=== PATIENT | male | born 1965 | race Caucasian/White ===

== ENCOUNTER 2023-01-06 09:38 | Outpatient (OUT) | payer BC, SELFPAY ==
[2023-01-06 15:32] LABS: Estimated Average Glucose 137 mg/dL; Glycohemoglobin A1C 6.4 % (4.5-6.2)
== END 2023-01-06 09:39 | disposition home or self-care (01) ==
LOC: LAB 09:42
PROVIDERS: PCP Internal Medicine; Visit Provider Internal Medicine
DX: E11.65 Type 2 diabetes mellitus with hyperglycemia (principal)
CPT/HCPCS: 36415; 83036

== ENCOUNTER 2023-06-04 10:46 | Outpatient (OUT) | payer BC, SELFPAY ==
[2023-06-04 11:06] LABS: Basophils Absolute Auto 0.1 10^3/uL (0.0-0.1); Basophils Percent Auto 0.9 % (0.2-2.0); Eosinophils Absolute Auto 0.1 10^3/uL (0.0-0.7); Hematocrit 43.7 % (42.0-54.0); Hemoglobin 14.9 g/dL (14.0-18.0); Immature Granulocytes Abs Auto 0.04 10^3/uL (0.00-0.03); Immature Granulocytes Pct Auto 0.6 % (0.0-0.5); Lymphocytes Absolute Auto 1.5 10^3/uL (1.2-3.8); Lymphocytes Percent Auto 21.8 % (20.5-60.0); Mean Corpuscular HGB Conc 34.1 g/dL (29.9-35.2); Mean Corpuscular Hemoglobin 32.3 pg (25.9-34.0); Mean Corpuscular Volume 94.8 fL (80.0-94.0); Mean Platelet Volume 9.2 fL (9.5-13.5); Monocytes Absolute Auto 0.8 10^3/uL (0.3-0.8); Monocytes Percent Auto 11.1 % (1.7-12.0); Neutrophils Absolute Auto 4.4 10^3/uL (1.4-6.5); Neutrophils Percent Auto 63.6 % (43.0-75.0); Platelet Count 202 10^3/uL (150-450); Red Blood Count 4.61 10^6/uL (4.70-6.10); Red Cell Distribution Width 11.9 % (11.0-15.0); White Blood Count 6.9 10^3/uL (4.0-11.0)
[2023-06-04 11:55] LABS: Microalbumin Urine Random 2.1 mg/dL (<=30.0)
[2023-06-04 12:33] LABS: Alanine Aminotransferase 48 U/L (16-63); Albumin Globulin Ratio 1.1; Albumin Level 3.9 g/dL (3.4-5.0); Alkaline Phosphatase 46 U/L (46-116); Anion Gap 15.1; Aspartate Amino Transferase 18 U/L (15-37); BUN Creatinine Ratio 14.9; Bilirubin Total 0.3 mg/dL (0.2-1.0); Calcium 8.7 mg/dL (8.5-10.1); Carbon Dioxide 26.3 mmol/L (21.0-32.0); Chloride 107 mmol/L (98-107); Chol HDL Ratio 3.8; Cholesterol 155 mg/dL (<=200); Estimated GFR (African America >60 (>=60); Estimated GFR (Non-African Ame >60 (>=60); Globulin 3.4 g/dL; Glucose 146 mg/dL (74-106); HDL Cholesterol 41 mg/dL (40-60); Potassium 4.4 mmol/L (3.5-5.1); Sodium 144 mmol/L (136-145); Total Protein 7.3 g/dL (6.4-8.2); Triglycerides 204 mg/dL (<=150); VLDL CHOLESTEROL 40.8 mg/dL
[2023-06-04 12:56] LABS: Estimated Average Glucose 148 mg/dL; Glycohemoglobin A1C 6.8 % (4.5-6.2)
[2023-06-04 13:10] LABS: Prostate Specific Antigen Scrn 2.78 ng/mL (<=4.00)
== END 2023-06-04 10:47 | disposition home or self-care (01) ==
LOC: LAB 10:49
PROVIDERS: PCP Internal Medicine; Visit Provider Internal Medicine
DX: Z00.00 Encounter for general adult medical examination without abnormal findings (principal)
CPT/HCPCS: 36415; 80053; 80061; 82043; 83036; 85025; G0103

== ENCOUNTER 2023-11-07 09:29 | Outpatient (OUT) | payer BC, SELFPAY ==
--- OUTSIDE RECORDS SUMMARY | 2023-11-07 09:43 | XMS_ITS | CCD ---
Author Organization [facility] Care Team Providers Care Crown Attacher Name Role Phone DO Fabio Gross Primary Care Provider MD Agustin Murphy Admit Provider MD Agustin Murphy Attending Provider BUZZ Alvarez Other Provider Unavailable BUZZ Grimes Other Provider Unavailable BUZZ Amaya Other Provider Unavailable BUZZ Kwan Other Provider Unavailable BUZZ Fleming Other Provider Unavailable BUZZ Warner Other Provider Unavailable MD Jordan June Other Provider MD Ender Kumari Other Provider Dieudonnes, VAUDEVILLE ACTOR Jessica Pinto Other Provider DO Dawson Marinelli Other Provider MD Tan Martini Other Provider [phone] DO Abelino Jacques Other Provider MD Javon Magana Other Provider MD Mia Vital Other Provider Huey ANP-BC Lilly Other Provider MD Radha Nogueira Other Provider MD Nikolas Zurita Other Provider MD Ifeanyi Davidson Other Provider MD Heena Smiley Other Provider MD Rafa Murray Other Provider MD Laura Houser Other Provider MD Héctor Ro Other Provider CHRISTA Martin Other Provider MD Lloyd Ambrose Other Provider MD Ryan Medina Other Provider MD Amirah Salas Other Provider MD Yomi Schuler Other Provider DO Aniyah Edmonds Other Provider MD Napoleon Pratt Other Provider DO Rod Ruano Other Provider NICKI Potts Other Provider DO Todd Pelletier Other Provider MD Laila Vargas Other Provider BUZZ Patel Other Provider Unavailable Fabio Gross Primary Care Unavailable Dhara Alvarez Consulting Unavailable Agustin Murphy Attending Unavailable Agustin Murphy Admitting Unavailable Rebecca Grimes Consulting Unavailable Annmarie Amaya Consulting Unavailable Megan Kwan Consulting Unavailable Mikayla Fleming Consulting Unavailable Mary Warner Consulting Unavailable MassJordan gibson Consulting Unavailable Quoc, Ender K Consulting Unavailable Dials, Jessiac M Consulting Unavailable Dawson Marinelli Consulting Unavailable Vini, Tan Consulting Unavailable Abelino Jacques Consulting UnavailJavon Combs Consulting Unavailable Amanuel Mia Consulting Unavailable Lilly Arzate Consulting Unavailable Radha Nogueira Consulting Unavailable Nikolas Zurita Consulting Unavailable Ifeanyi Davidson Consulting Unavailable Heena Smiley Consulting Unavailable Rafa Murray Consulting Unavailable Laura Houser Consulting Unavailable Héctor Ro Consulting Unavailable Ester Martin Consulting Unavailable Lloyd Ambrose Consulting Unavailab ira Medina, Ryan Consulting Unavailable Amirah aSlas Consulting Unavailable Yomi Schuler Consulting Unavailable Aniyah Edmonds Consulting Unavailable Napoleon Pratt Consulting Unavailab ira Ruano, Rod Dumas Consulting Unavailable Obika, Bethany Consulting Unavailable Pelletier, Todd Parsons Consulting Unavailable Daromar, Laila Pinto Consulting Unavailable Patel, Ginna Consulting Unavailable Scottie, Fabio Primary Care Unavailable Jeffrey, Agustin Admitting Unavailable Jeffrey, Agustin Attending Unavailable Scottie, Fabio Unavailable [facility], DR LAUGHLIN Admitting Unavailable MISC, DR LAUGHLIN Attending Unavailable SCOTTIE, DR CAMARA Primary Care Unavailable MISC, DR LAUGHLIN Consulting Unavailable BALL, DR CAMARA Admitting Unavailable BALL, DR CAMARA Attending Unavailable BALL, DR CAMARA Primary Care Unavailable BALL, DR CAMARA Consulting Unavailable SCOTTIE, DR CAMARA Admitting Unavailable BALL, DR CAMARA Attending Unavailable BALL, DR CAMARA Primary Care Unavailable SCOTTIE, DR CAMARA Consulting Unavailable SCOTTIE, DR CAMARA Primary Care Unavailable CAMMY, DR RADHA Dumas Consulting Unavailable CAMMY, DR RADHA Dumas Admitting Unavailable CAMMY, DR RADHA Dumas Attending Unavailable MCGHEE, EDIL Consulting Unavailable GEOFFREY, ANAYELI Consulting Unavailable SCOTTIE, DR CAMARA Admitting Unavailable BALL, DR CAMARA Attending Unavailable SCOTTIE, DR CAMARA Primary Care Unavailable SCOTTIE, DR CAMARA Consulting Unavailable SCOTTIE, DR CAMARA Admitting Unavailable SCOTTIE, DR CAMARA Attending Unavailable BALL, DR CAMARA Primary Care Unavailable Medications Current Medications Medication Drug Class(es) Dates Sig (Normalized) Sig (Original) aspirin 81 mg chewable tablet (16 sources) Platelet Aggregation Inhibitor, Nonsteroidal Anti-inflammatory Drug Start: 01-18-2022 End: 01-23-2022 take 1 tablet by mouth once daily Aspirin (Children's Aspirin) 81 mg Tablet,Chewable Active 81 MG PO Daily January 23, 2022 12:00am take 1 capsule by mouth once saundra ly Aspirin 81 MG 1 capsule Orally Once a day Active atorvastatin 80 mg oral tablet (15 sources) HMG-CoA Reductase Inhibitor Start: 01-23-2022 take 80 mg by mouth once daily in the evening Atorvastatin Active 80 MG PO Every evening January 23, 2022 12:00am take 1 tablet by gini th every twenty-four hours Atorvastatin Calcium 40 MG 1 tablet Oral ly Once a day Active take 1 tablet by gini th once daily in the evening Atorvastatin Calcium 20 MG 1 tablet Oral ly Once a day, in evening for 30 day(s) Active clopidogrel 75 mg oral tablet (6 sources) P2Y12 Platelet Inhibitor Start: 01-18-2022 End: 01-23-2022 take 75 mg by mouth once daily Clopidogrel Active 75 MG PO Daily January 23, 2022 12:00am metFORMIN hydrochloride 500 mg oral tablet (10 sources) Biguanide Start: 07-12-2022 take 1 tablet by mouth every twenty-four hours metFORMIN HCl 500 MG 1 tablet with a meal Orally Once a day for 30 day(s) Jun, Active Completed/Discontinued Medications Medication Drug Class(es) Dates Sig (Normalized) Sig (Original) acetaminophen 325 mg / HYDROcodone bitartrate 5 mg oral tablet (3 sources) Opioid Agonist Start: 01-18-2022 End: 01-23-2022 take 1 tablet by mouth every six hours Hydrocodone-Aceta minophen Discontinued 1 TAB PO Q6H January 18, 2022 12:00am January 23, 2022 9:42am heparin sodium, porcine 5000 unt/ml injectable solution (3 sources) Unfractionated Heparin, Anti-coagulant Start: 01-18-2022 End: 01-23-2022 inject 5000 [IU] by subcutaneous injection every twelve hours Heparin (Porcine) Discontinued 5000 UNIT SUBCUT Q12H January 18, 2022 12:00am January 23, 2022 9:42am ibuprofen 800 mg oral tablet (3 sources) Nonsteroidal Anti-inflammatory Drug Start: 01-18-2022 End: 01-23-2022 take 800 mg by mouth every six hours Ibuprofen Discontinued 800 MG PO Q6H January 18, 2022 12:00am January 23, 2022 9:43am Problems Active Problems Problem Classification Problem Date Documented Date Episodic/Chronic Abdominal hernia (10 sources) Recurrent left inguinal hernia; Translations: [Unilateral inguinal hernia, without obstruction or gangrene, recurrent] Episodic Acute cerebrovascular disease (20 sources) Cerebellar stroke; Translations: [Cerebral infarction, unspecified] Onset: 01-17-2022 01-19-2022 Chronic Administrative/social admission (6 sources) Other reduced mobility; Translations: [Impaired mobility and activities of daily living] Onset: 01-18-2022 01-19-2022 Episodic Cardiac dysrhythmias (1 source) Cardiac arrhythmia, unspecified; Translations: [Cardiac arrhythmia, unspecified] Onset: 01-23-2022 Chronic Conditions associated with dizziness or vertigo (10 sources) Dizziness; Translations: [Dizziness and giddiness] Onset: 01-14-2022 01-19-2022 Episodic Diabetes mellitus with complications (19 sources) Type 2 diabetes mellitus; Translations: [Type 2 diabetes mellitus with hyperglycemia] Onset: 10-07-2022 Chronic Diabetes mellitus without complication (4 sources) Type 2 diabetes mellitus without complications; Translations: [TYPE 2 DM WITHOUT COMPLICATIONS] Onset: 07-24-2022 Chronic Diabetes mellitus without complication (10 sources) Impaired fasting glycemia; Translations: [Impaired fasting glucose] Episodic Disorders of lipid metabolism (20 sources) Hyperlipidemia; Translations: [Hyperlipidemia, unspecified] Onset: 01-18-2022 01-23-2022 Chronic 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 drugs; Translations: [ALF USE ORAL HYPOGLYCEMIC DX] Onset: 07-25-2022 Episodic Other and ill-defined cerebrovascular disease (10 sources) Cerebral atherosclerosis; Translations: [Cerebral atherosclerosis] Chronic Other and ill-defined cerebrovascular disease (3 sources) Cerebral atherosclerosis Chronic Other circulatory disease (8 sources) History of cerebrovascular accident; Translations: [Personal history of transient ischemic attack (TIA), and cerebral infarction without residual deficits] Episodic Other circulatory disease (3 sources) Personal history of transient ischemic attack (TIA), and cerebral infarction without residual deficits Episodic Other liver diseases (10 sources) Increased creatine kinase level; Translations: [Abnormal levels of other serum enzymes] Episodic Other nutritional; endocrine; and metabolic disorders (18 sources) Body mass index 30+ - obesity; Translations: [Obesity, unspecified] Chronic Other nutritional; endocrine; and metabolic disorders (8 sources) Obesity caused by energy imbalance; Translations: [Other obesity due to excess calories] Chronic Other screening for suspected conditions (not mental disorders or infectious disease) (5 sources) Encounter for screening for malignant neoplasm of prostate; Translations: [Encounter for screening for malignant neoplasm of colon] Onset: 07-15-2022 Episodic Residual codes; unclassified (10 sources) Obstructive sleep apnea syndrome; Translations: [Obstructive sleep apnea (adult) (pediatric)] Chronic Residual codes; unclassified (7 sources) Obstructive sleep apnea (adult) (pediatric); Translations: [OBSTRUCTIVE SLEEP APNEA] Onset: 02-11-2022 Chronic Residual codes; unclassified (13 sources) Patient encounter status; Translations: [Encounter for prophylactic measures, unspecified] 01-19-2022 Episodic Substance-related disorders (20 sources) Nicotine dependence; Translations: [Nicotine dependence, chewing tobacco, uncomplicated] Onset: 01-17-2022 Chronic Unclassified (1 source) CONTACT W/AND (SUSP) EXPOS COVID-19; Translations: [CONTACT W/AND (SUSP) EXPOS COVID-19] Onset: 01-17-2022 Past or Other Problems Problem Classification Problem Date Documented Da te Episodic/Chronic Nausea and vomiting (1 source) Nausea with vomiting, unspecified; Translations: [NAUSEA WITH VOMITING UNSPECIFIED] Onset: 01-17-2022 Episodic Other nervous system disorders (1 source) Slurred speech; Translations: [SLURRED SPEECH] Onset: 01-17-2022 Episodic Other nervous system disorders (1 source) Ataxia, unspecified; Translations: [ATAXIA UNSPECIFIED] Onset: 01-17-2022 Episodic Residual codes; unclassified (3 sources) Encounter for prophylactic measures, unspecified; Translations: [Unspecified prophylactic or treatment measure] Onset: 01-18-2022 01-23-2022 Episodic Residual codes; unclassified (1 source) Other specified health status; Translations: [Other specified health status] Onset: 01-18-2022 Episodic Results Test Name Value Interpretation Reference Range Facility Comprehensive Metabolic Pane [facility] 06-04-2023 Albumin [Mass/Vol] 3.271087 g/dL Normal 3.4-5.0 g/dL [facility] [employer] Other ALP [Catalytic activity/Vol] 46 U/L Normal 46-116 U/L [place] [employer] Other ALT [Catalytic activity/Vol] 48 U/L Normal 16-63 U/L [place] [employer] Other Anion gap [Moles/Vol] [facility].1 [facility] [employer] Other AST [Catalytic activity/Vol] 18 U/L Normal 15-37 U/L [facility] Other Bilirubin [Mass/Vol] 0.1324328 mg/dL Normal 0.2-1.0 mg /dL [facility] Other Calcium [Mass/Vol] 8.3593098 mg/dL Normal 8.5-10 .1 mg/dL [facility] Other Chloride [Moles/Vol] 107 mmol/L Normal 98-107 mmol/L [facility] [employer] Other CO2 [Moles/Vol] 26.51929033 mmol/L Normal 21.0-3 2.0 mmol/L [place] [employer] Other Creatinine [Mass/Vol] 1.46123733 mg/dL Normal 0. 70-1.30 mg/dL [place] [employer] Other Glucose [Mass/Vol] 146 mg/dL High 74-106 mg/dL [facility] Other Potassium [Moles/Vol] 4.85813721 mmol/L Normal 3 .5-5.1 mmol/L [place] [employer] Other Protein [Mass/Vol] 7.592657 g/dL Normal 6.4-8.2 g/dL [facility] [employer] Other Sodium [Moles/Vol] 144 mmol/L Normal 136-145 mmol/L [facility] Other Urea nitrogen [Mass/Vol] 15.7202642 mg/dL Normal 7.0-18.0 mg/dL [facility] Other Urea nitrogen/Creatinine [Mass ratio] 14.9 mg/mg [facility] Other Comprehensive Metabolic Panel 3.4 g/dL [facility] Other Comprehensive Metabolic Panel 1.1 [facility] Other Comprehensive Metabolic Panel see note [facility] Other Comprehensive Metabolic Panel >60 >=60 [facility] Other Lipid Panelon 06-04-2023 Cholesterol [Mass/Vol] 155 mg/dL <=200 mg/dL [facility] [employer] Other Cholesterol in HDL [Mass/Vol] 41 mg/dL Normal 40-60 mg/dL [facility] Other Triglyceride [Mass/Vol] 204 mg/dL High <=150 mg/dL [facility] Other Lipid Panel 74.0 mg/dL [facility] [employer] Other Lipid Panel 40.8 mg/dL [facility] [employer] Other Lipid Panel 3.8 [facility] [employer] Other PSA SCREENINGon 06-04-2023 PSA SCREENING 2.78 ng/mL <=4.00 ng/mL [facility] [employer] Other GLYCOHEMOGLOBIN A1Con 2022 ADA RECOMMENDATION SEE BELOW Normal [facility] Comment on above: Result Comment: ADA RECOMMENDED LIMIT 4.0 - 6.0 ADA THERAPEUTIC TARGET < 7.0 ACTION SUGGESTED > 7.0 Performed By: #### A 1C #### [facility] [address] [place] [address] Dr. Yasemin Austin Glucose [Mass/Vol] 128 mg/dL Normal [facility] Comment on above: Performed By: #### A 1C #### [facility] [address] [place] [address] Dr. Yasemin Austin HbA1c (Bld) [Mass fraction] 6.1 % Normal 4.5-6.2 [facility] Comment on above: Performed By: #### A 1C #### [facility] [address] [place] [address] Dr. Yasemin Austin CBC AUTO DIFFon 07-10-2022 BASO # 0.1 103/ul Normal 0.0-0.1 [facility] Comment on above: Performed By: #### C BC #### [facility] [address] [place] [address] Dr. Yasemin Austin Basophils/100 WBC (Bld) 0.7 % Normal 0.2-2.0 [facility] Comment on above: Performed By: #### C BC #### [facility] [address] [place] [address] Dr. Yasemin Austin EO # 0.1 103/ul Normal 0.0-0.7 [facility] Comment on above: Performed By: #### C BC #### [facility] [address] [place] [address] Dr. Yasemin Austin Eosinophils/100 WBC (Bld) 1.6 % Normal 0.9-7.0 [facility] Comment on above: Performed By: #### C BC #### [facility] [address] [place] [address] Dr. Yasemin Austin Erythrocyte distribution width (RBC) [Ratio] 11.9 % Normal 11.0-15.0 [facility] Comment on above: Performed By: #### C BC #### [facility] [address] [place] [address] Dr. Yasemin Austin Hematocrit (Bld) [Volume fraction] 44.2 % Normal 42.0-54.0 [facility] Comment on above: Performed By: #### C BC #### [facility] [address] [place] [address] Dr. Yasemin Austin Hemoglobin (Bld) [Mass/Vol] 15.3 g/dL Normal 14.0-18.0 [facility] Comment on above: Performed By: #### C BC #### [facility] [address] [place] [address] Dr. Yasemin Austin IG # 0.02 10e3/ul Normal 0.00-0.03 [facility] Comment on above: Performed By: #### C BC #### [facility] [address] [place] [address] Dr. Yasemin Austin IG % 0.3 % Normal 0.0-0.5 [facility] Comment on above: Performed By: #### C BC #### [facility] [address] [place] [address] Dr. Yasemin Austin LYMPH # 1.2 103/ul Normal 1.2-3.8 [facility] Comment on above: Performed By: #### C BC #### [facility] [address] [place] [address] Dr. Yasemin Austin Lymphocytes/100 WBC (Bld) 17.1 % Critically low 20.5-60.0 [facility] Comment on above: Performed By: #### C BC #### [facility] [address] [place] [address] Dr. Yasemin Austin MANUAL DIFF REQ NO Normal [facility] Comment on above: Performed By: #### C BC #### [facility] [address] [place] [address] Dr. Yasemin Austin MCH (RBC) [Entitic mass] 31.4 pg Normal 25.9-34.0 [facility] Comment on above: Performed By: #### C BC #### [facility] [address] [place] [address] Dr. Yasemin Austin MCHC (RBC) [Mass/Vol] 34.6 g/dL Normal 29.9-35.2 [facility] Comment on above: Performed By: #### C BC #### [facility] [address] [place] [address] Dr. Yasemin Austin MCV (RBC) [Entitic vol] 90.8 fL Normal 80.0-94.0 [facility] Comment on above: Performed By: #### C BC #### [facility] [address] [place] [address] Dr. Yasemin Austin MONO # 0.9 103/ul Critically high 0.3-0.[address] [facility] Comment on above: Performed By: #### C BC #### [facility] [address] [place] [address] Dr. Yasemin Austin Monocytes/100 WBC (Bld) 12.9 % Critically high 1.7-12.0 [facility] Comment on above: Performed By: #### C BC #### [facility] [address] [place] [address] Dr. Yasemin Austin NEUT # 4.7 103/ul Normal 1.4-6.5 [facility] Comment on above: Performed By: #### C BC #### [facility] [address] [place] [address] Dr. Yasemin Austin Neutrophils/100 WBC (Bld) 67.4 % Normal 43.0-75.0 [facility] Comment on above: Performed By: #### C BC #### [facility] [address] [place] [address] Dr. Yasemin Austin Platelet mean volume (Bld) [Entitic vol] 9.2 fL Critically low 9.5-13.5 [facility] Comment on above: Performed By: #### C BC #### [facility] [address] [place] [address] Dr. Yasemin Austin PLT 236 103/ul Normal 150-450 [facility] Comment on above: Performed By: #### C BC #### [facility] [address] [place] [address] Dr. Yasemin Austin RBC 4.87 106/ul Normal 4.70-6.10 [facility] Comment on above: Performed By: #### C BC #### [facility] [address] [place] [address] Dr. Yasemin Austin WBC 6.9 103/ul Normal 4.0-11.0 [facility] Comment on above: Performed By: #### C BC #### [facility] [address] [place] [address] Dr. Yasemin Austin GLYCOHEMOGLOBIN A1Con 2022 ADA RECOMMENDATION SEE BELOW Normal [facility] Comment on above: Result Comment: ADA RECOMMENDED LIMIT 4.0 - 6.0 ADA THERAPEUTIC TARGET < 7.0 ACTION SUGGESTED > 7.0 Performed By: #### A 1C #### [facility] [address] [place] [address] Dr. Yasemin Ausitn Glucose [Mass/Vol] 151 mg/dL Normal [facility] Comment on above: Performed By: #### A 1C #### [facility] [address] [place] [address] Dr. Yasemin Austin HbA1c (Bld) [Mass fraction] 6.9 % Critically high 4.5-6.2 [facility] Comment on above: Performed By: #### A 1C #### [facility] [address] [place] [address] Dr. Yasemin Austin LIPID PROFILEon 07-10-2022 CHOL-HDL RATIO NORM SEE BELOW Normal [facility] Comment on above: Result Comment: 3.3 - 4.4 LOW RISK 4.4 - 7.1 AVERAGE RISK 7.1 - 11.0 MODERATE RISK >11.0 HIGH RISK Performed By: #### L IPID, CMP #### [facility] [address] [address] [address] Yasemin Austin Cholesterol [Mass/Vol] 207 mg/dL Critically high <=200 [facility] Comment on above: Performed By: #### L IPID, CMP #### [facility] [address] [address] [address] Yasemin Austin Cholesterol in HDL [Mass/Vol] 38 mg/dL Critically low 40-60 [facility] Comment on above: Performed By: #### L IPID, CMP #### [facility] [address] [address] [address] Yasemin Austin Cholesterol in LDL [Mass/Vol] 137.0 mg/dL Normal [facility] Comment on above: Performed By: #### L IPID, CMP #### [facility] [address] [address] [address] Yasemin Austin Cholesterol.total/Chol esterol in HDL [Mass ratio] 5.4 {ratio} Normal [facility] Comment on above: Performed By: #### L IPID, CMP #### [facility] [address] [address] [address] Yasemin Austin HDL NORMAL > or = 60 mg/dl - LOW CARDIOVASCULAR RISK <40 mg/dl - HIGH CARDIOVASCULAR RISK Normal [facility] Comment on above: Performed By: #### L IPID, CMP #### [facility] [address] [address] [address] Yasemin Austin LDL CALC NORMAL SEE BELOW Normal [facility] Comment on above: Result Comment: <100 mg/dl OPTIMAL 100 - 129 mg/dl NEAR OR ABOVE OPTIMAL 130 - 159 mg/dl BORDERLINE HIGH 160 - 189 mg/dl HIGH >190 mg/dl VERY HIGH Performed By: #### L IPID, CMP #### [facility] [address] [address] [address] Yasemin Austin Triglyceride [Mass/Vol] 160 mg/dL Critically high <=150 [facility] Comment on above: Performed By: #### L IPID, CMP #### [facility] [address] [address] [address] Yasemin Austin VLDL CALC 32.0 mg/dL Normal [facility] Comment on above: Performed By: #### L IPID, CMP #### [facility] [address] [address] [address] Yasemin Austin PROF 14(COMP METB)on 023 Albumin [Mass/Vol] 3.8 g/dL Normal 3.4-5.0 [facility] Comment on above: Performed By: #### L IPID, CMP ####[facility] [id number] [address]Dr. Yasemin Austin Albumin/Globulin [Mass ratio] 1.2 {ratio} Normal [facility] Comment on above: Performed By: #### L IPID, CMP ####[facility] [address] [address]Dr. Yasemin Austin ALP [Catalytic activity/Vol] 36 U/L Critically low 46-116 [facility] Comment on above: Performed By: #### L IPID, CMP ####[facility] [id number] [address]Dr. Yasemin Austin ALT [Catalytic activity/Vol] 37 U/L Normal 16-63 [facility] Comment on above: Performed By: #### L IPID, CMP ####[facility] [address] [address]Dr. Yasemin Austin Anion gap [Moles/Vol] 12.7 mmol/L Normal [facility] Comment on above: Performed By: #### L IPID, CMP ####[facility] [id number] [address]Dr. Yasemin Austin AST [Catalytic activity/Vol] 25 U/L Normal 15-37 [facility] Comment on above: Performed By: #### L IPID, CMP ####[facility] [address] [address]Dr. Yasemin Austin Bilirubin [Mass/Vol] 0.7 mg/dL Normal 0.2-1.0 [facility] Comment on above: Performed By: #### L IPID, CMP ####[facility] [id number] [address]Dr. Yasemin Austin Calcium [Mass/Vol] 8.8 mg/dL Normal 8.5-10.1 [facility] Comment on above: Performed By: #### L IPID, CMP ####[facility] [id number] [address]Dr. Yasemin Austin Chloride [Moles/Vol] 105 mmol/L Normal 98-107 [facility] Comment on above: Performed By: #### L IPID, CMP ####[facility] [id number] [place], [place] [address]Dr. Yasemin Austin CO2 [Moles/Vol] 27.5 mmol/L Normal 21.0-32.0 [facility] Comment on above: Performed By: #### L IPID, CMP ####[facility] [id number] [place], [place] [address]Dr. Yasemin Austin Creatinine [Mass/Vol] 0.99 mg/dL Normal 0.70-1.30 [facility] Comment on above: Performed By: #### L IPID, CMP ####[facility] [id number] [place], [place] [address]Dr. Yasemin Austin EGFR-AF EQUATORIAL GUINEAN >60 Normal >=60 [facility] Comment on above: Performed By: #### L IPID, CMP ####[facility] Aby[address] [place], [place] [address]Dr. Yasemin Austin EGFR-NON AF EQUATORIAL GUINEAN >60 Normal >=60 [facility] Comment on above: Performed By: #### L IPID, CMP ####[facility] [address] [place], [place] [address]Dr. Yasemin Austin Globulin (S) [Mass/Vol] 3.3 g/dL Normal [facility] Comment on above: Performed By: #### L IPID, CMP ####[facility] Scphxnajax[address] [place], [place] [address]Dr. Yasemin Austin Glucose [Mass/Vol] 145 mg/dL Critically high 74-106 [facility] Comment on above: Performed By: #### L IPID, CMP ####[facility] [address] [place] [address]Dr. Yasemin Austin Potassium [Moles/Vol] 4.2 mmol/L Normal 3.5-5.1 [facility] Comment on above: Performed By: #### L IPID, CMP ####[facility] [address] [place] [address]Dr. Yasemin Austin Protein [Mass/Vol] 7.1 g/dL Normal 6.4-8.2 [facility] Comment on above: Performed By: #### L IPID, CMP ####[facility] [address] [place], [place] [address]Dr. Yasemin Austin Sodium [Moles/Vol] 141 mmol/L Normal 136-145 [facility] Comment on above: Performed By: #### L IPID, CMP ####[facility] [address] [place], [place] [address]Dr. Yasemin Austin Urea nitrogen [Mass/Vol] 15.0 mg/dL Normal 7.0-18.0 [facility] Comment on above: Performed By: #### L IPID, CMP ####[facility] [address] [place], [place] [address]Dr. Yasemin Austin Urea nitrogen/Creatinine [Mass ratio] 15.2 mg/mg Normal [facility] Comment on above: Performed By: #### L IPID, CMP ####[facility] [address] [place], [place] [address]Dr. Yasemin Austin LIPID PROFILEon 03-15-2022 CHOL-HDL RATIO NORM SEE BELOW Normal [facility] Comment on above: Result Comment: 3.3 - 4.4 LOW RISK 4.4 - 7.1 AVERAGE RISK 7.1 - 11.0 MODERATE RISK >11.0 HIGH RISK Performed By: #### L IPID ####[facility] [address] [place], [place] [address]Dr. Yasemin Austin Cholesterol [Mass/Vol] 169 mg/dL Normal <=200 [facility] Comment on above: Performed By: #### L IPID ####[facility] [address] [place] [id number]. Yasemin Austin Cholesterol in HDL [Mass/Vol] 38 mg/dL Critically low 40-60 [facility] Comment on above: Performed By: #### L IPID ####[facility] [address] [place] [id number]. Yasemin Austin Cholesterol in LDL [Mass/Vol] 101.0 mg/dL Normal [facility] Comment on above: Performed By: #### L IPID ####[facility] [address] [place] [id number]. Yasemin Austin Cholesterol.total/Chol esterol in HDL [Mass ratio] 4.4 {ratio} Normal [facility] Comment on above: Performed By: #### L IPID ####[facility] [address] [place] [id number]. Yasemin Austin HDL NORMAL > or = 60 mg/dl - LOW CARDIOVASCULAR RISK <40 mg/dl - HIGH CARDIOVASCULAR RISK Normal [facility] Comment on above: Performed By: #### L IPID ####[facility] [address] [place] [id number]. Yasemin Austin LDL CALC NORMAL SEE BELOW Normal [facility] Comment on above: Result Comment: <100 mg/dl OPTIMAL 100 - 129 mg/dl NEAR OR ABOVE OPTIMAL 130 - 159 mg/dl BORDERLINE HIGH 160 - 189 mg/dl HIGH >190 mg/dl VERY HIGH Performed By: #### L IPID ####[facility] [address] [place] [id number]. Yasemin Austin Triglyceride [Mass/Vol] 150 mg/dL Normal <=150 [facility] Comment on above: Performed By: #### L IPID ####[facility] [address] [place] [id number]. Yasemin Austin VLDL CALC 30.0 mg/dL Normal [facility] Comment on above: Performed By: #### L IPID ####[facility] [address] [place] [id number]. Yasemin Austin CA cardiac event monitoron 0 03-12-2022 CA cardiac event monitor [facility] [place] [address] [place] [address] Cardiac Event Monitor Signed Patient: Jack Gonzales MR#: [id number] 2 : 1965 Acct:[id number] Age/Sex: 56 / M ADM Date: 01/23/22 Loc: Room: Type: [facility] Attending Dr: Agustin Murphy MD Copies to: MD Peter Avalos MD Ordering Provider: Agustin Murphy MD Date of Service: 01/23/22 CA/CA cardiac event monitor: cva, arrhythmia ORDERING: Agustin Murphy MD CLINICAL INFORMATION: Cerebrovascular accident, arrhythmia. The patient underwent 30-day event monitoring. There was a total of 4 recorded events. One was a test transmission demonstrating sinus rhythm, rate 75 beats per minute. There were 3 other patient-triggered events. No symptoms were reported. Review of those recorded events demonstrates sinus rhythm with heart rates ranging between 70 and 75 beats per minute. There was no observed ectopy, nor was there any atrial fibrillation, SVT, or atrial flutter. CONCLUSION: This study is basically normal. It demonstrates sinus rhythm with heart rates between 70 and 75 beats per minute. There was no ectopy or arrhythmia. Specifically, there was no observed atrial fibrillation or atrial flutter. Transcribed By: MICHAEL 03/13/22 0915 Dictated By: ePter Vega MD 03/12/22 1729 Signed By: 03/18/22 1412 Normal [facility] Cholesterol [Mass/volume] in Serum or PlasmaOrdered By: Lilly Arzate on 01-20-2022 Cholesterol [Mass/Vol] 206 mg/dL 140-200 [facility] Comment on above: Chol less than 200 m g/dl low risk Chol 201-239 mg/dl borderline risk Chol 240 mg/dl and greater high risk Cholesterol in LDL Calc [Mas s/Vol]Ordered By: Lilly Arzate on 01-20-2022 Cholesterol in LDL [Mass/Vol] 142 mg/dL 0-100 [facility] Comment on above: LDL ATP III CLASSIFI CATION LDL less than 100 mg/dL Optimal LDL 100-129 mg/dL Near or above optimal LDL 130-159 mg/dL Borderline high LDL 160-189 mg/dL High LDL greater than 189 mg/dL Very high Cholesterol in VLDL Calc [Ma ss/Vol]Ordered By: Lilly Arzate on 01-20-2022 Cholesterol in VLDL [Mass/Vol] 31 mg/dL [facility] Lipid Panelon 01-20-2022 Cholesterol [Mass/Vol] 206 mg/dL High 140-200 [facility] Comment on above: Order Comment: TRACEY Clifford Result Comment: Chol less than 200 mg/dl low risk Chol 201-239 mg/dl borderline risk Chol 240 mg/dl and greater high risk Performed By: #### L IPID #### [facility] [address] [place] [address] [place] Cholesterol in HDL [Mass/Vol] 32 mg/dL Normal 29-71 [facility] Comment on above: Order Comment: TRACEY Clifford Result Comment: HDL CHOL ATP-III CLASSIFICATION Cardiovascular Risk HDL > or equal to 60 mg/dL LOW HDL < 40 mg/dL HIGH Performed By: #### L IPID #### [facility] [address] [place] [id number] [place] Cholesterol.total/Chol esterol in HDL [Mass ratio] 6.4 {ratio} Normal <5.0 [facility] Comment on above: Order Comment: TRACEY Clifford Result Comment: PERF ORMED BY: [place] [address] PATHOLOGIST REGISTERED MAIL CLERK EMIR DOBSON M.D. Performed By: #### L IPID #### [facility] [address] [place] [id number] [place] LDL Cholesterol,Calculated 142 mg/dL High 0-100 [facility] Comment on above: Order Comment: TRACEY Clifford Result Comment: LDL ATP III CLASSIFICATION LDL less than 100 mg/dL Optimal LDL 100-129 mg/dL Near or above optimal LDL 130-159 mg/dL Borderline high LDL 160-189 mg/dL High LDL greater than 189 mg/dL Very high Performed By: #### L IPID #### [facility] [address] [place] [address] [place] Triglyceride w/Reflex 158 mg/dL High 35-149 [facility] Comment on above: Order Comment: TRACEY Clifford Result Comment: TRIG ATP III CLASSIFICATION TRIG less than 150 mg/dL Normal TRIG 150-199 mg/dL Borderline high TRIG 200-500 mg/dL High TRIG greater than 500 mg/dL Very high Standard traceable to the Center for Disease Conrtrol and Prevention (CDC) test method. Performed By: #### L IPID #### [facility] [address] VLDL CHOLESTEROL 31 mg/dL Normal [facility] Comment on above: Order Comment: TRACEY Clifford Performed By: #### L IPID #### [facility] [address] Serum or plasma high density lipoprotein (HDL) cholesterol measurementOrdered By: Lilly Arzate on 01-20-2022 Cholesterol in HDL [Mass/Vol] 32 mg/dL 29-71 [facility] Comment on above: HDL CHOL ATP-III CLA SSIFICATION Cardiovascular Risk HDL > or equal to 60 mg/dL LOW HDL < 40 mg/dL HIGH Serum or plasma total choles terol/high density lipoprotein (HDL) cholesterol mass ratOrdered By: Lilly Arzate on 01-20-2022 Cholesterol.total/Chol esterol in HDL [Mass ratio] 6.4 {ratio} <5.0 [facility] Triglyceride [Mass/volume] i n Serum or PlasmaOrdered By: Lilly Arzate on 01-20-2022 Triglyceride [Mass/Vol] 158 mg/dL 35-149 [facility] Comment on above: TRIG ATP III CLASSIF ICATION TRIG less than 150 mg/dL Normal TRIG 150-199 mg/dL Borderline high TRIG 200-500 mg/dL High TRIG greater than 500 mg/dL Very high Standard traceable to the Center for Disease Conrtrol and Prevention (CDC) test method. Albumin [Mass/volume] in Ser um or PlasmaOrdered By: Agustin Murphy on 01-19-2022 Albumin [Mass/Vol] 3.4 g/dL 3.2-5.5 [facility] Basophils Auto (Bld) [#/Vol] Ordered By: Agustin Murphy on 01-19-2022 Basophils (Bld) [#/Vol] 0.0 10*3/uL 0.0-0.2 [facility] Basophils/100 WBC Auto (Bld) Ordered By: Agustin Murphy on 01-19-2022 Basophils/100 WBC (Bld) 0.7 % . [facility] Blood hemoglobin measurement (mass/volume)Ordered By: Agustin Jeffrey on 01-19-2022 Hemoglobin (Bld) [Mass/Vol] 15.3 g/dL 13.0-17.0 [facility] Blood leukocytes automated c ount (number/volume)Ordered By: Agustin Murphy on 01-19-2022 WBC (Bld) [#/Vol] 6.6 10*3/uL 4.5-11.0 [facility] Complete Blood Count Auto Di ffon 01-19-2022 Basophils (Bld) [#/Vol] 0.0 10*3/uL Normal 0.0-0.2 [facility] Comment on above: Result Comment: PERF ORMED BY: [place] [address] PATHOLOGIST REGISTERED MAIL CLERK EMIR DOBSON M.D. Performed By: #### C BC, CMP, PAB #### [facility] [address] Basophils/100 WBC (Bld) 0.7 % Normal . [facility] Comment on above: Performed By: #### C BC, CMP, PAB #### [facility] [address] [place] [address] [place] Eosinophils (Bld) [#/Vol] 0.2 10*3/uL Normal 0.0-0.45 [facility] Comment on above: Performed By: #### C BC, CMP, PAB #### [facility] [address] [place] [address] [place] Eosinophils/100 WBC (Bld) 2.5 % Normal . [facility] Comment on above: Performed By: #### C BC, CMP, PAB #### [facility] [address] [place] [address] [place] Erythrocyte distribution width (RBC) [Ratio] 13.1 % Normal 12.0-14.8 [facility] Comment on above: Performed By: #### C BC, CMP, PAB #### [facility] [address] Hematocrit (Bld) [Volume fraction] 43.8 % Normal 38.8-50.0 [facility] Comment on above: Performed By: #### C BC, CMP, PAB #### [facility] [address] Hemoglobin (Bld) [Mass/Vol] 15.3 g/dL Normal 13.0-17.0 [facility] Comment on above: Performed By: #### C BC, CMP, PAB #### [address] Lymphocytes (Bld) [#/Vol] 1.5 10*3/uL Normal 1.00-4.8 [facility] Comment on above: Performed By: #### C BC, CMP, PAB #### [address] Lymphocytes/100 WBC (Bld) 22.1 % Normal . [facility] Comment on above: Performed By: #### C BC, CMP, PAB #### [address] MCH (RBC) [Entitic mass] 32.3 pg Normal 27.5-35.2 [facility] Comment on above: Performed By: #### C BC, CMP, PAB #### [address] MCV (RBC) [Entitic vol] 92.3 fL Normal 83.5-101 [facility] Comment on above: Performed By: #### C BC, CMP, PAB #### [address] Mean Corpuscular HGB Conc 35.0 g/dL Normal 32.5-35.6 [facility] Comment on above: Performed By: #### C BC, CMP, PAB #### [address] Monocytes (Bld) [#/Vol] 0.8 10*3/uL Normal 0.0-0.8 [facility] Comment on above: Performed By: #### C BC, CMP, PAB #### [facility] [address] [place] [address] [place] Monocytes/100 WBC (Bld) 12.4 % Normal . [facility] Comment on above: Performed By: #### C BC, CMP, PAB #### [facility] [address] [place] [address] [place] Neutrophils (Bld) [#/Vol] 4.1 10*3/uL Normal 1.8-7.7 [facility] Comment on above: Performed By: #### C BC, CMP, PAB #### [facility] [address] [place] [address] [place] Neutrophils/100 WBC (Bld) 62.3 % Normal . [facility] Comment on above: Performed By: #### C BC, CMP, PAB #### [facility] [address] [place] [address] [place] Nucleated RBC/100 WBC (Bld) [Ratio] 0.1 % Normal 0-0.5 [facility] Comment on above: Performed By: #### C BC, CMP, PAB #### [facility] [address] [place] [address] [place] Platelet mean volume (Bld) [Entitic vol] 8.0 fL Normal 6.6-10.1 [facility] Comment on above: Performed By: #### C BC, CMP, PAB #### [facility] [address] [place] [id number] [place] Platelets (Bld) [#/Vol] 261 10*3/uL Normal 150-450 [facility] Comment on above: Performed By: #### C BC, CMP, PAB #### [facility] [address] [place] [id number] [place] RBC (Bld) [#/Vol] 4.74 10*6/uL Normal 3.90-5.60 [facility] Comment on above: Performed By: #### C BC, CMP, PAB #### [facility] [address] [place] [address] [place] WBC (Bld) [#/Vol] 6.6 10*3/uL Normal 4.5-11.0 [facility] Comment on above: Performed By: #### C BC, CMP, PAB #### [address] Comprehensive Metabolic Pane [place] 01-19-2022 Albumin [Mass/Vol] 3.4 g/dL Normal 3.2-5.5 [facility] Comment on above: Performed By: #### C BC, CMP, PAB #### [address] Albumin/Globulin [Mass ratio] 1.1 {ratio} Normal [facility] Comment on above: Performed By: #### C BC CMP, PAB #### [address] ALP [Catalytic activity/Vol] 31 U/L Low 32-92 [facility] Comment on above: Performed By: #### C BC CMP, PAB #### [address] ALT [Catalytic activity/Vol] 44 U/L Normal 10-60 [facility] Comment on above: Performed By: #### C BC CMP, PAB #### [address] AST [Catalytic activity/Vol] 34 U/L Normal 10-42 [facility] Comment on above: Performed By: #### C BC CMP, PAB #### [address] Bilirubin [Mass/Vol] 0.7 mg/dL Normal 0.3-1.2 [facility] Comment on above: Performed By: #### C BC, CMP, PAB #### [address] Calcium [Mass/Vol] 8.9 mg/dL Normal 8.2-10.2 [facility] Comment on above: Performed By: #### C BC, CMP, PAB #### [place] [address] [place] Chloride [Moles/Vol] 104 mmol/L Normal 95-114 [facility] Comment on above: Performed By: #### C MARIAJOSE ALFORD, PAB #### [facility] [address] CO2 [Moles/Vol] 25.4 mmol/L Normal 22.0-30.0 [facility] Comment on above: Performed By: #### C MARIAJOSE ALFORD, PAB #### [facility] [address] Creatinine [Mass/Vol] 1.13 mg/dL Normal 0.64-1.27 [facility] Comment on above: Performed By: #### C MARIAJOSE ALFORD, PAB #### [address] Creatinine Clr Calc Pharmacy 88.22 [facility] Comment on above: Performed By: #### C MARIAJOSE ALFORD, PAB #### [address] Estimated GFR ( Elvia > 60 [facility] Comment on above: Result Comment: GFR estimated reference range: According to KDOQI guidelines, <60 ml/min/1.73m2 is sufficient to diagnose a patient with chronic kidney disease. Performed By: #### C MARIAJOSE ALFORD, PAB #### [address] Estimated GFR (Non- Am > 60 [facility] Comment on above: Performed By: #### C MARIAJOSE ALFORD, PAB #### [address] Globulin (S) [Mass/Vol] 3.0 g/dL [facility] Comment on above: Performed By: #### C MARIAJOSE ALFORD, PAB #### [address] Glucose [Mass/Vol] 121 mg/dL High 70-100 [facility] Comment on above: Result Comment: [place] om Glucose Reference Range is dependent on time and content of last meal. Glucose of more than 200 mg/dL in a nonstressed, ambulatory subject supports the diagnosis of Diabetes Mellitus. ADA recommended reference range Performed By: #### C BC, CMP, PAB #### [facility] [address] [place] [id number] [place] Potassium [Moles/Vol] 4.6 mmol/L Normal 3.5-5.1 [facility] Comment on above: Performed By: #### C BC, CMP, PAB #### [facility] [address] [place] [address] [place] Protein [Mass/Vol] 6.4 g/dL Normal 6.1-7.9 [facility] Comment on above: Performed By: #### C BC, CMP, PAB #### [facility] [address] [place] [id number] [place] Sodium [Moles/Vol] 138 mmol/L Normal 136-146 [facility] Comment on above: Performed By: #### C BC, CMP, PAB #### [facility] [address] [place] [id number] [place] Urea nitrogen [Mass/Vol] 16 mg/dL Normal 9-23 [facility] Comment on above: Performed By: #### C BC, CMP, PAB #### [facility] [address] [place] [id number] [place] Creatinine and Glomerular fi ltration rate.predicted panel (S/P/Bld)Ordered By: Agustin Murphy on 01-19-2022 Creatinine [Mass/Vol] 1.13 mg/dL 0.64-1.27 [facility] Eosinophils Auto (Bld) [#/Vo l]Ordered By: Agustin Murphy on 01-19-2022 Eosinophils (Bld) [#/Vol] 0.2 10*3/uL 0.0-0.45 [facility] Eosinophils/100 WBC Auto (Bl d)Ordered By: Agustin Murphy on 01-19-2022 Eosinophils/100 WBC (Bld) 2.5 % . [facility] Erythrocyte distribution wid th Auto (RBC) [Ratio]Ordered By: Agustin Murphy on 01-19-2022 Erythrocyte distribution width (RBC) [Ratio] 13.1 % 12.0-14.8 [facility] Estimated glomerular filtrat ion rate (GFR) non- AmericanOrdered By: Agustin Murphy on 01-19-2022 GFR/1.73 sq M.predicted among non-blacks MDRD (S/P/Bld) [Vol rate/Area] > 60 mL/Min [facility] Globulin Calc (S) [Mass/Vol] Ordered By: Agustin Murphy on 01-19-2022 Globulin (S) [Mass/Vol] 3.0 g/dL [facility] Hematocrit Auto (Bld) [Volum e fraction]Ordered By: Agustin Murphy on 01-19-2022 Hematocrit (Bld) [Volume fraction] 43.8 % 38.8-50.0 [facility] - Hematology and Cell countsOrdered By: Agustin Murphy on 01-19-2022 Nucleated RBC/100 WBC (Bld) [Ratio] 0.1 % 0-0.5 [facility] Lymphocytes Auto (Bld) [#/Vo l]Ordered By: Agustin Murphy on 01-19-2022 Lymphocytes (Bld) [#/Vol] 1.5 10*3/uL 1.00-4.8 [facility] Lymphocytes/100 WBC Auto (Bl d)Ordered By: Agustin Mruphy on 01-19-2022 Lymphocytes/100 WBC (Bld) 22.1 % . [facility] MCH Auto (RBC) [Entitic mass ]Ordered By: Agustin Murphy on 01-19-2022 MCH (RBC) [Entitic mass] 32.3 pg 27.5-35.2 [facility] MCHC Auto (RBC) [Mass/Vol]Or dered By: Agustin Murphy on 01-19-2022 MCHC (RBC) [Mass/Vol] 35.0 g/dL 32.5-35.6 [facility] MCV Auto (RBC) [Entitic vol] Ordered By: Agustin Murphy on 01-19-2022 MCV (RBC) [Entitic vol] 92.3 fL 83.5-101 [facility] Monocytes Auto (Bld) [#/Vol] Ordered By: Agustin Murphy on 01-19-2022 Monocytes (Bld) [#/Vol] 0.8 10*3/uL 0.0-0.8 [facility] Monocytes/100 WBC Auto (Bld) Ordered By: Agustin Murphy on 01-19-2022 Monocytes/100 WBC (Bld) 12.4 % . [facility] Neutrophils Auto (Bld) [#/Vo l]Ordered By: Agustin Murphy on 01-19-2022 Neutrophils (Bld) [#/Vol] 4.1 10*3/uL 1.8-7.7 [facility] Neutrophils/100 WBC Auto (Bl d)Ordered By: Agustin Murphy on 01-19-2022 Neutrophils/100 WBC (Bld) 62.3 % . [facility] No Panel InformationOrdered By: Agustin Murphy on 01-19-2022 Estimated GFR () > 60 mL/Min [facility] Comment on above: GFR estimated refere nce range: According to KDOQI guidelines, <60 ml/min/1.73m2 is sufficient to diagnose a patient with chronic kidney disease. Pharmacy Creatinine Clearance (Chem 88.22 [facility] Platelet mean volume Auto (B ld) [Entitic vol]Ordered By: Agustin Murphy on 01-19-2022 Platelet mean volume (Bld) [Entitic vol] 8.0 fL 6.6-10.1 [facility] Platelets Auto (Bld) [#/Vol] Ordered By: Agustin Murphy on 01-19-2022 Platelets (Bld) [#/Vol] 261 10*3/uL 150-450 [facility] Prealbuminon 01-19-2022 Prealbumin [Mass/Vol] 31.8 mg/dL Normal 18.0-38.0 [facility] Comment on above: Result Comment: PERF ORMED BY: [place] [address] PATHOLOGIST REGISTERED MAIL CLERK EMIR DOBSON M.D. Performed By: #### C BC, CMP, PAB #### [address] Protein [Mass/volume] in Ser um or PlasmaOrdered By: Agustin Murphy on 01-19-2022 Protein [Mass/Vol] 6.4 g/dL 6.1-7.9 [facility] RBC Auto (Bld) [#/Vol]Ordere d By: Agustin Murphy on 01-19-2022 RBC (Bld) [#/Vol] 4.74 10*6/uL 3.90-5.60 [facility] Serum or plasma alanine be otransferase measurement without P-5'-P (enzymatic activiOrdered By: Agustin Murphy on 01-19-2022 ALT No additional P-5'-P [Catalytic activity/Vol] 44 U/L 10-60 [facility] Serum or plasma albumin/glob ulin mass ratioOrdered By: Agustin Murphy on 01-19-2022 Albumin/Globulin [Mass ratio] 1.1 {ratio} [facility] Serum or plasma alkaline indira sphatase measurement (enzymatic activity/volume)Ordered By: Agustin Murphy on 01-19-2022 ALP [Catalytic activity/Vol] 31 U/L 32-92 [facility] Serum or plasma aspartate am inotransferase measurement (enzymatic activity/volume)Ordered By: Agustin Muprhy on 01-19-2022 AST [Catalytic activity/Vol] 34 U/L 10-42 [facility] Serum or plasma calcium reyna urement (mass/volume)Ordered By: Agustin Murphy on 01-19-2022 Calcium [Mass/Vol] 8.9 mg/dL 8.2-10.2 [facility] Serum or plasma chloride francisco surement (moles/volume)Ordered By: Agustin Murphy on 01-19-2022 Chloride [Moles/Vol] 104 mmol/L 95-114 [facility] Serum or plasma glucose reyna urement (mass/volume)Ordered By: Agustin Murphy on 01-19-2022 Glucose [Mass/Vol] 121 mg/dL 70-100 [facility] Comment on above: ADA recommended refe rence range Random Glucose Reference Range is dependent on time and content of last meal. Glucose of more than 200 mg/dL in a nonstressed, ambulatory subject supports the diagnosis of Diabetes Mellitus. Serum or plasma potassium me asurement (moles/volume)Ordered By: Agustin Murphy on 01-19-2022 Potassium [Moles/Vol] 4.6 mmol/L 3.5-5.1 [facility] Serum or plasma prealbumin m easurement (mass/volume)Ordered By: Agustin Murphy on 01-19-2022 Prealbumin [Mass/Vol] 31.8 mg/dL 18.0-38.0 [facility] Serum or plasma sodium measu rement (moles/volume)Ordered By: Agustin Murphy on 01-19-2022 Sodium [Moles/Vol] 138 mmol/L 136-146 [facility] Serum or plasma total biliru bin measurement (mass/volume)Ordered By: Agustin Murphy on 01-19-2022 Bilirubin [Mass/Vol] 0.7 mg/dL 0.3-1.2 [facility] Serum or plasma total carbon dioxide measurement (moles/volume)Ordered By: Agustin Murphy on 01-19-2022 CO2 [Moles/Vol] 25.4 mmol/L 22.0-30.0 [facility] Serum or plasma urea nitroge n measurement (mass/volume)Ordered By: Agustin Murphy on 01-19-2022 Urea nitrogen [Mass/Vol] 16 mg/dL 9- [facility] CTA NECK WO W CONon 01-16-20 CTA NECK WO W CON EXAMINATION: CTA HEAD WO W CON, CTA NECK WO W CON CLINICAL INDICATION: Stroke. TECHNIQUE: CT angiography of the head and neck was then performed following intravenous administration of 75 cc of Omnipaque 350 injected at a rate of 5 cc/sec. Multiple MIP images in axial, coronal, and sagittal planes and 3D surfaced rendered images were then acquired using the source data. Automated dose lowering techniques and/or adjustment according to patient size were utilized for this examination. COMPARISON: CT head without contrast 01/14/2022. FINDINGS: CTA: CTA Head: No evidence for flow-limiting stenosis along the intracranial portions of the bilateral ICAs. The bilateral M1 segments are patent. The bilateral A1 segments are patent. 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 The right vertebral artery is dominant and appears patent. The origin of the right superior cerebellar artery is patent. There is faint opacification of the right superior cerebellar artery along the proximal to distal aspect. The bilateral P1 segments are patent. There is no evidence for large vessel occlusion. CT angiogram neck: A 3 vessel arch is shown. No significant flow-limiting stenosis is visualized along the origins of the great vessels. The left common carotid artery is patent without flow-limiting stenosis. No evidence for flow-limiting stenosis along the proximal left ICA. Along the distal left ICA there is a intimal flap noted with the residual lumen measuring approximately 3 mm, the intimal flap measures approximately 6 mm in craniocaudal dimensions and is seen at the level of the odontoid process. The right common, internal and external carotid arteries are patent without flow-limiting stenosis. The origin of the lateral vertebral arteries are patent. No evidence for pseudoaneurysm or dissection. The visualized lung salcedo appear unremarkable. IMPRESSION: 1. 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 2. The origin of the right superior cerebellar artery is patent, there is faint opacification of the vessel along the proximal to distal aspect. 3. 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 4. No evidence for flow-limiting stenosis within the vessels of the neck. Assessment of stenosis of the internal carotid arteries is based on NASCET criteria. Electronically authenticated by: ANAYELI HALE Date: 2022-01-15 00:55 Normal [facility] CBC AUTO DIFFon 01-14-2022 BASO # 0.0 103/ul Normal 0.0-0.1 [facility] Comment on above: Performed By: #### C BC #### [facility] [address] [place] [address] Dr. Yasemin Austin Basophils/100 WBC (Bld) 0.2 % Normal 0.2-2.0 [facility] Comment on above: Performed By: #### C BC #### [facility] [address] [address] [address] Yasemin Austin EO # 0.0 103/ul Normal 0.0-0.7 [facility] Comment on above: Performed By: #### C BC #### [facility] [address] [place] [address] Dr. Yasemin Austin Eosinophils/100 WBC (Bld) 0.2 % Critically low 0.9-7.0 [facility] Comment on above: Performed By: #### C BC #### [facility] [address] [place] [address] Dr. Yasemin Austin Erythrocyte distribution width (RBC) [Ratio] 12.2 % Normal 11.0-15.0 [facility] Comment on above: Performed By: #### C BC #### [facility] [address] [place] [address] Dr. Yasemin Austin Hematocrit (Bld) [Volume fraction] 41.4 % Critically low 42.0-54.0 [facility] Comment on above: Performed By: #### C BC #### [facility] [address] [place] [address] Dr. Yasemin Austin Hemoglobin (Bld) [Mass/Vol] 14.5 g/dL Normal 14.0-18.0 [facility] Comment on above: Performed By: #### C BC #### [facility] [address] [place] [address] Dr. Yasemin Austin IG # 0.07 10e3/ul Critically high 0.00-0.03 [facility] Comment on above: Performed By: #### C BC #### [facility] [address] [place] [address] Dr. Yasemin Austin IG % 0.5 % Normal 0.0-0.5 [facility] Comment on above: Performed By: #### C BC #### [facility] [address] [place] [address] Dr. Yasemin Austin LYMPH # 0.8 103/ul Critically low 1.2-3.8 [facility] Comment on above: Performed By: #### C BC #### [facility] [address] [place] [address] Dr. Yasemin Austin Lymphocytes/100 WBC (Bld) 5.9 % Critically low 20.5-60.0 [facility] Comment on above: Performed By: #### C BC #### [facility] [address] [place] [address] Dr. Yasemin Austin MANUAL DIFF REQ NO Normal [facility] Comment on above: Performed By: #### C BC #### [facility] [address] [place] [address] Dr. Yasemin Austin MCH (RBC) [Entitic mass] 31.7 pg Normal 25.9-34.0 [facility] Comment on above: Performed By: #### C BC #### [facility] [address] [address] [address] Yasemin Austin MCHC (RBC) [Mass/Vol] 35.0 g/dL Normal 29.9-35.2 [facility] Comment on above: Performed By: #### C BC #### [facility] [address] [place] [address] Dr. Yasemin Austin MCV (RBC) [Entitic vol] 90.4 fL Normal 80.0-94.0 [facility] Comment on above: Performed By: #### C BC #### [facility] [address] [place] [address] Dr. Yasemin Austin MONO # 0.9 103/ul Critically high 0.3-0.[address] [facility] Comment on above: Performed By: #### C BC #### [facility] [address] [place] [address] Dr. Yasemin Austin Monocytes/100 WBC (Bld) 6.4 % Normal 1.7-12.0 [facility] Comment on above: Performed By: #### C BC #### [facility] [address] [place] [address] Dr. Yasemin Austin NEUT # 11.6 103/ul Critically high 1.4-6.5 [facility] Comment on above: Performed By: #### C BC #### [facility] [address] [place] [address] Dr. Yasemin Austin Neutrophils/100 WBC (Bld) 86.8 % Critically high 43.0-75.0 [facility] Comment on above: Performed By: #### C BC #### [facility] [address] [place] [address] Dr. Yasemin Austin Platelet mean volume (Bld) [Entitic vol] 9.9 fL Normal 9.5-13.5 [facility] Comment on above: Performed By: #### C BC #### [facility] [address] [place], [place] [address] Dr. Yasemin Austin PLT 279 103/ul Normal 150-450 [facility] Comment on above: Performed By: #### C BC #### [facility] [address] [place], [place] [address] Dr. Yasemin Austin RBC 4.58 106/ul Critically low 4.70-6.[address] [facility] Comment on above: Performed By: #### C BC #### [facility] [address] [place], [place] [address] Dr. Yasemin Austin WBC 13.3 103/ul Critically high 4.0-11.0 [facility] Comment on above: Performed By: #### C BC #### [facility] [address] [place], [place] [address] STROKE HEAD WOon 01-15-20 CT STROKE HEAD WO EXAMINATION: CT STROKE HEAD WO HISTORY: Slurred speech, right-sided weakness TECHNIQUE: Axial CT scans through the head were obtained without IV contrast administration. Dose reduction techniques were achieved by using: automated exposure control and/or adjustment of mA and /or kV according to patient size and/or use of iterative reconstruction technique. COMPARISON: None. FINDINGS: A moderate acute nonhemorrhagic infarct in the superior aspect of the right cerebellar hemisphere with low attenuation and loss of cortical medullary differentiation. Equivocal small acute infarct in the lateral aspect of left cerebellar hemisphere. A small old infarct in the posterior aspect of the right cerebellar hemisphere. The brainstem appears normal. The cerebral hemispheres show a small old infarct in the anterior aspect of the right frontal lobe. Arachnoid granulations extending into the distal right transverse sinus is noted. The ventricular system is normal in size. The visualized orbits show no gross mass. The visualized paranasal sinuses show no air-fluid level. Mastoid air cells are clear. IMPRESSION: A moderate acute nonhemorrhagic infarct in the superior aspect of the right cerebellar hemisphere and equivocal small acute infarct in the lateral aspect of the left cerebellar hemisphere. A small old infarct in the posterior aspect of the right cerebellar hemisphere. A small old infarct in the anterior right frontal lobe. Dr. Crespo was notified of critical results by myself at 8:17 PM. Electronically authenticated by: EDIL MCGHEE Date: 2022-01-14 20:20 [facility] SARS-CoV-2 (COVID-19) RNA CARY+probe Ql (Unsp spec) Not detected Normal NOT DETECTED [facility] Comment on above: Result Comment: When diagnostic testing is negative, the possibility of a false negative should be considered in the context of a patient's recent exposures and the presence of clinical signs and symptoms consistent with SARS-CoV-2. This test is not yet approved or cleared by the [place] FDA. When there are no FDA-approved or cleared tests available, and other criteria are met, FDA can make tests available under an emergency access mechanism called an Emergency Use Authorization (EUA). The EUA for this test is supported by the [place] of Health and Human Service's declaration that circumstances exist to justify the emergency use of in vitro diagnostics for the detection and/or diagnosis of the virus that causes COVID-19. This EUA will remain in effect for the duration of the COVID-19 declaration justifying emergency of IVDs, unless it is terminated or revoked by the FDA (after which the test may no longer be used). Performed By: #### C VDTB #### [facility] [address] [place] [address] Dr. Yasemin Austin PROF 14(COMP METB)on 022 Albumin [Mass/Vol] 3.6 g/dL Normal 3.4-5.0 [facility] Comment on above: Performed By: #### C MP #### [facility] [address] [place] [address] Dr. Yasemin Austin Albumin/Globulin [Mass ratio] 1.1 {ratio} Normal [facility] Comment on above: Performed By: #### C MP #### [facility] [address] [place] [address] Dr. Yasemin Austin ALP [Catalytic activity/Vol] 37 U/L Critically low 46-116 [facility] Comment on above: Performed By: #### C MP #### [facility] [address] [place] [address] Dr. Yasemin Austin ALT [Catalytic activity/Vol] 70 U/L Critically high 16-63 [facility] Comment on above: Performed By: #### C MP #### [facility] [address] [address] [address] Yasemin Austin Anion gap [Moles/Vol] 16.9 mmol/L Normal Th [facility] Comment on above: Performed By: #### C MP #### [facility] [address] [address] [address] Yasemin Austin AST [Catalytic activity/Vol] 90 U/L Critically high 15-37 [facility] Comment on above: Performed By: #### C MP #### [facility] [address] [address] [address] Yasemin Austin Bilirubin [Mass/Vol] 0.9 mg/dL Normal 0.2-1.0 [facility] Comment on above: Performed By: #### C MP #### [facility] [address] [address] [address] Yasemin Austin Calcium [Mass/Vol] 8.8 mg/dL Normal 8.5-10.1 [facility] Comment on above: Performed By: #### C MP #### [facility] [address] [address] [address] Yasemin Austin Chloride [Moles/Vol] 106 mmol/L Normal 98-107 [facility] Comment on above: Performed By: #### C MP #### [facility] [address] [address] [address] Yasemin Austin CO2 [Moles/Vol] 23.5 mmol/L Normal 21.0-32.0 [facility] Comment on above: Performed By: #### C MP #### [facility] [address] [address] [address] Yasemin Austin Creatinine [Mass/Vol] 1.07 mg/dL Normal 0.70-1.30 [facility] Comment on above: Performed By: #### C MP #### [facility] [address] [address] [address] Yasemin Austin EGFR-AF EQUATORIAL GUINEAN >60 Normal >=60 [facility] Comment on above: Performed By: #### C MP #### [facility] [address] [place] [address] Dr. Yasemin Austin EGFR-NON AF EQUATORIAL GUINEAN >60 Normal >=60 [facility] Comment on above: Performed By: #### C MP #### [facility] [address] [place] [address] Dr. Yasemin Austin Globulin (S) [Mass/Vol] 3.4 g/dL Normal [facility] Comment on above: Performed By: #### C MP #### [facility] [address] [place] [address] Dr. Yasemin Austin Glucose [Mass/Vol] 172 mg/dL Critically high 74-106 T [facility] Comment on above: Performed By: #### C MP #### [facility] [address] [place] [address] Dr. Yasemin Austin Potassium [Moles/Vol] 4.4 mmol/L Normal 3.5-5.1 [facility] Comment on above: Performed By: #### C MP #### [facility] [address] [place] [address] Dr. Yasemin Austin Protein [Mass/Vol] 7.0 g/dL Normal 6.4-8.2 [facility] Comment on above: Performed By: #### C MP #### [facility] [address] [place] [address] Dr. Yasemin Austin Sodium [Moles/Vol] 142 mmol/L Normal 136-145 [facility] Comment on above: Performed By: #### C MP #### [facility] [address] [place] [address] Dr. Yasemin Austin Urea nitrogen [Mass/Vol] 14.0 mg/dL Normal 7.0-18.0 [facility] Comment on above: Performed By: #### C MP #### [facility] [address] [place] [address] Dr. Yasemin Austin Urea nitrogen/Creatinine [Mass ratio] 13.1 mg/mg Normal [facility] Comment on above: Performed By: #### C MP #### [facility] [address] [place] [address] Dr. Yasemin Austin PTTon 01-14-2022 aPTT Coag (Bld) [Time] 23.7 s Normal 22.3-36.2 [facility] Comment on above: Performed By: #### P TT ####[facility] [id number] [place], [place] [address]GcDr. Yasemin Austin Vital Signs Date Time Vital Sign Value Performing Clinician Facility 06-02-2023 09:00-0500 Body height 182.88 cm Fabio Ball Other [facility] Other 06-02-2023 09:00-0500 Body mass index (BMI) [Ratio] 32.71 kg/m2 Fabio Ball Other [facility] Other 06-02-2023 09:00-0500 Body weight 109.41 kg Fabio Ball Other [facility] Other 06-02-2023 09:00-0500 Diastolic blood pressure 87 mm[Hg] Fabio Ball Other [facility] Other 06-02-2023 09:00-0500 Respiratory rate 12 /min Fabio Ball Other [facility] Other 06-02-2023 09:00-0500 Systolic blood pressure 131 mm[Hg] Fabio Ball Other [facility] Other 01-23-2022 11:49-0400 Body temperature 97.5 [degF] DO Fabio Ball Work Phone: [facility] 01-23-2022 11:49-0400 Diastolic blood pressure 75 mm[Hg] DO Fabio Ball Work Phone: [facility] 01-23-2022 11:49-0400 Heart rate 76 /min DO Fabio Ball Work Phone: [facility] 01-23-2022 11:49-0400 Respiratory rate 18 /min DO Fabio Ball Work Phone: [facility] 01-23-2022 11:49-0400 SaO2% (BldA) [Mass fraction] 95 % DO Fabio Ball Work Phone: [facility] 01-23-2022 11:49-0400 Systolic blood pressure 113 mm[Hg] DO Fabio Gross Work Phone: [facility] 01-21-2022 11:45-0400 Body height 182.88 cm DO Fabio Ball Work Phone: [facility] 01-19-2022 05:46-0400 Body weight 99.8 kg DO Fabio Gross Work Phone: [facility] Encounters Encounter Date Encounter Type Care Provider Facility Start: 10-30-2023 End: 10-30-2023 ambulatory [facility] Work Phone: Start: 10-30-2023 End: 10-30-2023 Patient encounter procedure [facility] Work Phone: Start: 06-30-2023 End: 06-30-2023 ambulatory Fabio Gross Other [facility] Other Start: 06-30-2023 Telephone encounter Fabio DIAS G [facility] Start: 06-05-2023 End: 06-05-2023 ambulatory Fabio Gross Other [facility] Other Start: 06-05-2023 Telephone encounter Fabio Gross FP [facility] Start: 06-04-2023 End: 06-04-2023 ambulatory Fabio Gross Other [facility] Other Start: 06-04-2023 Telephone encounter Fabio Gross FP [facility] Start: 06-02-2023 End: 06-02-2023 ambulatory Fabio Socttie Other [facility] Other Start: 06-02-2023 Encounter for genera l adult medical examination without abnormal findings Fabio Gross [facility] Start: 06-02-2023 Office outpatient vi sit 25 minutes Fabio Gross [facility] Start: 06-02-2023 Periodic preventive med est patient 40-64yrs Fabio Gross [facility] Start: 01-09-2023 End: 01-09-2023 ambulatory Fabio Gross Other [facility] Other Start: 01-09-2023 Telephone encounter Fabio Gross [facility] Start: 01-07-2023 End: 01-07-2023 ambulatory Fabio Gross Other [facility] Other Start: 01-07-2023 Telephone encounter Fabio Gross [facility] Start: 10-07-2022 End: 10-08-[address] FABIO GROSS Facility:[facility] Start: 10-04-2022 End: 10-04-2022 ambulatory Fabio Gross Other [facility] Other Start: 10-04-2022 Telephone encounter Fabio Gross [facility] Start: 07-24-2022 End: 07-25-[address] FABIO GROSS Facility:[facility] Start: 07-15-2022 Encounter for genera l adult medical examination without abnormal findings DR FABIO GROSS [facility] Start: 07-12-2022 End: 07-12-2022 ambulatory Fabio Gross Other [facility] Other Start: 07-12-2022 Telephone encounter Fabio Gross [facility] Start: 07-10-2022 End: 07-11-[address] FABIO GROSS Facility:[facility] Start: 07-10-2022 End: 07-11-2022 Encounter for general adult medical examination without abnormal findings DR FABIO GROSS Facility:[facility] Start: 03-15-2022 End: 03-16-[address] DOCTOR DIAZ Facility:[facility] Start: 03-14-2022 ambulatory Facility:U Start: 03-12-2022 ambulatory Facility:[id number] Start: 02-11-2022 End: 02-12-[address] FABIO GROSS Facility:[facility] Start: 01-23-2022 End: 01-23-2022 ambulatory Fabio Gross Facility:[facility] Start: 01-23-2022 End: 01-23-2022 Patient encounter procedure DO Fabio Gross Work Phone: [facility] Start: 01-18-2022 End: 01-23-2022 Evaluation and management of inpatient Fabio Gross Facility:[facility] Start: 01-18-2022 End: 01-23-2022 Evaluation and management of inpatient DO Fabio Gross Work Phone: [facility] Start: 01-14-2022 End: 01-15-[address] FABIO GROSS Facility:[facility] Procedures Date Procedure Procedure Detail Performing Clinician Start: 07-10-[address] DOCTOR DIAZ Comment on above: Performed By: #### P [facility] #### [facility] [address] [place] [address] Dr. Yasemin Austin Plan of Treatment Date Care Activity Detail Author Start: 01-23-2022 [facility] Work Phone: Start: 01-19-2022 [facility] Work Phone: Start: 01-18-2022 Hospital admission [facility] Work Phone: Start: 01-18-2022 Referral to clinical document control manager [facility] Work Phone: Patient Education Stroke (DC) Am bulatory Cardiac Monitoring (DC) [facility] Work Phone: Patient referral [facility] Work Phone: Payers Date Payer Category Payer Self-pay 1965 Unknown [id number] 1965 Unknown [id number] 2.16.84 [id number] 1965 Unknown [id number] 2.16.84 [id number] 1965 Unknown [id number] 2.16.84 [id number] 1965 Unknown [id number] 2.16.84 [id number] 1965 Unknown [id number] 2.16.84 [id number] 1965 Unknown [id number] 2.16.84 [id number] 1960 [facility] [id number] 1960 Unknown [id number] Unknown [id number] 2.16.8 [id number] Unknown [id number] 2.16.8 [id number] Social History Date Type Detail Facility Start: 01-19-2022 Tobacco smoking status [facility] Smoker (finding) [facility] Start: 1965 Sex Assigned At Male [facility] Sex Assigned At Sex Assigned At Bir [facility] [place] [employer] Other Goals Date Patient Goal Desired Activity /State Functional Status Date Assessment Result Facility 01-23-2022 Functional status Patient is Pro gressing Toward Baseline [facility] Work Phone: Mental Status Date Assessment Result Facility 01-23-2022 Cognitive function Cognitive Sta tus Patient is Progressing Toward Baseline [facility] Work Phone: Clinical Notes 01-19-2022 to 06-02-2023 Note Date & Type Note Facility 06-02-2023 Evaluation note Encounter Date Diagnosis Assessment Notes May, Type 2 diabetes mellitus with hyperglycemia, without long-term current use of insulin (ICD-10 - E11.65) This patient is following a comprehensive diabetic treatment plan. They are checking their feet daily for calluses and nonhealing ulcers. They are being seen for yearly dilated eye examinations. Goals: SBP less than 130, LDL less than 100, FBS less than 140, A1C less than 7%. They are checking their BS daily, will which are reviewed at the office visit. Continue regular routine monitoring of A1C,] Microalbumin, Dilated eye exam and Foot exam May, Wellness examination (ICD-10 - Z00.00) Healthy diet and exercise. Reviewed age-appropriate preventive testing recommended. May, Hyperlipidemia, group A (ICD-10 - E78.00) Instructed on diet and exercise with continued statin therapy.Discussed the beneficial effects of lowering cholesterol in reducing the risk for cerebrovascular and cardiovascular disease. May, Obstructive sleep apnea (ICD-10 - G47.33) AHI 45, Psat 83% This patient is aware of the benefits associated with ANDRY: With continued use, the patient reduces the risk for PA, CVA, HTN, cardiac dysrhythmias and sudden cardiac deaths.The patient is also aware of the association between ANDRY and morning headaches, daytime somnolence, fatigue and obesity Noncompliant May, Cerebral atherosclerosis (ICD-10 - I67.2) Continue secondary prevention measures. Reviewed stroke symptoms and instructed to go directly to ER if develop. May, Chewing tobacco nicotine dependence without complication (ICD-10 - F17.220) Aware of the associate w/ oral cancer. INstructed to stop immediately May, Hx of cerebral infarction (ICD-10 - Z86.73) Continue May, Colon cancer screening (ICD-10 - Z12.11) Due for Cologuard Asymptomatic, low risk patient. Denies change in bowel habits, melena or hematochezia May, Screening PSA (prostate specific antigen) (ICD-10 - Z12.5) Yearly JUANITA and PSA [facility] Other 12-11-2023 Evaluation note* Encounter Date Diagnosis Assessment Notes Treatment Notes Treatment Clinical Notes May, Type 2 diabetes mellitus with hyperglycemia, without long-term current use of insulin (ICD-10 - E11.65) This patient is following a comprehensive diabetic treatment plan. They are checking their feet daily for calluses and nonhealing ulcers. They are being seen for yearly dilated eye examinations. Goals: SBP less than 130, LDL less than 100, FBS less than 140, A1C less than 7%. They are checking their BS daily, will which are reviewed at the office visit. Continue regular routine monitoring of A1C,] Microalbumin, Dilated eye exam and Foot exam May, Hyperlipidemia, grou p A (ICD-10 - E78.00) Instructed on diet and exercise with continued statin therapy.Discussed the beneficial effects of lowering cholesterol in reducing the risk for cerebrovascular and cardiovascular disease. May, Obstructive sleep apnea (ICD-10 - G47.33) AHI 45, Psat 83% This patient is aware of the benefits associated with ANDRY: With continued use, the patient reduces the risk for PA, CVA, HTN, cardiac dysrhythmias and sudden cardiac deaths.The patient is also aware of the association between ANDRY and morning headaches, daytime somnolence, fatigue and obesity Noncompliant May, Cerebral atherosclerosis (ICD-10 - I67.2) Continue secondary prevention measures. Reviewed stroke symptoms and instructed to go directly to ER if develop. May, Chewing tobacco nicotine dependence without complication (ICD-10 - F17.220) Aware of the associate w/ oral cancer. INstructed to stop immediately May, Hx of cerebral infarction (ICD-10 - Z86.73) Continue May, Colon cancer screening (ICD-10 - Z12.11) Due for Cologuard Asymptomatic, low risk patient. Denies change in bowel habits, melena or hematochezia [facility] Other 04-14-2023 Evaluation note* Encounter Date Diagnosis Assessment Notes Treatment Notes Treatment Clinical Notes Sep, Type 2 diabetes mellitus with hyperglycemia, without long-term current use of insulin (ICD-10 - E11.65) [facility] Other 01-20-2023 Evaluation note* Encounter Date Diagnosis Assessment Notes Treatment Notes Treatment Clinical Notes Jun, Elevated cholesterol (ICD-10 - E78.00) Jun, Type 2 diabetes mellitus with hyperglycemia, without long-term current use of insulin (ICD-10 - E11.65) [facility] Other 08-03-2022 Progress note Author Agustin Murphy [facility] January 23, 2022 9:41am Note Date/Time January 23, 2022 9:4 1am [facility] [address] [place] [address] Physiatry(Rehab) Progress Note Signed Patient: Jack Gonzales MR#: [id number] : 1965 Acct:[id number] Age/Sex: 56 / M Adm Date: 2 Loc: 5T Room: 5R4563-7 Type: ADM IN Attending Dr: Agustin Murphy MD Copies to: ~ Date of Service: 01/22/2022 Subjective Subjective Narrative: Mr. Gonzales is a 56 year old male Admitted to the rehabilitation unit with functional decline status post right cerebellar ischemic stroke. He presented to [facility] with dizziness and ataxia.? This started at 8:00 in the morning the day prior to admission.? At [facility], CT head and CTA demonstrated possible left ICA dissection but no definitive ischemic lesion.? Given the CTA findings suggesting dissection, he was transferred to [facility].? MRI at [facility] demonstrated acute to subacute right cerebellar infarct.His NIH stroke scale at [facility] was 0.? TTE with EF 65% otherwise unremarkable, hemoglobin A1c 6.4.? I do not see lipid levels.? He is on secondary stroke prevention with aspirin and Plavix.? I do not see a statin ordered.? They did recommend outpatient sleep study and 30-day cardiac event monitor. As his symptoms were improving, there was no intervention performed.? Neurology at [place] felt his left carotid findings were possibly unrelated to his current symptoms. He was discharged to rehabilitation unit in stable condition. Interval History: Patient is doing well and stated that he is improving with therapy. He was able to walk to the PT gym from his room without a walker. He feels like his balance and strength have improved. no acute events overnight. Strength 5/5 in bilateralupper and lower extremities. He was asking about his discharge plan. He walked 283 feet with no assistive devices and CGA/SBA. Ascending/descending 2x15 steps with bilateral handrails and CGA. Exam Physical Exam Vital Signs: Temp Pulse Resp BP Pulse Ox O2 Del Method 97.5 F L 50 L 20 129/79 97 Room Air 01/22/22 05:00 01/22/22 05:00 01/22/22 05:00 01/22/22 05:00 01/22/22 05:00 01/22/22 05:00 Narrative: General: cooperative, comfortable HENMT Head: normal to inspection Eyes General: appearance normal, both eyes and all related structures Neck Neck: normal visual inspection, no lymphadenopathy Resp Effort & Inspection: normal respiratory effort Auscultation: clear to auscultation bilaterally Cardio Rate: regular rate Rhythm: regular rhythm Heart Sounds: S1 normal, S2 normal GI Inspection: normal to inspection Auscultation: normal bowel sounds Neuro Cranial Nerves: CN's II-XI intact bilaterally, Except disconjugate gaze Cognition: normal cognition Speech: speech normal Motor: strength 5/5 throughout, Grossly Sensory Exam: no sensory deficits noted Poor coordination/ataxia Plantar Reflexes: Downgoing Deep Tendon Reflexes DTR Comments: 1+ and symmetric Extrem General: normal to inspection, no clubbing, cyanosis or edema Psych Mood: normal affect Affect: normal affect Endurance fair Objective Labs CBC & Chem 7: 01/19/22 07:07 01/19/22 07:07 Medications and Allergies Allergies and Active Meds: Allergies No Known Allergies Allergy (Verified 01/18/22 19:21) Active Medications Generic Name Dose Route Start Last Admin Trade Name Freq PRN Reason Stop Dose Admin Acetaminophen 500 mg 01/18/22 17:30 Acetaminophen 500 Mg Tablet PO 01/18/23 17:29 Q4H PRN Pain Hydrocodone Bitart/Acetaminophen 1 tab 01/18/22 18:09 Hydrocodone/Acetaminophen 5-325 Mg Tablet PO Q6H PRN Pain Al Hydrox/Mg Hydrox/Simethicone 30 ml 01/18/22 17:30 Mag Hydrox/Al Hydrox/Simeth 30 Ml Udc PO 01/18/23 17:29 Q4H PRN Indigestion Aspirin 81 mg 01/19/22 09:00 01/21/22 09:27 Aspirin 81 Mg Tab.Chew PO 01/19/23 08:59 81 mg DAILY EDVIN Administration Atorvastatin Calcium 80 mg 01/19/22 21:00 01/21/22 20:19 Atorvastatin 80 Mg Tablet PO 01/19/23 20:59 80 mg QPM EDVIN Administration Bisacodyl 10 mg 01/18/22 17:30 Bisacodyl 10 Mg Supp.Rect RI 01/18/23 17:29 DAILY PRN Constipation Clopidogrel Bisulfate 75 mg 01/19/22 09:00 01/21/22 09:27 Clopidogrel Bisulfate 75 Mg Tablet PO 07/30/23 08:59 75 mg DAILY EDVIN Administration Docusate Sodium 100 mg 01/18/22 17:30 Docusate 100 Mg Capsule PO 01/18/23 17:29 BID PRN Constipation Docusate Sodium 283 mg 01/18/22 17:30 Docusate Enema 283 Mg/5 Ml Enema RI 01/18/23 17:29 DAILY PRN Constipation Heparin Sodium (Porcine) 5,000 unit 01/18/22 21:00 01/21/22 20:18 Heparin 5,000 Unit/Ml Vial SUBCUT 01/18/23 20:59 5,000 unit Q12H EDVIN Administration Lactulose 30 gm 01/18/22 17:30 Lactulose 20 Gm/30 Ml Udc PO 01/18/23 17:29 DAILY PRN Constipation Meclizine HCl 12.5 mg 01/19/22 09:15 Meclizine 12.5 Mg Tablet PO 01/19/23 09:14 TID PRN Vertigo Sennosides 2 tab 01/19/22 12:00 Sennosides 8.6 Mg Tablet PO 01/19/23 11:59 DAILY@12 PRN If no BM in 2 days Sodium Chloride 0 ml 01/18/22 17:30 Sodium Chloride 0.9 % 10 Ml Syringe IV-PUSH 01/18/23 17:29 PRN PRN Flush Assessment/Plan Assessment/Plan (1) Cerebellar stroke, acute: Assessment/Problem Details: Acute right cerebellar stroke, residual deficits include dizziness, poor coordination, ataxia Continue secondary stroke prevention aspirin, Plavix, statin Plan: PT to improve pt's strength, endurance, bed mobility, transfers (sit-stand), standing balance, gait quality on level surfaces and stairs, coordination and functional ADL skills. Will also work to improve pt's safety awareness during transfers and ambulation. OT for basic ADL re-training (bathing, dressing, toileting, continence, grooming, feeding, transferring), to increase activity tolerance and functional mobility and to evaluate for adaptive and assistive devices. Will work to improve pt's endurance and educate pt on fall prevention and energy conservationtechniques-pacing strategies and proper breathing techniques during functional tasks. Patient education Pressure ulcer prophylaxis; encourage mobilization, frequent postural changes, pressure-relief techniques DVT prophylaxis Encourage deep breathing exercise incentive spirometry. Monitor bladder. Toileting schedule. Continue current bladder management, with scans as needed and CIC if needed. Start bowel care program every day to obtain continence, prevent ileus. Maintain fall precautions Gait and balance retraining Provision of the necessary gait aids and functional adaptive equipment? 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 Code(s): I63.9 - Cerebral infarction, unspecified Status: Acute (2) Impaired mobility and activities of daily living: Code(s): Z74.09 - Other reduced mobility; Z78.9 - Other specified health status Status: Acute (3) DVT prophylaxis: Code(s): Z29.9 - Encounter for prophylactic measures, unspecified Status: Acute (4) Dizziness: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
[2023-11-07 10:11] LABS: Basophils Absolute Auto 0.1 10^3/uL (0.0-0.1); Basophils Percent Auto 0.8 % (0.2-2.0); Eosinophils Absolute Auto 0.2 10^3/uL (0.0-0.7); Eosinophils Percent Auto 2.8 % (0.9-7.0); Hematocrit 41.3 % (42.0-54.0); Hemoglobin 14.1 g/dL (14.0-18.0); Immature Granulocytes Abs Auto 0.03 10^3/uL (0.00-0.03); Immature Granulocytes Pct Auto 0.5 % (0.0-0.5); Lymphocytes Absolute Auto 1.8 10^3/uL (1.2-3.8); Lymphocytes Percent Auto 27.1 % (20.5-60.0); Mean Corpuscular HGB Conc 34.1 g/dL (29.9-35.2); Mean Corpuscular Hemoglobin 32.2 pg (25.9-34.0); Mean Corpuscular Volume 94.3 fL (80.0-94.0); Mean Platelet Volume 9.5 fL (9.5-13.5); Monocytes Absolute Auto 0.9 10^3/uL (0.3-0.8); Monocytes Percent Auto 13.4 % (1.7-12.0); Neutrophils Absolute Auto 3.6 10^3/uL (1.4-6.5); Neutrophils Percent Auto 55.4 % (43.0-75.0); Platelet Count 215 10^3/uL (150-450); Red Blood Count 4.38 10^6/uL (4.70-6.10); Red Cell Distribution Width 11.9 % (11.0-15.0); White Blood Count 6.5 10^3/uL (4.0-11.0)
[2023-11-07 10:41] LABS: Estimated Average Glucose 146 mg/dL; Glycohemoglobin A1C 6.7 % (4.5-6.2)
[2023-11-07 10:45] LABS: Microalbumin Urine Random 4.6 mg/dL (<=30.0)
[2023-11-07 10:45] LABS: Alanine Aminotransferase 64 U/L (16-63); Albumin Globulin Ratio 1.2; Alkaline Phosphatase 41 U/L (46-116); Anion Gap 14.1; Aspartate Amino Transferase 35 U/L (15-37); BUN Creatinine Ratio 16.5; Bilirubin Total 0.8 mg/dL (0.2-1.0); Calcium 9.8 mg/dL (8.5-10.1); Carbon Dioxide 25.4 mmol/L (21.0-32.0); Chloride 106 mmol/L (98-107); Chol HDL Ratio 3.2; Cholesterol 133 mg/dL (<=200); Estimated GFR (African America >60 (>=60); Estimated GFR (Non-African Ame >60 (>=60); Globulin 3.3 g/dL; Glucose 115 mg/dL (74-106); HDL Cholesterol 41 mg/dL (40-60); LDL Cholesterol Calculated 68.4 mg/dL; Potassium 4.5 mmol/L (3.5-5.1); Sodium 141 mmol/L (136-145); Total Protein 7.3 g/dL (6.4-8.2); Triglycerides 118 mg/dL (<=150); VLDL CHOLESTEROL 23.6 mg/dL
[2023-11-07 11:02] LABS: Prostate Specific Antigen Scrn 4.37 ng/mL (<=4.00)
== END 2023-11-07 09:30 | disposition home or self-care (01) ==
LOC: LAB 09:30
PROVIDERS: PCP Internal Medicine; Visit Provider Internal Medicine
DX: Z00.00 Encounter for general adult medical examination without abnormal findings (principal)
CPT/HCPCS: 36415; 80053; 80061; 82043; 83036; 85025; G0103

== ENCOUNTER 2023-12-23 10:33 | Outpatient (OUT) | payer BC, SELFPAY ==
--- OUTSIDE RECORDS SUMMARY | 2023-12-23 10:40 | XMS_ITS ---
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 Name Role Phone DO Fabio Gross Primary Care Provider MD Agustin Murphy Admit Provider MD Agustin Murphy Attending Provider BUZZ Alvarez Other Provider Unavailable BUZZ Grimes Other Provider Unavailable BUZZ Amaya Other Provider Unavailable BUZZ Kwan Other Provider Unavailable BUZZ Fleming Other Provider Unavailable BUZZ Warner Other Provider Unavailable MD Jordan June Other Provider MD Ender Kumari Other Provider 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, 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 Jessica Pinto Other Provider DO Dawson Marinelli Other Provider MD Tan Martini Other Provider DO Abelino Jacques Other Provider MD Javon Magana Other Provider MD Mia Vital Other Provider [phone] Huey ANP- Lilly Other Provider MD Radha Nogueira Other Provider [phone] MD Nikolas Zurita Other Provider MD Ifeanyi Davidson Other Provider MD Heena Smiley Other Provider MD Rafa Murray Other Provider MD Laura Houser Other Provider MD Héctor Ro Other Provider CHRISTA Martin Other Provider MD Lloyd Ambrose Other Provider MD Ryan Medina Other Provider MD Amirah Salas Other Provider MD Yomi Schuler Other Provider DO Aniyah Edmonds Other Provider Al MD Napoleon Johns Other Provider DO Rod Ruano Other Provider NICKI Potts Other Provider DO Todd Pelletier Other Provider MD Laila Vargas Other Provider BUZZ Patel Other Provider Unavailable Fabio Gross Primary Care Unavailable Dhara Alvarez Consulting Unavailable Agustin Murphy Attending Unavailable Agustin Murphy Admitting Unavailable Rebecca Grimes Consulting Unavailable Annmarie Amaya Consulting Unavailable Denschristiano, Megan Consulting Unavailable Bernadette Consulting Unavailable Mary Warner Consulting Unavailable MassJordan gibson Consulting Unavailable Quoc, Ender K Consulting Unavailable DieudonnesElianaa M Consulting Unavailable Dawson Marinelli Consulting Unavailable Vini, Tan Consulting Unavailable Abelino Jacques Consulting UnavailJavon Combs Consulting Unavailable Semaskpinkye, Mia Consulting Unavailable Lilly Arzate Consulting Unavailable Wassotiarra, Marwan Consulting Unavailable Zraik, Nikolas Consulting Unavailable Davidson, Ifeanyi Consulting Unavailable Dex Smileywan Consulting Unavailable Rafa Murray Consulting Unavailable Laura Houser Consulting Unavailable Héctor Ro Consulting Unavailable Ester Martin Consulting Unavailable Lloyd Ambrose Consulting Unavailab Ryan Villa Consulting Unavailable Amirah Salas Consulting Unavailable Yomi Schuler Consulting Unavailable Aniyah dEmonds Consulting Unavailable Napoleon Pratt Consulting Unavailab Rod Junior Consulting Unavailable Obika, Bethany Consulting Unavailable Pelletier, Todd Parsons Consulting Unavailable Daromar, Laila Pinto Consulting Unavailable Patel, Ginna Consulting Unavailable Scottie, Fabio Primary Care Unavailable Jeffrey, Agustin Admitting Unavailable Jeffrey, Agustin Attending Unavailable Scottie, Fabio Unavailable [facility], DR LAUGHLIN Admitting Unavailable MISC, DR LAUGHLIN Attending Unavailable SCOTTIE, DR CAMARA Primary Care Unavailable MISC, DR LAUGHLIN Consulting Unavailable SCOTTIE, DR CAMARA Admitting Unavailable BALL, DR CAMARA Attending Unavailable BALL, DR CAMARA Primary Care Unavailable BALL, DR CAMARA Consulting Unavailable BALL, DR CAMARA Admitting Unavailable BALL, DR CAMARA Attending Unavailable BALL, DR CAMARA Primary Care Unavailable BALL, DR CAMARA Consulting Unavailable BALL, DR CAMARA Primary Care Unavailable CAMMY, DR RADHA Dumas Consulting Unavailable CAMMY, DR RADHA Dumas Admitting Unavailable CAMMY, DR RADHA Dumas Attending Unavailable MCGHEE, EDIL Consulting Unavailable GEOFFREY, ANAYELI Consulting Unavailable BALL, DR CAMARA Admitting Unavailable BALL, DR CAMARA Attending Unavailable BALL, DR CAMARA Primary Care Unavailable BALL, DR CAMARA Consulting Unavailable SCOTTIE, DR CAMARA Admitting Unavailable BALL, DR CAMARA Attending Unavailable BALL, DR CAMARA Primary Care Unavailable Encounters Encounter Date Encounter Type Care Provider Facility Start: 11-07-2023 End: 11-07-2023 ambulatory [facility] Work Phone: Start: 11-07-2023 End: 11-07-2023 Encounter for general adult medical examination without abnormal findings [facility] Start: 11-07-2023 End: 11-07-2023 Patient encounter procedure [facility] Physician [facility] Work Phone: Start: 10-30-2023 End: 10-30-2023 ambulatory [facility] Work Phone: Start: 10-30-2023 End: 10-30-2023 Patient encounter procedure [facility] Physician [facility] Work Phone: Start: 06-30-2023 End: 06-30-2023 ambulatory Fabio Gross Other [facility] Other Start: 06-30-2023 Telephone encounter Fabio Gross [facility] Start: 06-05-2023 End: 06-05-2023 ambulatory Fabio Gross Other [facility] Other Start: 06-05-2023 Telephone encounter Fabio Gross [facility] Start: 06-04-2023 End: 06-04-2023 ambulatory Fabio Scottie Other [facility] Other Start: 06-04-2023 Telephone encounter Fabio Gross [facility] Start: 06-02-2023 End: 06-02-2023 ambulatory Fabio Gross Other [facility] Other Start: 06-02-2023 Encounter for genera l adult medical examination without abnormal findings Fabio Gross [facility] Start: 06-02-2023 Office outpatient vi sit 25 minutes Fabio Scottie [facility] Start: 06-02-2023 Periodic preventive med est patient 40-64yrs Fabio Gross [facility] Start: 01-09-2023 End: 01-09-2023 ambulatory Fabio Gross Other [facility] Other Start: 01-09-2023 Telephone encounter Fabio Gross [facility] Start: 01-07-2023 End: 01-07-2023 ambulatory Fabio Gross Other [facility] Other Start: 01-07-2023 Telephone encounter Fabio Gross [facility] Start: 10-07-2022 End: 10-08-[address] FABIO GROSS Facility:[facility] Start: 10-04-2022 End: 10-04-2022 ambulatory Fabio Gross Other [facility] Other Start: 10-04-2022 Telephone encounter Fabio Gross [facility] Start: 07-24-2022 End: 07-25-[address] FABIO GROSS Facility:[facility] Start: 07-15-2022 Encounter for genera l adult medical examination without abnormal findings DR FABIO GROSS [facility] Start: 07-12-2022 End: 07-12-2022 ambulatory Fabio Gross Other [facility] Other Start: 07-12-2022 Telephone encounter Fabio Mendoza [facility] Start: 07-10-2022 End: 07-11-[address] FABIO GROSS Facility:[facility] Start: 07-10-2022 End: 07-11-2022 Encounter for general adult medical examination without abnormal findings DR FABIO GROSS Facility:[facility] Start: 03-15-2022 End: 03-16-[address] DOCTOR DIAZ Facility:[facility] Start: 03-14-2022 ambulatory Facility:[facility] Start: 03-12-2022 ambulatory Facility:[id number] Start: 02-11-2022 End: 02-12-[address] FABIO GROSS Facility:[facility] Start: 01-23-2022 End: 01-23-2022 ambulatory Fabio Gross Facility:[facility] Start: 01-23-2022 End: 01-23-2022 Patient encounter procedure DO Fabio Gross Work Phone: [facility] Start: 01-18-2022 End: 01-23-2022 Evaluation and management of inpatient Fabio Gross Facility:[facility] Start: 01-18-2022 End: 01-23-2022 Evaluation and management of inpatient DO Fabio Gross Work Phone: [facility] Start: 01-14-2022 End: 01-15-[address] FABIO GROSS Facility: Goals Date Patient Goal Desired Activity /State Medications Current Medications Medication Drug Class(es) Dates Sig (Normalized) Sig (Original) aspirin 81 mg chewable tablet (18 sources) Platelet Aggregation Inhibitor, Nonsteroidal Anti-inflammatory Drug Start: 01-18-2022 End: 01-23-2022 take 1 tablet by mouth once daily Aspirin (Children's Aspirin) 81 mg Tablet,Chewable Active 81 MG PO Daily January 23, 2022 12:00am take 1 capsule by mouth once saundra ly Aspirin 81 MG 1 capsule Orally Once a day Active atorvastatin 80 mg oral tablet (16 sources) HMG-CoA Reductase Inhibitor Start: 01-23-2022 take [...] day, in evening for 30 day(s) Active metFORMIN hydrochloride 500 mg oral tablet (11 sources) Biguanide Start: 11-05-2023 take 500 mg by mouth once daily Metformin Active 500 MG PO Daily November 05, 2023 12:00am Start: 07-12-2022 take 1 tablet by gini th every twenty-four hours metFORMIN HCl 500 MG 1 tablet with a meal Orally Once a day for 30 day(s) Jun, Active sulfamethoxazole 800 mg / trimethoprim 160 mg oral tablet (1 source) Dihydrofolate Reductase Inhibitor Antibacterial, Sulfonamide Antimicrobial Start: 10-31-2023 take 1 tablet by mouth twice daily Sulfamethoxazole-Trimethoprim Active 1 TAB PO Twice daily 14 October 31, 2023 12:00am Completed/Discontinued Medications Medication Drug Class(es) Dates Sig (Normalized) Sig (Original) acetaminophen 325 mg / HYDROcodone bitartrate 5 mg oral tablet (4 sources) Opioid Agonist Start: 01-18-2022 End: 01-23-2022 take 1 tablet by mouth every six hours Hydrocodone-Aceta minophen Discontinued 1 TAB PO Q6H January 18, 2022 12:00am January 23, 2022 9:42am clopidogrel 75 mg oral tablet (8 sources) P2Y12 Platelet Inhibitor Start: 01-18-2022 End: 11-05-2023 take 75 mg by mouth once daily Clopidogrel Discontinued 75 MG PO Daily 30 January 23, 2022 12:00am November 05, 2023 9:38am heparin sodium, porcine 5000 unt/ml injectable solution (4 sources) Unfractionated Heparin, Anti-coagulant Start: 01-18-2022 End: 01-23-2022 inject 5000 [IU] by subcutaneous injection every twelve hours Heparin (Porcine) Discontinued 5000 UNIT SUBCUT Q12H January 18, 2022 12:00am January 23, 2022 9:42am ibuprofen 800 mg oral tablet (4 sources) Nonsteroidal Anti-inflammatory Drug Start: 01-18-2022 End: 01-23-2022 take 800 mg by mouth every six hours Ibuprofen Discontinued 800 MG PO Q6H January 18, 2022 12:00am January 23, 2022 9:43am Payers Date Payer Category Payer Self-pay 1965 Unknown [id number] 1965 Unknown [id number] 2.16.84 [id number] 1965 Unknown [id number] 2.16.84 [id number] 1965 Unknown [id number] 2.16.84 [id number] 1965 Unknown [id number] 2.16.84 [id number] 1965 Unknown [id number] 2.16.84 [id number] 1965 Unknown [id number] 2.16.84 [id number] 1960 [facility] [id number] 1960 Unknown [id number] Unknown [id number] 2.16.8 [id number] Unknown [id number] 2.16.8 [id number] Plan of Treatment Date Care Activity Detail Author Start: 01-23-2022 [facility] Work Phone: Start: 01-19-2022 [facility] Work Phone: Start: 01-18-[address] 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 Work Phone: [facility] Problems Active Problems Problem Classification Problem Date Documented Date Episodic/Chronic Abdominal hernia (10 sources) Recurrent left inguinal hernia; Translations: [Unilateral inguinal hernia, without obstruction or gangrene, recurrent] Episodic Acute cerebrovascular disease (20 sources) Cerebellar stroke; Translations: [Cerebral infarction, unspecified] Onset: 01-17-2022 01-19-2022 Chronic Administrative/social admission (7 sources) Other reduced mobility; Translations: [Impaired mobility and activities of daily living] Onset: 01-18-2022 01-19-2022 Episodic Cardiac dysrhythmias (1 source) Cardiac arrhythmia, unspecified; Translations: [Cardiac arrhythmia, unspecified] Onset: 01-23-2022 Chronic Conditions associated with dizziness or vertigo (11 sources) Dizziness; Translations: [Dizziness and giddiness] Onset: 01-14-2022 01-19-2022 Episodic Diabetes mellitus with complications (20 sources) Type 2 diabetes mellitus; Translations: [Type [...] Translations: [Hyperlipidemia, unspecified] Onset: 01-18-2022 01-23-2022 Chronic Esophageal disorders (2 sources) Gastroesophageal reflux disease; Translations: [Gastro-esophageal reflux disease without esophagitis] 11-05-2023 Chronic Other aftercare (1 source) senior care (current) use of oral hypoglycemic drugs; Translations: [FPC USE ORAL HYPOGLYCEMIC DX] Onset: 07-25-2022 Episodic Other and ill-defined cerebrovascular disease (11 sources) Cerebral atherosclerosis; Translations: [Cerebral atherosclerosis] 11-05-2023 Chronic Other and ill-defined cerebrovascular disease (4 sources) Cerebral atherosclerosis; Translations: [Cerebral atherosclerosis] Chronic Other circulatory disease (8 sources) History [...] obesity due to excess calories] Chronic Other nutritional; endocrine; and metabolic disorders (1 source) Obesity; Translations: [Obesity, unspecified] 11-07-2023 Chronic Other nutritional; endocrine; and metabolic disorders (1 source) Obesity, unspecified; Translations: [Obesity, unspecified] 11-07-2023 Chronic Other screening for suspected conditions (not mental disorders or infectious disease) (5 sources) Encounter for screening for malignant neoplasm of prostate; Translations: [Encounter for screening for malignant neoplasm of colon] Onset: 07-15-2022 Episodic Residual codes; unclassified (11 sources) Obstructive sleep apnea syndrome; Translations: [Obstructive sleep apnea (adult) (pediatric)] 11-05-2023 Chronic Residual codes; unclassified (8 sources) Obstructive sleep apnea (adult) (pediatric); Translations: [Obstructive sleep apnea (adult)(pediatric)] Onset: 02-11-2022 Chronic Residual codes; unclassified (14 sources) Patient encounter status; Translations: [Encounter for [...] [Other specified health status] Onset: 01-18-2022 Episodic Procedures Date Procedure Procedure Detail Performing Clinician Start: 07-10-[address] DOCTOR JARAMILLO Comment on above: Performed By: #### P [facility] #### [facility] [address] [place] [address] Dr. Yasemin Austin Results Test Name Value Interpretation Reference Range Facility Laboratory - Chemistry and C hemistry - challengeon 10-30-2023 Bilirubin Ql (U) Negative [facility] Glucose (U) [Mass/Vol] Negative [facility] Ketones Ql (U) Negative [facility] pH (U) 5.0 [pH] [facility] Specific gravity (U) [Rel density] 1.010 [facility] Urobilinogen (U) [Mass/Vol] 0.2 mg/dL [facility] Laboratory - Specimen inform ationon 10-30-2023 Appearance (U) clear [facility] Color (U) darkyellow [facility] Laboratory - Urinalysison Leukocyte esterase Test strip Ql (U) Negative [facility] Nitrite Ql (U) Negative [facility] Protein Ql (U) ++ [facility] No Panel Informationon 10-29 Urine Occult Blood + [facility] Comprehensive Metabolic Pane [place] 06-04-2023 Albumin [Mass/Vol] 3.065535 g/dL Normal 3.4-5.0 g/dL N [facility] [employer] Other ALP [Catalytic activity/Vol] 46 U/L Normal 46-116 U/L [facility] Other ALT [Catalytic activity/Vol] 48 U/L Normal 16-63 U/L [facility] Other Anion gap [Moles/Vol] 15.1 [facility] Other AST [Catalytic activity/Vol] 18 U/L Normal 15-37 U/L [facility] [employer] Other Bilirubin [Mass/Vol] 0.7329515 mg/dL Normal 0.2-1.0 mg /dL [facility] [employer] Other Calcium [Mass/Vol] 8.2823291 mg/dL Normal 8.5-10 .1 mg/dL [facility] Other Chloride [Moles/Vol] 107 mmol/L Normal 98-107 mmol/L [facility] [employer] Other CO2 [Moles/Vol] 26.92716748 mmol/L Normal 21.0-3 2.0 mmol/L [facility] Other Creatinine [Mass/Vol] 1.81812773 mg/dL Normal 0. 70-1.30 mg/dL [facility] [employer] Other Glucose [Mass/Vol] 146 mg/dL High 74-106 mg/dL [facility] Other Potassium [Moles/Vol] 4.00190192 mmol/L Normal 3 .5-5.1 mmol/L [facility] [employer] Other Protein [Mass/Vol] 7.883173 g/dL Normal 6.4-8.2 g/dL [facility] [employer] Other Sodium [Moles/Vol] 144 mmol/L Normal 136-145 mmol/L [facility] [employer] Other Urea nitrogen [Mass/Vol] 15.8069844 mg/dL Normal 7.0-18.0 mg/dL [facility] Other Urea nitrogen/Creatinine [Mass ratio] 14.9 mg/mg [facility] Other Comprehensive Metabolic Panel 3.4 g/dL [facility] Other Comprehensive Metabolic Panel 1.1 [facility] [employer] Other Comprehensive Metabolic Panel see note [facility] [employer] Other Comprehensive Metabolic Panel >60 >=60 [facility] [employer] Other Lipid Panelon 06-04-2023 Cholesterol [Mass/Vol] 155 mg/dL <=200 mg/dL [facility] Other Cholesterol in HDL [Mass/Vol] 41 mg/dL Normal 40-60 mg/dL [facility] [employer] Other Triglyceride [Mass/Vol] 204 mg/dL High <=150 mg/dL [facility] [employer] Other Lipid Panel 74.0 mg/dL [facility] Other Lipid Panel 40.8 mg/dL [facility] Other Lipid Panel 3.8 [facility] [employer] Other PSA SCREENINGon 06-04-2023 PSA SCREENING 2.78 ng/mL <=4.00 ng/mL [facility] [employer] Other GLYCOHEMOGLOBIN A1Con 2022 ADA RECOMMENDATION SEE BELOW Normal [facility] Comment on above: Result Comment: ADA RECOMMENDED LIMIT 4.0 - 6.0 ADA THERAPEUTIC TARGET < 7.0 ACTION SUGGESTED > 7.0 Performed By: #### A 1C #### [facility] [address] [place] [address] Dr. Yasemin Austin Glucose [Mass/Vol] 128 mg/dL Normal [facility] Comment on above: Performed By: #### A 1C #### [facility] [address] [place] [address] Dr. Yasemin Austin HbA1c (Bld) [Mass fraction] 6.1 % Normal 4.5-6.2 [facility] Comment on above: Performed By: #### A 1C #### [facility] [address] [place] [address] Dr. Yasemin Austin CBC AUTO DIFFon 07-10-2022 BASO # 0.1 103/ul Normal 0.0-0.1 [facility] Comment on above: Performed By: #### C BC #### [facility] [address] [place] [address] Dr. Yasemin Austin Basophils/100 WBC (Bld) 0.7 % Normal 0.2-2.0 [facility] Comment on above: Performed By: #### C BC #### [facility] [address] [place] [address] Dr. Yasemin Austin EO # 0.1 103/ul Normal 0.0-0.7 [facility] Comment on above: Performed By: #### C BC #### [facility] [address] [place] [address] Dr. Yasemin Austin Eosinophils/100 WBC (Bld) 1.6 % Normal 0.9-7.0 [facility] Comment on above: Performed By: #### C BC #### [facility] [address] [place] [address] Dr. Yasemin Austin Erythrocyte distribution width (RBC) [Ratio] 11.9 % Normal 11.0-15.0 [facility] Comment on above: Performed By: #### C BC #### [facility] [address] [place] [address] Dr. Yasemin Austin Hematocrit (Bld) [Volume fraction] 44.2 % Normal 42.0-54.0 [facility] Comment on above: Performed By: #### C BC #### [facility] [address] [place] [address] Dr. Yasemin Austin Hemoglobin (Bld) [Mass/Vol] 15.3 g/dL Normal 14.0-18.0 [facility] Comment on above: Performed By: #### C BC #### [facility] [address] [place] [address] Dr. Yasemin Austin IG # 0.02 10e3/ul Normal 0.00-0.03 [facility] Comment on above: Performed By: #### C BC #### [facility] [address] [place] [address] Dr. Yasemin Austin IG % 0.3 % Normal 0.0-0.5 [facility] Comment on above: Performed By: #### C BC #### [facility] [address] [address] [address] Yasemin Austin LYMPH # 1.2 103/ul Normal 1.2-3.8 [facility] Comment on above: Performed By: #### C BC #### [facility] [address] [address] [address] Yasemin Austin Lymphocytes/100 WBC (Bld) 17.1 % Critically low 20.5-60.0 [facility] Comment on above: Performed By: #### C BC #### [facility] [address] [place] [address] Dr. Yasemin Austin MANUAL DIFF REQ NO Normal [facility] Comment on above: Performed By: #### C BC #### [facility] [address] [place] [address] Dr. Yasemin Austin MCH (RBC) [Entitic mass] 31.4 pg Normal 25.9-34.0 [facility] Comment on above: Performed By: #### C BC #### [facility] [address] [place] [address] Dr. Yasemin Austin MCHC (RBC) [Mass/Vol] 34.6 g/dL Normal 29.9-35.2 [facility] Comment on above: Performed By: #### C BC #### [facility] [address] [place] [address] Dr. Yasemin Austin MCV (RBC) [Entitic vol] 90.8 fL Normal 80.0-94.0 [facility] Comment on above: Performed By: #### C BC #### [facility] [address] [place] [address] Dr. Yasemin Austin MONO # 0.9 103/ul Critically high 0.3-0.8 [facility] Comment on above: Performed By: #### C BC #### [facility] [address] [place] [address] Dr. Yasemin Austin Monocytes/100 WBC (Bld) 12.9 % Critically high 1.7-12.0 [facility] Comment on above: Performed By: #### C BC #### [facility] [address] [address] [address] Yasemin Austin NEUT # 4.7 103/ul Normal 1.4-6.5 [facility] Comment on above: Performed By: #### C BC #### [facility] [address] [address] [address] Yasemin uAstin Neutrophils/100 WBC (Bld) 67.4 % Normal 43.0-75.0 [facility] Comment on above: Performed By: #### C BC #### [facility] [address] [address] [address] Yasemin Austin Platelet mean volume (Bld) [Entitic vol] 9.2 fL Critically low 9.5-13.5 [facility] Comment on above: Performed By: #### C BC #### [facility] [address] [address] [address] Yasemin Austin PLT 236 103/ul Normal 150-450 [facility] Comment on above: Performed By: #### C BC #### [facility] [address] [address] [address] Yasemin Austin RBC 4.87 106/ul Normal 4.70-6.10 [facility] Comment on above: Performed By: #### C BC #### [facility] [address] [address] [address] Yasemin Austin WBC 6.9 103/ul Normal 4.0-11.0 [facility] Comment on above: Performed By: #### C BC #### [facility] [address] [address] [address] Yasemin Austin GLYCOHEMOGLOBIN A1Con 2022 ADA RECOMMENDATION SEE BELOW Normal [facility] Comment on above: Result Comment: ADA RECOMMENDED LIMIT 4.0 - 6.0 ADA THERAPEUTIC TARGET < 7.0 ACTION SUGGESTED > 7.0 Performed By: #### A 1C #### [facility] [address] [place] [address] Dr. Yasemin Austin Glucose [Mass/Vol] 151 mg/dL Normal [facility] Comment on above: Performed By: #### A 1C #### [facility] [address] [address] [address] Yasemin Austin HbA1c (Bld) [Mass fraction] 6.9 % Critically high 4.5-6.2 [facility] Comment on above: Performed By: #### A 1C #### [facility] [address] [address] [address] Yasemin Austin LIPID PROFILEon 07-10-2022 CHOL-HDL RATIO NORM SEE BELOW Normal [facility] Comment on above: Result Comment: 3.3 - 4.4 LOW RISK 4.4 - 7.1 AVERAGE RISK 7.1 - 11.0 MODERATE RISK >11.0 HIGH RISK Performed By: #### L IPID, CMP #### [facility] [address] [address] [address] Yasemin Austin Cholesterol [Mass/Vol] 207 mg/dL Critically high <=200 [facility] Comment on above: Performed By: #### L IPID, CMP #### [facility] [address] [address] [address] Yasemin Austin Cholesterol in HDL [Mass/Vol] 38 mg/dL Critically low 40-60 [facility] Comment on above: Performed By: #### L IPID, CMP #### [facility] [address] [address] [address] Yasemin Austin Cholesterol in LDL [Mass/Vol] 137.0 mg/dL Normal [facility] Comment on above: Performed By: #### L IPID, CMP #### [facility] [address] [address] [address] Yasmein Austin Cholesterol.total/Chol esterol in HDL [Mass ratio] 5.4 {ratio} Normal [facility] Comment on above: Performed By: #### L IPID, CMP #### [facility] [address] [address] [address] Yasemin Austin HDL NORMAL > or = 60 mg/dl - LOW CARDIOVASCULAR RISK <40 mg/dl - HIGH CARDIOVASCULAR RISK Normal [facility] Comment on above: Performed By: #### L IPID, CMP #### [facility] [address] [address] [address] Yasemin Austin LDL CALC NORMAL SEE BELOW Normal [facility] Comment on above: Result Comment: <100 mg/dl OPTIMAL 100 - 129 mg/dl NEAR OR ABOVE OPTIMAL 130 - 159 mg/dl BORDERLINE HIGH 160 - 189 mg/dl HIGH >190 mg/dl VERY HIGH Performed By: #### L IPID, CMP #### [facility] [address] [address] [address] Yasemin Austin Triglyceride [Mass/Vol] 160 mg/dL Critically high <=150 [facility] Comment on above: Performed By: #### L IPID, CMP #### [facility] [address] [address] [address] Yasemin Austin VLDL CALC 32.0 mg/dL Normal [facility] Comment on above: Performed By: #### L IPID, CMP #### [facility] [address] [address] [address] Yasemin Austin PROF 14(COMP METB)on 023 Albumin [Mass/Vol] 3.8 g/dL Normal 3.4-5.0 [facility] Comment on above: Performed By: #### L IPID, CMP ####[facility] [address] [address]DrBenito Austin Albumin/Globulin [Mass ratio] 1.2 {ratio} Normal [facility] Comment on above: Performed By: #### L IPID, CMP ####[facility] [address] [address]DrBenito Austin ALP [Catalytic activity/Vol] 36 U/L Critically low 46-116 [facility] Comment on above: Performed By: #### L IPID, CMP ####[facility] [address] [id number] Austin ALT [Catalytic activity/Vol] 37 U/L Normal 16-63 [facility] Comment on above: Performed By: #### L IPID, CMP ####[facility] [address] [id number] Austin Anion gap [Moles/Vol] 12.7 mmol/L Normal [facility] Comment on above: Performed By: #### L IPID, CMP ####[facility] [address] [address]Dr. Yasemin Austin AST [Catalytic activity/Vol] 25 U/L Normal 15-37 [facility] Comment on above: Performed By: #### L IPID, CMP ####[facility] [address] [address]Dr. Yasemin Austin Bilirubin [Mass/Vol] 0.7 mg/dL Normal 0.2-1.0 [facility] Comment on above: Performed By: #### L IPID, CMP ####[facility] [address] [place], [place] [address]Dr. Yasemin Austin Calcium [Mass/Vol] 8.8 mg/dL Normal 8.5-10.1 [facility] Comment on above: Performed By: #### L IPID, CMP ####[facility] [address] [place], [place] [address]Dr. Yasemin Austin Chloride [Moles/Vol] 105 mmol/L Normal 98-107 [facility] Comment on above: Performed By: #### L IPID, CMP ####[facility] [address] [place], [place] [address]Dr. Yasemin Austin CO2 [Moles/Vol] 27.5 mmol/L Normal 21.0-32.0 [facility] [place] [facility] Comment on above: Performed By: #### L IPID, CMP ####[facility] [address] [place], [place] [address]Dr. Yasemin Austin Creatinine [Mass/Vol] 0.99 mg/dL Normal 0.70-1.30 [facility] Comment on above: Performed By: #### L IPID, CMP ####[facility] [address] [place], [place] [address]Dr. Yasemin Austin EGFR-AF [place]IZ[place] >60 Normal >=60 [facility] Comment on above: Performed By: #### L IPID, CMP ####[facility] [address] [place], [place] [address]Dr. Yasemin Norman EGFR-NON AF [place] >60 Normal >=60 [facility] Comment on above: Performed By: #### L IPID, CMP ####[facility] [address] [address]Dr. Yasemin Austin Globulin (S) [Mass/Vol] 3.3 g/dL Normal [facility] Comment on above: Performed By: #### L IPID, CMP ####[facility] [address] [place], [place] [address]Dr. Yasemin Austin Glucose [Mass/Vol] 145 mg/dL Critically high 74-106 [facility] Comment on above: Performed By: #### L IPID, CMP ####[facility] [address] [place], [place] [address]Dr. Yasemin Austin Potassium [Moles/Vol] 4.2 mmol/L Normal 3.5-5.1 [facility] Comment on above: Performed By: #### L IPID, CMP ####[facility] [address] [place], [place] [address]Dr. Yasemin Austin Protein [Mass/Vol] 7.1 g/dL Normal 6.4-8.2 [facility] Comment on above: Performed By: #### L IPID, CMP ####[facility] [address] [place], [place] [address]Dr. Yasemin Austin Sodium [Moles/Vol] 141 mmol/L Normal 136-145 [facility] Comment on above: Performed By: #### L IPID, CMP ####[facility] [address] [place], [place] [address]Dr. Yasemin Austin Urea nitrogen [Mass/Vol] 15.0 mg/dL Normal 7.0-18.0 [facility] Comment on above: Performed By: #### L IPID, CMP ####[facility] [address] [place], [place] [address]Dr. Yasemin Austin Urea nitrogen/Creatinine [Mass ratio] 15.2 mg/mg Normal [facility] Comment on above: Performed By: #### L IPID, CMP ####[facility] [address] [place], [place] [address]Dr. Yasemin Austin LIPID PROFILEon 03-15-2022 CHOL-HDL RATIO NORM SEE BELOW Normal [facility] Comment on above: Result Comment: 3.3 - 4.4 LOW RISK 4.4 - 7.1 AVERAGE RISK 7.1 - 11.0 MODERATE RISK >11.0 HIGH RISK Performed By: #### L IPID ####[facility] [address] [place], [place] [address]Wu. Yasemin Austin Cholesterol [Mass/Vol] 169 mg/dL Normal <=200 [facility] Comment on above: Performed By: #### L IPID ####[facility] [address] [place], [place] [address]Uw. Yasemin Austin Cholesterol in HDL [Mass/Vol] 38 mg/dL Critically low 40-60 [facility] Comment on above: Performed By: #### L IPID ####[facility] [address] [id number]. Lianeliud Norman Cholesterol in LDL [Mass/Vol] 101.0 mg/dL Normal [facility] Comment on above: Performed By: #### L IPID ####[facility] [address] [place], [place] [address]Uj. Yasemin Austin Cholesterol.total/Chol esterol in HDL [Mass ratio] 4.4 {ratio} Normal [facility] Comment on above: Performed By: #### L IPID ####[facility] [address] [id number]. Lianeliud Norman HDL NORMAL > or = 60 mg/dl - LOW CARDIOVASCULAR RISK <40 mg/dl - HIGH CARDIOVASCULAR RISK Normal [facility] Comment on above: Performed By: #### L IPID ####[facility] [address] [place], [place] [address]Ht. Yasemin Austin LDL CALC NORMAL SEE BELOW Normal [facility] Comment on above: Result Comment: <100 mg/dl OPTIMAL 100 - 129 mg/dl NEAR OR ABOVE OPTIMAL 130 - 159 mg/dl BORDERLINE HIGH 160 - 189 mg/dl HIGH >190 mg/dl VERY HIGH Performed By: #### L IPID ####[facility] [address] [place], [place] [address]Nr. Yasemin Austin Triglyceride [Mass/Vol] 150 mg/dL Normal <=150 [facility] Comment on above: Performed By: #### L IPID ####[facility] [address] [place], [place] [address]Pl. Yasemin Austin VLDL CALC 30.0 mg/dL Normal [facility] Comment on above: Performed By: #### L IPID ####[facility] [address] [place], [place] [address]Bi. Yasemin Austin CA cardiac event monitoron 0 03-12-2022 [place] cardiac event monitor [facility] [place] [address] Cardiac Event Monitor Signed Patient: Jack Gonzales MR#: [id number] 2 : 1965 Acct:[id number] Age/Sex: 56 / M ADM Date: 01/23/22 Loc: Room: Type: [facility] Attending Dr: Agustin Murphy MD Copies to: [...] or atrial flutter. Transcribed By: MICHAEL 03/13/22 [id number] Dictated By: Peter Vega MD 03/12/22 3572 Signed By: 03/18/22 1412 Normal [facility] Cholesterol [Mass/volume] in Serum or PlasmaOrdered By: Lilly Arzate on 01-20-2022 Cholesterol [Mass/Vol] 206 mg/dL 140-200 [facility] Comment on above: Chol less than 200 m g/dl low risk Chol 201-239 mg/dl borderline risk Chol 240 mg/dl and greater high risk Cholesterol in LDL Calc [Mas s/Vol]Ordered By: Lilly Arzate on 01-20-2022 Cholesterol in LDL [Mass/Vol] 142 mg/dL 0-100 [facility] Comment on above: LDL ATP III CLASSIFI CATION LDL less than 100 mg/dL Optimal LDL 100-129 mg/dL Near or above optimal LDL 130-159 mg/dL Borderline high LDL 160-189 mg/dL High LDL greater than 189 mg/dL Very high Cholesterol in VLDL Calc [Ma ss/Vol]Ordered By: Lilly Arzate on 01-20-2022 Cholesterol in VLDL [Mass/Vol] 31 mg/dL [facility] Lipid Panelon 01-20-2022 Cholesterol [Mass/Vol] 206 mg/dL High 140-200 [facility] Comment on above: Order Comment: TRACEY Clifford Result Comment: Chol less than 200 mg/dl low risk Chol 201-239 mg/dl borderline risk Chol 240 mg/dl and greater high risk Performed By: #### L IPID #### [facility] [address] [place] [address] [place] Cholesterol in HDL [Mass/Vol] 32 mg/dL Normal 29-71 [facility] Comment on above: Order Comment: TRACEY Clifford Result Comment: HDL CHOL ATP-III CLASSIFICATION Cardiovascular Risk HDL > or equal to 60 mg/dL LOW HDL < 40 mg/dL HIGH Performed By: #### L IPID #### [facility] [address] Cholesterol.total/Chol esterol in HDL [Mass ratio] 6.4 {ratio} Normal <5.0 [facility] Comment on above: Order Comment: TRACEY Clifford Result Comment: PERF ORMED BY: [facility] [address] [place] [address] PATHOLOGIST INTELLIGENCE OFFICER EMIR DOBSON M.D. Performed By: #### L IPID #### [facility] [address] LDL Cholesterol,Calculated 142 mg/dL High 0-100 [facility] Comment on above: Order Comment: TRACEY Clifford Result Comment: LDL ATP III CLASSIFICATION LDL less than 100 mg/dL Optimal LDL 100-129 mg/dL Near or above optimal LDL 130-159 mg/dL Borderline high LDL 160-189 mg/dL High LDL greater than 189 mg/dL Very high Performed By: #### L IPID #### [facility] [address] [place] [address] [place] Triglyceride w/Reflex 158 mg/dL High 35-149 [facility] Comment on above: Order Comment: TRACEY Clifford Result Comment: TRIG ATP III CLASSIFICATION TRIG less than 150 mg/dL Normal TRIG 150-199 mg/dL Borderline high TRIG 200-500 mg/dL High TRIG greater than 500 mg/dL Very high Standard traceable to the Center for Disease Conrtrol and Prevention (CDC) test method. Performed By: #### L IPID #### [facility] [address] VLDL CHOLESTEROL 31 mg/dL Normal [facility] Comment on above: Order Comment: TRACEY Clifford Performed By: #### L IPID #### [facility] [address] Serum or plasma high density lipoprotein (HDL) cholesterol measurementOrdered By: Lilly Arzate on 01-20-2022 Cholesterol in HDL [Mass/Vol] 32 mg/dL 29-71 [facility] Comment on above: HDL CHOL ATP-III CLA SSIFICATION Cardiovascular Risk HDL > or equal to 60 mg/dL LOW HDL < 40 mg/dL HIGH Serum or plasma total choles terol/high density lipoprotein (HDL) cholesterol mass ratOrdered By: Lilly Arzate on 01-20-2022 Cholesterol.total/Chol esterol in HDL [Mass ratio] 6.4 {ratio} <5.0 [facility] Triglyceride [Mass/volume] i n Serum or PlasmaOrdered By: Lilly Arzate on 01-20-2022 Triglyceride [Mass/Vol] 158 mg/dL 35-149 [facility] Comment on above: TRIG ATP III CLASSIF ICATION TRIG less than 150 mg/dL Normal TRIG 150-199 mg/dL Borderline high TRIG 200-500 mg/dL High TRIG greater than 500 mg/dL Very high Standard traceable to the Center for Disease Conrtrol and Prevention (CDC) test method. Albumin [Mass/volume] in Ser um or PlasmaOrdered By: Agustin Murphy on 01-19-2022 Albumin [Mass/Vol] 3.4 g/dL 3.2-5.5 [facility] Basophils Auto (Bld) [#/Vol] Ordered By: Agustin Murphy on 01-19-2022 Basophils (Bld) [#/Vol] 0.0 10*3/uL 0.0-0.2 [facility] Basophils/100 WBC Auto (Bld) Ordered By: Agustin Murphy on 01-19-2022 Basophils/100 WBC (Bld) 0.7 % . [facility] Blood hemoglobin measurement (mass/volume)Ordered By: Agustin Murphy on 01-19-2022 Hemoglobin (Bld) [Mass/Vol] 15.3 g/dL 13.0-17.0 [facility] Blood leukocytes automated c ount (number/volume)Ordered By: Agustin Murphy on 01-19-2022 WBC (Bld) [#/Vol] 6.6 10*3/uL 4.5-11.0 [facility] Complete Blood Count Auto Di ffon 01-19-2022 Basophils (Bld) [#/Vol] 0.0 10*3/uL Normal 0.0-0.2 [facility] Comment on above: Result Comment: PERF ORMED BY: [place] [address] PATHOLOGIST INTELLIGENCE OFFICER EMIR DOBSON M.D. Performed By: #### C BC, CMP, PAB #### [facility] [address] [place] [address] [place] Basophils/100 WBC (Bld) 0.7 % Normal . [facility] Comment on above: Performed By: #### C BC, CMP, PAB #### [facility] [address] [place] [address] [place] Eosinophils (Bld) [#/Vol] 0.2 10*3/uL Normal 0.0-0.45 [facility] Comment on above: Performed By: #### C BC, CMP, PAB #### [facility] [address] [place] [address] [place] Eosinophils/100 WBC (Bld) 2.5 % Normal . [facility] Comment on above: Performed By: #### C BC, CMP, PAB #### [facility] [address] Erythrocyte distribution width (RBC) [Ratio] 13.1 % Normal 12.0-14.8 [facility] Comment on above: Performed By: #### C BC, CMP, PAB #### [facility] [address] Hematocrit (Bld) [Volume fraction] 43.8 % Normal 38.8-50.0 [facility] Comment on above: Performed By: #### C BC, CMP, PAB #### [facility] [address] Hemoglobin (Bld) [Mass/Vol] 15.3 g/dL Normal 13.0-17.0 [facility] Comment on above: Performed By: #### C BC, CMP, PAB #### [address] Lymphocytes (Bld) [#/Vol] 1.5 10*3/uL Normal 1.00-4.8 [facility] Comment on above: Performed By: #### C BC, CMP, PAB #### [place] [address] [place] Lymphocytes/100 WBC (Bld) 22.1 % Normal . [facility] Comment on above: Performed By: #### C BC, CMP, PAB #### [facility] [address] [place] [address] [place] MCH (RBC) [Entitic mass] 32.3 pg Normal 27.5-35.2 [facility] Comment on above: Performed By: #### C BC, CMP, PAB #### [facility] [address] MCV (RBC) [Entitic vol] 92.3 fL Normal 83.5-101 [facility] Comment on above: Performed By: #### C BC, CMP, PAB #### [facility] [address] Mean Corpuscular HGB Conc 35.0 g/dL Normal 32.5-35.6 [facility] Comment on above: Performed By: #### C BC, CMP, PAB #### [facility] [address] Monocytes (Bld) [#/Vol] 0.8 10*3/uL Normal 0.0-0.8 [facility] Comment on above: Performed By: #### C BC, CMP, PAB #### [facility] [address] Monocytes/100 WBC (Bld) 12.4 % Normal . [facility] Comment on above: Performed By: #### C BC, CMP, PAB #### [facility] [address] Neutrophils (Bld) [#/Vol] 4.1 10*3/uL Normal 1.8-7.7 [facility] Comment on above: Performed By: #### C BC, CMP, PAB #### [facility] [address] [place] [address] [place] Neutrophils/100 WBC (Bld) 62.3 % Normal . [facility] Comment on above: Performed By: #### C BC, CMP, PAB #### [facility] [address] [place] [address] [place] Nucleated RBC/100 WBC (Bld) [Ratio] 0.1 % Normal 0-0.5 [facility] Comment on above: Performed By: #### C BC, CMP, PAB #### [facility] [address] [place] [address] [place] Platelet mean volume (Bld) [Entitic vol] 8.0 fL Normal 6.6-10.1 [facility] Comment on above: Performed By: #### C BC, CMP, PAB #### [facility] [address] [place] [address] [place] Platelets (Bld) [#/Vol] 261 10*3/uL Normal 150-450 [facility] Comment on above: Performed By: #### C BC, CMP, PAB #### [facility] [address] [place] [address] RBC (Bld) [#/Vol] 4.74 10*6/uL Normal 3.90-5.60 [facility] Comment on above: Performed By: #### C BC, CMP, PAB #### [address] WBC (Bld) [#/Vol] 6.6 10*3/uL Normal 4.5-11.0 [facility] Comment on above: Performed By: #### C BC, CMP, PAB #### [address] Comprehensive Metabolic Pane [place] 01-19-2022 Albumin [Mass/Vol] 3.4 g/dL Normal 3.2-5.5 [facility] Comment on above: Performed By: #### C BC, CMP, PAB #### [address] Albumin/Globulin [Mass ratio] 1.1 {ratio} Normal [facility] Comment on above: Performed By: #### C BC, CMP, PAB #### [address] ALP [Catalytic activity/Vol] 31 U/L Low 32-92 [facility] Comment on above: Performed By: #### C BC, CMP, PAB #### [facility] [address] [place] [address] ALT [Catalytic activity/Vol] 44 U/L Normal 10-60 [facility] Comment on above: Performed By: #### C BC, CMP, PAB #### [address] AST [Catalytic activity/Vol] 34 U/L Normal 10-42 [facility] Comment on above: Performed By: #### C BC, CMP, PAB #### [place] [address] [place] Bilirubin [Mass/Vol] 0.7 mg/dL Normal 0.3-1.2 [facility] Comment on above: Performed By: #### C BCMARIAJOSE, PAB #### [facility] [address] Calcium [Mass/Vol] 8.9 mg/dL Normal 8.2-10.2 [facility] Comment on above: Performed By: #### C BC CMP, PAB #### [facility] [address] Chloride [Moles/Vol] 104 mmol/L Normal 95-114 [facility] Comment on above: Performed By: #### C MARIAJOSE ALFORD, PAB #### [facility] [address] CO2 [Moles/Vol] 25.4 mmol/L Normal 22.0-30.0 [facility] Comment on above: Performed By: #### C ROCÍO CMP, PAB #### [facility] [address] Creatinine [Mass/Vol] 1.13 mg/dL Normal 0.64-1.27 [facility] Comment on above: Performed By: #### C MARIAJOSE ALFORD, PAB #### [place] [address] [place] Creatinine Clr Calc Pharmacy 88.22 [facility] Comment on above: Performed By: #### C BC CMP, PAB #### [facility] [address] Estimated GFR ( Elvia > 60 [facility] Comment on above: Result Comment: GFR estimated reference range: According to KDOQI guidelines, <60 ml/min/1.73m2 is sufficient to diagnose a patient with chronic kidney disease. Performed By: #### C BC CMP, PAB #### [facility] [address] Estimated GFR (Non- Am > 60 [facility] Comment on above: Performed By: #### C BC, CMP, PAB #### [facility] [address] Globulin (S) [Mass/Vol] 3.0 g/dL Normal [facility] Comment on above: Performed By: #### C MARIAJOSE ALFORD, PAB #### [facility] [address] Glucose [Mass/Vol] 121 mg/dL High 70-100 [facility] Comment on above: Result Comment: [facility] Glucose Reference Range is dependent on time and content of last meal. Glucose of more than 200 mg/dL in a nonstressed, ambulatory subject supports the diagnosis of Diabetes Mellitus. ADA recommended reference range Performed By: #### C MARIAJOSE ALFORD, PAB #### [address] Potassium [Moles/Vol] 4.6 mmol/L Normal 3.5-5.1 [facility] Comment on above: Performed By: #### C MARIAJOSE ALFORD, PAB #### [address] Protein [Mass/Vol] 6.4 g/dL Normal 6.1-7.9 [facility] Comment on above: Performed By: #### C MARIAJOSE ALFORD, PAB #### [address] Sodium [Moles/Vol] 138 mmol/L Normal 136-146 [facility] Comment on above: Performed By: #### C ROCÍO CMP, PAB #### [address] Urea nitrogen [Mass/Vol] 16 mg/dL Normal 9-23 [facility] Comment on above: Performed By: #### C BC, CMP, PAB #### [place] [address] [place] Creatinine and Glomerular fi ltration rate.predicted panel (S/P/Bld)Ordered By: Agustin Murphy on 01-19-2022 Creatinine [Mass/Vol] 1.13 mg/dL 0.64-1.27 [facility] Eosinophils Auto (Bld) [#/Vo l]Ordered By: Agustin Murphy on 01-19-2022 Eosinophils (Bld) [#/Vol] 0.2 10*3/uL 0.0-0.45 [facility] Eosinophils/100 WBC Auto (Bl d)Ordered By: Agustin Murphy on 01-19-2022 Eosinophils/100 WBC (Bld) 2.5 % . [facility] Erythrocyte distribution wid th Auto (RBC) [Ratio]Ordered By: Agustin Murphy on 01-19-2022 Erythrocyte distribution width (RBC) [Ratio] 13.1 % 12.0-14.8 [facility] Estimated glomerular filtrat ion rate (GFR) non- AmericanOrdered By: Agustin Murphy on 01-19-2022 GFR/1.73 sq M.predicted among non-blacks MDRD (S/P/Bld) [Vol rate/Area] > 60 mL/Min [facility] Globulin Calc (S) [Mass/Vol] Ordered By: Agustin Murphy on 01-19-2022 Globulin (S) [Mass/Vol] 3.0 g/dL [facility] Hematocrit Auto (Bld) [Volum e fraction]Ordered By: Agustin Murphy on 01-19-2022 Hematocrit (Bld) [Volume fraction] 43.8 % 38.8-50.0 [facility] Laboratory - Hematology and Cell countsOrdered By: Agustin Murphy on 01-19-2022 Nucleated RBC/100 WBC (Bld) [Ratio] 0.1 % 0-0.5 [facility] Lymphocytes Auto (Bld) [#/Vo l]Ordered By: Agustin Murphy on 01-19-2022 Lymphocytes (Bld) [#/Vol] 1.5 10*3/uL 1.00-4.8 [facility] Lymphocytes/100 WBC Auto (Bl d)Ordered By: Agustin Murphy on 01-19-2022 Lymphocytes/100 WBC (Bld) 22.1 % . [facility] MCH Auto (RBC) [Entitic mass ]Ordered By: Agustin Murphy on 01-19-2022 MCH (RBC) [Entitic mass] 32.3 pg 27.5-35.2 [facility] MCHC Auto (RBC) [Mass/Vol]Or dered By: Agustin Murphy on 01-19-2022 MCHC (RBC) [Mass/Vol] 35.0 g/dL 32.5-35.6 [facility] MCV Auto (RBC) [Entitic vol] Ordered By: Agustin Murphy on 01-19-2022 MCV (RBC) [Entitic vol] 92.3 fL 83.5-101 [facility] Monocytes Auto (Bld) [#/Vol] Ordered By: Agustin Murphy on 01-19-2022 Monocytes (Bld) [#/Vol] 0.8 10*3/uL 0.0-0.8 [facility] Monocytes/100 WBC Auto (Bld) Ordered By: Agustin Murphy on 01-19-2022 Monocytes/100 WBC (Bld) 12.4 % . [facility] Neutrophils Auto (Bld) [#/Vo l]Ordered By: Agustin Murphy on 01-19-2022 Neutrophils (Bld) [#/Vol] 4.1 10*3/uL 1.8-7.7 [facility] Neutrophils/100 WBC Auto (Bl d)Ordered By: Agustin Murphy on 01-19-2022 Neutrophils/100 WBC (Bld) 62.3 % . [facility] No Panel InformationOrdered By: Agustin Murphy on 01-19-2022 Estimated GFR () > 60 mL/Min [facility] Comment on above: GFR estimated refere nce range: According to KDOQI guidelines, <60 ml/min/1.73m2 is sufficient to diagnose a patient with chronic kidney disease. Pharmacy Creatinine Clearance (Chem 88.22 [facility] Platelet mean volume Auto (B ld) [Entitic vol]Ordered By: Agustin Murphy on 01-19-2022 Platelet mean volume (Bld) [Entitic vol] 8.0 fL 6.6-10.1 [facility] Platelets Auto (Bld) [#/Vol] Ordered By: Agustin Murphy on 01-19-2022 Platelets (Bld) [#/Vol] 261 10*3/uL 150-450 [facility] Prealbuminon 01-19-2022 Prealbumin [Mass/Vol] 31.8 mg/dL Normal 18.0-38.0 [facility] Comment on above: Result Comment: PERF ORMED BY: [place] [id number] PATHOLOGIST INTELLIGENCE OFFICER EMIR DOBSON M.D. Performed By: #### C BC, CMP, PAB #### [facility] [address] [place] [address] Protein [Mass/volume] in Ser um or PlasmaOrdered By: Agustin Murphy on 01-19-2022 Protein [Mass/Vol] 6.4 g/dL 6.1-7.9 [facility] RBC Auto (Bld) [#/Vol]Ordere d By: Agustin Murphy on 01-19-2022 RBC (Bld) [#/Vol] 4.74 10*6/uL 3.90-5.60 [facility] Serum or plasma alanine be otransferase measurement without P-5'-P (enzymatic activiOrdered By: Agustin Murphy on 01-19-2022 ALT No additional P-5'-P [Catalytic activity/Vol] 44 U/L 10-60 [facility] Serum or plasma albumin/glob ulin mass ratioOrdered By: Agustin Murphy on 01-19-2022 Albumin/Globulin [Mass ratio] 1.1 {ratio} [facility] Serum or plasma alkaline indira sphatase measurement (enzymatic activity/volume)Ordered By: Agustin Murphy on 01-19-2022 ALP [Catalytic activity/Vol] 31 U/L 32-92 [facility] Serum or plasma aspartate am inotransferase measurement (enzymatic activity/volume)Ordered By: Agustin Murphy on 01-19-2022 AST [Catalytic activity/Vol] 34 U/L 10-42 [facility] Serum or plasma calcium reyna urement (mass/volume)Ordered By: Agustin Murphy on 01-19-2022 Calcium [Mass/Vol] 8.9 mg/dL 8.2-10.2 [facility] Serum or plasma chloride francisco surement (moles/volume)Ordered By: Agustin Murphy on 01-19-2022 Chloride [Moles/Vol] 104 mmol/L 95-114 [facility] Serum or plasma glucose reyna urement (mass/volume)Ordered By: Agustin Murphy on 01-19-2022 Glucose [Mass/Vol] 121 mg/dL 70-100 [facility] Comment on above: ADA recommended refe rence range Random Glucose Reference Range is dependent on time and content of last meal. Glucose of more than 200 mg/dL in a nonstressed, ambulatory subject supports the diagnosis of Diabetes Mellitus. Serum or plasma potassium me asurement (moles/volume)Ordered By: Agustin Murphy on 01-19-2022 Potassium [Moles/Vol] 4.6 mmol/L 3.5-5.1 [facility] Serum or plasma prealbumin m easurement (mass/volume)Ordered By: Agustin Murphy on 01-19-2022 Prealbumin [Mass/Vol] 31.8 mg/dL 18.0-38.0 [facility] Serum or plasma sodium measu rement (moles/volume)Ordered By: Agustin Murphy on 01-19-2022 Sodium [Moles/Vol] 138 mmol/L 136-146 [facility] Serum or plasma total biliru bin measurement (mass/volume)Ordered By: Agustin Murphy on 01-19-2022 Bilirubin [Mass/Vol] 0.7 mg/dL 0.3-1.2 [facility] Serum or plasma total carbon dioxide measurement (moles/volume)Ordered By: Agustin Murphy on 01-19-2022 CO2 [Moles/Vol] 25.4 mmol/L 22.0-30.0 [facility] Serum or plasma urea nitroge n measurement (mass/volume)Ordered By: Agustin Murphy on 01-19-2022 Urea nitrogen [Mass/Vol] 16 mg/dL 03-15 [facility] CTA NECK WO W CONon 01-16-20 CTA [...] ANAYELI HALE Date: 2022-01-15 00:55 Normal [facility] CBC AUTO DIFFon 01-14-2022 BASO # 0.0 103/ul Normal 0.0-0.1 [facility] Comment on above: Performed By: #### C BC #### [facility] [address] [address] [address] Yasemin Austin Basophils/100 WBC (Bld) 0.2 % Normal 0.2-2.0 [facility] Comment on above: Performed By: #### C BC #### [facility] [address] [address] [address] Yasemin Austin EO # 0.0 103/ul Normal 0.0-0.7 [facility] Comment on above: Performed By: #### C BC #### [facility] [address] [place] [address] Dr. Yasemin Austin Eosinophils/100 WBC (Bld) 0.2 % Critically low 0.9-7.0 [facility] Comment on above: Performed By: #### C BC #### [facility] [address] [place] [address] Dr. Yasemin Austin Erythrocyte distribution width (RBC) [Ratio] 12.2 % Normal 11.0-15.0 [facility] Comment on above: Performed By: #### C BC #### [facility] [address] [place] [address] Dr. Yasemin Austin Hematocrit (Bld) [Volume fraction] 41.4 % Critically low 42.0-54.0 [facility] Comment on above: Performed By: #### C BC #### [facility] [address] [place] [address] Dr. Yasemin Austin Hemoglobin (Bld) [Mass/Vol] 14.5 g/dL Normal 14.0-18.0 [facility] Comment on above: Performed By: #### C BC #### [facility] [address] [place] [address] Dr. Yasemin Austin IG # 0.07 10e3/ul Critically high 0.00-0.03 [facility] Comment on above: Performed By: #### C BC #### [facility] [address] [place] [address] Dr. Yasemin Austin IG % 0.5 % Normal 0.0-0.5 [facility] Comment on above: Performed By: #### C BC #### [facility] [address] [place] [address] Dr. Yasemin Austin LYMPH # 0.8 103/ul Critically low 1.2-3.8 [facility] Comment on above: Performed By: #### C BC #### [facility] [address] [place] [address] Dr. Yasemin Austin Lymphocytes/100 WBC (Bld) 5.9 % Critically low 20.5-60.0 [facility] Comment on above: Performed By: #### C BC #### [facility] [address] [place] [address] Dr. Yasemin Austin MANUAL DIFF REQ NO Normal [facility] Comment on above: Performed By: #### C BC #### [facility] [address] [place] [address] Dr. Yasemin Austin MCH (RBC) [Entitic mass] 31.7 pg Normal 25.9-34.0 [facility] Comment on above: Performed By: #### C BC #### [facility] [address] [place] [address] Dr. Yasemin Austin MCHC (RBC) [Mass/Vol] 35.0 g/dL Normal 29.9-35.2 [facility] Comment on above: Performed By: #### C BC #### [facility] [address] [place] [address] Dr. Yasemin Austin MCV (RBC) [Entitic vol] 90.4 fL Normal 80.0-94.0 [facility] Comment on above: Performed By: #### C BC #### [facility] [address] [place] [address] Dr. Yasemin Austin MONO # 0.9 103/ul Critically high 0.3-0.8 [facility] Comment on above: Performed By: #### C BC #### [facility] [address] [place] [address] Dr. Yasemin Austin Monocytes/100 WBC (Bld) 6.4 % Normal 1.7-12.0 [facility] Comment on above: Performed By: #### C BC #### [facility] [address] [place] [address] Dr. Yasemin Austin NEUT # 11.6 103/ul Critically high 1.4-6.5 [facility] Comment on above: Performed By: #### C BC #### [facility] [address] [address] [address] Yasemin Austin Neutrophils/100 WBC (Bld) 86.8 % Critically high 43.0-75.0 [facility] Comment on above: Performed By: #### C BC #### [facility] [address] [address] [address] Yasemin Austin Platelet mean volume (Bld) [Entitic vol] 9.9 fL Normal 9.5-13.5 [facility] Comment on above: Performed By: #### C BC #### [facility] [address] [address] [address] Yasemin Austin PLT 279 103/ul Normal 150-450 [facility] Comment on above: Performed By: #### C BC #### [facility] [address] [address] [address] Yasemin Austin RBC 4.58 106/ul Critically low 4.70-6.10 [facility] Comment on above: Performed By: #### C BC #### [facility] [address] [address] [address] Yasemin Austin WBC 13.3 103/ul Critically high 4.0-11.0 [facility] Comment on above: Performed By: #### C BC #### [facility] [address] [place] [address] STROKE HEAD WOon [...] EDIL MCGHEE Date: 2022-01-14 20:20 Normal [facility] Covid-19 PCR (CVDTBH)on 12-22 SARS-CoV-2 (COVID-19) RNA CARY+probe Ql (Unsp spec) Not detected Normal NOT DETECTED [facility] Comment on above: Result Comment: [...] for this test is supported by the [place] of [employer] and Human Service's declaration that [...] longer be used). Performed By: #### C VDTBH #### [facility] [address] [address] [address] Yasemin Austin PROF 14(COMP METB)on 022 Albumin [Mass/Vol] 3.6 g/dL Normal 3.4-5.0 [facility] Comment on above: Performed By: #### C MP #### [facility] [address] [address] [address] Yasemin Austin Albumin/Globulin [Mass ratio] 1.1 {ratio} Normal [facility] Comment on above: Performed By: #### C MP #### [facility] [address] [place] [address] Dr. Yasemin Austin ALP [Catalytic activity/Vol] 37 U/L Critically low 46-116 [facility] Comment on above: Performed By: #### C MP #### [facility] [address] [address] [address] Yasemin Austin ALT [Catalytic activity/Vol] 70 U/L Critically high 16-63 [facility] Comment on above: Performed By: #### C MP #### [facility] [address] [place] [address] Dr. Yasemin Austin Anion gap [Moles/Vol] 16.9 mmol/L Normal [facility] Comment on above: Performed By: #### C MP #### [facility] [address] [place] [address] Dr. Yasemin Austin AST [Catalytic activity/Vol] 90 U/L Critically high 15-37 [facility] Comment on above: Performed By: #### C MP #### [facility] [address] [place] [address] Dr. Yasemin Austin Bilirubin [Mass/Vol] 0.9 mg/dL Normal 0.2-1.0 [facility] Comment on above: Performed By: #### C MP #### [facility] [address] [place] [address] Dr. Yasemin Austin Calcium [Mass/Vol] 8.8 mg/dL Normal 8.5-10.1 [facility] Comment on above: Performed By: #### C MP #### [facility] [address] [address] [address] Yasemin Austin Chloride [Moles/Vol] 106 mmol/L Normal 98-107 [facility] Comment on above: Performed By: #### C MP #### [facility] [address] [place] [address] Dr. Yasemin Austin CO2 [Moles/Vol] 23.5 mmol/L Normal 21.0-32.0 [facility] [place] [facility] Comment on above: Performed By: #### C MP #### [facility] [address] [address] [address] Yasemin Austin Creatinine [Mass/Vol] 1.07 mg/dL Normal 0.70-1.30 [facility] Comment on above: Performed By: #### C MP #### [facility] [address] [address] [address] Yasemin Austin EGFR-AF [place]IZ[place] >60 Normal >=60 [facility] [place] [facility] Comment on above: Performed By: #### C MP #### [facility] [address] [address] [address] Yasemin Austin EGFR-NON AF [place]IZ[place] >60 Normal >=60 [facility] Comment on above: Performed By: #### C MP #### [facility] [address] [address] [address] Yasemin Austin Globulin (S) [Mass/Vol] 3.4 g/dL Normal [facility] Comment on above: Performed By: #### C MP #### [facility] [address] [address] [address] Yasemin Austin Glucose [Mass/Vol] 172 mg/dL Critically high 74-106 [facility] Comment on above: Performed By: #### C MP #### [facility] [address] [address] [address] Yasemin Austin Potassium [Moles/Vol] 4.4 mmol/L Normal 3.5-5.1 [facility] Comment on above: Performed By: #### C MP #### [facility] [address] [address] [address] Yasemin Austin Protein [Mass/Vol] 7.0 g/dL Normal 6.4-8.2 [facility] Comment on above: Performed By: #### C MP #### [facility] [address] [address] [address] Yasemin Austin Sodium [Moles/Vol] 142 mmol/L Normal 136-145 [facility] Comment on above: Performed By: #### C MP #### [facility] [address] [place], [place] [address] Dr. Yasemin Austin Urea nitrogen [Mass/Vol] 14.0 mg/dL Normal 7.0-18.0 [facility] Comment on above: Performed By: #### C MP #### [facility] [address] [place], [place] [address] Dr. Yasemin Austin Urea nitrogen/Creatinine [Mass ratio] 13.1 mg/mg Normal [facility] Comment on above: Performed By: #### C MP #### [facility] [address] [place], [place] [address] Dr. Yasemin Austin PTTon 01-14-2022 aPTT Coag (Bld) [Time] 23.7 s Normal 22.3-36.2 [facility] Comment on above: Performed By: #### P TT ####[facility] [address] [place], [place] [address]RoDr. Yasemin Austin Social History Date Type Detail Facility Start: 01-19-2022 Tobacco smoking status NHIS Smoker (finding) [facility] Start: 1965 Sex Assigned At Male F [facility] Sex Assigned At Sex Assigned At Bir th Formerly [facility] [employer] Other Vital Signs Date Time Vital Sign Value Performing Clinician Facility 11-07-2023 09:00-0400 Body height 182.88 cm [facility] 11-07-2023 09:00-0400 Body mass index (BMI) [Ratio] 31.2 kg/m2 [facility] 11-07-2023 09:00-0400 Body weight 104.55 kg [facility] 11-07-2023 09:00-0400 Diastolic blood pressure 69 mm[Hg] [facility] 11-07-2023 09:00-0400 Heart rate 81 /min [facility] 11-07-2023 09:00-0400 Respiratory rate 12 /min [facility] 11-07-2023 09:00-0400 Systolic blood pressure 108 mm[Hg] [facility] 06-02-2023 09:00-0500 Body height 182.88 cm Fabio Ball Other [facility] Other 06-02-2023 09:00-0500 Body mass index (BMI) [Ratio] 32.71 kg/m2 Fabio Ball Other [facility] Other 06-02-2023 09:00-0500 Body weight 109.41 kg Fabio Ball Other [facility] Other 06-02-2023 09:00-0500 Diastolic blood pressure 87 mm[Hg] Fabio Ball Other [facility] Other 06-02-2023 09:00-0500 Respiratory rate 12 /min Fabio Ball Other [facility] Other 06-02-2023 09:00-0500 Systolic blood pressure 131 mm[Hg] Fabio Ball Other [facility] Other 01-23-2022 11:49-0400 Body temperature 97.5 [degF] DO Fabio Ball Work Phone: [facility] 01-23-2022 11:49-0400 Diastolic blood pressure 75 mm[Hg] DO Fabio Ball Work Phone: [facility] 01-23-2022 11:49-0400 Heart rate 76 /min DO Fabio Ball Work Phone: [facility] 01-23-2022 11:49-0400 Respiratory rate 18 /min DO Fabio Ball Work Phone: [facility] 01-23-2022 11:49-0400 SaO2% (BldA) [Mass fraction] 95 % DO Fabio Ball Work Phone: [facility] 01-23-2022 11:49-0400 Systolic blood pressure 113 mm[Hg] DO Fabio Ball Work Phone: [facility] 01-21-2022 11:45-0400 Body height 182.88 cm DO Fabio Ball Work Phone: [facility] 01-19-2022 05:46-0400 Body weight 99.8 kg DO [employer] Work Phone: [facility] Functional Status Date Assessment Result Facility 01-23-2022 Functional status Patient is Pro gressing Toward Baseline [facility] Work Phone: Mental Status Date Assessment Result Facility 01-23-2022 Cognitive function Cognitive Sta tus Patient is Progressing Toward Baseline [facility] Work Phone: Clinical Notes 01-19-2022 to [...] use, the patient reduces the risk for VT, CVA, HTN, cardiac dysrhythmias and sudden cardiac [...] (ICD-10 - Z12.5) Yearly JUANITA and PSA [facility] Other [id number] Evaluation note* Encounter Date Diagnosis Assessment Notes [...] use, the patient reduces the risk for VT, CVA, HTN, cardiac dysrhythmias and sudden cardiac [...] change in bowel habits, melena or hematochezia [facility] Other 04-14-2023 Evaluation note* Encounter Date Diagnosis Assessment Notes Treatment Notes Treatment Clinical Notes Sep, Type 2 diabetes mellitus with hyperglycemia, without long-term current use of insulin (ICD-10 - E11.65) [facility] Other 01-20-2023 Evaluation note* Encounter Date Diagnosis Assessment Notes Treatment Notes Treatment Clinical Notes Jun, Elevated cholesterol (ICD-10 - E78.00) Jun, Type 2 diabetes mellitus with hyperglycemia, without long-term current use of insulin (ICD-10 - E11.65) [facility] Other 08-03-2022 Progress note Author Agustin Murphy [facility] January 23, 2022 9:41am Note Date/Time January 23, 2022 9:4 1am [facility] [address] [place] [address] Physiatry(Rehab) Progress Note Signed Patient: Jack Gonzales MR#: [id number] : 1965 Acct:[id number] Age/Sex: 56 / M Adm Date: 2 Loc: Room: 3S5475-9 Type: ADM IN Attending Dr: Agustin Murphy MD Copies to: ~ Date of Service: 01/22/2022 Subjective Subjective Narrative: Mr. Gonzales is a 56 year old male Admitted to the rehabilitation unit with functional decline status post right cerebellar ischemic stroke. He presented to [facility] with dizziness and ataxia.? This started at 8:00 in the morning the day prior to admission.? At [place], CT head and CTA demonstrated possible left ICA dissection but no definitive ischemic lesion.? Given the CTA findings suggesting dissection, he was transferred to [facility].? MRI at [facility] demonstrated acute to subacute right cerebellar infarct.His NIH stroke scale at [facility] was 0.? TTE with EF 65% otherwise unremarkable, hemoglobin A1c 6.4.? I do not see lipid levels.? He is on secondary stroke prevention with aspirin and Plavix.? I do not see a statin ordered.? They did recommend outpatient sleep study and 30-day cardiac event monitor. As his symptoms were improving, there was no intervention performed.? Neurology at [place] felt his left carotid findings were possibly [...] equipment? to enhance the patient's a functional mandaen Encourage deep breathing exercises and incentive spirometry [...] greater than 20 minutes for services, including [id number] encounter with the patient, discussion of the case, plan of care, and exam; and [id number] activities, such as reviewing pertinent exchange consultant documentation, recent therapy notes, laboratory and radiology studies, and discussion of case with care team including nursing, director of casework services, and therapists. More than 50 % of time was spent on patient/family counseling or coordination ofcare. Documented By: Agustin Murphy MD 01/22/22 0948 Signed By: <Electronically signed by Agustin Murphy MD> 01/23/22 0941 [facility] Work Phone: 1(807) 226-822108-03-2022 Progress note Author Agustin Murphy [facility] January 23, 2022 9:30am Note Date/Time January 23, 2022 9:3 0am [facility] [address] [place] [address] Physiatry(Rehab) Progress Note Signed Patient: Jack Gonzales MR#: [id number] : 1965 Acct:[id number] Age/Sex: 56 / M Adm Date: 2 Loc: Room: 1R7535-8 Type: ADM IN Attending Dr: Agustin Murphy MD Copies to: ~ Date of Service: 01/21/2022 Subjective Subjective Narrative: Mr. Gonzales is a 56 year old male Admitted to the rehabilitation unit with functional decline status post right cerebellar ischemic stroke. He presented to [facility] with dizziness and ataxia.? This started at 8:00 in the morning the day prior to admission.? At [facility], CT head and CTA demonstrated possible left ICA dissection but no definitive ischemic lesion.? Given the CTA findings suggesting dissection, he was transferred to [facility].? MRI at [facility] demonstrated acute to subacute right cerebellar infarct.His NIH stroke scale at [facility] was 0.? TTE with EF 65% otherwise unremarkable, hemoglobin A1c 6.4.? I do not see lipid levels.? He is on secondary stroke prevention with aspirin and Plavix.? I do not see a statin ordered.? They did recommend outpatient sleep study and 30-day cardiac event monitor. As his symptoms were improving, there was no intervention performed.? Neurology at [place] felt his left carotid findings were possibly [...] equipment? to enhance the patient's a functional mandaen Encourage deep breathing exercises and incentive spirometry [...] greater than 22 minutes for services, including [id number] encounter with the patient, discussion of the case, plan of care, and exam; and [id number] activities, such as reviewing pertinent exchange consultant documentation, recenttherapy notes, laboratory and radiology studies, and discussion of case with care team including nursing, director of casework services, and therapists. More than 50 % of time was spent on patient/family counseling or coordination ofcare. Documented By: Agustin Murphy MD 01/21/22 1140 Signed By: <Electronically signed by Agustin Murphy MD> 01/23/22 0930 [facility] Work Phone: 1([phone] 161-630808-03-2022 Discharge summary Author Agustin Murphy [facility] January 23, 2022 9:28am Note Date/Time January 23, 2022 9:2 8am [facility] [address] [place] [address] Discharge Summary Signed Patient: Jack Gonzales MR#: [id number] : 1965 Acct:[id number] Age/Sex: 56 / M Adm Date: 2 Loc: Room: [address] [place] [address]: Agustin Murphy MD Copies to: [...] right cerebellar ischemic stroke. He presented to [facility] with dizziness and ataxia.? This started at 8:00 in the morning the day prior to admission.? At [facility], CT head and CTA demonstrated possible left ICA dissection but no definitive ischemic lesion.? Given the CTA findings suggesting dissection, he was transferred to [facility].? MRI at [facility] demonstrated acute to subacute right cerebellar infarct.His NIH stroke scale at [facility] was 0.? TTE with EF 65% otherwise unremarkable, hemoglobin A1c 6.4.? I do not see lipid levels.? He is on secondary stroke prevention with aspirin and Plavix.? I do not see a statin ordered.? They did recommend outpatient sleep study and 30-day cardiac event monitor. As his symptoms were improving, there was no intervention performed.? Neurology at [place] felt his left carotid findings were possibly [...] 05:42 01/23/22 07:30 Narrative: General: cooperative, comfortable HENMT Head: [...] By: <Electronically signed by Agustin Murphy MD> 01/23/2228 [facility] Work Phone: 1(679) 128-489107-31-2022 Consult note Author Abelino Jacques [facility] January 20, 2022 7:41pm Note Date/Time January 19, 2022 3:00 pm [facility] [address] [place] [address] Hospitalist Consult Note Signed Patient: Jack Gonzales MR#: [id number] : 1965 Acct:[id number] Age/Sex: 56 / M Adm Date: 2 Loc: Room: [address] [place] [address] Type: ADM IN Attending Dr: Agustin Murphy MD Copies to: DO Agustin Mcbride MD Kristopher L Lindbloom, DO Lynn A Stackhouse, ANP-BC~ HPI DATE OF CONSULTATION: 01/19/22 REQUESTING PROVIDER: Agustin Murphy Consult Narrative Reason for Consult: CKD, GERD HPI: 56-year-old male past medical history significant for CKD, GERD. Presented to [facility] emergency department with dizziness and ataxia. Imaging demonstrated possible left ICA dissection but no definitive ischemic lesion. He was transferred to [facility] and MRI there demonstrated acute to subacute [...] benefit from further rehab, subsequently transferred to [facility] rehab unit January 18. Hospitalist team placed [...] negative unless noted below or in HPI [facility] Attestation Statement: The following information was validated [...] % (Auto) 62.3, Lymph % (Auto) 22.1, [place]e % (Auto) 12.4, Eos % (Auto) 2.5, Baso % (Auto) 0.7, Neut # (Auto) 4.1, Lymph # (Auto) 1.5, [place]e # (Auto) 0.8, Eos# (Auto) 0.2, Baso [...] 2 1500 Signed By: <Electronically signed by IZAIAH Arzate> 01/19/221810 <Electronically signed by Abelino Jacques DO> 01/20/221940 [facility] Work Phone: 1(736) 839-931107-30-2022 History and physical note Author Agustin Murphy [facility] January 19, 2022 10:44am Note Date/Time January 18, 2022 9:00 pm [facility] [address] [place] [address] Physiatry (Rehab) H&P Signed Patient: Jack Gonzales MR#: [id number] : 1965 Acct:[id number] Age/Sex: 56 / M Adm Date: 2 Loc: Room: 8Q7163-6 Type: ADM IN Attending Dr: Agustin Murphy MD Copies to: DO Agustin Mcbride MD~ Date of Service: 01/19/2022 HPI The patient was seen and examined on: 01/19/22 Chief complaint: stroke History of Present Illness: Mr. Gonzales is a 56 year old male Admitted to the rehabilitation unit with functional decline status post right cerebellar ischemic stroke. He presented to [facility] with dizziness and ataxia. This started at 8:00 in the morning the day prior to admission. At [facility], CT head and CTA demonstrated possible left ICA dissection but no definitive ischemic lesion. Given the CTA findings suggesting dissection, he was transferred to [facility]. MRI at [facility] demonstrated acute to subacute right cerebellar infarct.His NIH stroke scale at [facility] was 0. TTE with EF 65% otherwise unremarkable, hemoglobin A1c 6.4. I do not see lipid levels. He is on secondary stroke prevention with aspirin and Plavix. I do not see a statin ordered. They did recommend outpatient sleep study and 30-day cardiac event monitor. As his symptoms were improving, there was no intervention performed. Neurology at [place] felt his left carotid findings were possibly unrelated to his current symptoms. He was discharged to rehabilitation unit in stable condition. Today reports just poor coordination and feeling wobbly . 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 [facility] Attestation Statement: The following information was validated [...] 2 weeks Expected Discharge Destination: Home Rehabilitation [facility]: 01.1 Primary Diagnosis: Right cerebellar stroke To have patient become more independent and to return home. Medical/ Functional Prognosis: Good Anticipated Functional Outcomes/Goals and Interventions: 1.Therapy Functional Outcome/Goal: Anticipate Independent for bed mobility Anticipated interventions: Physician management, PT, OT, ADVANCED NURSING PROFESSOR, , Dietitian, RehabNursing, Case management 2. Therapy Functional Outcome/Goal: Anticipate Independent for transfers Anticipated interventions: Physician management, PT, OT, ADVANCED NURSING PROFESSOR, Case management, Dietitian, Rehab Nursing 3. Therapy Functional Outcome/Goal: Anticipate Independent for ambulation Anticipated interventions: Physician management, PT, OT, ADVANCED NURSING PROFESSOR Case management, Dietitian, Rehab Nursing 4.Therapy Functional Outcome/Goal: Anticipate Independent for self-care Anticipated interventions: Physician management, PT, OT, ADVANCED NURSING PROFESSOR, Case management, Dietitian, Rehab Nursing 5.Therapy Functional Outcome/Goal: Anticipate Independent for swallowingAnd functional communication Anticipated interventions: Physician management, PT, OT, ADVANCED NURSING PROFESSOR, Case management, Dietitian, Rehab Nursing Required Therapy [...] additional therapy on as needed basis. Comments: ADVANCED NURSING PROFESSOR to evaluate and treat patient?s cognition, language and communication skills, assess swallow function. Other: Dietitian, Rehab nursing, Wound, P&O, Neuropsychology as needed RATIONALE FOR IRF ADMISSION: Patient has both medical and functional complexities that require 24 hour daily monitoring and intervention from [place] Administrator as well as other consulting physicians including internal medicine as well as 24 hour daily ice puller nursing - for medical safe / optimal management. Patient requires interdisciplinary therapy team rehabilitation care including OT, PT, ADVANCED NURSING PROFESSOR, SW, Psychology, Rehab Nursing, requires and can [...] equipment to enhance the patient's a functional mandaen Encourage deep breathing exercises and incentive spirometry [...] greater than 76 minutes for services, including [id number] encounter with the patient, discussion of the case, plan of care, and exam; and [id number] activities, such as reviewing pertinent exchange consultant documentation, recent therapy notes, laboratory and radiology studies, and discussion of case with care team including nursing, director of casework services, and therapists. More than 50 % of time was spent on patient/family counseling or coordination ofcare. Documented By: Agustin Murphy MD 01/19/22 1044 Signed By: <Electronically signed by Agustin Murphy MD> 01/19/22 1044 [facility] Work Phone: Evaluation note* Diagnosis Onset Date Resolution Status Cerebellar stroke, acute acu te Dizziness acute DVT prophylaxis acute Hyperlipidemia acute Impaired mobility and activities of daily living acute [facility] Work Phone: Evaluation noteNo InformationN[facility] [employer] Other Evaluation noteNo assessment information available [facility] Work Phone: Evaluation note* Diagnosis Onset Date Resolution Status Cerebral atherosclerosis acu te GERD (gastroesophageal reflux disease) acute Hypercholesterolemia acute Obesity acute Obstructive sleep apnea acut e Type 2 diabetes mellitus with hyperglycemia acute Wellness examination noneact wesley [facility] Work Phone: History general Narrative - Reported* Type Description Date Medical History obstructive sleep apnea Medical History obesity Medical History hyperlipidemia Medical History 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 Medical History recurrent left inguinal hernia Surgical History diagnostic laparoscopy with ing uinal hernia repair Surgical History B/L herniorrhaphy Surgical History T12-L2 lumbar fusion Hospitalization History see surgical history [facility] Other History general Narrative - Reported* Type Description Date Medical History obstructive sleep apnea Medical History obesity Medical History hyperlipidemia Medical History 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 Medical History recurrent left inguinal hernia Medical History Type II DM Surgical History diagnostic laparoscopy with ing uinal hernia repair Surgical History B/L herniorrhaphy Surgical History T12-L2 lumbar fusion Hospitalization History see surgical history [facility] [facility] Work Phone[facility] Work Phone: Chief Complaint and Reason for Visit Chief Complaint CVA CVA Arrhythmia Reason for Visit Cerebellar stroke, a cute Dizziness DVT prophylaxis Hyperlipidemia Impaired mobility and activities of daily living Chief Complaint UA Chief Complaint UA 1 week Reason for Visit Cerebral atheroscler osis GERD (gastroesophageal reflux disease) Hypercholesterolemia Obesity Obstructive sleep apnea Type 2 diabetes mellitus with hyperglycemia Wellness examination Family History Relationship Condition Age at Onset [...] Inactive Member Role Status Iqra Gross , DO Primary Care Provider Active Agustin Murphy MD Admit Provider, Attending Provider A ctive Dhara Alvarez , BUZZ Other Provider Active Rebecca Grimes , BUZZ Other Provider Active Annmarie Amaya , BUZZ Other Provider Active Megan Kwan , BUZZ Other Provider Active Mikayla Fleming RN Other Provider Active Mary Warner , BUZZ Other Provider Active Jordan June MD Other Provider Active Ender Kumari MD Other Provider Active Jessica Perez APRN Other Provider Active Dawson Marinelli , DO Other Provider Active Tan Martini MD Other Provider Active Abelino Jacques , DO Other Provider Active Javon Magana MD [...] Active Héctor Ro MD Other Provider Active Ester Martin , MANAGER IMAGING-C Other Provider Active Lloyd Ambrose MD Other Provider Active Ryan Medina MD Other Provider Active Amirah Salas MD Other Provider Active Yomi Schuler MD Other Provider Active Aniyah Edmonds , Other Provider Active Napoleon Kaiser MD Other [...] October 30, 2023 End: October 30, 2023 Team Status: Inactive Member Role Status Dates Fabio Gross , DO Primary Care Provide r, Attending Provider Active Start: November 07, 2023 End: November 07, 2023 (unrecognized sect ion and content) No Status Records FoundNo Status Records FoundNo Status Records Found INFORMATION SOURCE (unrecogn ized section and content) DATE CREATED AUTHOR 07/04/2022 [facility] DATE CREATED AUTHOR AUTHOR'S ORGANIZ ATION 07/27/2022 [facility] DATE CREATED AUTHOR AUTHOR'S ORGANIZ ATION 10/13/2022 [...] BE BASED ON THE PRIMARY CLINICAL RECORDS. [employer] provides no warranty or guarantee of the accuracy or completeness of information in this document.
[2023-12-23 11:18] LABS: Alanine Aminotransferase 43 U/L (16-63); Albumin Globulin Ratio 1.3; Albumin Level 3.9 g/dL (3.4-5.0); Alkaline Phosphatase 47 U/L (46-116); Anion Gap 12.3; Aspartate Amino Transferase 18 U/L (15-37); BUN Creatinine Ratio 14.2; Bilirubin Total 0.6 mg/dL (0.2-1.0); Calcium 8.7 mg/dL (8.5-10.1); Carbon Dioxide 27.3 mmol/L (21.0-32.0); Chloride 104 mmol/L (98-107); Estimated GFR (African America >60 (>=60); Estimated GFR (Non-African Ame >60 (>=60); Globulin 3.1 g/dL; Glucose 132 mg/dL (74-106); Potassium 4.6 mmol/L (3.5-5.1); Sodium 139 mmol/L (136-145)
[2023-12-24 04:07] LABS: PSA, Free 0.28 ng/mL; Prostate Specific Ag 3.9 ng/mL (0.0-4.0)
== END 2023-12-23 10:34 | disposition home or self-care (01) ==
LOC: LAB 10:35
PROVIDERS: PCP Internal Medicine; Visit Provider Internal Medicine
DX: Z00.00 Encounter for general adult medical examination without abnormal findings (principal); R97.20 Elevated prostate specific antigen [PSA]
CPT/HCPCS: 36415; 80053; 84153; 84154

== ENCOUNTER 2024-03-11 09:09 | Outpatient (OUT) | payer BC, SELFPAY ==
--- NOTE | 2024-03-11 09:19 | CT_ITS ---
The [address] [address] Patient Name: JUSTIN EL MRN: [id number] date: 1965 Sex: M Assigned Patient Location: CT Current Patient Location: Accession/Order Number: [id number] Exam Date: 03/11/2024 09:30 Report Date: 03/12/2024 07:48 At the request of: HOA RUBIN Procedure: CT abdomen pelvis w con EXAM: CT abdomen pelvis w con HISTORY: calculus of kidney, gross hematuria N20.0; R31.0 COMPARISON: None. TECHNIQUE: Following the intravenous administration of 100 cc of Omnipaque 300, axial soft tissue windows of the abdomen and pelvis were performed with coronal and sagittal reformats. CT dose reduction technique was used including Automated Exposure Control. Findings: Minimal bibasilar atelectasis. ABDOMEN: Fatty infiltration liver. The gallbladder, spleen, pancreas and adrenal glands are unremarkable. Mild nonspecific bilateral perinephric fat stranding. Left peripelvic cysts. Left low-attenuation lesions, small to characterize. Nonobstructing bilateral renal stones. r the largest stone is within the lower pole the left kidney measuring 0.5 cm. No left-sided collecting system or ureteral dilatation. There is mild right-sided collecting system and ureteral dilatation to level of the mid ureter where there is an obstructing 0.6 cm stone. Evaluation of the bowel is limited given the absence of oral contrast. There are colonic diverticula. No bowel obstruction. The appendix is nondilated. The aorta is normal caliber. No enlarged abdominal lymph nodes or free abdominal fluid. Pelvis: Unremarkable bladder. The prostate is nonenlarged. No enlarged pelvic lymph nodes or free pelvic fluid. Tiny fat-containing left inguinal hernia. Spinal fusion hardware extending from T12 to L1 transfixing a superior endplate compression deformity at L1. Mild multilevel degenerative spondylosis. Grade 1 anterolisthesis of L5 on S1. Mild levoconvex scoliosis. Impression 1. Obstructing stone within the mid right ureter. 2. Nonobstructing bilateral renal stones. 3. Other nonemergent findings, as described above. Electronically authenticated by: CELESTE MCGHEE Date: 03/12/2024 07:48
--- OUTSIDE RECORDS SUMMARY | 2024-03-11 09:33 | XMS_ITS | CCD ---
Author Organization [facility] Inform ion Partnership [facility] Care Team Providers Care Rail Bender Name Role Phone DO Fabio Gross Primary Care Provider MD Agustin Murphy Admit Provider MD Agustin Murphy Attending Provider BUZZ Alvarez Other Provider Unavailable BUZZ Grimes Other Provider Unavailable BUZZ Amaya Other Provider Unavailable BUZZ Kwan Other Provider Unavailable BUZZ Fleming Other Provider Unavailable BUZZ Warner Other Provider Unavailable MD Jordan June Other Provider MD Ender Kumari Other Provider Dials, TELEMARKETER SUPERVISOR Jessica Pinto Other Provider DO Dawson Marinelli Other Provider MD Tan Martini Other Provider DO Abelino Jacques Other Provider MD Javon Magana Other Provider MD Mia Vital Other Provider MIKE Arzate- Lilly Other Provider [phone] MD Radha Nogueira Other Provider MD Nikolas [...] DO Aniyah Edmonds Other Provider Al MD Napoelon Johns Other Provider DO Rod Ruano Other Provider [phone] NICKI Potts Other Provider DO Todd Pelletier Other Provider [phone] MD Laila Vargas Other Provider [phone] BUZZ Patel Other Provider Unavailable Fabio Gross Primary Care Unavailable Dhara Alvarez Consulting Unavailable Agustin Murphy Attending Unavailable Agustin Murphy Admitting Unavailable Rebecca Grimes Consulting Unavailable Annmarie Amaya Consulting Unavailable DensMegan alvarado Consulting Unavailable Mikayla Fleming Consulting Unavailable Mary Warner Consulting Unavailable MassJordan gibson Consulting Unavailable Quoc, Ender K Consulting Unavailable DialJessica taylor M Consulting Unavailable Dawson Marinelli Consulting Unavailable Vini, Tan Consulting Unavailable Abelino Jacques Consulting UnavailJavon Combs Consulting Unavailable Amanuel, Mia Consulting Unavailable Lilly Arzate Consulting Unavailable WasRadha burnett Consulting Unavailable Zraik, Nikolas Consulting Unavailable Davidson, Ifeanyi Consulting Unavailable Dex Smileywan Consulting Unavailable Rafa Murray Consulting Unavailable Laura Houser Consulting Unavailable Héctor Ro Consulting Unavailable Ester Martin Consulting Unavailable Lloyd Ambrose Consulting Unavailab Ryan Villa Consulting Unavailable Amirah Salas Consulting Unavailable Yomi Schuler Consulting Unavailable Aniyah Edmonds Consulting Unavailable Napoleon Pratt Consulting UnavailRod Salazar Consulting Unavailable Obika, Bethany Consulting Unavailable Prabhu, Todd Parsons Consulting Unavailable Daromar, Laila Pinto Consulting Unavailable Patel, Ginna Consulting Unavailable Scottie, Fabio Primary Care Unavailable Jeffrey, Agustin Admitting Unavailable Jeffrey, Agustin Attending Unavailable Scottie, Fabio Unavailable [facility] [place]UGHLIN Admitting Unavailable MISC, DR LAUGHLIN [...] Admitting Unavailable SCOTTIE, DR CAMARA Attending Unavailable SCOTTIE, DR CAMARA Primary Care Unavailable SCOTTIE, DR CAMARA Consulting Unavailable SCOTTIE, DR CAMARA Admitting Unavailable SCOTTIE, DR CAMARA Attending Unavailable BALL, DR CAMARA Primary Care Unavailable Medications Current Medications Medication Drug Class(es) Dates Sig (Normalized) Sig (Original) aspirin 81 mg chewable tablet (20 sources) Platelet Aggregation Inhibitor, Nonsteroidal Anti-inflammatory Drug Start: 01-18-2022 End: 01-23-2022 take 1 tablet by mouth once daily Aspirin (Children's Aspirin) 81 mg Tablet,Chewable Active 81 MG PO Daily January 23, 2022 12:00am take 1 capsule by mouth once saundra ly Aspirin 81 MG 1 capsule Orally Once a day Active atorvastatin 80 mg oral tablet (18 sources) HMG-CoA Reductase Inhibitor Start: 01-23-2022 take [...] Active metFORMIN hydrochloride 500 mg oral tablet (15 sources) Biguanide Start: 12-28-2023 take 1 tablet by mouth once daily at mealtime Metformin Active 0 .ROUTE .COMPLEX December 28, 2023 7:35am TAKE 1 TABLET BY MOUTH EVERY DAY WITH A MEAL Start: 11-05-2023 End: 12-28-2023 take 500 mg by mouth once daily Metformin Discontinued 500 MG PO Daily November 05, 2023 12:00am December 28, 2023 7:35am Start: 07-12-2022 take 1 tablet by gini th every twenty-four hours metFORMIN HCl 500 MG 1 tablet with a meal Orally Once a day for 30 day(s) Jun, Active tamsulosin hydrochloride 0.4 mg oral capsule (1 source) alpha-Adrenergic Ramin Start: 02-27-2024 take 0.4 mg by mouth once daily at bedtime Tamsulosin Active 0.4 MG PO Daily at bedtime 12 27February 27, 2024 12:00am Completed/Discontinued Medications Medication Drug Class(es) Dates Sig (Normalized) Sig (Original) acetaminophen 325 mg / HYDROcodone bitartrate 5 mg oral tablet (6 sources) Opioid Agonist Start: 01-18-2022 End: 01-23-2022 take 1 tablet by mouth every six hours Hydrocodone-Aceta minophen Discontinued 1 TAB PO Q6H January 18, 2022 12:00am January 23, 2022 9:42am clopidogrel 75 mg oral tablet (12 sources) P2Y12 Platelet Inhibitor Start: 01-18-2022 End: 11-05-2023 take 75 mg by mouth once daily Clopidogrel Discontinued 75 MG PO Daily January 23, 2022 12:00am November 05, 2023 9:38am heparin sodium, porcine 5000 unt/ml injectable solution (6 sources) Unfractionated Heparin, Anti-coagulant Start: 01-18-2022 End: 01-23-2022 inject 5000 [IU] by subcutaneous injection every twelve hours Heparin (Porcine) Discontinued 5000 UNIT SUBCUT Q12H January 18, 2022 12:00am January 23, 2022 9:42am ibuprofen 800 mg oral tablet (6 sources) Nonsteroidal Anti-inflammatory Drug Start: 01-18-2022 End: 01-23-2022 take 800 mg by mouth every six hours Ibuprofen Discontinued 800 MG PO Q6H January 18, 2022 12:00am January 23, 2022 9:43am sulfamethoxazole 800 mg / trimethoprim 160 mg oral tablet (6 sources) Dihydrofolate Reductase Inhibitor Antibacterial, Sulfonamide Antimicrobial Start: 10-31-2023 End: 02-27-2024 take 1 tablet by mouth twice daily Sulfamethoxazole- Trimethoprim Discontinued 1 TAB PO Twice daily 42 November 07, 2023 12:00am February 27, 2024 1:14pm Problems Active Problems Problem Classification Problem Date Documented Date Episodic/Chronic Abdominal hernia (10 sources) Recurrent left inguinal hernia; Translations: [Unilateral inguinal hernia, without obstruction or gangrene, recurrent] Episodic Acute cerebrovascular disease (20 sources) Cerebellar stroke; Translations: [Cerebral infarction, unspecified] Onset: 01-17-2022 01-19-2022 Chronic Administrative/social admission (9 sources) Other reduced mobility; Translations: [Impaired mobility and activities of daily living] Onset: 01-18-2022 01-19-2022 Episodic Cardiac dysrhythmias (1 source) Cardiac arrhythmia, unspecified; Translations: [Cardiac arrhythmia, unspecified] Onset: 01-23-2022 Chronic Conditions associated with dizziness or vertigo (13 sources) Dizziness; Translations: [Dizziness and giddiness] Onset: [...] unspecified] Onset: 01-18-2022 01-23-2022 Chronic Esophageal disorders (4 sources) Gastroesophageal reflux disease; Translations: [Gastro-esophageal reflux disease without esophagitis] 11-05-2023 Chronic Other aftercare (1 source) intermediate (current) use of oral hypoglycemic drugs; Translations: [JAIL USE ORAL HYPOGLYCEMIC DX] Onset: 07-25-2022 Episodic Other and ill-defined cerebrovascular disease (13 sources) Cerebral atherosclerosis; Translations: [Cerebral atherosclerosis] 11-05-2023 [...] Chronic Other nutritional; endocrine; and metabolic disorders (3 sources) Obesity; Translations: [Obesity, unspecified] 11-07-2023 Chronic Other nutritional; endocrine; and metabolic disorders (1 source) Obesity, unspecified; Translations: [Obesity, unspecified] 11-07-2023 Chronic Other screening for suspected conditions (not mental disorders or infectious disease) (5 sources) Encounter for screening for malignant neoplasm of prostate; Translations: [Encounter for screening for malignant neoplasm of colon] Onset: 07-15-2022 Episodic Residual codes; unclassified (13 sources) Obstructive sleep apnea syndrome; Translations: [Obstructive sleep apnea (adult) (pediatric)] 11-05-2023 Chronic Residual codes; unclassified (8 sources) Obstructive sleep apnea (adult) (pediatric); Translations: [Obstructive sleep apnea (adult)(pediatric)] Onset: 02-11-2022 Chronic Residual codes; unclassified (16 sources) Patient encounter status; Translations: [Encounter for [...] Test Name Value Interpretation Reference Range Facility Estimated glomerular filtrat ion rate (GFR) non- Americanon 12-23-2023 GFR/1.73 sq M.predicted among non-blacks MDRD (S/P/Bld) [Vol rate/Area] mL/min/{1.73_m2} >=60 [facility] Globulin Calc (S) [Mass/Vol] on 12-23-2023 Globulin (S) [Mass/Vol] 3.1 g/dL [facility] Laboratory - Chemistry and C hemistry - challengeon 12-23-2023 Albumin [Mass/Vol] 3.9 g/dL 3.4-5.[address] [facility] ALP [Catalytic activity/Vol] 47 U/L 46-116 [facility] ALT [Catalytic activity/Vol] 43 U/L 16-63 [facility] AST [Catalytic activity/Vol] 18 U/L 15-37 [facility] Bilirubin [Mass/Vol] 0.6 mg/dL 0.2-1.0 [facility] Calcium [Mass/Vol] 8.7 mg/dL 8.5-10.[address] [facility] Chloride [Moles/Vol] 104 mmol/L 98-107 [facility] CO2 [Moles/Vol] 27.3 mmol/L 21.0-32.0 [facility] Creatinine [Mass/Vol] 1.13 mg/dL 0.70-1.30 [facility] GFR/1.73 sq M.predicted MDRD (S/P/Bld) [Vol rate/Area] mL/min/{1.73_m2} >=60 [facility] Glucose [Mass/Vol] 132 mg/dL High 74-[address] [facility] Potassium [Moles/Vol] 4.6 mmol/L 3.5-5.1 [facility] Protein [Mass/Vol] 7.0 g/dL 6.4-8.[address] [facility] Sodium [Moles/Vol] 139 mmol/L 136-[address] [facility] Urea nitrogen [Mass/Vol] 16.0 mg/dL 7.0-18.0 [facility] Urea nitrogen/Creatinine [Mass ratio] 14.2 mg/mg [facility] No Panel Informationon 12-22 Free Prostate Specific Antigen 0.28 ng/mL N/A [facility] Comment on above: Deepika ECLIA methodol ogy. Prostate Specific Antigen Total 3.9 ng/mL 0.0-4.0 [facility] Comment on above: Deepika ECLIA methodol ogy.According to the [place] [employer], Serum PSAshould decrease and remain at undetectable levels afterradical prostatectomy. The AUA defines biochemicalrecurrence as an initial PSA value 0.2 ng/mL or greaterfollowed by a subsequent confirmatory PSA value 0.2 ng/mLor greater. Values obtained with different assay methods orkits cannot be used interchangeably. Results cannot beinterpreted as absolute evidence of the presence or absenceof malignant disease. Serum or plasma albumin/glob ulin mass ratioon 12-23-2023 Albumin/Globulin [Mass ratio] 1.3 {ratio} [facility] Serum or plasma anion gap de terminationon 12-23-2023 Anion gap [Moles/Vol] 12.3 mmol[facility] Serum or plasma free prostat e specific antigen (PSA)/total PSA ratioon 12-23-2023 Free PSA/Total PSA [Mass fraction] 7.2 % . [facility] Comment on above: The table below list s the probability of prostate cancer formen with non-suspicious JUANITA results and total PSA between4 and 10 ng/mL, by patient age (Joan et al, TYSON 1998,279:1542). % Free PSA 50-64 yr 65-75 yr 0.00-10.00% 56% 55% 10.01-15.00% 24% 35% 15.01-20.00% 17% 23% 20.01-25.00% 10% 20% >25.00% 5% 9%Please note: Joan et al did not make specific recommendations regarding the use of percent free PSA for any other population of men.Performed at: [facility] [id number] Director: Vipul Solitario PhD, Phone: [phone] Laboratory - Chemistry and C hemistry - challengeon 10-30-2023 Bilirubin Ql (U) Negative [facility] Glucose (U) [Mass/Vol] Negative [facility] Ketones Ql (U) Negative [facility] pH (U) 5.0 [pH] [facility] Specific gravity (U) [Rel density] 1.010 [facility] Urobilinogen (U) [Mass/Vol] 0.2 mg/dL [facility] Laboratory - Specimen inform ationon 10-30-2023 Appearance (U) clear [facility] Color (U) darkyellow [facility] Laboratory - Urinalysison Leukocyte esterase Test strip Ql (U) Negative [facility] Nitrite Ql (U) Negative [facility] Protein Ql (U) ++ [facility] No Panel Informationon 10-29 Urine Occult Blood + [facility] Comprehensive Metabolic Pane [place] 06-04-2023 Albumin [Mass/Vol] 3.201931 g/dL Normal 3.4-5.0 g/dL [facility] Other ALP [Catalytic activity/Vol] 46 U/L Normal 46-116 U/L [facility] Other ALT [Catalytic activity/Vol] 48 U/L Normal 16-63 U/L [facility] Other Anion gap [Moles/Vol] 15.1 mmol/L No rt [facility] Other AST [Catalytic activity/Vol] 18 U/L Normal 15-37 U/L [facility] Other Bilirubin [Mass/Vol] 0.0297218 mg/dL Normal 0.2- 1.0 mg/dL [facility] Other Calcium [Mass/Vol] 8.6343539 mg/dL Normal 8.5-10 .1 mg/dL [facility] Other Chloride [Moles/Vol] 107 mmol/L Normal 98-107 mmol/L [facility] Other CO2 [Moles/Vol] 26.68668721 mmol/L Normal 21.0-3 2.0 mmol/L [facility] Other Creatinine [Mass/Vol] 1.60265946 mg/dL Normal 0. 70-1.30 mg/dL [facility] Other Glucose [Mass/Vol] 146 mg/dL High 74-106 mg/dL [facility] Other Potassium [Moles/Vol] 4.60825267 mmol/L Normal 3 .5-5.1 mmol/L [facility] Other Protein [Mass/Vol] 7.148719 g/dL Normal 6.4-8.2 g/dL [facility] Other Sodium [Moles/Vol] 144 mmol/L Normal 136-145 mmol/L [facility] Other Urea nitrogen [Mass/Vol] 15.8130579 mg/dL Normal 7.0-18.0 mg/dL [facility] Other Urea nitrogen/Creatinine [Mass ratio] 14.9 mg/mg [facility] Other Comprehensive Metabolic Panel 3.4 g/dL [facility] Other Comprehensive Metabolic Panel 1.1 [facility] Other Comprehensive Metabolic Panel see note [facility] Other Comprehensive Metabolic Panel >60 >=60 [facility] Other Lipid Panelon 06-04-2023 Cholesterol [Mass/Vol] 155 mg/dL <=200 mg/dL [facility] Other Cholesterol in HDL [Mass/Vol] 41 mg/dL Normal 40-60 mg/dL [facility] Other Triglyceride [Mass/Vol] 204 mg/dL High <=150 mg/dL [facility] Other Lipid Panel 74.0 mg/dL [facility] Other Lipid Panel 40.8 mg/dL [facility] Other Lipid Panel 3.8 [facility] Other PSA SCREENINGon 06-04-2023 PSA SCREENING 2.78 ng/mL <=4.00 ng/mL [facility] Other GLYCOHEMOGLOBIN A1Con 2022 ADA RECOMMENDATION SEE BELOW Normal [facility] Comment on above: Result Comment: ADA RECOMMENDED LIMIT 4.0 - 6.0 ADA THERAPEUTIC TARGET < 7.0 ACTION SUGGESTED > 7.0 Performed By: #### A 1C #### [facility] [address] [place] [address] Dr. Yasemin Austin Glucose [Mass/Vol] 128 mg/dL Normal [facility] Comment on above: Performed By: #### A 1C #### [facility] [address] [place] [address] Dr. Yasemin Austin HbA1c (Bld) [Mass fraction] 6.1 % Normal 4.5-6.2 [facility] Comment on above: Performed By: #### A 1C #### [facility] [address] [place] [address] Dr. Yasemin Austin CBC AUTO DIFFon 07-10-2022 BASO # 0.1 103/ul Normal 0.0-0.1 [facility] Comment on above: Performed By: #### C BC #### [facility] [address] [place] [address] Dr. Yasemin Austin Basophils/100 WBC (Bld) 0.7 % Normal 0.2-2.0 [facility] Comment on above: Performed By: #### C BC #### [facility] [address] [place] [address] Dr. Yasemin Austin EO # 0.1 103/ul Normal 0.0-0.7 [facility] Comment on above: Performed By: #### C BC #### [facility] [address] [place] [address] Dr. Yasemin Austin Eosinophils/100 WBC (Bld) 1.6 % Normal 0.9-7.0 [facility] Comment on above: Performed By: #### C BC #### [facility] [address] [place] [address] Dr. Yasemin Austin Erythrocyte distribution width (RBC) [Ratio] 11.9 % Normal 11.0-15.0 [facility] Comment on above: Performed By: #### C BC #### [facility] [address] [place] [address] Dr. Yasemin Austin Hematocrit (Bld) [Volume fraction] 44.2 % Normal 42.0-54.0 [facility] Comment on above: Performed By: #### C BC #### [facility] [address] [place] [address] Dr. Yasemin Austin Hemoglobin (Bld) [Mass/Vol] 15.3 g/dL Normal 14.0-18.0 [facility] Comment on above: Performed By: #### C BC #### [facility] [address] [place] [address] Dr. Ysaemin Austin IG # 0.02 10e3/ul Normal 0.00-0.03 [facility] Comment on above: Performed By: #### C BC #### [facility] [address] [place] [address] Dr. Yasemin Austin IG % 0.3 % Normal 0.0-0.5 [facility] Comment on above: Performed By: #### C BC #### [facility] [address] [place] [address] Dr. Yasemin Austin LYMPH # 1.2 103/ul Normal 1.2-3.8 [facility] Comment on above: Performed By: #### C BC #### [facility] [address] [place] [address] Dr. Yasemin Austin Lymphocytes/100 WBC (Bld) 17.1 % Critically low 20.5-60.0 [facility] Comment on above: Performed By: #### C BC #### [facility] [address] [place] [address] Dr. Yasemin Austin MANUAL DIFF REQ NO Normal [facility] Comment on above: Performed By: #### C BC #### [facility] [address] [place] [address] Dr. Yasemin Austin MCH (RBC) [Entitic mass] 31.4 pg Normal 25.9-34.0 [facility] Comment on above: Performed By: #### C BC #### [facility] [address] [place] [address] Dr. Yasemin Austin MCHC (RBC) [Mass/Vol] 34.6 g/dL Normal 29.9-35.2 [facility] Comment on above: Performed By: #### C BC #### [facility] [address] [place] [address] Dr. Yasemin Austin MCV (RBC) [Entitic vol] 90.8 fL Normal 80.0-94.0 [facility] Comment on above: Performed By: #### C BC #### [facility] [address] [place] [address] Dr. Yasemin Austin MONO # 0.9 103/ul Critically high 0.3-0.8 [facility] Comment on above: Performed By: #### C BC #### [facility] [address] [place] [address] Dr. Yasemin Austin Monocytes/100 WBC (Bld) 12.9 % Critically high 1.7-12.0 [facility] Comment on above: Performed By: #### C BC #### [facility] [address] [place] [address] Dr. Yasemin Austin NEUT # 4.7 103/ul Normal 1.4-6.5 [facility] Comment on above: Performed By: #### C BC #### [facility] [address] [place] [address] Dr. Yasemin Austin Neutrophils/100 WBC (Bld) 67.4 % Normal 43.0-75.0 [facility] Comment on above: Performed By: #### C BC #### [facility] [address] [address] [address] Yasemin Austin Platelet mean volume (Bld) [Entitic vol] 9.2 fL Critically low 9.5-13.5 [facility] Comment on above: Performed By: #### C BC #### [facility] [address] [address] [address] Yasemin Austin PLT 236 103/ul Normal 150-450 [facility] Comment on above: Performed By: #### C BC #### [facility] [address] [address] [address] Yasemin Austin RBC 4.87 106/ul Normal 4.70-6.10 [facility] Comment on above: Performed By: #### C BC #### [facility] [address] [place] [address] Dr. Yasemin Austin WBC 6.9 103/ul Normal 4.0-11.0 [facility] Comment on above: Performed By: #### C BC #### [facility] [address] [place] [address] Dr. Yasemin Austin GLYCOHEMOGLOBIN A1Con 2022 ADA RECOMMENDATION SEE BELOW Normal [facility] Comment on above: Result Comment: ADA RECOMMENDED LIMIT 4.0 - 6.0 ADA THERAPEUTIC TARGET < 7.0 ACTION SUGGESTED > 7.0 Performed By: #### A 1C #### [facility] [address] [place] [address] Dr. Yasemin Austin Glucose [Mass/Vol] 151 mg/dL Normal [facility] Comment on above: Performed By: #### A 1C #### [facility] [address] [address] [address] Yasemin Austin HbA1c (Bld) [Mass fraction] 6.9 % Critically high 4.5-6.2 [facility] Comment on above: Performed By: #### A 1C #### [facility] [address] [place] [address] Dr. Yasemin Austin LIPID PROFILEon 07-10-2022 CHOL-HDL RATIO NORM SEE BELOW Normal [facility] Comment on above: Result Comment: 3.3 - 4.4 LOW RISK 4.4 - 7.1 AVERAGE RISK 7.1 - 11.0 MODERATE RISK >11.0 HIGH RISK Performed By: #### L IPID, CMP #### [facility] [address] [address] [address] Yasemin Austin Cholesterol [Mass/Vol] 207 mg/dL Critically high <=200 [facility] Comment on above: Performed By: #### L IPID, CMP #### [facility] [address] [address] [address] Yasemin Austin Cholesterol in HDL [Mass/Vol] 38 mg/dL Critically low 40-60 [facility] Comment on above: Performed By: #### L IPID, CMP #### [facility] [address] [address] [address] Yasemin Austin Cholesterol in LDL [Mass/Vol] 137.0 mg/dL Normal [facility] Comment on above: Performed By: #### L IPID, CMP #### [facility] [address] [address] [address] Yasemin Austin Cholesterol.total/Cho lesterol in HDL [Mass ratio] 5.4 {ratio} Normal [facility] Comment on above: Performed By: #### L IPID, CMP #### [facility] [address] [address] [address] Yasemin Austin HDL NORMAL > or = 60 mg/dl - LO W CARDIOVASCULAR RISK <40 mg/dl - HIGH CARDIOVASCULAR RISK Normal [facility] Comment on above: Performed By: #### L IPID, CMP #### [facility] [address] [address] [address] Yasemin Austin LDL CALC NORMAL SEE BELOW Normal [facility] Comment on above: Result Comment: <100 mg/dl OPTIMAL 100 - 129 mg/dl NEAR OR ABOVE OPTIMAL 130 - 159 mg/dl BORDERLINE HIGH 160 - 189 mg/dl HIGH >190 mg/dl VERY HIGH Performed By: #### L IPID, CMP #### [facility] [address] [address] [address] Yasemin Austin Triglyceride [Mass/Vol] 160 mg/dL Critically high <=150 [facility] Comment on above: Performed By: #### L IPID, CMP #### [facility] [address] [address] [address] Yasemin Austin VLDL CALC 32.0 mg/dL Normal [facility] Comment on above: Performed By: #### L IPID, CMP #### [facility] [address] [address] [address] Yasemin Austin PROF 14(COMP METB)on 023 Albumin [Mass/Vol] 3.8 g/dL Normal 3.4-5.0 [facility] Comment on above: Performed By: #### L IPID, CMP ####[facility] [address] [place] [address]DrBenito Austin Albumin/Globulin [Mass ratio] 1.2 {ratio} Normal [facility] Comment on above: Performed By: #### L IPID, CMP ####[facility] [address] [place] [address]DrBenito Austin ALP [Catalytic activity/Vol] 36 U/L Critically low 46-116 [facility] Comment on above: Performed By: #### L IPID, CMP ####[facility] [address] [place] [address]DrBenito Austin ALT [Catalytic activity/Vol] 37 U/L Normal 16-63 [facility] Comment on above: Performed By: #### L IPID, CMP ####[facility] [address] [place] [address]DrBenito Austin Anion gap [Moles/Vol] 12.7 mmol/L Normal [facility] Comment on above: Performed By: #### L IPID, CMP ####[facility] V[address] [place] [address]Dr. Yasemin Austin AST [Catalytic activity/Vol] 25 U/L Normal 15-37 [facility] Comment on above: Performed By: #### L IPID, CMP ####[facility] [address] [place] [address]Dr. Yasemin Austin Bilirubin [Mass/Vol] 0.7 mg/dL Normal 0.2-1.0 [facility] Comment on above: Performed By: #### L IPID, CMP ####[facility] [address]ver[address] [place] [address]Dr. Yasemin Austin Calcium [Mass/Vol] 8.8 mg/dL Normal 8.5-10.1 [facility] Comment on above: Performed By: #### L IPID, CMP ####[facility] [address] [place] [address]Dr. Yasemin Austin Chloride [Moles/Vol] 105 mmol/L Normal 98-107 [facility] Comment on above: Performed By: #### L IPID, CMP ####[facility] [address] [place] [address]Dr. Yasemin Austin CO2 [Moles/Vol] 27.5 mmol/L Normal 21.0-32.0 [facility] Comment on above: Performed By: #### L IPID, CMP ####[facility] [address] [place] [address]Dr. Yasemin Austin Creatinine [Mass/Vol] 0.99 mg/dL Normal 0.70-1.30 [facility] Comment on above: Performed By: #### L IPID, CMP ####[facility] [address] [place] [address]Dr. Yasemin Austin EGFR-AF TANZANIAN >60 Normal >=60 [facility] Comment on above: Performed By: #### L IPID, CMP ####[facility] [address] [place] [id number]. Yasemin Austin EGFR-NON AF TANZANIAN >60 Normal >=60 [facility] Comment on above: Performed By: #### L IPID, CMP ####[facility] [address] [place] [address]Dr. Yasemin Austin Globulin (S) [Mass/Vol] 3.3 g/dL Normal [facility] Comment on above: Performed By: #### L IPID, CMP ####[facility] [address] [place] [address]Dr. Yasemin Austin Glucose [Mass/Vol] 145 mg/dL Critically high 74-106 [facility] Comment on above: Performed By: #### L IPID, CMP ####[facility] [address] [place] [address]Dr. Yasemin Austin Potassium [Moles/Vol] 4.2 mmol/L Normal 3.5-5.1 [facility] Comment on above: Performed By: #### L IPID, CMP ####[facility] [address] [place] [address]Dr. Yasemin Austin Protein [Mass/Vol] 7.1 g/dL Normal 6.4-8.2 [facility] Comment on above: Performed By: #### L IPID, CMP ####[facility] [address] [place] [address]Dr. Yasemin Austin Sodium [Moles/Vol] 141 mmol/L Normal 136-145 [facility] Comment on above: Performed By: #### L IPID, CMP ####[facility] [address] [place] [address]Dr. Yasemin Austin Urea nitrogen [Mass/Vol] 15.0 mg/dL Normal 7.0-18.0 [facility] Comment on above: Performed By: #### L IPID, CMP ####[facility] [address] [place] [address]Dr. Yasemin Austin Urea nitrogen/Creatinine [Mass ratio] 15.2 mg/mg Normal [facility] Comment on above: Performed By: #### L IPID, CMP ####[facility] [address] [place] [address]Dr. Yasemin Austin LIPID PROFILEon 03-15-2022 CHOL-HDL RATIO NORM SEE BELOW Normal [facility] Comment on above: Result Comment: 3.3 - 4.4 LOW RISK 4.4 - 7.1 AVERAGE RISK 7.1 - 11.0 MODERATE RISK >11.0 HIGH RISK Performed By: #### L IPID ####[facility] [address] [place] [id number]. Yasemin Austin Cholesterol [Mass/Vol] 169 mg/dL Normal <=200 [facility] Comment on above: Performed By: #### L IPID ####[facility] [address] [place] [id number]. Yasemin Austin Cholesterol in HDL [Mass/Vol] 38 mg/dL Critically low 40-60 [facility] Comment on above: Performed By: #### L IPID ####[facility] [address] [place] [address]Dr. Yasemin Austin Cholesterol in LDL [Mass/Vol] 101.0 mg/dL Normal [facility] Comment on above: Performed By: #### L IPID ####[facility] [address] [place] [address]Dr. Yasemin Austin Cholesterol.total/Cho lesterol in HDL [Mass ratio] 4.4 {ratio} Normal [facility] Comment on above: Performed By: #### L IPID ####[facility] [address] [place] [address]Dr. Yasemin Austin HDL NORMAL > or = 60 mg/dl - LO W CARDIOVASCULAR RISK <40 mg/dl - HIGH CARDIOVASCULAR RISK Normal [facility] Comment on above: Performed By: #### L IPID ####[facility] [address] [place] [address]Dr. Yasemin Austin LDL CALC NORMAL SEE BELOW Normal [facility] Comment on above: Result Comment: <100 mg/dl OPTIMAL 100 - 129 mg/dl NEAR OR ABOVE OPTIMAL 130 - 159 mg/dl BORDERLINE HIGH 160 - 189 mg/dl HIGH >190 mg/dl VERY HIGH Performed By: #### L IPID ####[facility] [address] [place] [address]Dr. Yasemin Austin Triglyceride [Mass/Vol] 150 mg/dL Normal <=150 [facility] Comment on above: Performed By: #### L IPID ####[facility] [address] [place] [address]Dr. Yasemin Austin VLDL CALC 30.0 mg/dL Normal [facility] Comment on above: Performed By: #### L IPID ####[facility] [address] [place], [place] [address]RmBenito Austin [place] cardiac event monitoron 0 03-12-2022 [place] cardiac event monitor [facility] [address] [place] [id number] Cardiac Event Monitor Signed Patient: Jack Gonzales MR#: [id number] 2 : 1965 Acct:[id number] Age/Sex: 56 / M ADM Date: 01/23/22 Loc: Room: Type: [facility] Attending Dr: Agustin Murphy MD Copies to: [...] or atrial flutter. Transcribed By: MICHAEL 03/13/22 0946 Dictated By: Peter Vega MD 03/12/22 1729 Signed By: 03/18/22 1412 Normal [facility] Cholesterol [Mass/volume] in Serum or PlasmaOrdered By: Lilly Arzate on 01-20-2022 Cholesterol [Mass/Vol] 206 mg/dL 140-200 [facility] Comment on above: Chol less than 200 m g/dl low risk Chol 201-239 mg/dl borderline risk Chol 240 mg/dl and greater high risk Cholesterol in LDL Calc [Mas s/Vol]Ordered By: Lilly Arzate on 01-20-2022 Cholesterol in LDL [Mass/Vol] 142 mg/dL 0-100 [facility] Comment on above: LDL ATP III CLASSIFI CATION LDL less than 100 mg/dL Optimal LDL 100-129 mg/dL Near or above optimal LDL 130-159 mg/dL Borderline high LDL 160-189 mg/dL High LDL greater than 189 mg/dL Very high Cholesterol in VLDL Calc [Ma ss/Vol]Ordered By: Lilly Arzate on 01-20-2022 Cholesterol in VLDL [Mass/Vol] 31 mg/dL [facility] Lipid Panelon 01-20-2022 Cholesterol [Mass/Vol] 206 mg/dL High 140-200 [facility] Comment on above: Order Comment: TRACEY AC Y Result Comment: Chol less than 200 mg/dl low risk Chol 201-239 mg/dl borderline risk Chol 240 mg/dl and greater high risk Performed By: #### L IPID #### [facility] [address] [place] [id number] [place] Cholesterol in HDL [Mass/Vol] 32 mg/dL Normal 29-71 [facility] Comment on above: Order Comment: TRACEY AC Y Result Comment: HDL CHOL ATP-III CLASSIFICATION Cardiovascular Risk HDL > or equal to 60 mg/dL LOW HDL < 40 mg/dL HIGH Performed By: #### L IPID #### [facility] [address] [place] [address] [place] Cholesterol.total/Cho lesterol in HDL [Mass ratio] 6.4 {ratio} Normal <5.0 [facility] Comment on above: Order Comment: TRACEY NG Y Result Comment: PERF ORMED BY: [facility] [address] [place] [address] PATHOLOGIST DOG DAY CARE ATTENDANT EMIR DOBSON M.D. Performed By: #### L IPID #### [facility] [address] [place] [address] [place] LDL Cholesterol,Calculate d 142 mg/dL High 0-100 [facility] Comment on above: Order Comment: TRACEY AC Y Result Comment: LDL ATP III CLASSIFICATION LDL less than 100 mg/dL Optimal LDL 100-129 mg/dL Near or above optimal LDL 130-159 mg/dL Borderline high LDL 160-189 mg/dL High LDL greater than 189 mg/dL Very high Performed By: #### L IPID #### [facility] [address] Triglyceride w/Reflex 158 mg/dL High 35-149 [facility] Comment on above: Order Comment: TRACEY AC Darrin Result Comment: TRIG ATP III CLASSIFICATION TRIG less than 150 mg/dL Normal TRIG 150-199 mg/dL Borderline high TRIG 200-500 mg/dL High TRIG greater than 500 mg/dL Very high Standard traceable to the Center for Disease Conrtrol and Prevention (CDC) test method. Performed By: #### L IPID #### [facility] [address] VLDL CHOLESTEROL 31 mg/dL Normal [facility] Comment on above: Order Comment: TRACEY Clifford Performed By: #### L IPID #### [facility] [address] Serum or plasma high density lipoprotein (HDL) cholesterol measurementOrdered By: Lilly Arzate on 01-20-2022 Cholesterol in HDL [Mass/Vol] 32 mg/dL 29-71 [facility] Comment on above: HDL CHOL ATP-III CLA SSIFICATION Cardiovascular Risk HDL > or equal to 60 mg/dL LOW HDL < 40 mg/dL HIGH Serum or plasma total choles terol/high density lipoprotein (HDL) cholesterol mass ratOrdered By: Lilly Arzate on 01-20-2022 Cholesterol.total/Cho lesterol in HDL [Mass ratio] 6.4 {ratio} <5.0 [facility] Triglyceride [Mass/volume] i n Serum or PlasmaOrdered By: Lilly Arzate on 01-20-2022 Triglyceride [Mass/Vol] 158 mg/dL 35-149 [facility] Comment on above: TRIG ATP III CLASSIF ICATION TRIG less than 150 mg/dL Normal TRIG 150-199 mg/dL Borderline high TRIG 200-500 mg/dL High TRIG greater than 500 mg/dL Very high Standard traceable to the Center for Disease Conrtrol and Prevention (CDC) test method. Albumin [Mass/volume] in Ser um or PlasmaOrdered By: Agustin Murphy on 01-19-2022 Albumin [Mass/Vol] 3.4 g/dL 3.2-5.[address] [facility] Basophils Auto (Bld) [#/Vol] Ordered By: Agustin Murphy on 01-19-2022 Basophils (Bld) [#/Vol] 0.0 10*3/uL 0.0-0.2 [facility] Basophils/100 WBC Auto (Bld) Ordered By: Agustin Murphy on 01-19-2022 Basophils/100 WBC (Bld) 0.7 % . [facility] Blood hemoglobin measurement (mass/volume)Ordered By: Agustin Murphy on 01-19-2022 Hemoglobin (Bld) [Mass/Vol] 15.3 g/dL 13.0-17.0 [facility] Blood leukocytes automated c ount (number/volume)Ordered By: Agustin Murphy on 01-19-2022 WBC (Bld) [#/Vol] 6.6 10*3/uL 4.5-11.[address] [facility] Complete Blood Count Auto Di ffon 01-19-2022 Basophils (Bld) [#/Vol] 0.0 10*3/uL Normal 0.0-0.2 [facility] Comment on above: Result Comment: PERF ORMED BY: [place] [address] PATHOLOGIST DOG DAY CARE ATTENDANT EMIR DOBSON M.D. Performed By: #### C BC, CMP, PAB #### [address] Basophils/100 WBC (Bld) 0.7 % Normal . [facility] Comment on above: Performed By: #### C BC, CMP, PAB #### [place] [address] [place] Eosinophils (Bld) [#/Vol] 0.2 10*3/uL Normal 0.0-0.45 [facility] Comment on above: Performed By: #### C BC, CMP, PAB #### [place] [address] [place] Eosinophils/100 WBC (Bld) 2.5 % Normal . [facility] Comment on above: Performed By: #### C BC, CMP, PAB #### [place] [address] [place] Erythrocyte distribution width (RBC) [Ratio] 13.1 % Normal 12.0-14.8 [facility] Comment on above: Performed By: #### C MARIAJOSE ALFORD, PAB #### [address] Hematocrit (Bld) [Volume fraction] 43.8 % Normal 38.8-50.0 [facility] Comment on above: Performed By: #### C ROCÍO CMP, PAB #### [address] Hemoglobin (Bld) [Mass/Vol] 15.3 g/dL Normal 13.0-17.0 [facility] Comment on above: Performed By: #### C MARIAJOSE ALFORD, PAB #### [address] Lymphocytes (Bld) [#/Vol] 1.5 10*3/uL Normal 1.00-4.8 [facility] Comment on above: Performed By: #### C ROCÍO CMP, PAB #### [address] Lymphocytes/100 WBC (Bld) 22.1 % Normal . [facility] Comment on above: Performed By: #### C MARIAJOSE ALFORD, PAB #### [address] MCH (RBC) [Entitic mass] 32.3 pg Normal 27.5-35.2 [facility] Comment on above: Performed By: #### C BC CMP, PAB #### [address] MCV (RBC) [Entitic vol] 92.3 fL Normal 83.5-101 [facility] Comment on above: Performed By: #### C ROCÍO CMP, PAB #### [address] Mean Corpuscular HGB Conc 35.0 g/dL Normal 32.5-35.6 [facility] Comment on above: Performed By: #### C BC CMP, PAB #### [address] [place] [address] [place] Monocytes (Bld) [#/Vol] 0.8 10*3/uL Normal 0.0-0.8 [facility] Comment on above: Performed By: #### C BC, CMP, PAB #### [facility] [address] [place] [address] [place] Monocytes/100 WBC (Bld) 12.4 % Normal . [facility] Comment on above: Performed By: #### C BC, CMP, PAB #### [facility] [address] [place] [address] [place] Neutrophils (Bld) [#/Vol] 4.1 10*3/uL Normal 1.8-7.7 [facility] Comment on above: Performed By: #### C BC CMP, PAB #### [facility] [address] [place] [address] [place] Neutrophils/100 WBC (Bld) 62.3 % Normal . [facility] Comment on above: Performed By: #### C BC, CMP, PAB #### [facility] [address] [place] [address] [place] Nucleated RBC/100 WBC (Bld) [Ratio] 0.1 % Normal 0-0.5 [facility] Comment on above: Performed By: #### C BC, CMP, PAB #### [facility] [address] [place] [address] [place] Platelet mean volume (Bld) [Entitic vol] 8.0 fL Normal 6.6-10.1 [facility] Comment on above: Performed By: #### C BC, CMP, PAB #### [facility] [address] [place] [address] [place] Platelets (Bld) [#/Vol] 261 10*3/uL Normal 150-450 [facility] Comment on above: Performed By: #### C BC, CMP, PAB #### [facility] [address] [place] [address] [place] RBC (Bld) [#/Vol] 4.74 10*6/uL Normal 3.90-5.60 [facility] Comment on above: Performed By: #### C BC, CMP, PAB #### [facility] [address] WBC (Bld) [#/Vol] 6.6 10*3/uL Normal 4.5-11.[address] [facility] Comment on above: Performed By: #### C BC, CMP, PAB #### [facility] [address] [place] [address] [place] Comprehensive Metabolic Pane [place] 01-19-2022 Albumin [Mass/Vol] 3.4 g/dL Normal 3.2-5.[address] [facility] Comment on above: Performed By: #### C BC, CMP, PAB #### [facility] [address] Albumin/Globulin [Mass ratio] 1.1 {ratio} Normal [facility] Comment on above: Performed By: #### C BC, CMP, PAB #### [facility] [address] ALP [Catalytic activity/Vol] 31 U/L Low 32-92 [facility] Comment on above: Performed By: #### C BC, CMP, PAB #### [facility] [address] [place] [address] [place] ALT [Catalytic activity/Vol] 44 U/L Normal 10-60 [facility] Comment on above: Performed By: #### C BC, CMP, PAB #### [facility] [address] [place] [id number] [place] AST [Catalytic activity/Vol] 34 U/L Normal 10-42 [facility] Comment on above: Performed By: #### C BC, CMP, PAB #### [facility] [address] [place] [id number] [place] Bilirubin [Mass/Vol] 0.7 mg/dL Normal 0.3-1.2 [facility] Comment on above: Performed By: #### C BC, CMP, PAB #### [facility] [address] [place] [id number] [facility] Calcium [Mass/Vol] 8.9 mg/dL Normal 8.2-10.[address] [facility] Comment on above: Performed By: #### C BC, CMP, PAB #### [facility] [address] [place] [address] [place] Chloride [Moles/Vol] 104 mmol/L Normal 95-114 [facility] Comment on above: Performed By: #### C BC, CMP, PAB #### [facility] [address] [place] [phone] [place] CO2 [Moles/Vol] 25.4 mmol/L Normal 22.0-30.0 [facility] Comment on above: Performed By: #### C BC, CMP, PAB #### [facility] [address] Creatinine [Mass/Vol] 1.13 mg/dL Normal 0.64-1.27 [facility] Comment on above: Performed By: #### C BC, CMP, PAB #### [facility] [address] [place] [address] [place] Creatinine Clr Calc Pharmacy 88.22 [facility] Comment on above: Performed By: #### C BC, CMP, PAB #### [facility] [address] Estimated GFR ( Elvia > 60 [facility] Comment on above: Result Comment: GFR estimated reference range: According to KDOQI guidelines, <60 ml/min/1.73m2 is sufficient to diagnose a patient with chronic kidney disease. Performed By: #### C BC, CMP, PAB #### [facility] [address] [place] [address] [place] Estimated GFR (Non- Am > 60 [facility] Comment on above: Performed By: #### C BC, CMP, PAB #### [facility] [address] [place] [address] [place] Globulin (S) [Mass/Vol] 3.0 g/dL [facility] Comment on above: Performed By: #### C BC, CMP, PAB #### [facility] [address] [place] [phone] [place] Glucose [Mass/Vol] 121 mg/dL High 70-[address] [facility] Comment on above: Result Comment: [facility] Glucose Reference Range is dependent on time and content of last meal. Glucose of more than 200 mg/dL in a nonstressed, ambulatory subject supports the diagnosis of Diabetes Mellitus. ADA recommended reference range Performed By: #### C MARIAJOSE ALFORD, PAB #### [facility] [address] [place] [phone] [place] Potassium [Moles/Vol] 4.6 mmol/L Normal 3.5-5.1 [facility] Comment on above: Performed By: #### C MARIAJOSE ALFORD, PAB #### [facility] [address] [place] [phone] [place] Protein [Mass/Vol] 6.4 g/dL Normal 6.1-7.[address] [facility] Comment on above: Performed By: #### C MARIAJOSE ALFORD, PAB #### [facility] [address] [place] [phone] [place] Sodium [Moles/Vol] 138 mmol/L Normal 136-[address] [facility] Comment on above: Performed By: #### C MARIAJOSE ALFORD, PAB #### [facility] [address] [place] [phone] [place] Urea nitrogen [Mass/Vol] 16 mg/dL Normal 9-23 [facility] Comment on above: Performed By: #### C MARIAJOSE ALFORD, PAB #### [facility] [address] [place] [phone] [place] Creatinine and Glomerular fi ltration rate.predicted panel (S/P/Bld)Ordered By: Agustin Murphy on 01-19-2022 Creatinine [Mass/Vol] 1.13 mg/dL 0.64-1.27 [facility] Eosinophils Auto (Bld) [#/Vo l]Ordered By: Agustin Murphy on 01-19-2022 Eosinophils (Bld) [#/Vol] 0.2 10*3/uL 0.0-0.45 [facility] Eosinophils/100 WBC Auto (Bl d)Ordered By: Agustin Murphy on 01-19-2022 Eosinophils/100 WBC (Bld) 2.5 % . [facility] Erythrocyte distribution wid th Auto (RBC) [Ratio]Ordered By: Agustin Murphy on 01-19-2022 Erythrocyte distribution width (RBC) [Ratio] 13.1 % 12.0-14.8 [facility] Estimated glomerular filtrat ion rate (GFR) non- AmericanOrdered By: Agustin Murphy on 01-19-2022 GFR/1.73 sq M.predicted among non-blacks MDRD (S/P/Bld) [Vol rate/Area] > 60 mL/Min [facility] Globulin Calc (S) [Mass/Vol] Ordered By: Agustin Murphy on 01-19-2022 Globulin (S) [Mass/Vol] 3.0 g/dL [facility] Hematocrit Auto (Bld) [Volum e fraction]Ordered By: Agustin Murphy on 01-19-2022 Hematocrit (Bld) [Volume fraction] 43.8 % 38.8-50.0 [facility] Laboratory - Hematology and Cell countsOrdered By: Agustin Murphy on 01-19-2022 Nucleated RBC/100 WBC (Bld) [Ratio] 0.1 % 0-0.5 [facility] Lymphocytes Auto (Bld) [#/Vo l]Ordered By: Agustin Murphy on 01-19-2022 Lymphocytes (Bld) [#/Vol] 1.5 10*3/uL 1.00-4.8 [facility] Lymphocytes/100 WBC Auto (Bl d)Ordered By: Agustin Murphy on 01-19-2022 Lymphocytes/100 WBC (Bld) 22.1 % . [facility] MCH Auto (RBC) [Entitic mass ]Ordered By: Agustin Murphy on 01-19-2022 MCH (RBC) [Entitic mass] 32.3 pg 27.5-35.2 [facility] MCHC Auto (RBC) [Mass/Vol]Or dered By: Agustin Murphy on 01-19-2022 MCHC (RBC) [Mass/Vol] 35.0 g/dL 32.5-35.6 [facility] MCV Auto (RBC) [Entitic vol] Ordered By: Agustin Murphy on 01-19-2022 MCV (RBC) [Entitic vol] 92.3 fL 83.5-101 [facility] Monocytes Auto (Bld) [#/Vol] Ordered By: Agustin Murphy on 01-19-2022 Monocytes (Bld) [#/Vol] 0.8 10*3/uL 0.0-0.8 [facility] Monocytes/100 WBC Auto (Bld) Ordered By: Agustin Murphy on 01-19-2022 Monocytes/100 WBC (Bld) 12.4 % . [facility] Neutrophils Auto (Bld) [#/Vo l]Ordered By: Agustin Murphy on 01-19-2022 Neutrophils (Bld) [#/Vol] 4.1 10*3/uL 1.8-7.7 [facility] Neutrophils/100 WBC Auto (Bl d)Ordered By: Agustin Murphy on 01-19-2022 Neutrophils/100 WBC (Bld) 62.3 % . [facility] No Panel InformationOrdered By: Agustin Murphy on 01-19-2022 Estimated GFR () > 60 mL/Min [facility] Comment on above: GFR estimated refere nce range: According to KDOQI guidelines, <60 ml/min/1.73m2 is sufficient to diagnose a patient with chronic kidney disease. Pharmacy Creatinine Clearance (Chem 88.22 [facility] Platelet mean volume Auto (B ld) [Entitic vol]Ordered By: Agustin Murphy on 01-19-2022 Platelet mean volume (Bld) [Entitic vol] 8.0 fL 6.6-10.1 [facility] Platelets Auto (Bld) [#/Vol] Ordered By: Agustin Murphy on 01-19-2022 Platelets (Bld) [#/Vol] 261 10*3/uL 150-450 [facility] Prealbuminon 01-19-2022 Prealbumin [Mass/Vol] 31.8 mg/dL Normal 18.0-38.0 [facility] Comment on above: Result Comment: PERF ORMED BY: [facility] [address] [place] [address] PATHOLOGIST DOG DAY CARE ATTENDANT EMIR DOBSON M.D. Performed By: #### C BC, CMP, PAB #### [facility] [address] Protein [Mass/volume] in Ser um or PlasmaOrdered By: Agustin Murphy on 01-19-2022 Protein [Mass/Vol] 6.4 g/dL 6.1-7.[address] [facility] RBC Auto (Bld) [#/Vol]Ordere d By: Agustin Murphy on 01-19-2022 RBC (Bld) [#/Vol] 4.74 10*6/uL 3.90-5.60 [facility] Serum or plasma alanine be otransferase measurement without P-5'-P (enzymatic activiOrdered By: Agustin Murphy on 01-19-2022 ALT No additional P-5'-P [Catalytic activity/Vol] 44 U/L 10-60 [facility] Serum or plasma albumin/glob ulin mass ratioOrdered By: Agustin Murphy on 01-19-2022 Albumin/Globulin [Mass ratio] 1.1 {ratio} [facility] Serum or plasma alkaline indira sphatase measurement (enzymatic activity/volume)Ordered By: Agustin Murphy on 01-19-2022 ALP [Catalytic activity/Vol] 31 U/L 32-92 [facility] Serum or plasma aspartate am inotransferase measurement (enzymatic activity/volume)Ordered By: Agustin Murphy on 01-19-2022 AST [Catalytic activity/Vol] 34 U/L 10-42 [facility] Serum or plasma calcium reyna urement (mass/volume)Ordered By: Agustin Murphy on 01-19-2022 Calcium [Mass/Vol] 8.9 mg/dL 8.2-10.[address] [facility] Serum or plasma chloride francisco surement (moles/volume)Ordered By: Agustin Murphy on 01-19-2022 Chloride [Moles/Vol] 104 mmol/L 95-114 [facility] Serum or plasma glucose reyna urement (mass/volume)Ordered By: Agustin Murphy on 01-19-2022 Glucose [Mass/Vol] 121 mg/dL 70-[address] [facility] Comment on above: ADA recommended refe rence range Random Glucose Reference Range is dependent on time and content of last meal. Glucose of more than 200 mg/dL in a nonstressed, ambulatory subject supports the diagnosis of Diabetes Mellitus. Serum or plasma potassium me asurement (moles/volume)Ordered By: Agustin Murphy on 01-19-2022 Potassium [Moles/Vol] 4.6 mmol/L 3.5-5.1 [facility] Serum or plasma prealbumin m easurement (mass/volume)Ordered By: Agustin Jeffrey on 01-19-2022 Prealbumin [Mass/Vol] 31.8 mg/dL 18.0-38.0 [facility] Serum or plasma sodium measu rement (moles/volume)Ordered By: Agustin Murphy on 01-19-2022 Sodium [Moles/Vol] 138 mmol/L 136-[address] [facility] Serum or plasma total biliru bin measurement (mass/volume)Ordered By: Agustin Murphy on 01-19-2022 Bilirubin [Mass/Vol] 0.7 mg/dL 0.3-1.2 [facility] Serum or plasma total carbon dioxide measurement (moles/volume)Ordered By: Agustin Murphy on 01-19-2022 CO2 [Moles/Vol] 25.4 mmol/L 22.0-30.0 [facility] Serum or plasma urea nitroge n measurement (mass/volume)Ordered By: Agustin Murphy on 01-19-2022 Urea nitrogen [Mass/Vol] 16 mg/dL 03-15 [facility] CTA NECK WO W CONon 01-16-20 CTA NECK WO W CON EXAMINATION: CTA HEA D WO W CON, CTA NECK WO W [...] ANAYELI HALE Date: 2022-01-15 00:55 Normal [facility] CBC AUTO DIFFon 01-14-2022 BASO # 0.0 103/ul Normal 0.0-0.1 [facility] Comment on above: Performed By: #### C BC #### [facility] [address] [place] [address] Dr. Yasemin Austin Basophils/100 WBC (Bld) 0.2 % Normal 0.2-2.0 [facility] Comment on above: Performed By: #### C BC #### [facility] [address] [place] [address] Dr. Yasemin Austin EO # 0.0 103/ul Normal 0.0-0.7 [facility] Comment on above: Performed By: #### C BC #### [facility] [address] [place] [address] Dr. Yasemin Austin Eosinophils/100 WBC (Bld) 0.2 % Critically low 0.9-7.0 [facility] Comment on above: Performed By: #### C BC #### [facility] [address] [place] [address] Dr. Yasemin Austin Erythrocyte distribution width (RBC) [Ratio] 12.2 % Normal 11.0-15.0 [facility] Comment on above: Performed By: #### C BC #### [facility] [address] [place] [address] Dr. Yasemin Austin Hematocrit (Bld) [Volume fraction] 41.4 % Critically low 42.0-54.0 [facility] Comment on above: Performed By: #### C BC #### [facility] [address] [place] [address] Dr. Yasemin Austin Hemoglobin (Bld) [Mass/Vol] 14.5 g/dL Normal 14.0-18.0 [facility] Comment on above: Performed By: #### C BC #### [facility] [address] [place] [address] Dr. Yasemin Austin IG # 0.07 10e3/ul Critically high 0.00-0.03 [facility] Comment on above: Performed By: #### C BC #### [facility] [address] [place] [address] Dr. Yasemin Austin IG % 0.5 % Normal 0.0-0.5 [facility] Comment on above: Performed By: #### C BC #### [facility] [address] [place] [address] Dr. Yasemin Austin LYMPH # 0.8 103/ul Critically low 1.2-3.8 [facility] Comment on above: Performed By: #### C BC #### [facility] [address] [place] [address] Dr. Yasemin Austin Lymphocytes/100 WBC (Bld) 5.9 % Critically low 20.5-60.0 [facility] Comment on above: Performed By: #### C BC #### [facility] [address] [place] [address] Dr. Yasemin Austin MANUAL DIFF REQ NO Normal [facility] Comment on above: Performed By: #### C BC #### [facility] [address] [place] [address] Dr. Yasemin Austin MCH (RBC) [Entitic mass] 31.7 pg Normal 25.9-34.0 [facility] Comment on above: Performed By: #### C BC #### [facility] [address] [place] [address] Dr. Yasemin Austin MCHC (RBC) [Mass/Vol] 35.0 g/dL Normal 29.9-35.2 [facility] Comment on above: Performed By: #### C BC #### [facility] [address] [place] [address] Dr. Yasemin Austin MCV (RBC) [Entitic vol] 90.4 fL Normal 80.0-94.0 [facility] Comment on above: Performed By: #### C BC #### [facility] [address] [place] [address] Dr. Yasemni Austin MONO # 0.9 103/ul Critically high 0.3-0.8 [facility] Comment on above: Performed By: #### C BC #### [facility] [address] [place] [address] Dr. Yasemin Austin Monocytes/100 WBC (Bld) 6.4 % Normal 1.7-12.0 [facility] Comment on above: Performed By: #### C BC #### [facility] [address] [place] [address] Dr. Yasemin Austin NEUT # 11.6 103/ul Critically high 1.4-6.5 [facility] Comment on above: Performed By: #### C BC #### [facility] [address] [place] [address] Dr. Yasemin Austin Neutrophils/100 WBC (Bld) 86.8 % Critically high 43.0-75.0 [facility] Comment on above: Performed By: #### C BC #### [facility] [address] [place] [address] Dr. Yaesmin Austin Platelet mean volume (Bld) [Entitic vol] 9.9 fL Normal 9.5-13.5 [facility] Comment on above: Performed By: #### C BC #### [facility] [address] [address] [address] Yasemin Austin PLT 279 103/ul Normal 150-450 [facility] Comment on above: Performed By: #### C BC #### [facility] [address] [address] [address] Yasemin Austin RBC 4.58 106/ul Critically low 4.70-6.10 [facility] Comment on above: Performed By: #### C BC #### [facility] [address] [address] [address] Yasemin Austin WBC 13.3 103/ul Critically high 4.0-11.0 [facility] Comment on above: Performed By: #### C BC #### [facility] [address] [address] [address] STROKE HEAD WOon 01-15-20 CT STROKE HEAD WO EXAMINATION: CT STRO KE HEAD WO HISTORY: Slurred speech, right-sided weakness [...] EDIL MCGHEE Date: 2022-01-14 20:20 Normal [facility] Covid-19 PCR (CVDTBH)on 12-22 SARS-CoV-2 (COVID-19) RNA CARY+probe Ql (Unsp spec) Not detected Normal NOT DETECTED [facility] Comment on above: Result Comment: When diagnostic [...] for this test is supported by the [employer] Tile [employer] Operator of Health and Human Service's declaration that [...] used). Performed By: #### C VDTB #### [facility] [address] [place] [address] Dr. Yasemin Austin PROF 14(COMP METB)on 022 Albumin [Mass/Vol] 3.6 g/dL Normal 3.4-5.0 [facility] Comment on above: Performed By: #### C MP #### [facility] [address] [place] [address] Dr. Yasemin Austin Albumin/Globulin [Mass ratio] 1.1 {ratio} Normal [facility] Comment on above: Performed By: #### C MP #### [facility] [address] [place] [address] Dr. Yasemin Austin ALP [Catalytic activity/Vol] 37 U/L Critically low 46-116 [facility] Comment on above: Performed By: #### C MP #### [facility] [address] [address] [address] Yasemin Austin ALT [Catalytic activity/Vol] 70 U/L Critically high 16-63 [facility] Comment on above: Performed By: #### C MP #### [facility] [address] [address] [address] Yasemin Austin Anion gap [Moles/Vol] 16.9 mmol/L Normal Th [facility] Comment on above: Performed By: #### C MP #### [facility] [address] [address] [address] Yasemin Austin AST [Catalytic activity/Vol] 90 U/L Critically high 15-37 [facility] Comment on above: Performed By: #### C MP #### [facility] [address] [place] [address] Dr. Yasemin Austin Bilirubin [Mass/Vol] 0.9 mg/dL Normal 0.2-1.0 [facility] Comment on above: Performed By: #### C MP #### [facility] [address] [address] [address] Yasemin Austin Calcium [Mass/Vol] 8.8 mg/dL Normal 8.5-10.1 [facility] Comment on above: Performed By: #### C MP #### [facility] [address] [place] [address] Dr. Yasemin Austin Chloride [Moles/Vol] 106 mmol/L Normal 98-107 [facility] Comment on above: Performed By: #### C MP #### [facility] [address] [address] [address] Yasemin Austin CO2 [Moles/Vol] 23.5 mmol/L Normal 21.0-32.0 [facility] Comment on above: Performed By: #### C MP #### [facility] [address] [address] [address] Yasemin Austin Creatinine [Mass/Vol] 1.07 mg/dL Normal 0.70-1.30 [facility] Comment on above: Performed By: #### C MP #### [facility] [address] [address] [address] Yasemin Austin EGFR-AF TANZANIAN >60 Normal >=60 [facility] Comment on above: Performed By: #### C MP #### [facility] [address] [address] [address] Yasemin Austin EGFR-NON AF TANZANIAN >60 Normal >=60 [facility] Comment on above: Performed By: #### C MP #### [facility] [address] [address] [address] Yasemin Austin Globulin (S) [Mass/Vol] 3.4 g/dL Normal [facility] Comment on above: Performed By: #### C MP #### [facility] [address] [place] [address] Dr. Yasemin Austin Glucose [Mass/Vol] 172 mg/dL Critically high 74-106 [facility] Comment on above: Performed By: #### C MP #### [facility] [address] [place] [address] Dr. Yasemin Austin Potassium [Moles/Vol] 4.4 mmol/L Normal 3.5-5.1 [facility] Comment on above: Performed By: #### C MP #### [facility] [address] [place] [address] Dr. Yasemin Austin Protein [Mass/Vol] 7.0 g/dL Normal 6.4-8.2 [facility] Comment on above: Performed By: #### C MP #### [facility] [address] [place] [address] Dr. Yasemin Austin Sodium [Moles/Vol] 142 mmol/L Normal 136-145 [facility] Comment on above: Performed By: #### C MP #### [facility] [address] [address] [address] Yasemin Austin Urea nitrogen [Mass/Vol] 14.0 mg/dL Normal 7.0-18.0 [facility] Comment on above: Performed By: #### C MP #### [facility] [address] [address] [address] Yasemin Austin Urea nitrogen/Creatinine [Mass ratio] 13.1 mg/mg Normal [facility] Comment on above: Performed By: #### C MP #### [facility] [address] [place], [place] [address] Dr. Yasemin Austin PTTon 01-14-2022 aPTT Coag (Bld) [Time] 23.7 s Normal 22.3-36.2 [facility] Comment on above: Performed By: #### P TT ####[facility] [address] [place], [place] [address]LtDr. Yasemin Austin Vital Signs Date Time Vital Sign Value Performing Clinician Facility 02-27-2024 13:18-0400 Body height 182.88 cm [facility] 02-27-2024 13:18-0400 Body mass index (BMI) [Ratio] 31.4 kg/m2 [facility] 02-27-2024 13:18-0400 Body weight 105 kg [facility] 02-27-2024 13:18-0400 Diastolic blood pressure 82 mm[Hg] [facility] 02-27-2024 13:18-0400 Heart rate 90 /min [facility] 02-27-2024 13:18-0400 Respiratory rate 12 /min [facility] [place] [facility] 02-27-2024 13:18-0400 Systolic blood pressure 131 mm[Hg] [facility] 11-07-2023 09:00-0400 Body height 182.88 cm [facility] 11-07-2023 09:00-0400 Body mass index (BMI) [Ratio] 31.2 kg/m2 [facility] 11-07-2023 09:00-0400 Body weight 104.55 kg [facility] 11-07-2023 09:00-0400 Diastolic blood pressure 69 mm[Hg] [facility] 11-07-2023 09:00-0400 Heart rate 81 /min [facility] 11-07-2023 09:00-0400 Respiratory rate 12 /min [facility] [place] [facility] 11-07-2023 09:00-0400 Systolic blood pressure 108 mm[Hg] [facility] 06-02-2023 09:00-0500 Body height 182.88 cm Fabio Ball Other [employer] Other 06-02-2023 09:00-0500 Body mass index (BMI) [Ratio] 32.71 kg/m2 Fabio Ball Other [employer] Other 06-02-2023 09:00-0500 Body weight 109.41 kg Fabio Ball Other [employer] Other 06-02-2023 09:00-0500 Diastolic blood pressure 87 mm[Hg] Fabio Ball Other [facility] Other 06-02-2023 09:00-0500 Respiratory rate 12 /min Fabio Ball Other [employer] Other 06-02-2023 09:00-0500 Systolic blood pressure 131 mm[Hg] Fabio Ball Other [facility] Other 01-23-2022 11:49-0400 Body temperature 97.5 [degF] DO Fabio Ball Work Phone: [facility] 01-23-2022 11:49-0400 Diastolic blood pressure 75 mm[Hg] DO Fabio Ball Work Phone: [facility] 01-23-2022 11:49-0400 Heart rate 76 /min DO Fabio Ball Work Phone: [facility] 01-23-2022 11:49-0400 Respiratory rate 18 /min DO Fabio Ball Work Phone: [facility] 01-23-2022 11:49-0400 SaO2% (BldA) [Mass fraction] 95 % DO Fabio Ball Work Phone: [facility] 01-23-2022 11:49-0400 Systolic blood pressure 113 mm[Hg] DO Fabio Ball Work Phone: [facility] 01-21-2022 11:45-0400 Body height 182.88 cm DO Fabio Gross Work Phone: [facility] 01-19-2022 05:46-0400 Body weight 99.8 kg DO Fabio Gross Work Phone: [facility] Encounters Encounter Date Encounter Type Care Provider Facility Start: 02-27-2024 End: 02-27-2024 ambulatory [facility] Work Phone: Start: 02-27-2024 End: 02-27-2024 Patient encounter procedure [facility] Physician [facility] Work Phone: Start: 02-27-2024 End: 02-27-2024 ambulatory [facility] Work Phone: Start: 02-27-2024 End: 02-27-2024 Patient encounter procedure [facility] Physician [facility] Work Phone: Start: 12-23-2023 Non-patient / Non-visit [facility] Physician [facility] [employer] Work Phone: Start: 11-07-2023 End: 11-07-2023 ambulatory [facility] Work Phone: Start: 11-07-2023 End: 11-07-2023 Encounter for general adult medical examination without abnormal findings [facility] Start: 11-07-2023 End: 11-07-2023 Patient encounter procedure [facility] Physician [facility] Work Phone: Start: 10-30-2023 End: 10-30-2023 ambulatory [facility] Work Phone: Start: 10-30-2023 End: 10-30-2023 Patient encounter procedure [facility] Physician [facility] Work Phone: Start: 06-30-2023 End: 06-30-2023 ambulatory Fabio Gross Other [facility] Other Start: 06-30-2023 Telephone encounter Fabio Gross [facility] Start: 06-05-2023 End: 06-05-2023 ambulatory Fabio Gross Other [employer] Other Start: 06-05-2023 Telephone encounter Fabio Gross [facility] Start: 06-04-2023 End: 06-04-2023 ambulatory Fabio Gross Other [employer] Other Start: 06-04-2023 Telephone encounter Fabio Gross [facility] Start: 06-02-2023 End: 06-02-2023 ambulatory Fabio Gross Other [employer] Other Start: 06-02-2023 Encounter for genera l adult medical examination without abnormal findings Fabio Gross [facility] Start: 06-02-2023 Office outpatient vi sit 25 minutes Fabio Scottie [facility] Start: 06-02-2023 Periodic preventive med est patient 40-64yrs Fabio Gross [facility] Start: 01-09-2023 End: 01-09-2023 ambulatory Fabio Gross Other [employer] Other Start: 01-09-2023 Telephone encounter Fabio Gross [facility] Start: 01-07-2023 End: 01-07-2023 ambulatory Fabio Gross Other [employer] Other Start: 01-07-2023 Telephone encounter Fabio DIAS [facility] Start: 10-07-2022 End: 10-08-[address] FABIO GROSS Facility:[facility] Start: 10-04-2022 End: 10-04-2022 ambulatory Fabio Gross Other [employer] Other Start: 10-04-2022 Telephone encounter Fabio DIAS [facility] Start: 07-24-2022 End: 07-25-[address] FABIO GROSS Facility:[facility] Start: 07-15-2022 Encounter for genera l adult medical examination without abnormal findings DR FABIO GROSS [facility] Start: 07-12-2022 End: 01-20-2023 ambulatory [facility] Other Start: 07-12-2022 Telephone encounter [facility] Start: 07-10-2022 End: 07-11-[address] FABIO GROSS Facility:[facility] Start: 07-10-2022 End: 07-11-2022 Encounter for general adult medical examination without abnormal findings DR FABIO GROSS Facility:[facility] Start: 03-15-2022 End: 03-16-[address] DOCTOR DIAZ Facility:[facility] Start: 03-14-2022 ambulatory Facility:[facility] Start: 03-12-2022 ambulatory Facility:[id number] Start: 02-11-2022 End: 02-12-[address] FABIO GROSS Facility:[facility] Start: 01-23-2022 End: 01-23-2022 ambulatory Fabio Gross Facility:[facility] Start: 01-23-2022 End: 01-23-2022 Patient encounter procedure DO Fabio Gross Work Phone: [facility] Start: 01-18-2022 End: 01-23-2022 Evaluation and management of inpatient Fabio Gross Facility:[facility] Start: 01-18-2022 End: 01-23-2022 Evaluation and management of inpatient DO Fabio Gross Work Phone: [facility] Start: 01-14-2022 End: 01-15-[address] FABIO GROSS Facility:[facility] Procedures Date Procedure Procedure Detail Performing Clinician Start: 07-10-[address] DOCTOR DIAZ Comment on above: Performed By: #### P [facility] #### [facility] [address] [place] [address] Dr. Yasemin Austin Plan of Treatment Date Care Activity Detail Author Start: 01-23-2022 [facility] Work Phone: Start: 01-19-2022 [facility] Work Phone: Start: 01-18-2022 Hospital admission [facility] Work Phone: Start: 01-18-2022 Referral to clinical geophysical observer [facility] Work Phone: Comprehensive metabo lic 2000 panel - Serum or Plasma [facility] Microalbumin [Mass/volume] in Urine [facility] Patient Education Stroke (DC) Am bulatory Cardiac Monitoring (DC) [facility] Work Phone: Patient referral [facility] Work Phone: [facility] [place] [facility] Payers Date Payer Category Payer Self-pay 1965 Unknown [id number] 1965 Unknown [id number] 2.16.84 [id number] 1965 Unknown [id number] 2.16.84 [id number] 1965 Unknown [id number] 2.16.84 [id number] 1964 Unknown [id number] 2.16.84 [id number] 1965 Unknown [id number] 2.16.84 [id number] 1965 Unknown [id number] 2.16.84 [id number] 1960 Blue Cross Blue Shield [id number] 1960 Unknown [id number] Unknown [id number] 2.16.8 [id number] Unknown [id number] 2.16.8 [id number] Social History Date Type Detail Facility Start: 01-19-2022 Tobacco smoking status NHIS Smoker (finding) [facility] Start: 1965 Sex Assigned At Male F [facility] Sex Assigned At Sex [facility] Other Goals Date Patient Goal Desired Activity /State Functional Status Date Assessment Result Facility 01-23-2022 Functional status Patient is Pro gressing Toward Baseline [facility] Work Phone: Mental Status Date Assessment Result Facility 01-23-2022 Cognitive function Cognitive Sta tus Patient is Progressing Toward Baseline [facility] Work Phone: Clinical Notes 01-19-2022 to 06-02-2023 [...] use, the patient reduces the risk for GA, CVA, HTN, cardiac dysrhythmias and sudden cardiac [...] (ICD-10 - Z12.5) Yearly JUANITA and PSA [employer] Other [id number] Evaluation note* Encounter Date Diagnosis Assessment Notes [...] use, the patient reduces the risk for GA, CVA, HTN, cardiac dysrhythmias and sudden cardiac [...] change in bowel habits, melena or hematochezia [facility] Other 04-14-2023 Evaluation note* Encounter Date Diagnosis Assessment Notes Treatment Notes Treatment Clinical Notes Sep, Type 2 diabetes mellitus with hyperglycemia, without long-term current use of insulin (ICD-10 - E11.65) [facility] Other 01-20-2023 Evaluation note* Encounter Date Diagnosis Assessment Notes Treatment Notes Treatment Clinical Notes Jun, Elevated cholesterol (ICD-10 - E78.00) Jun, Type 2 diabetes mellitus with hyperglycemia, without long-term current use of insulin (ICD-10 - E11.65) [facility] Other 08-03-2022 Progress note Author Agustin Murphy [facility] January 23, 2022 9:41am Note Date/Time January 23, 2022 9:4 1am [facility] [address] [place] [address] Physiatry(Rehab) Progress Note Signed Patient: Jack Gonzales MR#: [id number] : 1965 Acct:[id number] Age/Sex: 56 / M Adm Date: 2 Loc: Room: 7E4692-3 Type: ADM IN Attending Dr: Agustin Murphy MD Copies to: ~ Date of Service: 01/22/2022 Subjective Subjective Narrative: Mr. Gonzales is a 56 year old male Admitted to the rehabilitation unit with functional decline status post right cerebellar ischemic stroke. He presented to [facility] with dizziness and ataxia.? This started at 8:00 in the morning the day prior to admission.? At [facility], CT head and CTA demonstrated possible left ICA dissection but no definitive ischemic lesion.? Given the CTA findings suggesting dissection, he was transferred to [facility].? MRI at [facility] demonstrated acute to subacute right cerebellar infarct.His NIH stroke scale at [facility] was 0.? TTE with EF 65% otherwise unremarkable, hemoglobin A1c 6.4.? I do not see lipid levels.? He is on secondary stroke prevention with aspirin and Plavix.? I do not see a statin ordered.? They did recommend outpatient sleep study and 30-day cardiac event monitor. As his symptoms were improving, there was no intervention performed.? Neurology at [facility] felt his left carotid findings were possibly [...] mg 01/18/22 17:30 Bisacodyl 10 Mg Supp.Rect MA 01/18/23 17:29 DAILY PRN Constipation Clopidogrel Bisulfate 75 mg 01/19/22 09:00 01/21/22 09:27 Clopidogrel Bisulfate 75 Mg Tablet PO 01/19/23 08:59 75 mg DAILY EDVIN Administration Docusate Sodium 100 mg 01/18/22 17:30 Docusate 100 Mg Capsule PO 01/18/23 17:29 BID PRN Constipation Docusate Sodium 283 mg 01/18/22 17:30 Docusate Enema 283 Mg/5 Ml Enema MA 01/18/23 17:29 DAILY PRN Constipation Heparin Sodium [...] equipment? to enhance the patient's a functional hoahaoism Encourage deep breathing exercises and incentive spirometry [...] greater than 20 minutes for services, including tvoi-wy-yyey encounter with the patient, discussion of the case, plan of care, and exam; and dhcruzz-qw-kdpv activities, such as reviewing pertinent platform consultant documentation, recent therapy notes, laboratory and radiology studies, and discussion of case with care team including nursing, nurse outreach case manager, and therapists. More than 50 % of time was spent on patient/family counseling or coordination ofcare. Documented By: Agustin Murphy MD 01/22/2248 Signed By: <Electronically signed by Agustin Murphy MD> 01/23/2241 [facility] Work Phone: 1(210) 325-478908-03-2022 Progress note Author Agustin Murphy [facility] January 23, 2022 9:30am Note Date/Time January 23, 2022 9:3 0am [facility] [address] [place] [address] Physiatry(Rehab) Progress Note Signed Patient: Jack Gonzales MR#: [id number] : 1965 Acct:[id number] Age/Sex: 56 / M Adm Date: 2 Loc: Room: [address] [place] [address] Type: ADM IN Attending Dr: Agustin Murphy MD Copies to: ~ Date of Service: 01/21/2022 Subjective Subjective Narrative: Mr. Gonzales is a 56 year old male Admitted to the rehabilitation unit with functional decline status post right cerebellar ischemic stroke. He presented to [facility] with dizziness and ataxia.? This started at 8:00 in the morning the day prior to admission.? At [facility], CT head and CTA demonstrated possible left ICA dissection but no definitive ischemic lesion.? Given the CTA findings suggesting dissection, he was transferred to [facility].? MRI at [facility] demonstrated acute to subacute right cerebellar infarct.His NIH stroke scale at [facility] was 0.? TTE with EF 65% otherwise unremarkable, hemoglobin A1c 6.4.? I do not see lipid levels.? He is on secondary stroke prevention with aspirin and Plavix.? I do not see a statin ordered.? They did recommend outpatient sleep study and 30-day cardiac event monitor. As his symptoms were improving, there was no intervention performed.? Neurology at [facility] felt his left carotid findings were possibly [...] mg 01/18/22 17:30 Bisacodyl 10 Mg Supp.Rect MA 01/18/23 17:29 DAILY PRN Constipation Clopidogrel Bisulfate 75 mg 01/19/22 09:00 01/21/22 09:27 Clopidogrel Bisulfate 75 Mg Tablet PO 01/19/23 08:59 75 mg DAILY EDVIN Administration Docusate Sodium 100 mg 01/18/22 17:30 Docusate 100 Mg Capsule PO 01/18/23 17:29 BID PRN Constipation Docusate Sodium 283 mg 01/18/22 17:30 Docusate Enema 283 Mg/5 Ml Enema MA 01/18/23 17:29 DAILY PRN Constipation Heparin Sodium [...] equipment? to enhance the patient's a functional hoahaoism Encourage deep breathing exercises and incentive spirometry [...] greater than 22 minutes for services, including tacq-bc-iuuv encounter with the patient, discussion of the case, plan of care, and exam; and boircpm-hx-ktsz activities, such as reviewing pertinent platform consultant documentation, recenttherapy notes, laboratory and radiology studies, and discussion of case with care team including nursing, nurse outreach case manager, and therapists. More than 50 % of time was spent on patient/family counseling or coordination ofcare. Documented By: Agustin Murphy MD 01/21/22 1140 Signed By: <Electronically signed by Agustin Murphy MD> 01/23/22 0936 [facility] Work Phone: 1(707) 230-356008-03-2022 Discharge summary Author Agustin Murphy [facility] January 23, 2022 9:28am Note Date/Time January 23, 2022 9:2 8am [facility] [address] [place] [address] Discharge Summary Signed Patient: Jack Gonzales MR#: [id number] : 1965 Acct:[id number] Age/Sex: 56 / M Adm Date: 2 Loc: Room: 9X1013-[address]: Agustin Murphy MD Copies to: [...] right cerebellar ischemic stroke. He presented to [facility] with dizziness and ataxia.? This started at 8:00 in the morning the day prior to admission.? At [facility], CT head and CTA demonstrated possible left ICA dissection but no definitive ischemic lesion.? Given the CTA findings suggesting dissection, he was transferred to [facility].? MRI at [facility] demonstrated acute to subacute right cerebellar infarct.His NIH stroke scale at [facility] was 0.? TTE with EF 65% otherwise unremarkable, hemoglobin A1c 6.4.? I do not see lipid levels.? He is on secondary stroke prevention with aspirin and Plavix.? I do not see a statin ordered.? They did recommend outpatient sleep study and 30-day cardiac event monitor. As his symptoms were improving, there was no intervention performed.? Neurology at [facility] felt his left carotid findings were possibly unrelated to his current symptoms. He was discharged to rehabilitation unit in stable condition. Today reports just poor coordination and feeling wobbly .? 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 Rehabilitation course: Tolerated [...] OUTPATIENT. ) Documented By: Agustin Murphy MD 01/23/2226 Signed By: <Electronically signed by Agustin Murphy MD> 01/23/2228 [facility] Work Phone: 1(636) 785-249607-31-2022 Consult note Author Abelino Jacques [facility] January 20, 2022 7:41pm Note Date/Time January 19, 2022 3:00 pm [facility] [address] [place] [address] Hospitalist Consult Note Signed Patient: Jack Gonzales MR#: [id number] : 1965 Acct:[id number] Age/Sex: 56 / M Adm Date: 2 Loc: Room: [address] [place] [address] Type: ADM IN Attending Dr: Agustin Murphy MD Copies to: DO Agustin Mcbride MD Kristopher L Lindbloom, DO Lynn A Stackhouse, ANP-~ HPI DATE OF CONSULTATION: 01/19/22 REQUESTING PROVIDER: Agustin Murphy Consult Narrative Reason for Consult: CKD, GERD HPI: 56-year-old male past medical history significant for CKD, GERD. Presented to [facility] emergency department with dizziness and ataxia. Imaging demonstrated possible left ICA dissection but no definitive ischemic lesion. He was transferred to [facility] and MRI there demonstrated acute to [...] benefit from further rehab, subsequently transferred to [facility] rehab unit January 18. Hospitalist [...] negative unless noted below or in HPI [facility] Attestation Statement: The following information was validated [...] mg 01/18/22 17:30 Bisacodyl 10 Mg Supp.Rect MA 01/18/23 17:29 DAILY PRN Constipation Clopidogrel Bisulfate 75 mg 01/19/22 09:00 01/19/22 09:34 Clopidogrel Bisulfate 75 Mg Tablet PO 01/19/23 08:59 75 mg DAILY EDVIN Administration Docusate Sodium 100 mg 01/18/22 17:30 Docusate 100 Mg Capsule PO 01/18/23 17:29 BID PRN Constipation Docusate Sodium 283 mg 01/18/22 17:30 Docusate Enema 283 Mg/5 Ml Enema MA 01/18/23 17:29 DAILY PRN Constipation Heparin Sodium [...] % (Auto) 62.3, Lymph % (Auto) 22.1, Loíza % (Auto) 12.4, Eos % (Auto) 2.5, Baso % (Auto) 0.7, Neut # (Auto) 4.1, Lymph # (Auto) 1.5, Loíza # (Auto) 0.8, Eos# (Auto) 0.2, Baso [...] <Electronically signed by Abelino Jacques DO> 01/20/221940 [facility] Work Phone: 1(405) 772-617807-30-2022 History and physical note Author Agustin Murphy [facility] January 19, 2022 10:44am Note Date/Time January 18, 2022 9:00 pm [facility] [address] [place] [address] Physiatry (Rehab) H&P Signed Patient: Jack Gonzales MR#: [id number] : 1965 Acct:[id number] Age/Sex: 56 / M Adm Date: 2 Loc: Room: 2V8995-1 Type: ADM IN Attending Dr: Agustin Murphy MD Copies to: DO Agustin Mcbride MD~ Date of Service: 01/19/2022 HPI The patient was seen and examined on: 01/19/22 Chief complaint: stroke History of Present Illness: Mr. Gonzales is a 56 year old male Admitted to the rehabilitation unit with functional decline status post right cerebellar ischemic stroke. He presented to [facility] with dizziness and ataxia. This started at 8:00 in the morning the day prior to admission. At [facility], CT head and CTA demonstrated possible left ICA dissection but no definitive ischemic lesion. Given the CTA findings suggesting dissection, he was transferred to [facility]. MRI at [facility] demonstrated acute to subacute right cerebellar infarct.His NIH stroke scale at [facility] was 0. TTE with EF 65% otherwise unremarkable, hemoglobin A1c 6.4. I do not see lipid levels. He is on secondary stroke prevention with aspirin and Plavix. I do not see a statin ordered. They did recommend outpatient sleep study and 30-day cardiac event monitor. As his symptoms were improving, there was no intervention performed. Neurology at [facility] felt his left carotid findings were possibly unrelated to his current symptoms. He was discharged to rehabilitation unit in stable condition. Today reports just poor coordination and feeling wobbly . 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 [facility] Attestation Statement: The following information was validated [...] Bisacodyl (Bisacodyl 10 Mg Supp.Rect) 10 mg MA DAILY PRN PRN Reason: Constipation Stop: 01/18/23 17:29 Clopidogrel Bisulfate (Clopidogrel Bisulfate 75 Mg Tablet) 75 mg PO DAILY EDVIN Stop: 01/19/23 08:59 Docusate Sodium (Docusate 100 Mg Capsule) 100 mg PO BID PRN PRN Reason: Constipation Stop: 01/18/23 17:29 Docusate Sodium (Docusate Enema 283 Mg/5 Ml Enema) 283 mg MA DAILY PRN PRN Reason: Constipation Stop: 01/18/23 [...] 2 weeks Expected Discharge Destination: Home Rehabilitation IGC: 01.1 Primary Diagnosis: Right cerebellar stroke To have patient become more independent and to return home. Medical/ Functional Prognosis: Good Anticipated Functional Outcomes/Goals and Interventions: 1.Therapy Functional Outcome/Goal: Anticipate Independent for bed mobility Anticipated interventions: Physician management, PT, OT, MUSIC MINISTRIES DIRECTOR, , Dietitian, RehabNursing, Case management 2. Therapy Functional Outcome/Goal: Anticipate Independent for transfers Anticipated interventions: Physician management, PT, OT, MUSIC MINISTRIES DIRECTOR, Case management, Dietitian, Rehab Nursing 3. Therapy Functional Outcome/Goal: Anticipate Independent for ambulation Anticipated interventions: Physician management, PT, OT, MUSIC MINISTRIES DIRECTOR Case management, Dietitian, Rehab Nursing 4.Therapy Functional Outcome/Goal: Anticipate Independent for self-care Anticipated interventions: Physician management, PT, OT, MUSIC MINISTRIES DIRECTOR, Case management, Dietitian, Rehab Nursing 5.Therapy Functional Outcome/Goal: Anticipate Independent for swallowingAnd functional communication Anticipated interventions: Physician management, PT, OT, MUSIC MINISTRIES DIRECTOR, Case management, Dietitian, Rehab Nursing Required Therapy [...] additional therapy on as needed basis. Comments: MUSIC MINISTRIES DIRECTOR to evaluate and treat patient?s cognition, language and communication skills, assess swallow function. Other: Dietitian, Rehab nursing, Wound, P&O, Neuropsychology as needed RATIONALE FOR IRF ADMISSION: Patient has both medical and functional complexities that require 24 hour daily monitoring and intervention from Filter Operator as well as other consulting physicians including internal medicine as well as 24 hour daily line installer nursing - for medical safe / optimal management. Patient requires interdisciplinary therapy team rehabilitation care including OT, PT, MUSIC MINISTRIES DIRECTOR, SW, Psychology, Rehab Nursing, requires and can [...] equipment to enhance the patient's a functional hoahaoism Encourage deep breathing exercises and incentive spirometry [...] greater than 76 minutes for services, including ekiw-mk-jncd encounter with the patient, discussion of the case, plan of care, and exam; and lkbtthi-ji-ulrg activities, such as reviewing pertinent platform consultant documentation, recent therapy notes, laboratory and radiology studies, and discussion of case with care team including nursing, nurse outreach case manager, and therapists. More than 50 % of time was spent on patient/family counseling or coordination ofcare. Documented By: Agustin Murphy MD 01/19/22 1044 Signed By: <Electronically signed by Agustin Murphy MD> 01/19/22 1044 [facility] Work Phone: Evaluation note* Diagnosis Onset Date Resolution Status Cerebellar stroke, acute acu te Dizziness acute DVT prophylaxis acute Hyperlipidemia acute Impaired mobility and activities of daily living acute [facility] Work Phone: Evaluation noteNo InformationNort Cities of Refuge Network Other Evaluation noteNo assessment information available [facility] Work Phone: Evaluation note* Diagnosis Onset Date Resolution Status Cerebral atherosclerosis acu te GERD (gastroesophageal reflux disease) acute Hypercholesterolemia acute Obesity acute Obstructive sleep apnea acut e Type 2 diabetes mellitus with hyperglycemia acute Wellness examination noneact wesley [facility] Work Phone: History general Narrative - Reported* Type Description Date Medical History obstructive sleep apnea Medical History obesity Medical History hyperlipidemia Medical History 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 Medical History recurrent left inguinal hernia Surgical History diagnostic laparoscopy with ing uinal hernia repair Surgical History B/L herniorrhaphy Surgical History T12-L2 lumbar fusion Hospitalization History see surgical history [facility] Other [facility]mm[facility] general Narrative - Reported* Type Description Date Medical History obstructive sleep apnea Medical History obesity Medical History hyperlipidemia Medical History 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 Medical History recurrent left inguinal hernia Medical History Type II DM Surgical History diagnostic laparoscopy with ing uinal hernia repair Surgical History B/L herniorrhaphy Surgical History T12-L2 lumbar fusion Hospitalization History see surgical history [facility] Other [facility] Work Phone: Hospital Discharge instructions[facility] Work Phone: Chief Complaint and Reason for Visit Chief Complaint CVA CVA Arrhythmia Reason for Visit Cerebellar stroke, a cute Dizziness DVT prophylaxis Hyperlipidemia Impaired mobility and activities of daily living Chief Complaint UA Chief Complaint UA 1 week Reason for Visit Cerebral atheroscler osis GERD (gastroesophageal reflux disease) Hypercholesterolemia Obesity Obstructive sleep apnea Type 2 diabetes mellitus with hyperglycemia Wellness examination Chief Complaint UA, frequency, dark urine Family History Relationship Condition Age at Onset Recorded Date/T georges Not Specified Myocardial infarction Unknown Complication of anesthesia Unknown Malignant neoplasm Unknown Hypertension Unknown Relationship Condition Age at Onset Recorded Date/T georges Not Specified Myocardial infarction Unknown Complication of anesthesia Unknown father Malignant neoplasm Unknown Not Specified Hypertension Unknown Heart disease Unknown Relationship Condition Age at Onset Recorded Date/T georges Not Specified Myocardial infarction Unknown Complication of anesthesia Unknown father Malignant neoplasm Unknown mother Hypertension Unknown Heart disease Unknown Advance Directives Advance Directive Response Recorded Date/ Time Advance Directives No January 18 1:41pm Summary Purpose Additional Source Comments Care Teams (unrecognized sec tion and content) Team Status: Active Member Role Status Dates Fabio Gross , Primary Care Provider Active Team Status: Active Member Role Status Dates Fabio Gross DO Primary Care Provide r, Attending Provider Active Start: December 23, 2023 Team Status: Inactive Member Role Status Dates Fabio Gross DO Primary Care Provide r, Attending Provider Active Start: February 27, 2024 End: February 27, 2024 Team Status: Inactive Member Role Status Dates Fabio Gross , Primary Care Provider Active Agustin Murphy MD Admit Provider, Attending Provider A ctive Dhara Alvarez , BUZZ Other Provider Active Rebecca Grimes , RN Other Provider Active Annmarie Amaya , RN Other Provider Active Megan Kwan , RN Other Provider Active Mikayla Fleming , RN Other Provider Active Mary Warner , RN Other Provider Active Jordan June MD Other Provider Active Ender Kumari MD Other Provider Active Jessica Perez , NICKI Other Provider Active Dawson Marinelli DO Other [...] MD Other Provider Active Ester Martin , VENTILATED RIB FITTER-C Other Provider Active Lloyd Ambrose MD Other [...] Murphy MD Attending Provider Active Team Status: Inactive Member Role [...] content) DATE CREATED AUTHOR 07/04/2022 [facility] DATE CREATED AUTHOR AUTHOR'S ORGANIZ ATION 07/27/2022 [facility] DATE CREATED AUTHOR AUTHOR'S ORGANIZ [...] BE BASED ON THE PRIMARY CLINICAL RECORDS. [facility]. provides no warranty or guarantee of the accuracy or completeness of information in this document.
== END 2024-03-11 09:10 | disposition home or self-care (01) ==
LOC: CT 09:10
PROVIDERS: PCP Internal Medicine; Visit Provider Internal Medicine
DX: N20.0 Calculus of kidney (principal); R31.0 Gross hematuria
CPT/HCPCS: 74177; Q9967

== ENCOUNTER 2024-03-24 09:23 | Outpatient (OUT) | payer BC, SELFPAY ==
--- NOTE | 2024-03-24 | XR_ITS ---
[facility] [place] [id number] Patient Name: JUSTIN EL MRN: [id number] date: 1965 Sex: M Assigned Patient Location: RAD Current Patient Location: [facility] Accession/Order Number: [id number] Exam Date: 03/24/2024 09:35 Report Date: 03/24/2024 10:42 At the request of: ALBERTO DALE Procedure: XR abdomen 1V EXAMINATION: XR abdomen 1V HISTORY: Calculus of kidney, N20.0 COMPARISON: No relevant comparison available. FINDINGS: KIDNEY/URETER - RIGHT: 4 mm upper pole calcification KIDNEY/URETER - LEFT: 4 mm mid pole calcification PELVIS: No visible ureteral calcifications. Any visible calcifications favor phleboliths. BOWEL: No abnormal dilation or deviation. BONES: Rotatory levocurvature centered at L2. Transpedicular fusion T12 and L2. No mechanical failure. OTHER: Negative. No abnormal gaseous collections. XR/XR abdomen 1V IMPRESSION: Bilateral punctate nephroliths Electronically authenticated by: DEVENDRA WOODARD Date: 03/24/2024 10:42
--- OUTSIDE RECORDS SUMMARY | 2024-03-24 09:45 | XMS_ITS | CCD ---
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 Name Role Phone DO Fabio Gross Primary Care Provider MD Agustin Murphy Admit Provider MD Agustin Murphy Attending Provider BUZZ Alvarez Other Provider Unavailable BUZZ Grimes Other Provider Unavailable BUZZ Amaya Other Provider Unavailable BUZZ Kwan Other Provider Unavailable BUZZ Fleming Other Provider Unavailable BUZZ Warner Other Provider Unavailable MD Jordan June Other Provider MD Ender Kumari Other Provider Dieudonnes, INSULATION WORKER FURNACE INSTALLER Jessica Pinto Other Provider DO Dawson Marinelli Other Provider MD Tan Martini Other Provider [phone] DO Abelino Jacques Other Provider MD Javon Magana Other Provider MD Mia Vtial Other Provider Huey ANP-BC Lilly Other Provider MD Radha Nogueira Other Provider MD Nikolas Zurita Other Provider MD Ifeaniy Davidson Other Provider MD Heena Smiley Other [...] Amaya Consulting Unavailable DensMegan alvarado Consulting Unavailable Bernadette Consulting Unavailable Mary Warner Consulting Unavailable MassouJordan zee Consulting Unavailable Quoc, Ender K Consulting Unavailable Dials, Jessica M Consulting Unavailable Mirna Marinellir Consulting Unavailable Vini, Tan Consulting Unavailable LindOsbaldo ganAbelino Consulting UnavailJavon Combs Consulting Unavailable Semaskiene, Mia Consulting Unavailable Lilly Arzate Consulting Unavailable Wassotiarra, Levin Consulting Unavailable Nikolas Zurita Consulting Unavailable Ifeanyi Davidson Consulting Unavailable Heena Smiley Consulting Unavailable Rafa Murray Consulting Unavailable Laura Houser Consulting Unavailable Héctor Ro Consulting Unavailable Ester Martin Consulting Unavailable Lloyd Ambrose Consulting Unavailab Ryan Villa Consulting Unavailable Amirah Salas Consulting Unavailable Yomi Schuler Consulting Unavailable Aniyah Edmonds Consulting Unavailable Eleuterio Kaiser, Napoleon Consulting Unavailab Junior, Rod Dumas Consulting Unavailable Obanna, Bethany Consulting Unavailable Prabhu, Todd Parsons Consulting Unavailable Daromar, Laila Pinto Consulting Unavailable Amanda, Ginna Consulting Unavailable Scottie, Fabio Primary Care Unavailable Jeffrey, Agustin Admitting Unavailable Jeffrey, Agustin Attending Unavailable Scottie, Fabio Unavailable [facility], DR LAUGHLIN Admitting Unavailable MISC, DR LAUGHLIN [...] Unavailable SCOTTIE, DR CAMARA Primary Care Unavailable MD EDWIGE CROCKETT Attending Unav ailable SCOTTIE, FABIO Referring Unavailable Medications Current Medications Medication Drug Class(es) [...] esophagitis] 11-05-2023 Chronic Other aftercare (1 source) detention (current) use of oral hypoglycemic drugs; Translations: [SAP ARCHITECT USE ORAL HYPOGLYCEMIC DX] Onset: 07-25-2022 Episodic [...] non-blacks MDRD (S/P/Bld) [Vol rate/Area] mL/min/{1.73_m2} >=60 [facility] Globulin Calc (S) [Mass/Vol] on 12-23-2023 Globulin (S) [Mass/Vol] 3.1 g/dL [facility] Laboratory - Chemistry and C hemistry - challengeon 12-23-2023 Albumin [Mass/Vol] 3.9 g/dL 3.4-5.0 [facility] ALP [Catalytic activity/Vol] 47 U/L 46-116 [facility] ALT [Catalytic activity/Vol] 43 U/L 16-63 [facility] AST [Catalytic activity/Vol] 18 U/L 15-37 [facility] Bilirubin [Mass/Vol] 0.6 mg/dL 0.2-1.0 [facility] Calcium [Mass/Vol] 8.7 mg/dL 8.5-10.1 [facility] Chloride [Moles/Vol] 104 mmol/L 98-107 [facility] CO2 [Moles/Vol] 27.3 mmol/L 21.0-32.0 [facility] Creatinine [Mass/Vol] 1.13 mg/dL 0.70-1.30 [facility] GFR/1.73 sq M.predicted MDRD (S/P/Bld) [Vol rate/Area] mL/min/{1.73_m2} >=60 [facility] Glucose [Mass/Vol] 132 mg/dL High 74-106 [facility] Potassium [Moles/Vol] 4.6 mmol/L 3.5-5.1 [facility] Protein [Mass/Vol] 7.0 g/dL 6.4-8.2 [facility] Sodium [Moles/Vol] 139 mmol/L 136-145 [facility] Urea nitrogen [Mass/Vol] 16.0 mg/dL 7.0-18.0 [facility] Urea nitrogen/Creatinine [Mass ratio] 14.2 mg/mg [facility] No Panel Informationon 12-22 Free Prostate Specific Antigen 0.28 ng/mL N/A [facility] Comment on above: Deepika ECLIA methodol ogy. Prostate Specific Antigen Total 3.9 ng/mL 0.0-4.0 [facility] Comment on above: Deepika ECLIA methodol ogy.According to the [place] [employer], Serum PSAshould decrease and remain [...] ratioon 12-23-2023 Albumin/Globulin [Mass ratio] 1.3 {ratio} [facility] Serum or plasma anion gap de terminationon 12-23-2023 Anion gap [Moles/Vol] 12.3 mmol/L [facility] Serum or plasma free prostat e specific antigen (PSA)/total PSA ratioon 12-23-2023 Free PSA/Total PSA [Mass fraction] 7.2 % . [facility] Comment on above: The table below [...] for any other population of men.Performed at: - [address] [id number] Director: Vipul Solitario PhD, Phone: [phone] Laboratory - Chemistry and C hemistry - challengeon 10-30-2023 Bilirubin Ql (U) Negative [facility] Glucose (U) [Mass/Vol] Negative [facility] Ketones Ql (U) Negative [facility] pH (U) 5.0 [pH] [facility] Specific gravity (U) [Rel density] 1.010 [facility] Urobilinogen (U) [Mass/Vol] 0.2 mg/dL [facility] Laboratory - Specimen inform ationon 10-30-2023 Appearance (U) clear [facility] Color (U) darkyellow [facility] Laboratory - Urinalysison Leukocyte esterase Test strip Ql (U) Negative [facility] Nitrite Ql (U) Negative [facility] Protein Ql (U) ++ [facility] No Panel Informationon 10-29 Urine Occult Blood + [facility] Comprehensive Metabolic Pane dayton 06-04-2023 Albumin [Mass/Vol] 3.054267 g/dL Normal 3.4-5.0 g/dL [facility] Other ALP [Catalytic activity/Vol] 46 U/L Normal 46-116 U/L [facility] Other ALT [Catalytic activity/Vol] 48 U/L Normal 16-63 U/L [facility] Other Anion gap [Moles/Vol] 15.1 mmol/L No [facility] Other AST [Catalytic activity/Vol] 18 U/L Normal 15-37 U/L [facility] Other Bilirubin [Mass/Vol] 0.1362853 mg/dL Normal 0.2- 1.0 mg/dL [facility] Other Calcium [Mass/Vol] 8.8214395 mg/dL Normal 8.5-10 .1 mg/dL [facility] Other Chloride [Moles/Vol] 107 mmol/L Normal 98-107 mmol/L [facility] Other CO2 [Moles/Vol] 26.36019006 mmol/L Normal 21.0-3 2.0 mmol/L [facility] Other Creatinine [Mass/Vol] 1.70782635 mg/dL Normal 0. 70-1.30 mg/dL [facility] Other Glucose [Mass/Vol] 146 mg/dL High 74-106 mg/dL [facility] Other Potassium [Moles/Vol] 4.37366162 mmol/L Normal 3 .5-5.1 mmol/L [facility] Other Protein [Mass/Vol] 7.446730 g/dL Normal 6.4-8.2 g/dL [facility] Other Sodium [Moles/Vol] 144 mmol/L Normal 136-145 mmol/L [facility] Other Urea nitrogen [Mass/Vol] 15.2093978 mg/dL Normal 7.0-18.0 mg/dL [facility] Other Urea nitrogen/Creatinine [Mass ratio] 14.9 mg/mg [facility] Other Comprehensive Metabolic Panel 3.4 g/dL [facility] Other Comprehensive Metabolic Panel 1.1 [facility] Other Comprehensive Metabolic Panel see note [facility] Other Comprehensive Metabolic Panel >60 >=60 [facility] Other Lipid Panelon 06-04-2023 Cholesterol [Mass/Vol] 155 mg/dL <=200 mg/dL [facility] Other Cholesterol in HDL [Mass/Vol] 41 mg/dL Normal 40-60 mg/dL [facility] Other Triglyceride [Mass/Vol] 204 mg/dL High <=150 mg/dL [facility] Other Lipid Panel 74.0 mg/dL [facility] Other Lipid Panel 40.8 mg/dL [facility] Other Lipid Panel 3.8 [facility] Other PSA SCREENINGon 06-04-2023 PSA SCREENING 2.78 ng/mL <=4.00 ng/mL [facility] Other GLYCOHEMOGLOBIN A1Con 2022 ADA RECOMMENDATION SEE BELOW Normal [facility] Comment on above: Result Comment: ADA RECOMMENDED LIMIT 4.0 - 6.0 ADA THERAPEUTIC TARGET < 7.0 ACTION SUGGESTED > 7.0 Performed By: #### A 1C #### [facility] [address] [place] [address] Dr. Yasemin Austin Glucose [Mass/Vol] 128 mg/dL Normal [facility] Comment on above: Performed By: #### A 1C #### [facility] [address] [address] [address] Yasemin Austin HbA1c (Bld) [Mass fraction] 6.1 % Normal 4.5-6.2 [facility] Comment on above: Performed By: #### A 1C #### [facility] [address] [address] [address] Yasemin Austin CBC AUTO DIFFon 07-10-2022 BASO # 0.1 103/ul Normal 0.0-0.1 [facility] Comment on above: Performed By: #### C BC #### [facility] [address] [address] [address] Yasemin Austin Basophils/100 WBC (Bld) 0.7 % Normal 0.2-2.0 [facility] Comment on above: Performed By: #### C BC #### [facility] [address] [place] [address] Dr. Yasemin Austin EO # 0.1 103/ul Normal 0.0-0.7 [facility] Comment on above: Performed By: #### C BC #### [facility] [address] [place] [address] Dr. Yasemin Austin Eosinophils/100 WBC (Bld) 1.6 % Normal 0.9-7.0 [facility] Comment on above: Performed By: #### C BC #### [facility] [address] [place] [address] Dr. Yasemin Austin Erythrocyte distribution width (RBC) [Ratio] 11.9 % Normal 11.0-15.0 [facility] Comment on above: Performed By: #### C BC #### [facility] [address] [place] [address] Dr. Yasemin Austin Hematocrit (Bld) [Volume fraction] 44.2 % Normal 42.0-54.0 [facility] Comment on above: Performed By: #### C BC #### [facility] [address] [place] [address] Dr. Yasemin Austin Hemoglobin (Bld) [Mass/Vol] 15.3 g/dL Normal 14.0-18.0 [facility] Comment on above: Performed By: #### C BC #### [facility] [address] [place] [address] Dr. Yasemin Austin IG # 0.02 10e3/ul Normal 0.00-0.03 [facility] Comment on above: Performed By: #### C BC #### [facility] [address] [place] [address] Dr. Yasemin Austin IG % 0.3 % Normal 0.0-0.5 [facility] Comment on above: Performed By: #### C BC #### [facility] [address] [place] [address] Dr. Yasemin Austin LYMPH # 1.2 103/ul Normal 1.2-3.8 [facility] Comment on above: Performed By: #### C BC #### [facility] [address] [address] [address] Yasemin Austin Lymphocytes/100 WBC (Bld) 17.1 % Critically low 20.5-60.0 [facility] Comment on above: Performed By: #### C BC #### [facility] [address] [address] [address] Yasemin Austin MANUAL DIFF REQ NO Normal [facility] Comment on above: Performed By: #### C BC #### [facility] [address] [address] [address] Yasemin Austin MCH (RBC) [Entitic mass] 31.4 pg Normal 25.9-34.0 [facility] Comment on above: Performed By: #### C BC #### [facility] [address] [place] [address] Dr. aYsemin Austin MCHC (RBC) [Mass/Vol] 34.6 g/dL Normal 29.9-35.2 [facility] Comment on above: Performed By: #### C BC #### [facility] [address] [place] [address] Dr. Yasemin Austin MCV (RBC) [Entitic vol] 90.8 fL Normal 80.0-94.0 [facility] Comment on above: Performed By: #### C BC #### [facility] [address] [place] [address] Dr. Yasemin Austin MONO # 0.9 103/ul Critically high 0.3-0.8 [facility] Comment on above: Performed By: #### C BC #### [facility] [address] [place] [address] Dr. Yasemin Austin Monocytes/100 WBC (Bld) 12.9 % Critically high 1.7-12.0 [facility] Comment on above: Performed By: #### C BC #### [facility] [address] [place] [address] Dr. aYsemin Austin NEUT # 4.7 103/ul Normal 1.4-6.5 [facility] Comment on above: Performed By: #### C BC #### [facility] [address] [address] [address] Yasemin Austin Neutrophils/100 WBC (Bld) 67.4 % Normal 43.0-75.0 [facility] Comment on above: Performed By: #### C BC #### [facility] [address] [address] [address] Yasemin Austin Platelet mean volume (Bld) [Entitic vol] 9.2 fL Critically low 9.5-13.5 [facility] Comment on above: Performed By: #### C BC #### [facility] [address] [address] [address] Yasemin Austin PLT 236 103/ul Normal 150-450 [facility] Comment on above: Performed By: #### C BC #### [facility] [address] [place] [address] Dr. Yasemin Austin RBC 4.87 106/ul Normal 4.70-6.10 [facility] Comment on above: Performed By: #### C BC #### [facility] [address] [address] [address] Yasemin Austin WBC 6.9 103/ul Normal 4.0-11.0 [facility] Comment on above: Performed By: #### C BC #### [facility] [address] [place] [address] Dr. Yasemin Austin GLYCOHEMOGLOBIN A1Con 2022 ADA RECOMMENDATION SEE BELOW Normal [facility] Comment on above: Result Comment: ADA RECOMMENDED LIMIT 4.0 - 6.0 ADA THERAPEUTIC TARGET < 7.0 ACTION SUGGESTED > 7.0 Performed By: #### A 1C #### [facility] [address] [place] [address] Dr. Yasemin Austin Glucose [Mass/Vol] 151 mg/dL Normal [facility] Comment on above: Performed By: #### A 1C #### [facility] [address] [place] [address] Dr. Yasemin Austin HbA1c (Bld) [Mass fraction] 6.9 % Critically high 4.5-6.2 [facility] Comment on above: Performed By: #### A 1C #### [facility] [address] [address] [address] Yasemin Austin LIPID PROFILEon 07-10-2022 CHOL-HDL RATIO NORM SEE BELOW Normal [facility] Comment on above: Result Comment: 3.3 - 4.4 LOW RISK 4.4 - 7.1 AVERAGE RISK 7.1 - 11.0 MODERATE RISK >11.0 HIGH RISK Performed By: #### L IPID, CMP #### [facility] [address] [address] [address] Yasemin Austin Cholesterol [Mass/Vol] 207 mg/dL Critically high <=200 [facility] Comment on above: Performed By: #### L IPID, CMP #### [facility] [address] [address] [address] Yasemin Austin Cholesterol in HDL [Mass/Vol] 38 mg/dL Critically low 40-60 [facility] Comment on above: Performed By: #### L IPID, CMP #### [facility] [address] [address] [address] Yasemin Austin Cholesterol in LDL [Mass/Vol] 137.0 mg/dL Normal [facility] Comment on above: Performed By: #### L IPID, CMP #### [facility] [address] [address] [address] Yasemin Austin Cholesterol.total/Cho lesterol in HDL [Mass ratio] 5.4 {ratio} Normal [facility] Comment on above: Performed By: #### L IPID, CMP #### [facility] [address] [address] [address] Yasemin Austin HDL NORMAL > or = 60 mg/dl - LO W CARDIOVASCULAR RISK <40 mg/dl - HIGH CARDIOVASCULAR RISK Normal [facility] Comment on above: Performed By: #### L IPID, CMP #### [facility] [address] [address] [address] Yasemin Austin LDL CALC NORMAL SEE BELOW Normal [facility] Comment on above: Result Comment: <100 mg/dl OPTIMAL 100 - 129 mg/dl NEAR OR ABOVE OPTIMAL 130 - 159 mg/dl BORDERLINE HIGH 160 - 189 mg/dl HIGH >190 mg/dl VERY HIGH Performed By: #### L IPID, CMP #### [facility] [address] [address] [address] Yasemin Austin Triglyceride [Mass/Vol] 160 mg/dL Critically high <=150 [facility] Comment on above: Performed By: #### L IPID, CMP #### [facility] [address] [address] [address] Yasemin Austin VLDL CALC 32.0 mg/dL Normal [facility] Comment on above: Performed By: #### L IPID, CMP #### [facility] [address] [address] [address] Yasemin Austin PROF 14(COMP METB)on 023 Albumin [Mass/Vol] 3.8 g/dL Normal 3.4-5.0 [facility] Comment on above: Performed By: #### L IPID, CMP ####[facility] [address] [address]DrBenito Austin Albumin/Globulin [Mass ratio] 1.2 {ratio} Normal [facility] Comment on above: Performed By: #### L IPID, CMP ####[facility] [address] [address]DrBenito Austin ALP [Catalytic activity/Vol] 36 U/L Critically low 46-116 [facility] Comment on above: Performed By: #### L IPID, CMP ####[facility] [address] [address]DrBenito Austin ALT [Catalytic activity/Vol] 37 U/L Normal 16-63 [facility] Comment on above: Performed By: #### L IPID, CMP ####[facility] [address] [address]DrBenito Austin Anion gap [Moles/Vol] 12.7 mmol/L Normal [facility] Comment on above: Performed By: #### L IPID, CMP ####[facility] [address] [address]DrBenito Austin AST [Catalytic activity/Vol] 25 U/L Normal 15-37 [facility] Comment on above: Performed By: #### L IPID, CMP ####[facility] [address] [place], [place] [address]Dr. Yasemin Austin Bilirubin [Mass/Vol] 0.7 mg/dL Normal 0.2-1.0 [facility] Comment on above: Performed By: #### L IPID, CMP ####[facility] [address] [place], [place] [address]Dr. Yasemin Austin Calcium [Mass/Vol] 8.8 mg/dL Normal 8.5-10.1 [facility] Comment on above: Performed By: #### L IPID, CMP ####[facility] [address] [place], [place] [address]Dr. Lianeliud Austin Chloride [Moles/Vol] 105 mmol/L Normal 98-107 [facility] Comment on above: Performed By: #### L IPID, CMP ####[facility] [address] [place], [place] [address]Dr. Yasemin Austin CO2 [Moles/Vol] 27.5 mmol/L Normal 21.0-32.0 [facility] Comment on above: Performed By: #### L IPID, CMP ####[facility] [address] [place], [place] [address]Dr. Yasemin Uastin Creatinine [Mass/Vol] 0.99 mg/dL Normal 0.70-1.30 [facility] Comment on above: Performed By: #### L IPID, CMP ####[facility] [address] [place], [place] [address]Dr. Lianeilud Norman EGFR-AF EAST [place] >60 Normal >=60 [facility] Comment on above: Performed By: #### L IPID, CMP ####[facility] [address] [place], [place] [address]Dr. Yasemin Austin EGFR-NON AF [place]AST [place] >60 Normal >=60 [facility] Comment on above: Performed By: #### L IPID, CMP ####[facility] [address] [place], [place] [address]Dr. Yasemin Austin Globulin (S) [Mass/Vol] 3.3 g/dL Normal [facility] Comment on above: Performed By: #### L IPID, CMP ####[facility] [address] [address]Dr. Yasemin Austin Glucose [Mass/Vol] 145 mg/dL Critically high 74-106 [facility] Comment on above: Performed By: #### L IPID, CMP ####[facility] [address] [place], [place] [address]Dr. Yasemin Austin Potassium [Moles/Vol] 4.2 mmol/L Normal 3.5-5.1 [facility] Comment on above: Performed By: #### L IPID, CMP ####[facility] [address] [place], [place] [address]Dr. Yasemin Austin Protein [Mass/Vol] 7.1 g/dL Normal 6.4-8.2 [facility] Comment on above: Performed By: #### L IPID, CMP ####[facility] [address] [place], [place] [address]Dr. Yasemin Austin Sodium [Moles/Vol] 141 mmol/L Normal 136-145 [facility] Comment on above: Performed By: #### L IPID, CMP ####[facility] [address] [place], [place] [address]Dr. Yasemin Austin Urea nitrogen [Mass/Vol] 15.0 mg/dL Normal 7.0-18.0 [facility] Comment on above: Performed By: #### L IPID, CMP ####[facility] [address] [place], [place] [address]Dr. Yasemin Austin Urea nitrogen/Creatinine [Mass ratio] 15.2 mg/mg Normal [facility] Comment on above: Performed By: #### L IPID, CMP ####[facility] [address] [place], [place] [address]Dr. Yasemin Austin LIPID PROFILEon 03-15-2022 CHOL-HDL RATIO NORM SEE BELOW Normal [facility] Comment on above: Result Comment: 3.3 - 4.4 LOW RISK 4.4 - 7.1 AVERAGE RISK 7.1 - 11.0 MODERATE RISK >11.0 HIGH RISK Performed By: #### L IPID ####[facility] [address] [id number][address] Yasemin Austin Cholesterol [Mass/Vol] 169 mg/dL Normal <=200 [facility] Comment on above: Performed By: #### L IPID ####[facility] [address] [address]Dr[address] Yasemin Austin Cholesterol in HDL [Mass/Vol] 38 mg/dL Critically low 40-60 [facility] Comment on above: Performed By: #### L IPID ####[facility] [address] [address]Dr[address] Yasemin Austin Cholesterol in LDL [Mass/Vol] 101.0 mg/dL Normal [facility] Comment on above: Performed By: #### L IPID ####[facility] [address] [address]Dr. Yasemin Norman Cholesterol.total/Cho lesterol in HDL [Mass ratio] 4.4 {ratio} Normal [facility] Comment on above: Performed By: #### L IPID ####[facility] [address] [id number]. Yasemin Austin HDL NORMAL > or = 60 mg/dl - LO W CARDIOVASCULAR RISK <40 mg/dl - HIGH CARDIOVASCULAR RISK Normal [facility] Comment on above: Performed By: #### L IPID ####[facility] [address] [address]Dr. Yasemin Austin LDL CALC NORMAL SEE BELOW Normal [facility] Comment on above: Result Comment: <100 mg/dl OPTIMAL 100 - 129 mg/dl NEAR OR ABOVE OPTIMAL 130 - 159 mg/dl BORDERLINE HIGH 160 - 189 mg/dl HIGH >190 mg/dl VERY HIGH Performed By: #### L IPID ####[facility] [address] [id number]. Yasemin Austin Triglyceride [Mass/Vol] 150 mg/dL Normal <=150 [facility] Comment on above: Performed By: #### L IPID ####[facility] [address] [place], [place] [address]GsBenito Austin VLDL CALC 30.0 mg/dL Normal [facility] Comment on above: Performed By: #### L IPID ####[facility] [address] [place], [place] [address]KlBenito GALLAGHER cardiac event monitoron 0 03-12-2022 [place] cardiac event monitor [facility] [address] [id number] Cardiac Event Monitor Signed Patient: Jack El MR#: [id number] 2 : 1965 Acct:[id number] Age/Sex: 56 / M ADM Date: 01/23/22 Loc: Room: Type: [facility] Attending Dr: Agustin Murphy MD Copies to: [...] or atrial flutter. Transcribed By: MICHAEL 03/13/22 0921 Dictated By: Peter Vega MD 03/12/22 1729 Signed By: 03/18/22 1412 Normal [facility] Cholesterol [Mass/volume] in Serum or PlasmaOrdered By: Lilly Arzate on 01-20-2022 Cholesterol [Mass/Vol] 206 mg/dL 140-200 [facility] Comment on above: Chol less than 200 m g/dl low risk Chol 201-239 mg/dl borderline risk Chol 240 mg/dl and greater high risk Cholesterol in LDL Calc [Mas s/Vol]Ordered By: Lilly Arzate on 01-20-2022 Cholesterol in LDL [Mass/Vol] 142 mg/dL 0-100 [facility] Comment on above: LDL ATP III CLASSIFI CATION LDL less than 100 mg/dL Optimal LDL 100-129 mg/dL Near or above optimal LDL 130-159 mg/dL Borderline high LDL 160-189 mg/dL High LDL greater than 189 mg/dL Very high Cholesterol in VLDL Calc [Ma ss/Vol]Ordered By: Lilly Arzate on 01-20-2022 Cholesterol in VLDL [Mass/Vol] 31 mg/dL [facility] Lipid Panelon 01-20-2022 Cholesterol [Mass/Vol] 206 mg/dL High 140-200 [facility] Comment on above: Order Comment: TRACEY AC Y Result Comment: Chol less than 200 mg/dl low risk Chol 201-239 mg/dl borderline risk Chol 240 mg/dl and greater high risk Performed By: #### L IPID #### [facility] [address] [id number] [place] Cholesterol in HDL [Mass/Vol] 32 mg/dL Normal 29-71 [facility] Comment on above: Order Comment: FASTI NG Y Result Comment: HDL CHOL ATP-III CLASSIFICATION Cardiovascular Risk HDL > or equal to 60 mg/dL LOW HDL < 40 mg/dL HIGH Performed By: #### L IPID #### [facility] [address] [place] [address] [place] Cholesterol.total/Cho lesterol in HDL [Mass ratio] 6.4 {ratio} Normal <5.0 [facility] Comment on above: Order Comment: FASTI NG Y Result Comment: PERF ORMED BY: [facility] [address] [place] [address] PATHOLOGIST [employer] COUNSELOR EMIR DOBSON M.D. Performed By: #### L IPID #### [facility] [address] [id number] [place] LDL Cholesterol,Calculate d 142 mg/dL High 0-100 [facility] Comment on above: Order Comment: FASTI YASHIRA Y Result Comment: LDL ATP III CLASSIFICATION LDL less than 100 mg/dL Optimal LDL 100-129 mg/dL Near or above optimal LDL 130-159 mg/dL Borderline high LDL 160-189 mg/dL High LDL greater than 189 mg/dL Very high Performed By: #### L IPID #### [facility] [address] Triglyceride w/Reflex 158 mg/dL High 35-149 [facility] Comment on above: Order Comment: TRACEY AC Y Result Comment: TRIG ATP III CLASSIFICATION TRIG less than 150 mg/dL Normal TRIG 150-199 mg/dL Borderline high TRIG 200-500 mg/dL High TRIG greater than 500 mg/dL Very high Standard traceable to the Center for Disease Conrtrol and Prevention (CDC) test method. Performed By: #### L IPID #### [facility] [address] VLDL CHOLESTEROL 31 mg/dL Normal [facility] Comment on above: Order Comment: TRACEY Clifford Performed By: #### L IPID #### [facility] [address] Serum or plasma high density lipoprotein (HDL) cholesterol measurementOrdered By: Lilly Arzate on 01-20-2022 Cholesterol in HDL [Mass/Vol] 32 mg/dL 29-71 [facility] Comment on above: HDL CHOL ATP-III CLA SSIFICATION Cardiovascular Risk HDL > or equal to 60 mg/dL LOW HDL < 40 mg/dL HIGH Serum or plasma total choles terol/high density lipoprotein (HDL) cholesterol mass ratOrdered By: Lilly Arzate on 01-20-2022 Cholesterol.total/Cho lesterol in HDL [Mass ratio] 6.4 {ratio} <5.0 [facility] Triglyceride [Mass/volume] i n Serum or PlasmaOrdered By: Lilly Arzate on 01-20-2022 Triglyceride [Mass/Vol] 158 mg/dL 35-149 [facility] Comment on above: TRIG ATP III CLASSIF ICATION TRIG less than 150 mg/dL Normal TRIG 150-199 mg/dL Borderline high TRIG 200-500 mg/dL High TRIG greater than 500 mg/dL Very high Standard traceable to the Center for Disease Conrtrol and Prevention (CDC) test method. Albumin [Mass/volume] in Ser um or PlasmaOrdered By: Agustin Murphy on 01-19-2022 Albumin [Mass/Vol] 3.4 g/dL 3.2-5.5 [facility] Basophils Auto (Bld) [#/Vol] Ordered By: Agustin Wadeey on 01-19-2022 Basophils (Bld) [#/Vol] 0.0 10*3/uL 0.0-0.2 [facility] Basophils/100 WBC Auto (Bld) Ordered By: Agustin Murphy on 01-19-2022 Basophils/100 WBC (Bld) 0.7 % . [facility] Blood hemoglobin measurement (mass/volume)Ordered By: Agustin Wadeey on 01-19-2022 Hemoglobin (Bld) [Mass/Vol] 15.3 g/dL 13.0-17.0 [facility] Blood leukocytes automated c ount (number/volume)Ordered By: Agustin Wadeey on 01-19-2022 WBC (Bld) [#/Vol] 6.6 10*3/uL 4.5-11.0 [facility] Complete Blood Count Auto Di ffon 01-19-2022 Basophils (Bld) [#/Vol] 0.0 10*3/uL Normal 0.0-0.2 [facility] Comment on above: Result Comment: PERF ORMED BY: [place] [address] PATHOLOGIST [employer] COUNSELOR EMIR DOBSON M.D. Performed By: #### C BC, CMP, PAB #### [facility] [address] [place] [address] [place] Basophils/100 WBC (Bld) 0.7 % Normal . [facility] Comment on above: Performed By: #### C BC, CMP, PAB #### [facility] [address] [place] [address] [place] Eosinophils (Bld) [#/Vol] 0.2 10*3/uL Normal 0.0-0.45 [facility] Comment on above: Performed By: #### C BC, CMP, PAB #### [facility] [address] [place] [address] [place] Eosinophils/100 WBC (Bld) 2.5 % Normal . [facility] Comment on above: Performed By: #### C BC, CMP, PAB #### [facility] [address] Erythrocyte distribution width (RBC) [Ratio] 13.1 % Normal 12.0-14.8 [facility] Comment on above: Performed By: #### C BC, CMP, PAB #### [facility] [address] Hematocrit (Bld) [Volume fraction] 43.8 % Normal 38.8-50.0 [facility] Comment on above: Performed By: #### C BC, CMP, PAB #### [address] Hemoglobin (Bld) [Mass/Vol] 15.3 g/dL Normal 13.0-17.0 [facility] Comment on above: Performed By: #### C BC, CMP, PAB #### [address] Lymphocytes (Bld) [#/Vol] 1.5 10*3/uL Normal 1.00-4.8 [facility] Comment on above: Performed By: #### C BC, CMP, PAB #### [address] Lymphocytes/100 WBC (Bld) 22.1 % Normal . [facility] Comment on above: Performed By: #### C BC, CMP, PAB #### [address] MCH (RBC) [Entitic mass] 32.3 pg Normal 27.5-35.2 [facility] Comment on above: Performed By: #### C BC, CMP, PAB #### [address] MCV (RBC) [Entitic vol] 92.3 fL Normal 83.5-101 [facility] Comment on above: Performed By: #### C BC, CMP, PAB #### [address] Mean Corpuscular HGB Conc 35.0 g/dL Normal 32.5-35.6 [facility] Comment on above: Performed By: #### C BC, CMP, PAB #### [facility] [address] [place] [address] [place] Monocytes (Bld) [#/Vol] 0.8 10*3/uL Normal 0.0-0.8 [facility] Comment on above: Performed By: #### C BC, CMP, PAB #### [facility] [address] [place] [address] [place] Monocytes/100 WBC (Bld) 12.4 % Normal . [facility] Comment on above: Performed By: #### C BC, CMP, PAB #### [facility] [address] [place] [address] [place] Neutrophils (Bld) [#/Vol] 4.1 10*3/uL Normal 1.8-7.7 [facility] Comment on above: Performed By: #### C BC, CMP, PAB #### [facility] [address] [place] [address] [place] Neutrophils/100 WBC (Bld) 62.3 % Normal . [facility] Comment on above: Performed By: #### C BC, CMP, PAB #### [facility] [address] [place] [address] [place] Nucleated RBC/100 WBC (Bld) [Ratio] 0.1 % Normal 0-0.5 [facility] Comment on above: Performed By: #### C BC, CMP, PAB #### [facility] [address] [place] [address] [place] Platelet mean volume (Bld) [Entitic vol] 8.0 fL Normal 6.6-10.1 [facility] Comment on above: Performed By: #### C BC, CMP, PAB #### [facility] [address] [place] [address] [place] Platelets (Bld) [#/Vol] 261 10*3/uL Normal 150-450 [facility] Comment on above: Performed By: #### C BC, CMP, PAB #### [facility] [address] [place] [address] [place] RBC (Bld) [#/Vol] 4.74 10*6/uL Normal 3.90-5.60 [facility] Comment on above: Performed By: #### C BC, CMP, PAB #### [facility] [address] WBC (Bld) [#/Vol] 6.6 10*3/uL Normal 4.5-11.0 [facility] Comment on above: Performed By: #### C BC, CMP, PAB #### [facility] [address] Comprehensive Metabolic Pane [place] 01-19-2022 Albumin [Mass/Vol] 3.4 g/dL Normal 3.2-5.5 [facility] Comment on above: Performed By: #### C BC, CMP, PAB #### [address] Albumin/Globulin [Mass ratio] 1.1 {ratio} Normal [facility] Comment on above: Performed By: #### C BC, CMP, PAB #### [facility] [address] [place] [address] ALP [Catalytic activity/Vol] 31 U/L Low 32-92 [facility] Comment on above: Performed By: #### C BC, CMP, PAB #### [address] ALT [Catalytic activity/Vol] 44 U/L Normal 10-60 [facility] Comment on above: Performed By: #### C BC, CMP, PAB #### [address] AST [Catalytic activity/Vol] 34 U/L Normal 10-42 [facility] Comment on above: Performed By: #### C BC, CMP, PAB #### [address] Bilirubin [Mass/Vol] 0.7 mg/dL Normal 0.3-1.2 [facility] Comment on above: Performed By: #### C BC, CMP, PAB #### [address] [place] [address] [place] Calcium [Mass/Vol] 8.9 mg/dL Normal 8.2-10.2 [facility] Comment on above: Performed By: #### C BC CMP, PAB #### [facility] [address] Chloride [Moles/Vol] 104 mmol/L Normal 95-114 [facility] Comment on above: Performed By: #### C BC CMP, PAB #### [facility] [address] CO2 [Moles/Vol] 25.4 mmol/L Normal 22.0-30.0 [facility] Comment on above: Performed By: #### C ROCÍO CMP, PAB #### [address] Creatinine [Mass/Vol] 1.13 mg/dL Normal 0.64-1.27 [facility] Comment on above: Performed By: #### C BC CMP, PAB #### [place] [address] [place] Creatinine Clr Calc Pharmacy 88.22 [facility] Comment on above: Performed By: #### C ROCÍO CMP, PAB #### [address] Estimated GFR ( Elvia > 60 [facility] Comment on above: Result Comment: GFR estimated reference range: According to KDOQI guidelines, <60 ml/min/1.73m2 is sufficient to diagnose a patient with chronic kidney disease. Performed By: #### C BC CMP, PAB #### [address] Estimated GFR (Non- Am > 60 [facility] Comment on above: Performed By: #### C BC CMP, PAB #### [address] Globulin (S) [Mass/Vol] 3.0 g/dL [facility] Comment on above: Performed By: #### C BC, CMP, PAB #### [address] [place] [address] [place] Glucose [Mass/Vol] 121 mg/dL High 70-100 [facility] Comment on above: Result Comment: [place] Glucose Reference Range is dependent on time and content of last meal. Glucose of more than 200 mg/dL in a nonstressed, ambulatory subject supports the diagnosis of Diabetes Mellitus. ADA recommended reference range Performed By: #### C BC, CMP, PAB #### [facility] [address] Potassium [Moles/Vol] 4.6 mmol/L Normal 3.5-5.1 [facility] Comment on above: Performed By: #### C ROCÍO CMP, PAB #### [address] Protein [Mass/Vol] 6.4 g/dL Normal 6.1-7.9 [facility] Comment on above: Performed By: #### C BC, CMP, PAB #### [facility] [address] Sodium [Moles/Vol] 138 mmol/L Normal 136-146 [facility] Comment on above: Performed By: #### C ROCÍO CMP, PAB #### [address] Urea nitrogen [Mass/Vol] 16 mg/dL Normal 9-23 [facility] Comment on above: Performed By: #### C BC, CMP, PAB #### [place] [address] [place] Creatinine and Glomerular fi ltration rate.predicted panel (S/P/Bld)Ordered By: Agustin Murphy on 01-19-2022 Creatinine [Mass/Vol] 1.13 mg/dL 0.64-1.27 [facility] Eosinophils Auto (Bld) [#/Vo l]Ordered By: Agustin Murphy on 01-19-2022 Eosinophils (Bld) [#/Vol] 0.2 10*3/uL 0.0-0.45 [facility] Eosinophils/100 WBC Auto (Bl d)Ordered By: Agustin Murphy on 01-19-2022 Eosinophils/100 WBC (Bld) 2.5 % . [facility] Erythrocyte distribution wid th Auto (RBC) [Ratio]Ordered By: Agustin Murphy on 01-19-2022 Erythrocyte distribution width (RBC) [Ratio] 13.1 % 12.0-14.8 [facility] Estimated glomerular filtrat ion rate (GFR) non- AmericanOrdered By: Agustin Murphy on 01-19-2022 GFR/1.73 sq M.predicted among non-blacks MDRD (S/P/Bld) [Vol rate/Area] > 60 mL/Min [facility] Globulin Calc (S) [Mass/Vol] Ordered By: Agustin Murphy on 01-19-2022 Globulin (S) [Mass/Vol] 3.0 g/dL [facility] Hematocrit Auto (Bld) [Volum e fraction]Ordered By: Agustin Murphy on 01-19-2022 Hematocrit (Bld) [Volume fraction] 43.8 % 38.8-50.0 [facility] - Hematology and Cell countsOrdered By: Agustin Murphy on 01-19-2022 Nucleated RBC/100 WBC (Bld) [Ratio] 0.1 % 0-0.5 [facility] Lymphocytes Auto (Bld) [#/Vo l]Ordered By: Agustin Murphy on 01-19-2022 Lymphocytes (Bld) [#/Vol] 1.5 10*3/uL 1.00-4.8 [facility] Lymphocytes/100 WBC Auto (Bl d)Ordered By: Agustin Murphy on 01-19-2022 Lymphocytes/100 WBC (Bld) 22.1 % . [facility] MCH Auto (RBC) [Entitic mass ]Ordered By: Agustin Murphy on 01-19-2022 MCH (RBC) [Entitic mass] 32.3 pg 27.5-35.2 [facility] MCHC Auto (RBC) [Mass/Vol]Or dered By: Agustin Murphy on 01-19-2022 MCHC (RBC) [Mass/Vol] 35.0 g/dL 32.5-35.6 [facility] MCV Auto (RBC) [Entitic vol] Ordered By: Agustin Murphy on 01-19-2022 MCV (RBC) [Entitic vol] 92.3 fL 83.5-101 [facility] Monocytes Auto (Bld) [#/Vol] Ordered By: Agustin Jeffrey on 01-19-2022 Monocytes (Bld) [#/Vol] 0.8 10*3/uL 0.0-0.8 [facility] Monocytes/100 WBC Auto (Bld) Ordered By: Agustin Murphy on 01-19-2022 Monocytes/100 WBC (Bld) 12.4 % . [facility] Neutrophils Auto (Bld) [#/Vo l]Ordered By: Agustin Jeffrey on 01-19-2022 Neutrophils (Bld) [#/Vol] 4.1 10*3/uL 1.8-7.7 [facility] Neutrophils/100 WBC Auto (Bl d)Ordered By: Agustin Murphy on 01-19-2022 Neutrophils/100 WBC (Bld) 62.3 % . [facility] No Panel InformationOrdered By: Agustin Murphy on 01-19-2022 Estimated GFR () > 60 mL/Min [facility] Comment on above: GFR estimated refere nce range: According to KDOQI guidelines, <60 ml/min/1.73m2 is sufficient to diagnose a patient with chronic kidney disease. Pharmacy Creatinine Clearance (Chem 88.22 [facility] Platelet mean volume Auto (B ld) [Entitic vol]Ordered By: Agustin Jeffrey on 01-19-2022 Platelet mean volume (Bld) [Entitic vol] 8.0 fL 6.6-10.1 [facility] Platelets Auto (Bld) [#/Vol] Ordered By: Agustin Murphy on 01-19-2022 Platelets (Bld) [#/Vol] 261 10*3/uL 150-450 [facility] Prealbuminon 01-19-2022 Prealbumin [Mass/Vol] 31.8 mg/dL Normal 18.0-38.0 [facility] Comment on above: Result Comment: PERF ORMED BY: [address] [address] PATHOLOGIST [employer]CHO[employer] COUNSELOR EMIR DOBSON M.D. Performed By: #### C BC, CMP, PAB #### [facility] [id number] [facility] Protein [Mass/volume] in Ser um or PlasmaOrdered By: Agustin Murphy on 01-19-2022 Protein [Mass/Vol] 6.4 g/dL 6.1-7.9 [facility] RBC Auto (Bld) [#/Vol]Ordere d By: Agustin Murphy on 01-19-2022 RBC (Bld) [#/Vol] 4.74 10*6/uL 3.90-5.60 [facility] Serum or plasma alanine be otransferase measurement without P-5'-P (enzymatic activiOrdered By: Agustin Murphy on 01-19-2022 ALT No additional P-5'-P [Catalytic activity/Vol] 44 U/L 10-60 [facility] Serum or plasma albumin/glob ulin mass ratioOrdered By: Agustin Murphy on 01-19-2022 Albumin/Globulin [Mass ratio] 1.1 {ratio} [facility] Serum or plasma alkaline indira sphatase measurement (enzymatic activity/volume)Ordered By: Agustin Murphy on 01-19-2022 ALP [Catalytic activity/Vol] 31 U/L 32-92 [facility] Serum or plasma aspartate am inotransferase measurement (enzymatic activity/volume)Ordered By: Agustin Murphy on 01-19-2022 AST [Catalytic activity/Vol] 34 U/L 10-42 [facility] Serum or plasma calcium reyna urement (mass/volume)Ordered By: Agustin Murphy on 01-19-2022 Calcium [Mass/Vol] 8.9 mg/dL 8.2-10.2 [facility] Serum or plasma chloride francisco surement (moles/volume)Ordered By: Agustin Murphy on 01-19-2022 Chloride [Moles/Vol] 104 mmol/L 95-114 [facility] Serum or plasma glucose reyna urement (mass/volume)Ordered By: Agustin Murphy on 01-19-2022 Glucose [Mass/Vol] 121 mg/dL 70-100 [facility] Comment on above: ADA recommended refe rence range Random Glucose Reference Range is dependent on time and content of last meal. Glucose of more than 200 mg/dL in a nonstressed, ambulatory subject supports the diagnosis of Diabetes Mellitus. Serum or plasma potassium me asurement (moles/volume)Ordered By: Agustin Murphy on 01-19-2022 Potassium [Moles/Vol] 4.6 mmol/L 3.5-5.1 [facility] Serum or plasma prealbumin m easurement (mass/volume)Ordered By: Agustin Murphy on 01-19-2022 Prealbumin [Mass/Vol] 31.8 mg/dL 18.0-38.0 [facility] Serum or plasma sodium measu rement (moles/volume)Ordered By: Agustin Murphy on 01-19-2022 Sodium [Moles/Vol] 138 mmol/L 136-146 [facility] Serum or plasma total biliru bin measurement (mass/volume)Ordered By: Agustin Murphy on 01-19-2022 Bilirubin [Mass/Vol] 0.7 mg/dL 0.3-1.2 [facility] Serum or plasma total carbon dioxide measurement (moles/volume)Ordered By: Agustin Murphy on 01-19-2022 CO2 [Moles/Vol] 25.4 mmol/L 22.0-30.0 [facility] Serum or plasma urea nitroge n measurement (mass/volume)Ordered By: Agustin Murphy on 01-19-2022 Urea nitrogen [Mass/Vol] 16 mg/dL 9-23 [facility] CTA NECK WO W CONon 01-16-20 22 CTA NECK WO W CON EXAMINATION: CTA [...] ANAYELI HALE Date: 2022-01-15 00:55 Normal [facility] CBC AUTO DIFFon 01-14-2022 BASO # 0.0 103/ul Normal 0.0-0.1 [facility] Comment on above: Performed By: #### C BC #### [facility] [address] [place], [place] [address] Dr. Yasemin Austin Basophils/100 WBC (Bld) 0.2 % Normal 0.2-2.0 [facility] Comment on above: Performed By: #### C BC #### [facility] [address] [place], [place] [address] Dr. Yaesmin Austin EO # 0.0 103/ul Normal 0.0-0.7 [facility] Comment on above: Performed By: #### C BC #### [facility] [address] [place] [address] [address] Yasemin Austin Eosinophils/100 WBC (Bld) 0.2 % Critically low 0.9-7.0 [facility] Comment on above: Performed By: #### C BC #### [facility] [address] [place] [address] Dr. Yasemin Austin Erythrocyte distribution width (RBC) [Ratio] 12.2 % Normal 11.0-15.0 [facility] Comment on above: Performed By: #### C BC #### [facility] [address] [place] [address] Dr. Yasemin Austin Hematocrit (Bld) [Volume fraction] 41.4 % Critically low 42.0-54.0 [facility] Comment on above: Performed By: #### C BC #### [facility] [address] [place] [address] Dr. Yasemin Austin Hemoglobin (Bld) [Mass/Vol] 14.5 g/dL Normal 14.0-18.0 [facility] Comment on above: Performed By: #### C BC #### [facility] [address] [place] [address] Dr. Yasemin Austin IG # 0.07 10e3/ul Critically high 0.00-0.03 [facility] Comment on above: Performed By: #### C BC #### [facility] [address] [place] [address] Dr. Yasemin Austin IG % 0.5 % Normal 0.0-0.5 [facility] Comment on above: Performed By: #### C BC #### [facility] [address] [place] [address] Dr. Yasemin Austin LYMPH # 0.8 103/ul Critically low 1.2-3.[address] [facility] Comment on above: Performed By: #### C BC #### [facility] [address] [place] [address] Dr. Yasemin Austin Lymphocytes/100 WBC (Bld) 5.9 % Critically low 20.5-60.0 [facility] Comment on above: Performed By: #### C BC #### [facility] [address] [place] [address] Dr. Yasemin Austin MANUAL DIFF REQ NO Normal [facility] Comment on above: Performed By: #### C BC #### [facility] [address] [place] [address] Dr. Yasemin Austin MCH (RBC) [Entitic mass] 31.7 pg Normal 25.9-34.0 [facility] Comment on above: Performed By: #### C BC #### [facility] [address] [place] [address] Dr. Yasemin Austin MCHC (RBC) [Mass/Vol] 35.0 g/dL Normal 29.9-35.2 [facility] Comment on above: Performed By: #### C BC #### [facility] [address] [place] [address] Dr. Yasemin Austin MCV (RBC) [Entitic vol] 90.4 fL Normal 80.0-94.0 [facility] Comment on above: Performed By: #### C BC #### [facility] [address] [place] [address] Dr. Yasemin Austin MONO # 0.9 103/ul Critically high 0.3-0.8 [facility] Comment on above: Performed By: #### C BC #### [facility] [address] [place] [address] Dr. Yasemin Austin Monocytes/100 WBC (Bld) 6.4 % Normal 1.7-12.0 [facility] Comment on above: Performed By: #### C BC #### [facility] [address] [place] [address] Dr. Yasemin Austin NEUT # 11.6 103/ul Critically high 1.4-6.5 [facility] Comment on above: Performed By: #### C BC #### [facility] [address] [place] [address] Dr. Yasemin Austin Neutrophils/100 WBC (Bld) 86.8 % Critically high 43.0-75.0 [facility] Comment on above: Performed By: #### C BC #### [facility] [address] [place], [place] [address] Dr. Yasemin Austin Platelet mean volume (Bld) [Entitic vol] 9.9 fL Normal 9.5-13.5 [facility] Comment on above: Performed By: #### C BC #### [facility] [id number] Yasemin Austin PLT 279 103/ul Normal 150-450 [facility] Comment on above: Performed By: #### C BC #### [facility] [address] [place], [place] [address] Dr. Yasemin Austin RBC 4.58 106/ul Critically low 4.70-6.10 [facility] Comment on above: Performed By: #### C BC #### [facility] [address] [address] [address] Yasemin Austin WBC 13.3 103/ul Critically high 4.0-11.0 [facility] Comment on above: Performed By: #### C BC #### [facility] [address] STROKE HEAD WOon [...] EDIL MCGHEE Date: 2022-01-14 20:20 Normal [facility] Covid-19 PCR (CVDTBH)on 12-22 SARS-CoV-2 (COVID-19) RNA CARY+probe Ql (Unsp spec) Not detected Normal NOT DETECTED [facility] Comment on above: Result Comment: When diagnostic [...] for this test is supported by the [place] of [employer] and Human Service's declaration that [...] used). Performed By: #### C VDTB #### [facility] [address] [place] [address] Dr. Yasemin Austin PROF 14(COMP METB)on 022 Albumin [Mass/Vol] 3.6 g/dL Normal 3.4-5.0 [facility] Comment on above: Performed By: #### C MP #### [facility] [address] [place] [address] Dr. Yasemin Austin Albumin/Globulin [Mass ratio] 1.1 {ratio} Normal [facility] Comment on above: Performed By: #### C MP #### [facility] [address] [place] [address] Dr. Yasemin Ausitn ALP [Catalytic activity/Vol] 37 U/L Critically low 46-116 [facility] Comment on above: Performed By: #### C MP #### [facility] [address] [address] [address] Yasemin Austin ALT [Catalytic activity/Vol] 70 U/L Critically high 16-63 [facility] Comment on above: Performed By: #### C MP #### [facility] [address] [address] [address] Yasemin Austin Anion gap [Moles/Vol] 16.9 mmol/L Normal Th e [facility] Comment on above: Performed By: #### C MP #### [facility] [address] [place] [address] Dr. Yasemin Austin AST [Catalytic activity/Vol] 90 U/L Critically high 15-37 [facility] Comment on above: Performed By: #### C MP #### [facility] [address] [place] [address] Dr. Yasemin Austin Bilirubin [Mass/Vol] 0.9 mg/dL Normal 0.2-1.0 [facility] Comment on above: Performed By: #### C MP #### [facility] [address] [place] [address] Dr. Yasemin Austin Calcium [Mass/Vol] 8.8 mg/dL Normal 8.5-10.1 [facility] Comment on above: Performed By: #### C MP #### [facility] [address] [address] [address] Yasemin Austin Chloride [Moles/Vol] 106 mmol/L Normal 98-107 [facility] Comment on above: Performed By: #### C MP #### [facility] [address] [address] [address] Yasemin Austin CO2 [Moles/Vol] 23.5 mmol/L Normal 21.0-32.0 [facility] Comment on above: Performed By: #### C MP #### [facility] [address] [address] [address] Yasemin Austin Creatinine [Mass/Vol] 1.07 mg/dL Normal 0.70-1.30 [facility] Comment on above: Performed By: #### C MP #### [facility] [address] [address] [address] Yasemin Austin EGFR-AF [place] >60 Normal >=60 [facility] Comment on above: Performed By: #### C MP #### [facility] [address] [address] [address] Yasemin Austin EGFR-NON AF [place] >60 Normal >=60 [facility] Comment on above: Performed By: #### C MP #### [facility] [address] [address] [address] Yasemin Austin Globulin (S) [Mass/Vol] 3.4 g/dL Normal [facility] Comment on above: Performed By: #### C MP #### [facility] [address] [place] [address] Dr. Yasemin Austin Glucose [Mass/Vol] 172 mg/dL Critically high 74-106 [facility] Comment on above: Performed By: #### C MP #### [facility] [address] [address] [address] Yasemin Austin Potassium [Moles/Vol] 4.4 mmol/L Normal 3.5-5.1 [facility] Comment on above: Performed By: #### C MP #### [facility] [address] [place] [address] Dr. Yasemin Austin Protein [Mass/Vol] 7.0 g/dL Normal 6.4-8.2 [facility] Comment on above: Performed By: #### C MP #### [facility] [address] [address] [address] Yasemin Austin Sodium [Moles/Vol] 142 mmol/L Normal 136-145 [facility] Comment on above: Performed By: #### C MP #### [facility] [address] [address] [address] Yasemin Austin Urea nitrogen [Mass/Vol] 14.0 mg/dL Normal 7.0-18.0 [facility] Comment on above: Performed By: #### C MP #### [facility] [address] [place], [place] [address] [address]. Yasemin Austin Urea nitrogen/Creatinine [Mass ratio] 13.1 mg/mg Normal [facility] Comment on above: Performed By: #### C MP #### [facility] [address] [place], [place] [address] [address] Yasemin Austin PTTon 01-14-2022 aPTT Coag (Bld) [Time] 23.7 s Normal 22.3-36.2 [facility] Comment on above: Performed By: #### P TT ####[facility] [id number] [place], [place] [address]FmDr. Yasemin Austin Vital Signs Date Time Vital Sign Value Performing Clinician Facility 02-27-2024 13:18-0400 Body height 182.88 cm [facility] 02-27-2024 13:18-0400 Body mass index (BMI) [Ratio] 31.4 kg/m2 [facility] 02-27-2024 13:18-0400 Body weight 105 kg [facility] 02-27-2024 13:18-0400 Diastolic blood pressure 82 mm[Hg] [facility] 02-27-2024 13:18-0400 Heart rate 90 /min [facility] 02-27-2024 13:18-0400 Respiratory rate 12 /min [facility] 02-27-2024 13:18-0400 Systolic blood pressure 131 mm[Hg] [facility] 11-07-2023 09:00-0400 Body height 182.88 cm [facility] 11-07-2023 09:00-0400 Body mass index (BMI) [Ratio] 31.2 kg/m2 [facility] 11-07-2023 09:00-0400 Body weight 104.55 kg [facility] 11-07-2023 09:00-0400 Diastolic blood pressure 69 mm[Hg] [facility] 11-07-2023 09:00-0400 Heart rate 81 /min [facility] 11-07-2023 09:00-0400 Respiratory rate 12 /min [facility] 11-07-2023 09:00-0400 Systolic blood pressure 108 mm[Hg] [facility] 06-02-2023 09:00-0500 Body height 182.88 cm Fabio Ball Other [facility] Other 06-02-2023 09:00-0500 Body mass index (BMI) [Ratio] 32.71 kg/m2 Fabio Ball Other [facility] Other 06-02-2023 09:00-0500 Body weight 109.41 kg Fabio Ball Other [facility] Other 06-02-2023 09:00-0500 Diastolic blood pressure 87 mm[Hg] Fabio Ball Other [facility] Other 06-02-2023 09:00-0500 Respiratory rate 12 /min Fabio Ball Other [facility] Other 06-02-2023 09:00-0500 Systolic blood pressure 131 mm[Hg] Fabio Ball Other [facility] Other 01-23-2022 11:49-0400 Body temperature 97.5 [degF] DO Fabio Ball Work Phone: [facility] 01-23-2022 11:49-0400 Diastolic blood pressure 75 mm[Hg] DO Fabio Ball Work Phone: [facility] 01-23-2022 11:49-0400 Heart rate 76 /min DO Fabio Ball Work Phone: [facility] 01-23-2022 11:49-0400 Respiratory rate 18 /min DO Fabio Ball Work Phone: [facility] 01-23-2022 11:49-0400 SaO2% (BldA) [Mass fraction] 95 % DO Fabio Ball Work Phone: [facility] 01-23-2022 11:49-0400 Systolic blood pressure 113 mm[Hg] DO Fabio Gross Work Phone: [facility] 01-21-2022 11:45-0400 Body height 182.88 cm DO Fabio Gross Work Phone: [facility] 01-19-2022 05:46-0400 Body weight 99.8 kg DO Fabio Gross Work Phone: [facility] Encounters Encounter Date Encounter Type Care Provider Facility Start: 03-26-2024 ambulatory MD EDWIGE CROCKETT Facility:[facility] Mendez Start: 03-17-2024 ambulatory MD EDWIGE CROCKETT Facility:[facility] Arthur Start: 02-27-2024 End: 02-27-2024 ambulatory [facility] Work Phone: Start: 02-27-2024 End: 02-27-2024 Patient encounter procedure [facility] Physician [facility] Work Phone: Start: 02-27-2024 End: 02-27-2024 ambulatory [facility] Work Phone: Start: 02-27-2024 End: 02-27-2024 Patient encounter procedure [facility] Physician [facility] Work Phone: Start: 12-23-2023 Non-patient / Non-visit [facility] Physician [facility] Work Phone: Start: 11-07-2023 End: 11-07-2023 ambulatory [facility] Work Phone: Start: 11-07-2023 End: 11-07-2023 Encounter for general adult medical examination without abnormal findings [facility] Start: 11-07-2023 End: 11-07-2023 Patient encounter procedure [facility] Physician [facility] Work Phone: Start: 10-30-2023 End: 10-30-2023 ambulatory [facility] Work Phone: Start: 10-30-2023 End: 10-30-2023 Patient encounter procedure [facility] Work Phone: Start: 06-30-2023 End: 06-30-2023 ambulatory Fabio Gross Other [facility] Other Start: 06-30-2023 Telephone encounter Fabio Gross [facility] Start: 06-05-2023 End: 06-05-2023 ambulatory Fabio Gross Other [facility] Other Start: 06-05-2023 Telephone encounter Fabio Gross [facility] Start: 06-04-2023 End: 06-04-2023 ambulatory Fabio Scottie Other [facility] Other Start: 06-04-2023 Telephone encounter Fabio Gross [facility] Start: 06-02-2023 End: 06-02-2023 ambulatory Fabio Gross Other [facility] Other Start: 06-02-2023 Encounter for genera l adult medical examination without abnormal findings Fabio Gross [facility] Start: 06-02-2023 Office outpatient vi sit [address] [facility] Start: 06-02-2023 Periodic preventive med est patient 40-64yrs aFbio Gross [facility] Start: 01-09-2023 End: 01-09-2023 ambulatory Fabio Gross Other [facility] Other Start: 01-09-2023 Telephone encounter Fabio Gross [facility] Start: 01-07-2023 End: 01-07-2023 ambulatory Fabio Gross Other [facility] Other Start: 01-07-2023 Telephone encounter Fabio Gross [facility] Start: 10-07-2022 End: 10-08-[address] FABIO GROSS Facility: Start: 10-04-2022 End: 10-04-2022 ambulatory Fabio Gross Other [facility] Other Start: 10-04-2022 Telephone encounter Fabio [facility] Start: 07-24-2022 End: 07-25-[address] FABIO GROSS Facility:[facility] Start: 07-15-2022 Encounter for genera l adult medical examination without abnormal findings DR FABIO GROSS [facility] Start: 07-12-2022 End: 07-12-2022 ambulatory Fabio Gross Other [facility] Other Start: 07-12-2022 Telephone encounter [facility] Start: 07-10-2022 End: 07-11-[address] FABIO GROSS Facility:[facility] Start: 07-10-2022 End: 07-11-2022 Encounter for general adult medical examination without abnormal findings DR FABIO GROSS Facility:[facility] Start: 03-15-2022 End: 03-16-[address] DOCTOR DIAZ Facility:[facility] Start: 03-14-2022 ambulatory Facility:[facility] Start: 03-12-2022 ambulatory Facility:[id number] Start: 02-11-2022 End: 02-12-[address] FABIO GROSS Facility:[facility] Start: 01-23-2022 End: 01-23-2022 ambulatory Fabio Gross Facility:[facility] Start: 01-23-2022 End: 01-23-2022 Patient encounter procedure DO Fabio Gross Work Phone: [facility] Start: 01-18-2022 End: 01-23-2022 Evaluation and management of inpatient Fabio Gross Facility:[facility] Start: 01-18-2022 End: 01-23-2022 Evaluation and management of inpatient DO Fabio Scottie Work Phone: [facility] Start: 01-14-2022 End: 01-15-[address] FABIO GROSS Facility:[facility] Procedures Date Procedure Procedure Detail Performing Clinician Start: 07-10-[address] DOCTOR DIAZ Comment on above: Performed By: #### P [facility] #### [facility] [address] [place] [address] Dr. Yasemin Austin Plan of Treatment Date Care Activity Detail Author Start: 01-23-2022 [facility] Work Phone: Start: 01-19-2022 [facility] Work Phone: Start: 01-18-2022 Hospital admission [facility] Work Phone: Start: 01-18-2022 Referral to clinical risk control field representative [facility] Work Phone: Comprehensive metabo lic 2000 panel - Serum or Plasma [facility] Microalbumin [Mass/volume] in Urine [facility] Patient Education Stroke (DC) Am bulatory Cardiac Monitoring (DC) [facility] Work Phone: Patient referral [facility] Work Phone: [facility] Payers Date Payer Category Payer Self-pay 1965 Unknown [id number] 1965 Unknown [id number] 2.16.84 [id number] 1965 Unknown [id number] 2.16.84 [id number] 1965 Unknown [id number] 2.16.84 [id number] 1964 Unknown [id number] 2.16.84 [id number] 1964 Unknown [id number] 2.16.84 [id number] 1964 Unknown [id number] 2.16.84 [id number] 1965 Unknown [id number] 2.16.8 [id number] 1960 Blue Cross Blue Shield [id number] 1960 Unknown [id number] Unknown [id number] 2.16.8 [id number] Unknown [id number] 2.16.8 [id number] Social History Date Type Detail Facility Start: 01-19-2022 Tobacco smoking status NHIS Smoker (finding) [facility] Start: 1965 Sex Assigned At Male F [facility] Sex Assigned At Sex Assigned At Bir th [facility] Other Goals Date Patient Goal Desired Activity /State Functional Status Date Assessment Result Facility 01-23-2022 Functional status Patient is Pro gressing Toward Baseline [facility] Work Phone: Mental Status Date Assessment Result Facility 01-23-2022 Cognitive function Cognitive Sta tus Patient is Progressing Toward Baseline [facility] Work Phone: Clinical Notes 01-19-2022 to [...] use, the patient reduces the risk for IN, CVA, HTN, cardiac dysrhythmias and sudden cardiac [...] (ICD-10 - Z12.5) Yearly JUANITA and PSA [facility] Other [id number] Evaluation note* Encounter Date Diagnosis Assessment Notes [...] use, the patient reduces the risk for IN, CVA, HTN, cardiac dysrhythmias and sudden cardiac [...] change in bowel habits, melena or hematochezia [facility] Other 04-14-2023 Evaluation note* Encounter Date Diagnosis Assessment Notes Treatment Notes Treatment Clinical Notes Sep, Type 2 diabetes mellitus with hyperglycemia, without long-term current use of insulin (ICD-10 - E11.65) [facility] Other 01-20-2023 Evaluation note* Encounter Date Diagnosis Assessment Notes Treatment Notes Treatment Clinical Notes Jun, Elevated cholesterol (ICD-10 - E78.00) Jun, Type 2 diabetes mellitus with hyperglycemia, without long-term current use of insulin (ICD-10 - E11.65) [facility] Other 08-03-2022 Progress note Author Agustin Murphy [facility] January 23, 2022 9:41am Note Date/Time January 23, 2022 9:4 1am [facility] [address] [place] [address] Physiatry(Rehab) Progress Note Signed Patient: Jack El MR#: [id number] : 1965 Acct:[id number] Age/Sex: 56 / M Adm Date: 2 Loc: Room: 5R0372-7 Type: ADM IN Attending Dr: Agustin Murphy MD Copies to: ~ Date of Service: 01/22/2022 Subjective Subjective Narrative: Mr. El is a 56 year old male Admitted to the rehabilitation unit with functional decline status post right cerebellar ischemic stroke. He presented to [facility] with dizziness and ataxia.? This started at 8:00 in the morning the day prior to admission.? At [place], CT head and CTA demonstrated possible left ICA dissection but no definitive ischemic lesion.? Given the CTA findings suggesting dissection, he was transferred to [facility].? MRI at [facility] demonstrated acute to subacute right cerebellar infarct.His NIH stroke scale at [facility] was 0.? TTE with EF 65% otherwise unremarkable, hemoglobin A1c 6.4.? I do not see lipid levels.? He is on secondary stroke prevention with aspirin and Plavix.? I do not see a statin ordered.? They did recommend outpatient sleep study and 30-day cardiac event monitor. As his symptoms were improving, there was no intervention performed.? Neurology at [facility] felt his left carotid findings were possibly [...] 05:00 01/22/22 05:00 Narrative: General: cooperative, comfortable HENRI Head: normal to inspection Eyes General: appearance [...] mg 01/18/22 17:30 Bisacodyl 10 Mg Supp.Rect MT 01/18/23 17:29 DAILY PRN Constipation Clopidogrel Bisulfate 75 mg 01/19/22 09:00 01/21/22 09:27 Clopidogrel Bisulfate 75 Mg Tablet PO 01/19/23 08:59 75 mg DAILY EDVIN Administration Docusate Sodium 100 mg 01/18/22 17:30 Docusate 100 Mg Capsule PO 01/18/23 17:29 BID PRN Constipation Docusate Sodium 283 mg 01/18/22 17:30 Docusate Enema 283 Mg/5 Ml Enema MT 01/18/23 17:29 DAILY PRN Constipation Heparin Sodium [...] equipment? to enhance the patient's a functional confucianist Encourage deep breathing exercises and incentive spirometry [...] - Hyperlipidemia, unspecified Status: Acute Plan Mr. El is a 56 year old male Admitted [...] greater than 20 minutes for services, including vyup-ji-edva encounter with the patient, discussion of the case, plan of care, and exam; and swyyocw-zf-[id number] activities, such as reviewing pertinent child welfare consultant documentation, recent therapy notes, laboratory and radiology studies, and discussion of case with care team including nursing, disease case manager rn, and therapists. More than 50 % of time was spent on patient/family counseling or coordination ofcare. Documented By: Agustin Murphy MD 01/22/2248 Signed By: <Electronically signed by Agustin Murphy MD> 01/23/22 0941 [facility] Work Phone: 1(944) 129-174708-03-2022 Progress note Author Agustin Murphy [facility] January 23, 2022 9:30am Note Date/Time January 23, 2022 9:3 0am [facility] [address] [place] [address] Physiatry(Rehab) Progress Note Signed Patient: Jack El MR#: [id number] : 1965 Acct:[id number] Age/Sex: 56 / M Adm Date: 2 Loc: Room: [address] [place] [address] Type: ADM IN Attending Dr: Agustin Murphy MD Copies to: ~ Date of Service: 01/21/2022 Subjective Subjective Narrative: Mr. El is a 56 year old male Admitted to the rehabilitation unit with functional decline status post right cerebellar ischemic stroke. He presented to [facility] with dizziness and ataxia.? This started at 8:00 in the morning the day prior to admission.? At [place], CT head and CTA demonstrated possible left ICA dissection but no definitive ischemic lesion.? Given the CTA findings suggesting dissection, he was transferred to [facility].? MRI at [facility] demonstrated acute to subacute right cerebellar infarct.His NIH stroke scale at [facility] was 0.? TTE with EF 65% otherwise unremarkable, hemoglobin A1c 6.4.? I do not see lipid levels.? He is on secondary stroke prevention with aspirin and Plavix.? I do not see a statin ordered.? They did recommend outpatient sleep study and 30-day cardiac event monitor. As his symptoms were improving, there was no intervention performed.? Neurology at [facility] felt his left carotid findings were possibly [...] 04:44 01/21/22 07:30 Narrative: General: cooperative, comfortable HENRI Head: normal to inspection Eyes General: appearance [...] mg 01/18/22 17:30 Bisacodyl 10 Mg Supp.Rect MT 01/18/23 17:29 DAILY PRN Constipation Clopidogrel Bisulfate 75 mg 01/19/22 09:00 01/21/22 09:27 Clopidogrel Bisulfate 75 Mg Tablet PO 01/19/23 08:59 75 mg DAILY EDVIN Administration Docusate Sodium 100 mg 01/18/22 17:30 Docusate 100 Mg Capsule PO 01/18/23 17:29 BID PRN Constipation Docusate Sodium 283 mg 01/18/22 17:30 Docusate Enema 283 Mg/5 Ml Enema MT 01/18/23 17:29 DAILY PRN Constipation Heparin Sodium [...] equipment? to enhance the patient's a functional confucianist Encourage deep breathing exercises and incentive spirometry [...] - Hyperlipidemia, unspecified Status: Acute Plan Mr. El is a 56 year old male Admitted [...] greater than 22 minutes for services, including [id number] encounter with the patient, discussion of the case, plan of care, and exam; and atmnwpa-ga-hwsm activities, such as reviewing pertinent child welfare consultant documentation, recenttherapy notes, laboratory and radiology studies, and discussion of case with care team including nursing, disease case manager rn, and therapists. More than 50 % of time was spent on patient/family counseling or coordination ofcare. Documented By: Agustin Murphy MD 01/21/22 1140 Signed By: <Electronically signed by Agustin Murphy MD> 01/23/22 3500 [facility] Work Phone: 1(151) 779-596208-03-2022 Discharge summary Author Agustin Murphy [facility] January 23, 2022 9:28am Note Date/Time January 23, 2022 9:2 8am [facility] [address] [place] [address] Discharge Summary Signed Patient: Jack El MR#: [id number] : 1965 Acct:[id number] Age/Sex: 56 / M Adm Date: 2 Loc: Room: [address] [place] [address]: Agustin Murphy MD Copies to: [...] above Summary Hospital Course Hospital course: Mr. El is a 56 year old male Admitted to the rehabilitation unit with functional decline status post right cerebellar ischemic stroke. He presented to [facility] with dizziness and ataxia.? This started at 8:00 in the morning the day prior to admission.? At [place], CT head and CTA demonstrated possible left ICA dissection but no definitive ischemic lesion.? Given the CTA findings suggesting dissection, he was transferred to [facility].? MRI at [facility] demonstrated acute to subacute right cerebellar infarct.His NIH stroke scale at [facility] was 0.? TTE with EF 65% otherwise unremarkable, hemoglobin A1c 6.4.? I do not see lipid levels.? He is on secondary stroke prevention with aspirin and Plavix.? I do not see a statin ordered.? They did recommend outpatient sleep study and 30-day cardiac event monitor. As his symptoms were improving, there was no intervention performed.? Neurology at [facility] felt his left carotid findings were possibly unrelated to his current symptoms. He was discharged to rehabilitation unit in stable condition. Today reports just poor coordination and feeling wobbly .? 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 Rehabilitation course: [facility] [...] <Electronically signed by Agustin Murphy MD> 01/23/2228 [facility] Work Phone: 1(316) 819-151007-31-2022 Consult note Author Abelino Jacques [facility] January 20, 2022 7:41pm Note Date/Time January 19, 2022 3:00 pm [facility] [address] [place] [address] Hospitalist Consult Note Signed Patient: Jack El MR#: [id number] : 1965 Acct:[id number] Age/Sex: 56 / M Adm Date: 2 Loc: Room: 2O2817-7 Type: ADM IN Attending Dr: Agustin Murphy MD Copies to: DO Agustin Mcbride MD Kristopher L Lindbloom, DO Lynn A Stackhouse, MIKE-~ HPI DATE OF CONSULTATION: 01/19/22 REQUESTING PROVIDER: Agustin Murphy Consult Narrative Reason for Consult: CKD, GERD HPI: 56-year-old male past medical history significant for CKD, GERD. Presented to [place] emergency department with dizziness and ataxia. Imaging demonstrated possible left ICA dissection but no definitive ischemic lesion. He was transferred to [facility] and MRI there demonstrated acute [...] from further rehab, subsequently transferred to [facility] rehab unit January 18. Hospitalist team [...] negative unless noted below or in HPI [facility] Attestation Statement: The following information was validated [...] Dose Route Start Last Admin Trade Name Roland PRN Reason Stop Dose Admin Acetaminophen 500 [...] mg 01/18/22 17:30 Bisacodyl 10 Mg Supp.Rect MT 01/18/23 17:29 DAILY PRN Constipation Clopidogrel Bisulfate 75 mg 01/19/22 09:00 01/19/22 09:34 Clopidogrel Bisulfate 75 Mg Tablet PO 01/19/23 08:59 75 mg DAILY EDVIN Administration Docusate Sodium 100 mg 01/18/22 17:30 Docusate 100 Mg Capsule PO 01/18/23 17:29 BID PRN Constipation Docusate Sodium 283 mg 01/18/22 17:30 Docusate Enema 283 Mg/5 Ml Enema MT 01/18/23 17:29 DAILY PRN Constipation Heparin Sodium [...] % (Auto) 62.3, Lymph % (Auto) 22.1, [place] % (Auto) 12.4, Eos % (Auto) 2.5, Baso % (Auto) 0.7, Neut # (Auto) 4.1, Lymph # (Auto) 1.5, [place] # (Auto) 0.8, Eos# (Auto) 0.2, Baso [...] <Electronically signed by Abelino Jacques DO> 01/20/221940 [facility] Work Phone: 1(265) 990-253807-30-2022 History and physical note Author Agustin Murphy [facility] January 19, 2022 10:44am Note Date/Time January 18, 2022 9:00 pm [facility] [address] [place] [address] Physiatry (Rehab) H&P Signed Patient: Jack El MR#: [id number] : 1965 Acct:[id number] Age/Sex: 56 / M Adm Date: 2 Loc: Room: [address] [place] [address] Type: ADM IN Attending Dr: Agustin Murphy MD Copies to: DO Agustin Mcbride MD~ Date of Service: 01/19/2022 HPI The patient was seen and examined on: 01/19/22 Chief complaint: stroke History of Present Illness: Mr. El is a 56 year old male Admitted to the rehabilitation unit with functional decline status post right cerebellar ischemic stroke. He presented to [facility] with dizziness and ataxia. This started at 8:00 in the morning the day prior to admission. At [place], CT head and CTA demonstrated possible left ICA dissection but no definitive ischemic lesion. Given the CTA findings suggesting dissection, he was transferred to [facility]. MRI at [facility] demonstrated acute to subacute right cerebellar infarct.His NIH stroke scale at [facility] was 0. TTE with EF 65% otherwise unremarkable, hemoglobin A1c 6.4. I do not see lipid levels. He is on secondary stroke prevention with aspirin and Plavix. I do not see a statin ordered. They did recommend outpatient sleep study and 30-day cardiac event monitor. As his symptoms were improving, there was no intervention performed. Neurology at [facility] felt his left carotid findings were possibly unrelated to his current symptoms. He was discharged to rehabilitation unit in stable condition. Today reports just poor coordination and feeling wobbly . 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 [facility] Attestation Statement: The following information was validated [...] Bisacodyl (Bisacodyl 10 Mg Supp.Rect) 10 mg MT DAILY PRN PRN Reason: Constipation Stop: 01/18/23 17:29 Clopidogrel Bisulfate (Clopidogrel Bisulfate 75 Mg Tablet) 75 mg PO DAILY EDVIN Stop: 01/19/23 08:59 Docusate Sodium (Docusate 100 Mg Capsule) 100 mg PO BID PRN PRN Reason: Constipation Stop: 01/18/23 17:29 Docusate Sodium (Docusate Enema 283 Mg/5 Ml Enema) 283 mg MT DAILY PRN PRN Reason: Constipation Stop: 01/18/23 [...] 2 weeks Expected Discharge Destination: Home Rehabilitation [facility]: 01.1 Primary Diagnosis: Right cerebellar stroke To have patient become more independent and to return home. Medical/ Functional Prognosis: Good Anticipated Functional Outcomes/Goals and Interventions: 1.Therapy Functional Outcome/Goal: Anticipate Independent for bed mobility Anticipated interventions: Physician management, PT, OT, MARINE CARGO INSPECTOR, , Dietitian, RehabNursing, Case management 2. Therapy Functional Outcome/Goal: Anticipate Independent for transfers Anticipated interventions: Physician management, PT, OT, MARINE CARGO INSPECTOR, Case management, Dietitian, Rehab Nursing 3. Therapy Functional Outcome/Goal: Anticipate Independent for ambulation Anticipated interventions: Physician management, PT, OT, MARINE CARGO INSPECTOR Case management, Dietitian, Rehab Nursing 4.Therapy Functional Outcome/Goal: Anticipate Independent for self-care Anticipated interventions: Physician management, PT, OT, MARINE CARGO INSPECTOR, Case management, Dietitian, Rehab Nursing 5.Therapy Functional Outcome/Goal: Anticipate Independent for swallowingAnd functional communication Anticipated interventions: Physician management, PT, OT, MARINE CARGO INSPECTOR, Case management, Dietitian, Rehab Nursing Required Therapy [...] additional therapy on as needed basis. Comments: MARINE CARGO INSPECTOR to evaluate and treat patient?s cognition, language and communication skills, assess swallow function. Other: Dietitian, Rehab nursing, Wound, P&O, Neuropsychology as needed RATIONALE FOR IRF ADMISSION: Patient has both medical and functional complexities that require 24 hour daily monitoring and intervention from Poultry Farmer [employer] as well as other consulting physicians including internal medicine as well as 24 hour daily director of physician practices nursing - for medical safe / optimal management. Patient requires interdisciplinary therapy team rehabilitation care including OT, PT, MARINE CARGO INSPECTOR, SW, Psychology, Rehab Nursing, requires and can [...] equipment to enhance the patient's a functional confucianist Encourage deep breathing exercises and incentive spirometry [...] Dizziness and giddiness Status: Acute Plan Mr. El is a 56 year old male Admitted [...] greater than 76 minutes for services, including [id number] encounter with the patient, discussion of the case, plan of care, and exam; and [id number] activities, such as reviewing pertinent child welfare consultant documentation, recent therapy notes, laboratory and radiology studies, and discussion of case with care team including nursing, disease case manager rn, and therapists. More than 50 % of time was spent on patient/family counseling or coordination ofcare. Documented By: Agustin Murphy MD 01/19/22 1044 Signed By: <Electronically signed by Agustin Murphy MD> 01/19/22 104 [facility] Work Phone: Evaluation note* Diagnosis Onset Date Resolution Status Cerebellar stroke, acute acu te Dizziness acute DVT prophylaxis acute Hyperlipidemia acute Impaired mobility and activities of daily living acute [facility] Work Phone: Evaluation noteNo InformationNort Conductor Other Evaluation noteNo assessment information available [facility] Work Phone: Evaluation note* Diagnosis Onset Date Resolution Status Cerebral atherosclerosis acu te GERD (gastroesophageal reflux disease) acute Hypercholesterolemia acute Obesity acute Obstructive sleep apnea acut e Type 2 diabetes mellitus with hyperglycemia acute Wellness examination noneact [facility] Work Phone: Histbjo general Narrative - Reported* Type Description Date Medical History obstructive sleep apnea Medical History obesity Medical History hyperlipidemia Medical History 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 Medical History recurrent left inguinal hernia Surgical History diagnostic laparoscopy with ing uinal hernia repair Surgical History B/L herniorrhaphy Surgical History T12-L2 lumbar fusion Hospitalization History see surgical history [facility] Other [facility] general Narrative - Reported* Type Description Date Medical History obstructive sleep apnea Medical History obesity Medical History hyperlipidemia Medical History 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 Medical History recurrent left inguinal hernia Medical History Type II DM Surgical History diagnostic laparoscopy with ing uinal hernia repair Surgical History B/L herniorrhaphy Surgical History T12-L2 lumbar fusion Hospitalization History see surgical history [facility] Work Phone: Chief Complaint and [...] Complaint UA, frequency, dark urine Family History No Family History Records Found Relationship Condition Age at Onset Recorded Date/T [...] Hypertension Unknown Heart disease Unknown Advance Directives No Advanced Directives Records Found Advance Directive Response Recorded Date/ Time Advance Directives No January 18 1:41pm Summary Purpose Additional Source Comments Care Teams (unrecognized sec tion and content) Team Status: Active Member Role Status Dates Fabio Gross DO Primary Care Provider Active Team Status: Active Member Role Status Iqra Gross DO Primary Care Provide r, Attending Provider Active Start: December 23, 2023 Team Status: Inactive Member Role Status Dates Fabio Gross DO Primary Care Provide r, Attending Provider Active Start: February 27, 2024 End: February 27, 2024 Team Status: Inactive Member Role Status Dates Fabio Gross DO Primary Care Provider Active Agustin Murphy MD Admit Provider, Attending Provider A ctive Dhara Alvarez , BUZZ Other Provider Active Rebecca Grimes , RN Other Provider Active Annmarie Amaya , RN Other Provider Active Megan Kwan , RN Other Provider Active Mikayla Fleming , BUZZ Other Provider Active Mary Warner , BUZZ Other Provider Active Jordan June MD Other Provider Active Ender Kumari MD Other Provider Active Jessica Perez APRN Other Provider Active Dawson Marinelli , Other Provider Active Tan Martini MD Other Provider Active Abelino Jacques , Other Provider Active Javon Magana MD Other [...] MD Other Provider Active Ester Martin , CRYSTALIZER-C Other Provider Active Lloyd Ambrose MD Other Provider Active Ryan Medina MD Other Provider Active Amirah Salas MD Other Provider Active Yomi Schuler MD Other Provider Active Aniyah Edmonds , Other Provider Active Npaoleon Kaiser MD Other Provider Active Rod Ruano [...] Status Dates Fabio Gross , Primary Care Provide r, Attending Provider Active Start: November 07, 2023 End: November 07, 2023 (unrecognized sect ion and content) No Status Records FoundNo Status Records FoundNo Status Records FoundNo Status Records Found INFORMATION SOURCE (unrecogn ized section and content) DATE CREATED AUTHOR 07/04/2022 [facility] DATE CREATED AUTHOR AUTHOR'S ORGANIZ ATION 07/27/2022 [facility] DATE CREATED AUTHOR AUTHOR'S ORGANIZ ATION 10/13/2022 [facility] DATE CREATED AUTHOR AUTHOR'S ORGANIZ ATION 03/19/2024 [facility] REASON FOR VISIT (unrecogniz ed section and [...] BE BASED ON THE PRIMARY CLINICAL RECORDS. [facility]. provides no warranty or guarantee of the accuracy or completeness of information in this document.
== END 2024-03-24 09:24 | disposition home or self-care (01) ==
LOC: RAD 09:24
PROVIDERS: PCP Internal Medicine; Visit Provider Nurse Practitioner Family
DX: N20.0 Calculus of kidney (principal)
CPT/HCPCS: 74018

== ENCOUNTER 2024-05-24 07:00 | Outpatient (OUT) | payer BC, SELFPAY ==
--- OUTSIDE RECORDS SUMMARY | 2024-05-24 07:03 | XMS_ITS | CCD ---
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 Your Care Team Admitting Physician - EDWIGE DANIEL MD Referring Physician - EDWIGE DANILE MD Reason for Your Visit RIGHT KIDNEY STONE Tests Performed XR Urography Retrograde Right -- Results Pending -- Please visit your patient portal for your results or contact your primary care physician. Discharge Vitals Temperature (Axillary) 36.3 ???C Heart Rate (Monitored) 74 Respiratory Rate 20 Blood Pressure 127/77 What to do next Instructions From Your Doctor Event Name Event Result Discharge Instructions Freetext Remove your stents in 5 days. Take a Tylenol prior to removing your stent. Grabbed the string and gently pulled and the stent should come outHydrate vigorously with at least 2 L of water per dayIt is expected that she will have blood in the urine Discharge Activity Ambulate as tolerated Discharge Restrictions No driving for 24 hrs Call Your Doctor For Temperature above 101.5 degrees, Persistent vomiting Discharge Instructions Discharge Instructions New Follow Up Appointments after Discharge Follow Up with EDWIGE DANIEL When: Where: [address] [place] [phone] Business (1) Medications What How Much When Instructions Next Dose New oxycodone (Roxicodone 5 mg Tab) 1 Tablets By Mouth Every 12 hours as needed for for pain Duration: 3 Days Pickup at [facility]/pharmacy #[id number] Unchanged aspirin (aspirin 81 mg Oral EC Tab) 1 Tablets By Mouth Every day Unchanged atorvastatin (atorvastatin 40 mg Tab) 1 Tablets By Mouth Every day Unchanged metformin (metformin 500 mg Tab) 1 Tablets By Mouth Every day Unchanged tadalafil (Cialis 5 mg oral tablet) 1 Tablets By Mouth As Directed as needed for for erectile dysfunction Take 1 hour prior to sexual intercourse. Pharmacy Information [facility]/pharmacy #[id number]: [address], [place] [phone] Allergies No Known Allergies Devices Implanted/Removed This Visit Notice: You have devices implanted this visit that may not be MRI compatible. Implanted CYSTOSCOPY RETROGRADE STENT INSERTION Ureter R ZAIDI URETERAL STENT CASCADE 6FR 04/22/2024 Education Materials [facility] [place], [place] Post-operative Instructions for Ureteroscopy, Laser Lithotripsy, Stone Extraction and Stent Placement There are no incisions or dressings to be concerned with, as the procedure was performed inside the urinary system. For 24 hours after surgery: ??? No driving or operating machinery ??? Do not make important decisions ??? Do not consume alcohol, sleeping pills Stent Placement You may have a stent which spans the distance between your bladder and your kidney, allowing urine to pass through. It prevents blockage from swelling, kidney stones in ureter (tube connecting the kidney to the bladder), or scars. The presence of the stent may cause: ??? Back or side pain, especially with urination ??? Frequent or urgent urination ??? Bladder pressure or pain ??? Blood in urine You may pass stone debris or small blood clots, which is expected. Drinking plenty of water to dilute the urine may help. If there is a thread coming out of urinary channel, be careful not to accidently pull on this, as it is attached to the stent. The stent will most likely be removed in the office during a short procedure in which a scope is placed into the bladder, the stent is grasped and removed. At other times the stent may need to stay longer, either in preparation for other procedures or for other reasons. If it is to remain half-way, however, changes of the stent are required (about every 3-4 months). Diet You may resume your normal diet, but you may want to start slowly and avoid spicy food, caffeine, carbonated beverages and alcohol, especially if you have a stent. Your diet and fluid intake may make irritation from the stent worse. Activity You may resume your normal activities, although you should take it easy on the day of the procedure. Minimizing activity may decrease the back discomfort and irritation from the stent, if present. Medications ??? You may resume your home medications unless instructed otherwise. ??? Hold aspirin, ibuprofen, Coumadin (warfarin) and other blood thinners until your office visit (we will discuss when to resume these medications) ??? Take your prescribed medications as directed, including your antibiotics. You may also be given a prescription for pain medicine or medicines to help with the bladder irritation from stent, if present. Things to watch for which would require an Emergency Room Visit (or call 911) (This is not a complete list) ??? Fever over 101.5 degrees, with or without chills ??? Severe bleeding ??? Severe drug re (more content not included)... [facility] Comment on above: Result Comment: Elec tronically Signed By: Melissa GERBER, Delmis Dominguez\.br\Date and Time Signed: 04/22/24 12:47 EDT Inpatient Patient Summaryon 04-22-2024 Inpatient Patient Summary Inpatient Patient Summary [place] [id number] [facility] Clinical Discharge Instructions PERSON INFORMATION Name: JACK GONZALES PHYSICIANS Admitting Physician: EDWIGE DANIEL MD Attending Physician: EDWIGE DANIEL MD PCP: FABIO RUBIN DO Discharge Diagnosis: Comment: PATIENT EDUCATION INFORMATION Instructions: [id number] Utereroscopy,Lithotrips y, Stone Extraction, Stent Placement(CUSTOM); Post Op Patient Instructions - FT (Custom) (CUSTOM) Medication Leaflets: Follow up: With: Address: When: EDWIGE DANIEL [address] [place] [phone] Business (1) MEDICATION LIST New Medications [facility]/pharmacy #[id number], [address], [place] [phone], [phone] oxybutynin (oxybutynin 5 mg ER Tab) 1 Tablets By Mouth every day for 5 Days. Refills: 0. oxycodone (Roxicodone 5 mg Tab) 1 Tablets By Mouth every 12 hours as needed for pain for 3 Days. Refills: 0. tamsulosin (Flomax 0.4 mg Cap) 1 Capsules By Mouth every day for 7 Days. Refills: 0. Medications to Continue with No Changes Other Medications aspirin (aspirin 81 mg Oral EC Tab) 1 Tablets By Mouth every day. atorvastatin (atorvastatin 40 mg Tab) 1 Tablets By Mouth every day. metformin (metformin 500 mg Tab) 1 Tablets By Mouth every day. tadalafil (Cialis 5 mg oral tablet) 1 Tablets By Mouth As Directed as needed for erectile dysfunction. Take 1 hour prior to sexual intercourse.. Refills: 3. Comment: [facility] Main OR PACU I Recordon 03-25 Main OR PACU I Record Main OR PACU I Rec ord PACU Phase I Document Type FT Summary Primary Physician: EDWIGE DANIEL MD Finalized Date/Time: 04/22/24 13:29:34 Pt. Name: JACK GONZALES/Sex: 1965 Male Med Rec #: [id number] Physician: EDWIGE DANIEL MD Financial #: [id number] Pt. Type: A Room/Bed: [place] [address] Admit/Disch: 04/22/24 09:38:38 - Institution: Case Times PACU I FT Pre-Care Text: Identifies barriers to communication and implements measures to provide psychological support Develops individualized plan of care, and ensures continuity of care Maintains patient's dignity and privacy, and maintains patient confidentiality Identifies and reports philosophical, cultural, and spiritual beliefs and values Identifies individual values and wishes concerning care Implements aseptic technique, and administers prescribed antibiotic therapy and immunizing agents as ordered Evaluates postoperative tissue perfusion Implements thermoregulation measures, and monitors body temperature Evaluates postoperative respiratory status Evaluates postoperative cardiac status Evaluates postoperative neurological status Assesses pain control, collaborated in initiating patient-controlled analgesia and implements alternative methods of pain control Verifies allergies, administers prescribed medications and solutions, evaluates response to medications Entry 1 In PACU I 04/22/24 12:25:00 Discharge from PACU 04/22/24 12:55:00 I Outcomes Met? Yes Last Modified By: Joyce Bo RN 04/22/24 13:29:25 Post-Care Text: The patient demonstrates knowledge of the expected response to the operative or invasive procedure The patient's care is consistent with the individualized perioperative plan of care The patient's right to privacy is maintained The patient's value system, lifestyle, ethnicity, and culture are considered, respected, and incorporated into the perioperative plan of care The patient participates in decisions affecting his or her perioperative plan of care The patient is free from signs and symptoms of infection The patient has wound/tissue perfusion consistent with or improved from baseline levels established preoperatively The patient is at or returning to normothermia at the conclusion of the immediate postoperative period The patient's respiratory function is consistent with or improved from baseline levels established preoperatively The patient's cardiovascular status is consistent with or improved from baseline levels established preoperatively The patient's cardiovascular status is consistent with or improved from baseline levels established preoperatively The patient demonstrates and/or reports adequate pain control throughout the perioperative period The patient received appropriate medication(s), safely administered during the perioperative period Acuity Level PACU I FT Entry 1 Start Time 04/22/24 12:25:00 Stop Time 04/22/24 12:55:00 Acuity Level Acuity Level I Last Modified By: Joyce Bo RN 04/22/24 13:29:33 Finalized By: Joyce Bo RN Document Signatures Signed By: Joyce Bo RN 04/22/24 13:29 [facility] Main OR PACU II Recordon Main OR PACU II Record Main OR PACU II Record PACU Phase II Document Type FT Summary Primary Physician: EDWIGE DANIEL MD Finalized Date/Time: 04/22/24 14:30:31 Pt. Name: JACK GONZALES/Sex: 1965 Male Med Rec #: [id number] Physician: EDWIGE DANIEL MD Financial #: [id number] Pt. Type: A Room/Bed: [place] [address] Admit/Disch: 04/22/24 09:38:38 - Institution: Case Times PACU II FT Pre-Care Text: Identifies barriers to communication and implements measures to provide psychological support and determines knowledge level Develops individualized plan of care, and ensures continuity of care Maintains patient's dignity and privacy, and maintains patient confidentiality Identifies and reports philosophical, cultural, and spiritual beliefs and values Identifies individual values and wishes concerning care administers prescribed antibiotic therapy and immunizing agents as ordered, Evaluates postoperative tissue perfusion Implements thermoregulation measures, and monitors body temperature Evaluates postoperative respiratory status Evaluates postoperative cardiac status Evaluates postoperative neurological status Assesses pain control, collaborated in initiating patient-controlled analgesia and implements alternative methods of pain control Verifies allergies, administers prescribed medications and solutions, evaluates response to medications Entry 1 In PACU II 04/22/24 13:00:00 Discharge from PACU 04/22/24 14:00:00 II Outcomes Met? Yes Last Modified By: Mauri Larsen RN 04/22/24 14:30:30 Post-Care Text: The patient demonstrates knowledge of the expected response to the operative or invasive procedure The patient's care is consistent with the individualized perioperative plan of care The patient's right to privacy is maintained The patient's value system, lifestyle, ethnicity, and culture are considered, respected, and incorporated into the perioperative plan of care The patient participates in decisions affecting his or her perioperative plan of care. The patient is free from signs and symptoms of infection The patient has wound/tissue perfusion consistent with or improved from baseline levels established preoperatively The patient is at or returning to normothermia at the conclusion of the immediate postoperative period The patient's respiratory function is consistent with or improved from baseline levels established preoperatively The patient's cardiovascular status is consistent with or improved from baseline levels established preoperatively The patient's neurological status is consistent with or improved from baseline levels established preoperatively The patient demonstrates and/or reports adequate pain control throughout the perioperative period The patient received appropriate medication(s), safely administered during the perioperative period Finalized By: Mauri Larsen RN Document Signatures Signed By: Mauri Larsen RN 04/22/24 14:30 [facility] Main OR Preoperative Recordo n 04-22-2024 Main OR Preoperative Record Main OR Preoperative Record PreOp Document Type FT Summary Primary Physician: EDWIGE DANIEL MD Finalized Date/Time: 04/22/24 12:04:23 Pt. Name: JACK GONZALES /Sex: 1965 Male Med Rec #: [id number] Physician: EDWIGE DANIEL MD Financial #: [id number] Pt. Type: A Room/Bed: [place] [address] Admit/Disch: 04/22/24 09:38:38 - Institution: Case Times PreOp FT Pre-Care Text: Verifies consent for planned procedure, identifies individual values and wishes concerning care, includes family members in perioperative teaching Entry 1 Patient Times. In Pre Surgery 04/22/24 09:45:00 Out Pre Surgery 04/22/24 11:32:00 Outcomes Met? Yes Last Modified By: Lucy Chavez 04/22/24 12:04:22 Post-Care Text: The patient participates in decisions affecting his or her perioperative plan of care Finalized By: Lucy Chavez Document Signatures Signed By: Lucy Chavez 04/22/24 12:04 [facility] Operative Reporton 4 Operative Report Operative Report Patient: JACK GONZALES Age: 59 years Sex: Male : 1965 Associated Diagnoses: None Author: EDWIGE DANIEL MD Procedure SURGEON: Edwige Daniel MD PREOPERATIVE DIAGNOSIS: Obstructing right ureteral stone POSTOPERATIVE DIAGNOSIS: Same PROCEDURE: Cystoscopy, right ureteroscopy, right laser lithotripsy, right retrograde pyelogram, right ureteral stent placement, right stone basketing FINDINGS: Retrograde pyelogram showed a distal ureteral filling defect secondary to obstruction from stone Cystoscopy demonstrated bilobar hypertrophy with no tumors, lesion, prominent median lobe noted Ureteroscopy demonstrated a distal stone that was basketed, lasered into small submillimeter fragments and flushed out of the ureter 6 x 26 cm double-J ureteral stent with strings ANESTHESIA: LMA INTRAVENOUS FLUIDS: See anesthesia records ESTIMATED BLOOD LOSS: Minimal TUBES AND DRAINS: 6 x 26 cm double-J ureteral stent with strings SPECIMENS: None COMPLICATIONS: None INDICATIONS FOR PROCEDURE: Patient was a 59-year-old male with a ureteral stone approximately 6 mm in size. He presents for the aforementioned procedure. H&P was reviewed, informed consent was obtained, patient understood risk, benefits, alternatives of the procedure and wished to proceed. OPERATIVE DETAIL: Patient was brought to the operative suite and placed on continuous pulse oximetry and cardiac monitoring by anesthesia. IV antibiotics including 2 g of Ancef was administered. He was then placed in the dorsolithotomy position and prepped and draped in normal sterile fashion. Timeout was performed confirming patient, procedure, side, all in the room agreed. Cystoscopy and retrograde pyelogram: A well-lubricated 22 Sammarinese cystoscopic sheath with a 30 degree lens was inserted into the urethral meatus and advanced into the bladder. Upon entering the bladder we did a bedside scope and no tumors, lesions were noted. Patient did have bilobar hypertrophy. We then directed attention to the right ureteral orifice where with the help of a dual-lumen catheter we passed a Glidewire into the right collecting system. We then shot a retrograde pyelogram that showed a distal filling defect. We then passed a second wire and obtained the semirigid ureteroscope. Ureteroscopy Over one of the wires we went up with a semirigid ureteroscope where we noted the stone distally. We then obtained a 200 ???m laser fiber and began lasering the stone. We laser the stone to small submillimeter fragments that were able to flush out of the ureter. We then obtained a basket and basketed all the stones out. We then went all the way up to the proximal ureter and no further stones was noted. The semirigid ureteroscope was then removed and over the wire we placed a 6 x 26 cm double-J ureteral stent visualizing a curl in the renal pelvis and a curl in the bladder. Patient bladder was then emptied. Patient was then awakened by anesthesia and transferred to PACU in stable condition. The strings on the stent were taped to the head of the penis using benzoin and Steri-Strips. PLAN: Patient can remove stent in 5 days He will follow-up with me in 6 weeks with a KUB, renal ultrasound He is encouraged to hydrate vigorously with a least 2 L/day, pain control with Tylenol, Roxicodone for breakthrough I discussed with the patient that it is expected that he will have blood in the urine with a stent in place and this should clear up soon [facility] Comment on above: Result Comment: Elec tronically Signed By: BON RUBY, EDWIGE\.br\Date and Time Signed: 04/22/24 12:33 EDT Outpatient Surgery Discharge Instructionon 04-22-2024 Outpatient Surgery Discharge Instruction Outpatient Surgery Discharge Instruction [place] [id number] Patient Discharge Instructions PERSON INFORMATION Name: JACK GONZALES Date of : 1965 Current Date: 04/22/2024 12:52:35 PHYSICIANS Admitting Physician: BON RUBY, EDWIGE Discharge Diagnosis: JACK GONZALES has been given the following list of follow-up instructions, prescriptions, and patient education materials: Discharge Activity: Ambulate as tolerated Discharge Restrictions: No driving for 24 hrs Call Your Doctor For: Temperature above 101.5 degrees, Persistent vomiting Additional Instructions: Remove your stents in 5 days. Take a Tylenol prior to removing your stent. Grabbed the string and gently pulled and the stent should come out Hydrate vigorously with at least 2 L of water per day It is expected that she will have blood in the urine IF UNABLE TO CONTACT YOUR PHYSICIAN AND YOU FEEL IT IS AN EMERGENCY, GO TO THE NEAREST EMERGENCY ROOM OR CALL 911 I, SIENNA JACK Taylor, have received the attached patient education materials/instructions and have verbalized understanding: May we do a follow up call? Yes No I was present when discharge instructions were given Patient Signature Date Clinican/Nurse Signature _ Date Follow up: With: Address: When: EDWIGE DANIEL [address] [place] [phone] Business (1) Pharmacy Information: You may receive a survey from [facility] asking you to rate your care experience. Your feedback is important and will help us understand what we do well and how we can improve the quality of care we provide to you, your loved ones and our community. It???s an honor to serve you. Thank you for choosing [facility] HERE ARE THE MEDICATION CHANGES THAT OCCURRED DURING YOUR HOSPITAL STAY New Medications [facility][id number], [address], [place] [phone], [phone] oxybutynin (oxybutynin 5 mg ER Tab) 1 Tablets By Mouth every day for 5 Days. Refills: 0. oxycodone (Roxicodone 5 mg Tab) 1 Tablets By Mouth every 12 hours as needed for pain for 3 Days. Refills: 0. tamsulosin (Flomax 0.4 mg Cap) 1 Capsules By Mouth every day for 7 Days. Refills: 0. Medications to Continue with No Changes Other Medications aspirin (aspirin 81 mg Oral EC Tab) 1 Tablets By Mouth every day. atorvastatin (atorvastatin 40 mg Tab) 1 Tablets By Mouth every day. metformin (metformin 500 mg Tab) 1 Tablets By Mouth every day. tadalafil (Cialis 5 mg oral tablet) 1 Tablets By Mouth As Directed as needed for erectile dysfunction. Take 1 hour prior to sexual intercourse.. Refills: 3. PATIENT EDUCATION INFORMATION Instructions: [facility] [place], [place] Post-operative Instructions for Ureteroscopy, Laser Lithotripsy, Stone Extraction and Stent Placement There are no incisions or dressings to be concerned with, as the procedure was performed inside the urinary system. For 24 hours after surgery: ??? No driving or operating machinery ??? Do not make important decisions ??? Do not consume alcohol, sleeping pills Stent Placement You may have a stent which spans the distance between your bladder and your kidney, allowing urine to pass through. It prevents blockage from swelling, kidney stones in ureter (tube connecting the kidney to the bladder), or scars. The presence of the stent may cause: ??? Back or side pain, especially with urination ??? Frequent or urgent urination ??? Bladder pressure or pain ??? Blood in urine You may pass stone debris or small blood clots, which is expected. Drinking plenty of water to dilute the urine may help. If there is a thread coming out of urinary channel, be careful not to accidently pull on this, as it is attached to the stent. The stent will most likely be removed in the office during a short procedure in which a scope is placed into the bladder, the stent is grasped and removed. At other times the stent may need to stay longer, either in preparation for other procedures or for other reasons. If it is to remain half-way, however, changes of the stent are required (about every 3-4 months). Diet You may resume your normal diet, but you may want to start slowly and avoid spicy food, caffeine, carbonated beverages and alcohol, especially if you have a stent. Your diet and fluid intake may make irritation from the stent worse. Activity You may resume your normal activities, although you should take it easy on the day of the procedure. Minimizing activity may decrease the back discomf (more content not included)... [facility] CHEMISTRYOrdered By: SYSTEM SYSTEM on 04-13-2024 Anion gap [Moles/Vol] 9 mmol/L Normal 6 - 16 mEq/L Remisol Chem Calcium [Mass/Vol] 9.7 mg/dL Normal 8.9 - 11. 1 mg/dL Remisol Chem Chloride [Moles/Vol] 108 mmol/L Normal 101 - 1 11 mmol/L Remisol Chem CO2 [Moles/Vol] 29 mmol/L Normal 21 - 31 mmol/L Remisol Chem Creatinine [Mass/Vol] 0.9 mg/dL Normal 0.5 - 1.3 mg/dL Remisol Chem eGFR 98 mL/min/1.73 m2 Normal >=59mL/min / 1.73 m2 Remisol Chem Glucose [Mass/Vol] 116 mg/dL Normal 55 - 199 mg/dL Remisol Chem Potassium [Moles/Vol] 4.4 mmol/L Normal 3.5 - 5.3 mmol/L Remisol Chem Sodium [Moles/Vol] 142 mmol/L Normal 135 - 145 mmol/L Remisol Chem Urea nitrogen [Mass/Vol] 16 mg/dL Normal 5 - 21 mg/dL Remisol Chem Urea nitrogen/Creatinine [Mass ratio] 18 mg/mg Normal 10 - 20 Remisol Chem COAGULATIONOrdered By: Skylar Ricardo on 04-13-2024 aPTT Coag (PPP) [Time] 30.5 s Normal 25.1 - 36.5 second(s) [facility] [place] [facility] Comment on above: Interpretive Data: Kika blue 15 days - 4 weeks 1 - 5 months 6 - 11 months 1 - 5 years 6 - 10 years 11 - 17 years PTT Mean: 35.4 (27.6-45.6) Mean: 33.5 (24.8-40.7) Mean: 32.4 (25.1-40.7) Mean: 31.6 (24.0-39.2) Mean: 31.6 (26.9-38.7) Mean: 31.0 (24.6-38.4) Pediatric Reference ranges were obtained from a study by Kuldip Angel et al. prepared from 1437 samples obtained at 7 different centers using the same coagulation reagent and instrumentation as [facility] [place]. Currently there are no coagulation studies available worldwide for children to 14 days, and no normal ranges. Heparin therapeutic range (represented by Anti-Factor Xa activity of 0.2 - 0.4 U/mL) corresponds to PTT of 56.6 - 109.0 sec. INR Coag (PPP) [Relative time] 0.94 {INR} Invalid Interpretation Code [facility] [place] [facility] Comment on above: Interpretive Data: I NR results are specifically intended to assess patients stabilized on long-term Anticoagulation therapy suggested INR s Less Intensive Anticoagulation 2.0 3.0 Conventional Range 3.0 4.5 PT Coag (PPP) [Time] 10.5 s Normal 9.4 - 1 2.5 second(s) [facility] [place] [facility] Comment on above: Interpretive Data: 1 5 days - 4 weeks 1 - 5 months 6 -11 months 1-5 years 6-10 years 11 -17 years Mean: 11.2 (9.5-12.6) Mean: 11.0 (9.7-12.8) Mean: 11.0 (9.8-13.0) Mean: 11.3 (9.9-13.4) Mean: 11.7 (10.0-14.6) Mean: 11.8 (10.0 - 14.1) Pediatric Reference ranges were obtained from a study by Kuldip Angel et al. prepared from 1437 samples obtained at 7 different centers using the same coagulation reagent and instrumentation as [facility] [place]. Currently there are no coagulation studies available worldwide for children to 14 days, and no normal ranges. HEMATOLOGYOrdered By: SYSTEM SYSTEM on 04-13-2024 Basophils/100 WBC (Bld) 0.6 % Normal 0.0 - 2.0 % [facility] Basophils/Leukocytes Auto (Bld) [Pure # fraction] 0.0 E9/L Normal 0.0 - 0.2 E9/L [facility] Eosinophils (Bld) [#/Vol] 0.1 E9/L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 #### C BC #### [facility] [address] [place] [address] Dr. Yasemin Austin GLYCOHEMOGLOBIN A1Con 2022 ADA RECOMMENDATION SEE BELOW Normal [facility] Comment on above: Result Comment: ADA RECOMMENDED LIMIT 4.0 - 6.0 ADA THERAPEUTIC TARGET < 7.0 ACTION SUGGESTED > 7.0 Performed By: #### A 1C #### [facility] [address] [place] [address] Dr. Yasemin Austin Glucose [Mass/Vol] 151 mg/dL Normal [facility] Comment on above: Performed By: #### A 1C #### [facility] [address] [address] [address] Yasemin Austin HbA1c (Bld) [Mass fraction] 6.9 % Critically high 4.5-6.2 [facility] Comment on above: Performed By: #### A 1C #### [facility] [address] [address] [address] Yasemin Austin LIPID PROFILEon 07-10-2022 CHOL-HDL RATIO NORM SEE BELOW Normal [facility] Comment on above: Result Comment: 3.3 - 4.4 LOW RISK 4.4 - 7.1 AVERAGE RISK 7.1 - 11.0 MODERATE RISK >11.0 HIGH RISK Performed By: #### L IPID, CMP #### [facility] [address] [address] [address] Yasemin Austin Cholesterol [Mass/Vol] 207 mg/dL Critically high <=200 [facility] Comment on above: Performed By: #### L IPID, CMP #### [facility] [address] [address] [address] Yasemin Austin Cholesterol in HDL [Mass/Vol] 38 mg/dL Critically low 40-60 [facility] Comment on above: Performed By: #### L IPID, CMP #### [facility] [address] [address] [address] Yasemin Austin Cholesterol in LDL [Mass/Vol] 137.0 mg/dL Normal [facility] Comment on above: Performed By: #### L IPID, CMP #### [facility] [address] [address] [address] Yasemin Austin Cholesterol.total/Cho lesterol in HDL [Mass ratio] 5.4 {ratio} Normal [facility] Comment on above: Performed By: #### L IPID, CMP #### [facility] [address] [address] [address] Yasemin Austin HDL NORMAL > or = 60 mg/dl - LO W CARDIOVASCULAR RISK <40 mg/dl - HIGH CARDIOVASCULAR RISK Normal [facility] Comment on above: Performed By: #### L IPID, CMP #### [facility] [address] [address] [address] Yasemin Austin LDL CALC NORMAL SEE BELOW Normal [facility] Comment on above: Result Comment: <100 mg/dl OPTIMAL 100 - 129 mg/dl NEAR OR ABOVE OPTIMAL 130 - 159 mg/dl BORDERLINE HIGH 160 - 189 mg/dl HIGH >190 mg/dl VERY HIGH Performed By: #### L IPID, CMP #### [facility] [address] [address] [address] Yasemin Austin Triglyceride [Mass/Vol] 160 mg/dL Critically high <=150 [facility] Comment on above: Performed By: #### L IPID, CMP #### [facility] [address] [address] [address] Yasemin Austin VLDL CALC 32.0 mg/dL Normal [facility] Comment on above: Performed By: #### L IPID, CMP #### [facility] [address] [address] [address] Yasemin Austin PROF 14(COMP METB)on 023 Albumin [Mass/Vol] 3.8 g/dL Normal 3.4-5.0 [facility] Comment on above: Performed By: #### L IPID, CMP ####[facility] [address] [address]Dr. Yasemin Austin Albumin/Globulin [Mass ratio] 1.2 {ratio} Normal [facility] Comment on above: Performed By: #### L IPID, CMP ####[facility] [address] [address]DrBenito Austin ALP [Catalytic activity/Vol] 36 U/L Critically low 46-116 [facility] Comment on above: Performed By: #### L IPID, CMP ####[facility] [address] [address]DrBenito Austin ALT [Catalytic activity/Vol] 37 U/L Normal 16-63 [facility] Comment on above: Performed By: #### L IPID, CMP ####[facility] [address] [place], [place] [address]Dr. Yasemin Austin Anion gap [Moles/Vol] 12.7 mmol/L Normal [facility] Comment on above: Performed By: #### L IPID, CMP ####[facility] [address] [place], [place] [address]Dr. Yasemin Austin AST [Catalytic activity/Vol] 25 U/L Normal 15-37 [facility] Comment on above: Performed By: #### L IPID, CMP ####[facility] [address] [place], [place] [address]Dr. Yasemin Austin Bilirubin [Mass/Vol] 0.7 mg/dL Normal 0.2-1.0 [facility] Comment on above: Performed By: #### L IPID, CMP ####[facility] [address] [place], [place] [address]Dr. Yasemin Austin Calcium [Mass/Vol] 8.8 mg/dL Normal 8.5-10.1 [facility] Comment on above: Performed By: #### L IPID, CMP ####[facility] [address] [place], [place] [address]Dr. Yasemin Austin Chloride [Moles/Vol] 105 mmol/L Normal 98-107 [facility] Comment on above: Performed By: #### L IPID, CMP ####[facility] [address] [place], [place] [address]Dr. Yasemin Austin CO2 [Moles/Vol] 27.5 mmol/L Normal 21.0-32.0 [facility] Comment on above: Performed By: #### L IPID, CMP ####[facility] [address] [place], [place] [address]Dr. Yasemin Austin Creatinine [Mass/Vol] 0.99 mg/dL Normal 0.70-1.30 [facility] Comment on above: Performed By: #### L IPID, CMP ####[facility] [address] [place], [place] [address]Dr. Yasemin Austin EGFR-AF DUTCH >60 Normal >=60 [facility] Comment on above: Performed By: #### L IPID, CMP ####[facility] [address] [address]Dr. Yasemin Austin EGFR-NON AF DUTCH >60 Normal >=60 [facility] Comment on above: Performed By: #### L IPID, CMP ####[facility] [address] [address]Dr. Yasemin Austin Globulin (S) [Mass/Vol] 3.3 g/dL Normal [facility] Comment on above: Performed By: #### L IPID, CMP ####[facility] [address] [place], [place] [address]Dr. Yasemin Austin Glucose [Mass/Vol] 145 mg/dL Critically high 74-106 [facility] Comment on above: Performed By: #### L IPID, CMP ####[facility] [address] [place], [place] [address]Dr. Yasemin Austin Potassium [Moles/Vol] 4.2 mmol/L Normal 3.5-5.1 [facility] Comment on above: Performed By: #### L IPID, CMP ####[facility] [address] [place], [place] [address]Dr. Yasemin Austin Protein [Mass/Vol] 7.1 g/dL Normal 6.4-8.2 [facility] Comment on above: Performed By: #### L IPID, CMP ####[facility] [address] [place], [place] [address]Dr. Yasemin Austin Sodium [Moles/Vol] 141 mmol/L Normal 136-145 [facility] Comment on above: Performed By: #### L IPID, CMP ####[facility] [address] [place], [place] [address]Dr. Yasemin Austin Urea nitrogen [Mass/Vol] 15.0 mg/dL Normal 7.0-18.0 [facility] Comment on above: Performed By: #### L IPID, CMP ####[facility] [address] [place], [place] [address]Dr. Yasemin Austin Urea nitrogen/Creatinine [Mass ratio] 15.2 mg/mg Normal [facility] Comment on above: Performed By: #### L IPID, CMP ####[facility] [address] [id number]. Yasemin Austin LIPID PROFILEon 03-15-2022 CHOL-HDL RATIO NORM SEE BELOW Normal [facility] Comment on above: Result Comment: 3.3 - 4.4 LOW RISK 4.4 - 7.1 AVERAGE RISK 7.1 - 11.0 MODERATE RISK >11.0 HIGH RISK Performed By: #### L IPID ####[facility] [address] [id number]. Yasemin Austin Cholesterol [Mass/Vol] 169 mg/dL Normal <=200 [facility] Comment on above: Performed By: #### L IPID ####[facility] [address] [id number]. Lianeliud Austin Cholesterol in HDL [Mass/Vol] 38 mg/dL Critically low 40-60 [facility] Comment on above: Performed By: #### L IPID ####[facility] [address] [id number]. Lianeliud Austin Cholesterol in LDL [Mass/Vol] 101.0 mg/dL Normal [facility] Comment on above: Performed By: #### L IPID ####[facility] [address] [id number]. Yasemin Austin Cholesterol.total/Cho lesterol in HDL [Mass ratio] 4.4 {ratio} Normal [facility] Comment on above: Performed By: #### L IPID ####[facility] [address] [id number]. Yasemin Austin HDL NORMAL > or = 60 mg/dl - LO W CARDIOVASCULAR RISK <40 mg/dl - HIGH CARDIOVASCULAR RISK Normal [facility] Comment on above: Performed By: #### L IPID ####[facility] [address] [phone]. Yasemin Austin LDL CALC NORMAL SEE BELOW Normal [facility] Comment on above: Result Comment: <100 mg/dl OPTIMAL 100 - 129 mg/dl NEAR OR ABOVE OPTIMAL 130 - 159 mg/dl BORDERLINE HIGH 160 - 189 mg/dl HIGH >190 mg/dl VERY HIGH Performed By: #### L IPID ####[facility] [address] [place], [place] [address]Ve. Yasemin Austin Triglyceride [Mass/Vol] 150 mg/dL Normal <=150 [facility] Comment on above: Performed By: #### L IPID ####[facility] [address] [place], [place] [address]Cz. Yasemin Austin VLDL CALC 30.0 mg/dL Normal [facility] Comment on above: Performed By: #### L IPID ####[facility] [address] [place], [place] [address]Hh. Yasemin Austin [place] cardiac event monitoron 0 03-12-2022 [place] cardiac event monitor [facility] [address] Cardiac Event Monitor Signed Patient: Jack Gonzales MR#: [id number] 2 : 1965 Acct:[id number] Age/Sex: 56 / M ADM Date: 01/23/22 Loc: Room: Type: [facility] Attending Dr: Agustin Murphy MD Copies to: [...] or atrial flutter. Transcribed By: MICHAEL 03/13/22 6128 Dictated By: Peter Vega MD 03/12/22 1729 Signed By: 03/18/22 1412 Normal [facility] Cholesterol [Mass/volume] in Serum or PlasmaOrdered By: Lilly Arzate on 01-20-2022 Cholesterol [Mass/Vol] 206 mg/dL 140-200 [facility] Comment on above: Chol less than 200 m g/dl low risk Chol 201-239 mg/dl borderline risk Chol 240 mg/dl and greater high risk Cholesterol in LDL Calc [Mas s/Vol]Ordered By: Lilly Arzate on 01-20-2022 Cholesterol in LDL [Mass/Vol] 142 mg/dL 0-100 [facility] Comment on above: LDL ATP III CLASSIFI CATION LDL less than 100 mg/dL Optimal LDL 100-129 mg/dL Near or above optimal LDL 130-159 mg/dL Borderline high LDL 160-189 mg/dL High LDL greater than 189 mg/dL Very high Cholesterol in VLDL Calc [Ma ss/Vol]Ordered By: Lilly Arzate on 01-20-2022 Cholesterol in VLDL [Mass/Vol] 31 mg/dL [facility] Lipid Panelon 01-20-2022 Cholesterol [Mass/Vol] 206 mg/dL High 140-200 [facility] Comment on above: Order Comment: TRACEY Clifford Result Comment: Chol less than 200 mg/dl low risk Chol 201-239 mg/dl borderline risk Chol 240 mg/dl and greater high risk Performed By: #### L IPID #### [facility] [address] [place] [address] [place] Cholesterol in HDL [Mass/Vol] 32 mg/dL Normal 29-71 [facility] Comment on above: Order Comment: TRACEY AC Y Result Comment: HDL CHOL ATP-III CLASSIFICATION Cardiovascular Risk HDL > or equal to 60 mg/dL LOW HDL < 40 mg/dL HIGH Performed By: #### L IPID #### [facility] [address] [place] [address] [place] Cholesterol.total/Cho lesterol in HDL [Mass ratio] 6.4 {ratio} Normal <5.0 [facility] Comment on above: Order Comment: TRACEY AC Y Result Comment: PERF ORMED BY: [facility] [address] [place] [address] PATHOLOGIST HEALTH SERVICES COORDINATOR EMIR DOBSON M.D. Performed By: #### L IPID #### [facility] [address] [place] [address] [place] LDL Cholesterol,Calculate d 142 mg/dL High 0-100 [facility] Comment on above: Order Comment: TRACEY Clifford Result Comment: LDL ATP III CLASSIFICATION LDL less than 100 mg/dL Optimal LDL 100-129 mg/dL Near or above optimal LDL 130-159 mg/dL Borderline high LDL 160-189 mg/dL High LDL greater than 189 mg/dL Very high Performed By: #### L IPID #### [facility] [address] [id number] [facility] Triglyceride w/Reflex 158 mg/dL High 35-149 [facility] Comment on above: Order Comment: TRACEY Clifford Result Comment: TRIG ATP III CLASSIFICATION TRIG less than 150 mg/dL Normal TRIG 150-199 mg/dL Borderline high TRIG 200-500 mg/dL High TRIG greater than 500 mg/dL Very high Standard traceable to the Center for Disease Conrtrol and Prevention (CDC) test method. Performed By: #### L IPID #### [facility] [address] [id number] [facility] VLDL CHOLESTEROL 31 mg/dL Normal [facility] Comment on above: Order Comment: TRACEY Clifford Performed By: #### L IPID #### [facility] [address] [id number] [facility] Serum or plasma high density lipoprotein (HDL) cholesterol measurementOrdered By: Lilly Arzate on 01-20-2022 Cholesterol in HDL [Mass/Vol] 32 mg/dL 29-71 [facility] Comment on above: HDL CHOL ATP-III CLA SSIFICATION Cardiovascular Risk HDL > or equal to 60 mg/dL LOW HDL < 40 mg/dL HIGH Serum or plasma total choles terol/high density lipoprotein (HDL) cholesterol mass ratOrdered By: Lilly Arzate on 01-20-2022 Cholesterol.total/Cho lesterol in HDL [Mass ratio] 6.4 {ratio} <5.0 [facility] Triglyceride [Mass/volume] i n Serum or PlasmaOrdered By: Lilly Arzate on 01-20-2022 Triglyceride [Mass/Vol] 158 mg/dL 35-149 [facility] Comment on above: TRIG ATP III CLASSIF ICATION TRIG less than 150 mg/dL Normal TRIG 150-199 mg/dL Borderline high TRIG 200-500 mg/dL High TRIG greater than 500 mg/dL Very high Standard traceable to the Center for Disease Conrtrol and Prevention (CDC) test method. Albumin [Mass/volume] in Ser um or PlasmaOrdered By: Agustin Murphy on 01-19-2022 Albumin [Mass/Vol] 3.4 g/dL 3.2-5.5 [facility] Basophils Auto (Bld) [#/Vol] Ordered By: Agustin Murphy on 01-19-2022 Basophils (Bld) [#/Vol] 0.0 10*3/uL 0.0-0.2 [facility] Basophils/100 WBC Auto (Bld) Ordered By: Agustin Murphy on 01-19-2022 Basophils/100 WBC (Bld) 0.7 % . [facility] Blood hemoglobin measurement (mass/volume)Ordered By: Agustin Murphy on 01-19-2022 Hemoglobin (Bld) [Mass/Vol] 15.3 g/dL 13.0-17.0 [facility] Blood leukocytes automated c ount (number/volume)Ordered By: Agustin Murpyh on 01-19-2022 WBC (Bld) [#/Vol] 6.6 10*3/uL 4.5-11.0 [facility] Complete Blood Count Auto Di ffon 01-19-2022 Basophils (Bld) [#/Vol] 0.0 10*3/uL Normal 0.0-0.2 [facility] Comment on above: Result Comment: PERF ORMED BY: [place] [address] PATHOLOGIST HEALTH SERVICES COORDINATOR EMIR DOBSON M.D. Performed By: #### C BC, CMP, PAB #### [facility] [address] [place] [address] Basophils/100 WBC (Bld) 0.7 % Normal . [facility] Comment on above: Performed By: #### C BC, CMP, PAB #### [facility] [address] [place] [address] [place] Eosinophils (Bld) [#/Vol] 0.2 10*3/uL Normal 0.0-0.45 [facility] Comment on above: Performed By: #### C BC, CMP, PAB #### [address] Eosinophils/100 WBC (Bld) 2.5 % Normal . [facility] Comment on above: Performed By: #### C BC, CMP, PAB #### [address] Erythrocyte distribution width (RBC) [Ratio] 13.1 % Normal 12.0-14.8 [facility] Comment on above: Performed By: #### C BC CMP, PAB #### [address] Hematocrit (Bld) [Volume fraction] 43.8 % Normal 38.8-50.0 [facility] Comment on above: Performed By: #### C BC, CMP, PAB #### [address] Hemoglobin (Bld) [Mass/Vol] 15.3 g/dL Normal 13.0-17.0 [facility] Comment on above: Performed By: #### C BC CMP, PAB #### [address] Lymphocytes (Bld) [#/Vol] 1.5 10*3/uL Normal 1.00-4.8 [facility] Comment on above: Performed By: #### C BC, CMP, PAB #### [address] Lymphocytes/100 WBC (Bld) 22.1 % Normal . [facility] Comment on above: Performed By: #### C BC, CMP, PAB #### [address] MCH (RBC) [Entitic mass] 32.3 pg Normal 27.5-35.2 [facility] Comment on above: Performed By: #### C BC, CMP, PAB #### [address] [place] [address] [place] MCV (RBC) [Entitic vol] 92.3 fL Normal 83.5-101 [facility] Comment on above: Performed By: #### C MARIAJOSE ALFORD, PAB #### [facility] [address] Mean Corpuscular HGB Conc 35.0 g/dL Normal 32.5-35.6 [facility] Comment on above: Performed By: #### C MARIAJOSE ALFORD, PAB #### [facility] [address] [place] [address] [place] Monocytes (Bld) [#/Vol] 0.8 10*3/uL Normal 0.0-0.8 [facility] Comment on above: Performed By: #### C MARIAJOSE ALFORD, PAB #### [facility] [address] Monocytes/100 WBC (Bld) 12.4 % Normal . [facility] Comment on above: Performed By: #### C MARIAJOSE ALFORD, PAB #### [facility] [address] [place] [address] [place] Neutrophils (Bld) [#/Vol] 4.1 10*3/uL Normal 1.8-7.7 [facility] Comment on above: Performed By: #### C MARIAJOSE ALFORD, PAB #### [place] [address] [place] Neutrophils/100 WBC (Bld) 62.3 % Normal . [facility] Comment on above: Performed By: #### C ROCÍO CMP, PAB #### [facility] [address] [place] [address] [place] Nucleated RBC/100 WBC (Bld) [Ratio] 0.1 % Normal 0-0.5 [facility] Comment on above: Performed By: #### C ROCÍO CMP, PAB #### [facility] [address] [place] [address] [place] Platelet mean volume (Bld) [Entitic vol] 8.0 fL Normal 6.6-10.1 [facility] Comment on above: Performed By: #### C ROCÍO CMP, PAB #### [facility] [address] [place] [address] Platelets (Bld) [#/Vol] 261 10*3/uL Normal 150-450 [facility] Comment on above: Performed By: #### C BC, CMP, PAB #### [facility] [address] [place] [address] RBC (Bld) [#/Vol] 4.74 10*6/uL Normal 3.90-5.60 [facility] Comment on above: Performed By: #### C BC, CMP, PAB #### [facility] [address] [place] [address] WBC (Bld) [#/Vol] 6.6 10*3/uL Normal 4.5-11.0 [facility] Comment on above: Performed By: #### C BC, CMP, PAB #### [address] Comprehensive Metabolic P[facility] [place] 01-19-2022 Albumin [Mass/Vol] 3.4 g/dL Normal 3.2-5.5 [facility] Comment on above: Performed By: #### C BC, CMP, PAB #### [address] Albumin/Globulin [Mass ratio] 1.1 {ratio} Normal [facility] Comment on above: Performed By: #### C BC, CMP, PAB #### [facility] [address] [place] [address] ALP [Catalytic activity/Vol] 31 U/L Low 32-92 [facility] Comment on above: Performed By: #### C BC, CMP, PAB #### [facility] [address] [place] [address] ALT [Catalytic activity/Vol] 44 U/L Normal 10-60 [facility] Comment on above: Performed By: #### C BC, CMP, PAB #### [facility] [address] [place] [address] AST [Catalytic activity/Vol] 34 U/L Normal 10-42 [facility] Comment on above: Performed By: #### C BC, CMP, PAB #### [facility] [address] [place] [address] [place] Bilirubin [Mass/Vol] 0.7 mg/dL Normal 0.3-1.2 [facility] Comment on above: Performed By: #### C BC, CMP, PAB #### [facility] [address] [place] [address] [place] Calcium [Mass/Vol] 8.9 mg/dL Normal 8.2-10.2 [facility] Comment on above: Performed By: #### C BC, CMP, PAB #### [facility] [address] [place] [address] [place] Chloride [Moles/Vol] 104 mmol/L Normal 95-114 [facility] Comment on above: Performed By: #### C BC, CMP, PAB #### [facility] [address] CO2 [Moles/Vol] 25.4 mmol/L Normal 22.0-30.0 [facility] Comment on above: Performed By: #### C BC, CMP, PAB #### [facility] [address] [place] [address] [place] Creatinine [Mass/Vol] 1.13 mg/dL Normal 0.64-1.27 [facility] Comment on above: Performed By: #### C BC, CMP, PAB #### [facility] [address] [place] [address] [place] Creatinine Clr Calc Pharmacy 88.22 [facility] Comment on above: Performed By: #### C BC, CMP, PAB #### [facility] [address] [place] [address] [place] Estimated GFR ( Elvia > 60 [facility] Comment on above: Result Comment: GFR estimated reference range: According to KDOQI guidelines, <60 ml/min/1.73m2 is sufficient to diagnose a patient with chronic kidney disease. Performed By: #### C BC, CMP, PAB #### [facility] [address] [place] [address] [place] Estimated GFR (Non- Am > 60 [facility] Comment on above: Performed By: #### C ROCÍO, CMP, PAB #### [facility] [address] Globulin (S) [Mass/Vol] 3.0 g/dL Normal [facility] Comment on above: Performed By: #### C BC, CMP, PAB #### [facility] [address] [place] [address] [place] Glucose [Mass/Vol] 121 mg/dL High 70-100 [facility] Comment on above: Result Comment: [facility] Glucose Reference Range is dependent on time and content of last meal. Glucose of more than 200 mg/dL in a nonstressed, ambulatory subject supports the diagnosis of Diabetes Mellitus. ADA recommended reference range Performed By: #### C MARIAJOSE ALFORD, PAB #### [facility] [address] Potassium [Moles/Vol] 4.6 mmol/L Normal 3.5-5.1 [facility] Comment on above: Performed By: #### C MARIAJOSE ALFORD, PAB #### [facility] [address] Protein [Mass/Vol] 6.4 g/dL Normal 6.1-7.9 [facility] Comment on above: Performed By: #### C ROCÍO CMP, PAB #### [facility] [address] Sodium [Moles/Vol] 138 mmol/L Normal 136-146 [facility] Comment on above: Performed By: #### C ROCÍO, CMP, PAB #### [facility] [address] [place] [address] [place] Urea nitrogen [Mass/Vol] 16 mg/dL Normal 9-23 [facility] Comment on above: Performed By: #### C ROCÍO, CMP, PAB #### [facility] [address] [place] [address] [place] Creatinine and Glomerular fi ltration rate.predicted panel (S/P/Bld)Ordered By: Agustin Murphy on 01-19-2022 Creatinine [Mass/Vol] 1.13 mg/dL 0.64-1.27 [facility] Eosinophils Auto (Bld) [#/Vo l]Ordered By: Agustin Murphy on 01-19-2022 Eosinophils (Bld) [#/Vol] 0.2 10*3/uL 0.0-0.45 [facility] Eosinophils/100 WBC Auto (Bl d)Ordered By: Agustin Murphy on 01-19-2022 Eosinophils/100 WBC (Bld) 2.5 % . [facility] Erythrocyte distribution wid th Auto (RBC) [Ratio]Ordered By: Agustin Murphy on 01-19-2022 Erythrocyte distribution width (RBC) [Ratio] 13.1 % 12.0-14.8 [facility] Estimated glomerular filtrat ion rate (GFR) non- AmericanOrdered By: Agustin Murphy on 01-19-2022 GFR/1.73 sq M.predicted among non-blacks MDRD (S/P/Bld) [Vol rate/Area] > 60 mL/Min [facility] Globulin Calc (S) [Mass/Vol] Ordered By: Agustin Murphy on 01-19-2022 Globulin (S) [Mass/Vol] 3.0 g/dL [facility] Hematocrit Auto (Bld) [Volum e fraction]Ordered By: Agustin Murphy on 01-19-2022 Hematocrit (Bld) [Volume fraction] 43.8 % 38.8-50.0 [facility] Laboratory - Hematology and Cell countsOrdered By: Agustin Murphy on 01-19-2022 Nucleated RBC/100 WBC (Bld) [Ratio] 0.1 % 0-0.5 [facility] Lymphocytes Auto (Bld) [#/Vo l]Ordered By: Agustin Murphy on 01-19-2022 Lymphocytes (Bld) [#/Vol] 1.5 10*3/uL 1.00-4.8 [facility] Lymphocytes/100 WBC Auto (Bl d)Ordered By: Agustin Murphy on 01-19-2022 Lymphocytes/100 WBC (Bld) 22.1 % . [facility] MCH Auto (RBC) [Entitic mass ]Ordered By: Agustin Murphy on 01-19-2022 MCH (RBC) [Entitic mass] 32.3 pg 27.5-35.2 [facility] MCHC Auto (RBC) [Mass/Vol]Or dered By: Agustin Murphy on 01-19-2022 MCHC (RBC) [Mass/Vol] 35.0 g/dL 32.5-35.6 [facility] MCV Auto (RBC) [Entitic vol] Ordered By: Agustin Murphy on 01-19-2022 MCV (RBC) [Entitic vol] 92.3 fL 83.5-101 [facility] Monocytes Auto (Bld) [#/Vol] Ordered By: Agustin Murphy on 01-19-2022 Monocytes (Bld) [#/Vol] 0.8 10*3/uL 0.0-0.8 [facility] Monocytes/100 WBC Auto (Bld) Ordered By: Agustin Murphy on 01-19-2022 Monocytes/100 WBC (Bld) 12.4 % . [facility] Neutrophils Auto (Bld) [#/Vo l]Ordered By: Agustin Murphy on 01-19-2022 Neutrophils (Bld) [#/Vol] 4.1 10*3/uL 1.8-7.7 [facility] Neutrophils/100 WBC Auto (Bl d)Ordered By: Agustin Murphy on 01-19-2022 Neutrophils/100 WBC (Bld) 62.3 % . [facility] No Panel InformationOrdered By: Agustin Murphy on 01-19-2022 Estimated GFR () > 60 mL/Min [facility] Comment on above: GFR estimated refere nce range: According to KDOQI guidelines, <60 ml/min/1.73m2 is sufficient to diagnose a patient with chronic kidney disease. Pharmacy Creatinine Clearance (Chem 88.22 [facility] Platelet mean volume Auto (B ld) [Entitic vol]Ordered By: Agustin Murphy on 01-19-2022 Platelet mean volume (Bld) [Entitic vol] 8.0 fL 6.6-10.1 [facility] Platelets Auto (Bld) [#/Vol] Ordered By: Agustin Murphy on 01-19-2022 Platelets (Bld) [#/Vol] 261 10*3/uL 150-450 [facility] Prealbuminon 01-19-2022 Prealbumin [Mass/Vol] 31.8 mg/dL Normal 18.0-38.0 [facility] Comment on above: Result Comment: PERF ORMED BY: [facility] [address] [place] [address] PATHOLOGIST HEALTH SERVICES COORDINATOR EMIR DOBSON M.D. Performed By: #### C BC, CMP, PAB #### [facility] [address] Protein [Mass/volume] in Ser um or PlasmaOrdered By: Agustin Murphy on 01-19-2022 Protein [Mass/Vol] 6.4 g/dL 6.1-7.9 [facility] RBC Auto (Bld) [#/Vol]Ordere d By: Agustin Murphy on 01-19-2022 RBC (Bld) [#/Vol] 4.74 10*6/uL 3.90-5.60 [facility] Serum or plasma alanine be otransferase measurement without P-5'-P (enzymatic activiOrdered By: Agustin Murphy on 01-19-2022 ALT No additional P-5'-P [Catalytic activity/Vol] 44 U/L 10-60 [facility] Serum or plasma albumin/glob ulin mass ratioOrdered By: Agustin Murphy on 01-19-2022 Albumin/Globulin [Mass ratio] 1.1 {ratio} [facility] Serum or plasma alkaline indira sphatase measurement (enzymatic activity/volume)Ordered By: Agustin Murphy on 01-19-2022 ALP [Catalytic activity/Vol] 31 U/L 32-92 [facility] Serum or plasma aspartate am inotransferase measurement (enzymatic activity/volume)Ordered By: Agustin Murphy on 01-19-2022 AST [Catalytic activity/Vol] 34 U/L 10-42 [facility] Serum or plasma calcium reyna urement (mass/volume)Ordered By: Agustin Murphy on 01-19-2022 Calcium [Mass/Vol] 8.9 mg/dL 8.2-10.2 [facility] Serum or plasma chloride francisco surement (moles/volume)Ordered By: Agustin Murphy on 01-19-2022 Chloride [Moles/Vol] 104 mmol/L 95-114 [facility] Serum or plasma glucose reyna urement (mass/volume)Ordered By: Agustin Murphy on 01-19-2022 Glucose [Mass/Vol] 121 mg/dL 70-100 [facility] Comment on above: ADA recommended refe rence range Random Glucose Reference Range is dependent on time and content of last meal. Glucose of more than 200 mg/dL in a nonstressed, ambulatory subject supports the diagnosis of Diabetes Mellitus. Serum or plasma potassium me asurement (moles/volume)Ordered By: Agustin Murphy on 01-19-2022 Potassium [Moles/Vol] 4.6 mmol/L 3.5-5.1 [facility] Serum or plasma prealbumin m easurement (mass/volume)Ordered By: Agustin Murphy on 01-19-2022 Prealbumin [Mass/Vol] 31.8 mg/dL 18.0-38.0 [facility] Serum or plasma sodium measu rement (moles/volume)Ordered By: Agustin Murphy on 01-19-2022 Sodium [Moles/Vol] 138 mmol/L 136-146 [facility] Serum or plasma total biliru bin measurement (mass/volume)Ordered By: Agustin Murphy on 01-19-2022 Bilirubin [Mass/Vol] 0.7 mg/dL 0.3-1.2 [facility] Serum or plasma total carbon dioxide measurement (moles/volume)Ordered By: Agustin Murphy on 01-19-2022 CO2 [Moles/Vol] 25.4 mmol/L 22.0-30.0 [facility] Serum or plasma urea nitroge n measurement (mass/volume)Ordered By: Agustin Murphy on 01-19-2022 Urea nitrogen [Mass/Vol] 16 mg/dL 9- [facility] CTA NECK WO W CONon 01-16-20 CTA [...] ANAYELI HALE Date: 2022-01-15 00:55 Normal [facility] CBC AUTO DIFFon 01-14-2022 BASO # 0.0 103/ul Normal 0.0-0.1 [facility] Comment on above: Performed By: #### C BC #### [facility] [address] [place] [address] Dr. Yasemin Austin Basophils/100 WBC (Bld) 0.2 % Normal 0.2-2.0 [facility] Comment on above: Performed By: #### C BC #### [facility] [address] [place] [address] Dr. Yasemin Austin EO # 0.0 103/ul Normal 0.0-0.7 [facility] Comment on above: Performed By: #### C BC #### [facility] [address] [place] [address] Dr. Yasemin Austin Eosinophils/100 WBC (Bld) 0.2 % Critically low 0.9-7.0 [facility] Comment on above: Performed By: #### C BC #### [facility] [address] [place] [address] Dr. Yasemin Austin Erythrocyte distribution width (RBC) [Ratio] 12.2 % Normal 11.0-15.0 [facility] Comment on above: Performed By: #### C BC #### [facility] [address] [place] [address] Dr. Yasemin Austin Hematocrit (Bld) [Volume fraction] 41.4 % Critically low 42.0-54.0 [facility] Comment on above: Performed By: #### C BC #### [facility] [address] [place] [address] Dr. Yasemin Austin Hemoglobin (Bld) [Mass/Vol] 14.5 g/dL Normal 14.0-18.0 [facility] Comment on above: Performed By: #### C BC #### [facility] [address] [place] [address] Dr. Yasemin Austin IG # 0.07 10e3/ul Critically high 0.00-0.03 [facility] Comment on above: Performed By: #### C BC #### [facility] [address] [place] [address] Dr. Yasemin Austin IG % 0.5 % Normal 0.0-0.5 [facility] Comment on above: Performed By: #### C BC #### [facility] [address] [place] [address] Dr. Yasemin Austin LYMPH # 0.8 103/ul Critically low 1.2-3.8 [facility] Comment on above: Performed By: #### C BC #### [facility] [address] [place] [address] Dr. Yasemin Austin Lymphocytes/100 WBC (Bld) 5.9 % Critically low 20.5-60.0 [facility] Comment on above: Performed By: #### C BC #### [facility] [address] [place] [address] Dr. Yasemin Austin MANUAL DIFF REQ NO Normal [facility] Comment on above: Performed By: #### C BC #### [facility] [address] [place] [address] Dr. Yasemin Austin MCH (RBC) [Entitic mass] 31.7 pg Normal 25.9-34.0 [facility] Comment on above: Performed By: #### C BC #### [facility] [address] [place] [address] Dr. Yasemin Austin MCHC (RBC) [Mass/Vol] 35.0 g/dL Normal 29.9-35.2 [facility] Comment on above: Performed By: #### C BC #### [facility] [address] [place] [address] Dr. Yasemin Austin MCV (RBC) [Entitic vol] 90.4 fL Normal 80.0-94.0 [facility] Comment on above: Performed By: #### C BC #### [facility] [address] [place] [address] Dr. Yasemin Austin MONO # 0.9 103/ul Critically high 0.3-0.8 [facility] Comment on above: Performed By: #### C BC #### [facility] [address] [place] [address] Dr. Yasemin Austin Monocytes/100 WBC (Bld) 6.4 % Normal 1.7-12.0 [facility] Comment on above: Performed By: #### C BC #### [facility] [address] [place] [address] Dr. Yasemin Austin NEUT # 11.6 103/ul Critically high 1.4-6.5 [facility] Comment on above: Performed By: #### C BC #### [facility] [address] [place] [address] Dr. Yasemin Austin Neutrophils/100 WBC (Bld) 86.8 % Critically high 43.0-75.0 [facility] Comment on above: Performed By: #### C BC #### [facility] [address] [place] [address] Dr. Yasemin Austin Platelet mean volume (Bld) [Entitic vol] 9.9 fL Normal 9.5-13.5 [facility] Comment on above: Performed By: #### C BC #### [facility] [address] [place] [address] Dr. Yasemin Austin PLT 279 103/ul Normal 150-450 [facility] Comment on above: Performed By: #### C BC #### [facility] [address] [place] [address] Dr. Yasemin Austin RBC 4.58 106/ul Critically low 4.70-6.10 [facility] Comment on above: Performed By: #### C BC #### [facility] [address] [place], [place] [id number] Dr. Yasemin Austin WBC 13.3 103/ul Critically high 4.0-11.0 [facility] Comment on above: Performed By: #### C BC #### [facility] [address] [place] [address] STROKE HEAD WOon [...] EDIL MCGHEE Date: 2022-01-14 20:20 Normal [facility] Covid-19 PCR (CVDTB)on 12-22 SARS-CoV-2 (COVID-19) RNA CARY+probe Ql (Unsp spec) Not detected Normal NOT DETECTED [facility] Comment on above: Result Comment: [...] for this test is supported by the [place] of Health and Human Service's declaration that [...] longer be used). Performed By: #### C [facility] #### [facility] [address] [place] [address] Dr. Yasemin Austin PROF 14(COMP METB)on 022 Albumin [Mass/Vol] 3.6 g/dL Normal 3.4-5.0 [facility] Comment on above: Performed By: #### C MP #### [facility] [address] [address] [address] Yasemin Austin Albumin/Globulin [Mass ratio] 1.1 {ratio} Normal [facility] Comment on above: Performed By: #### C MP #### [facility] [address] [address] [address] Yasemin Austin ALP [Catalytic activity/Vol] 37 U/L Critically low 46-116 [facility] Comment on above: Performed By: #### C MP #### [facility] [address] [address] [address] Yasemin Austin ALT [Catalytic activity/Vol] 70 U/L Critically high 16-63 [facility] Comment on above: Performed By: #### C MP #### [facility] [address] [place] [address] Dr. Yasemin Austin Anion gap [Moles/Vol] 16.9 mmol/L Normal [facility] Comment on above: Performed By: #### C MP #### [facility] [address] [place] [address] Dr. Yasemin Austin AST [Catalytic activity/Vol] 90 U/L Critically high 15-37 [facility] Comment on above: Performed By: #### C MP #### [facility] [address] [place] [address] Dr. Yasemin Austin Bilirubin [Mass/Vol] 0.9 mg/dL Normal 0.2-1.0 [facility] Comment on above: Performed By: #### C MP #### [facility] [address] [place] [address] Dr. Yasemin Austin Calcium [Mass/Vol] 8.8 mg/dL Normal 8.5-10.1 [facility] Comment on above: Performed By: #### C MP #### [facility] [address] [place] [address] Dr. Yasemin Austin Chloride [Moles/Vol] 106 mmol/L Normal 98-107 [facility] Comment on above: Performed By: #### C MP #### [facility] [address] [address] [address] Yasemin Austin CO2 [Moles/Vol] 23.5 mmol/L Normal 21.0-32.0 [facility] Comment on above: Performed By: #### C MP #### [facility] [address] [address] [address] Yasemin Austin Creatinine [Mass/Vol] 1.07 mg/dL Normal 0.70-1.30 [facility] Comment on above: Performed By: #### C MP #### [facility] [address] [address] [address] Yasemin Austin EGFR-AF DUTCH >60 Normal >=60 [facility] Comment on above: Performed By: #### C MP #### [facility] [address] [place] [address] Dr. Yasemin Austin EGFR-NON AF DUTCH >60 Normal >=60 [facility] Comment on above: Performed By: #### C MP #### [facility] [address] [address] [address] Yasemin Austin Globulin (S) [Mass/Vol] 3.4 g/dL Normal [facility] Comment on above: Performed By: #### C MP #### [facility] [address] [place] [address] Dr. Yasemin Austin Glucose [Mass/Vol] 172 mg/dL Critically high 74-106 [facility] Comment on above: Performed By: #### C MP #### [facility] [address] [place] [address] Dr. Yasemin Austin Potassium [Moles/Vol] 4.4 mmol/L Normal 3.5-5.1 [facility] Comment on above: Performed By: #### C MP #### [facility] [address] [place] [address] Dr. Yasemin Austin Protein [Mass/Vol] 7.0 g/dL Normal 6.4-8.2 [facility] Comment on above: Performed By: #### C MP #### [facility] [address] [place] [address] Dr. Yasemin Austin Sodium [Moles/Vol] 142 mmol/L Normal 136-145 [facility] Comment on above: Performed By: #### C MP #### [facility] [address] [place], [place] [address] Dr. Yasemin Austin Urea nitrogen [Mass/Vol] 14.0 mg/dL Normal 7.0-18.0 [facility] Comment on above: Performed By: #### C MP #### [facility] [address] [place], [place] [address] Dr. Yasemin Austin Urea nitrogen/Creatinine [Mass ratio] 13.1 mg/mg Normal [facility] Comment on above: Performed By: #### C MP #### [facility] [address] [place], [place] [address] Dr. Yasemin Austin PTTon 01-14-2022 aPTT Coag (Bld) [Time] 23.7 s Normal 22.3-36.2 [facility] Comment on above: Performed By: #### P TT ####[facility] [id number] [place], [place] [address]PvDr. Yasemin Austin Vital Signs Date Time Vital Sign Value Performing Clinician Facility 05-11-2024 09:05-0500 Body height 182.88 cm [facility] 05-11-2024 09:05-0500 Body mass index (BMI) [Ratio] 30.7 kg/m2 [facility] 05-11-2024 09:05-0500 Body weight 102.68 kg [facility] 05-11-2024 09:05-0500 Diastolic blood pressure 84 mm[Hg] [facility] 05-11-2024 09:05-0500 Heart rate 82 /min [facility] 05-11-2024 09:05-0500 Respiratory rate 12 /min [facility] 05-11-2024 09:05-0500 Systolic blood pressure 119 mm[Hg] [facility] 04-22-2024 14:00-0400 Heart rate 82 /min EDWIGE DANIEL [facility] 04-22-2024 14:00-0400 SaO2% (BldA) [Mass fraction] 99 % EDWIGE NKANSAH-AMANKRA [facility] 04-22-2024 14:00-0400 Systolic blood pressure 120 mm[Hg] EDWIGE NKANSAH-AMANKRA [facility] 04-22-2024 12:58-0400 Heart rate 80 /min EDWIGE NKANSAH-AMANKRA [facility] 04-22-2024 12:58-0400 SaO2% (BldA) [Mass fraction] 94 % EDWIGE NKANSAH-AMANKRA [facility] 04-22-2024 12:58-0400 Diastolic blood pressure 81 mm[Hg] EDWIGE NKANSAH-AMANKRA [facility] 04-22-2024 12:58-0400 Mean blood pressure 96 mm[Hg] EDWIGE NKANSAH-AMANKRA [facility] 04-22-2024 12:58-0400 Systolic blood pressure 127 mm[Hg] EDWIGE NKANSAH-AMANKRA [facility] 04-22-2024 12:58-0400 Respiratory rate 18 /min EDWIGE NKANSAH-AMANKRA [facility] 04-22-2024 12:50-0400 Body temperature 97.7 [degF] EDWIGE NKANSAH-AMANKRA [facility] 04-22-2024 12:50-0400 Diastolic blood pressure 80 mm[Hg] EDWIGE NKANSAH-AMANKRA [facility] 04-22-2024 12:50-0400 Heart rate 84 /min EDWIGE NKANSAH-AMANKRA [facility] 04-22-2024 12:50-0400 Mean blood pressure 95 mm[Hg] EDWIGE NKANSAH-AMANKRA [facility] 04-22-2024 12:50-0400 Respiratory rate 17 /min EDWIGE NKANSAH-AMANKRA [facility] 04-22-2024 12:50-0400 SaO2% (BldA) [Mass fraction] 95 % EDWIGE NKANSAH-AMANKRA [facility] 04-22-2024 12:50-0400 Systolic blood pressure 125 mm[Hg] EDWIGE NKANSAH-AMANKRA [facility] 04-22-2024 12:40-0400 Mean blood pressure 105 mm[Hg] EDWIGE NKANSAH-AMANKRA [facility] 04-22-2024 12:40-0400 Respiratory rate 15 /min EDWIGE NKANSAH-AMANKRA [facility] 04-22-2024 12:35-0400 Mean blood pressure 97 mm[Hg] EDWIGE NKANSAH-AMANKRA [facility] 04-22-2024 12:35-0400 Respiratory rate 14 /min EDWIGE NKANSAH-AMANKRA [facility] 04-22-2024 12:25-0400 Body temperature 97.52 [degF] EDWIGE NKANSAH-AMANKRA [facility] 04-22-2024 10:03-0400 Blood Pressure Location EDWIGE NKANSAH-AMANKRA [facility] 04-22-2024 10:03-0400 Mean blood pressure 94 mm[Hg] EDWIGE NKANSAH-AMANKRA [facility] 04-22-2024 10:01-0400 Respiratory rate 20 /min EDWIGE NKANSAH-AMANKRA [facility] 04-22-2024 10:01-0400 Body temperature 97.34 [degF] EDWIGE NKANSAH-AMANKRA [facility] 04-22-2024 10:01-0400 Blood Pressure Location EDWIGE NKANSAH-AMANKRA [facility] 04-22-2024 10:01-0400 Mean blood pressure 91 mm[Hg] EDWIGE NKANSAH-AMANKRA [facility] 04-13-2024 13:56-0400 Diastolic blood pressure 91 mm[Hg] EDWIGE NKANSAH-AMANKRA [facility] 04-13-2024 13:56-0400 Heart rate 76 /min EDWIGE NKANSAH-AMANKRA [facility] 04-13-2024 13:56-0400 Mean blood pressure 106 mm[Hg] EDWIGE NKANSAH-AMANKRA [facility] 04-13-2024 13:56-0400 Systolic blood pressure 136 mm[Hg] EDWIGE NKANSAH-AMANKRA [facility] 04-13-2024 13:56-0400 Heart rate 72 /min EDWIGE NKANSAH-AMANKRA [facility] 04-13-2024 13:56-0400 SaO2% (BldA) [Mass fraction] 98 % EDWIGE NKANSAH-AMANKRA [facility] 04-13-2024 13:55-0400 Body temperature 98.06 [degF] EDWIGE NKANSAH-AMANKRA [facility] 04-13-2024 13:55-0400 Blood Pressure Location EDWIGE NKANSAH-AMANKRA [facility] 04-13-2024 13:55-0400 Diastolic blood pressure 79 mm[Hg] EDWIGE NKANSAH-AMANKRA [facility] 04-13-2024 13:55-0400 Mean blood pressure 93 mm[Hg] EDWIGE NKANSAH-AMANKRA [facility] 04-13-2024 13:55-0400 Systolic blood pressure 120 mm[Hg] EDWIGE NKANSAH-AMANKRA [facility] 04-13-2024 13:55-0400 Respiratory rate 16 /min EDWIGE NKANSAH-AMANKRA [facility] 03-26-2024 08:18-0400 Diastolic blood pressure 88 mm[Hg] EDWIGE NKANSAH-AMANKRA [facility] 03-26-2024 08:18-0400 Heart rate 86 /min EDWIGE NKANSAH-AMANKRA [facility] 03-26-2024 08:18-0400 Respiratory rate 16 /min EDWIGE NKANSAH-AMANKRA [facility] 03-26-2024 08:18-0400 Systolic blood pressure 118 mm[Hg] EDWIGE NKANSAH-AMANKRA [facility] 02-27-2024 13:18-0400 Body height 182.88 cm [facility] 02-27-2024 13:18-0400 Body mass index (BMI) [Ratio] 31.4 kg/m2 [facility] 02-27-2024 13:18-0400 Body weight 105 kg [facility] 02-27-2024 13:18-0400 Diastolic blood pressure 82 mm[Hg] [facility] 02-27-2024 13:18-0400 Heart rate 90 /min [facility] 02-27-2024 13:18-0400 Respiratory rate 12 /min [facility] 02-27-2024 13:18-0400 Systolic blood pressure 131 mm[Hg] [facility] 11-07-2023 09:00-0400 Body height 182.88 cm [facility] 11-07-2023 09:00-0400 Body mass index (BMI) [Ratio] 31.2 kg/m2 [facility] 11-07-2023 09:00-0400 Body weight 104.55 kg [facility] 11-07-2023 09:00-0400 Diastolic blood pressure 69 mm[Hg] [facility] 11-07-2023 09:00-0400 Heart rate 81 /min [facility] 11-07-2023 09:00-0400 Respiratory rate 12 /min [facility] 11-07-2023 09:00-0400 Systolic blood pressure 108 mm[Hg] [facility] 06-02-2023 09:00-0500 Body height 182.88 cm Fabio Ball Other [employer] [facility] [employer] Other 06-02-2023 09:00-0500 Body mass index (BMI) [Ratio] 32.71 kg/m2 Fabio Ball Other [employer] [facility] [employer] Other 06-02-2023 09:00-0500 Body weight 109.41 kg Fabio Ball Other [employer] [facility] [employer] Other 06-02-2023 09:00-0500 Diastolic blood pressure 87 mm[Hg] Fabio Ball Other [employer] [facility] [employer] Other 06-02-2023 09:00-0500 Respiratory rate 12 /min Fabio Ball Other [facility] [employer] Other 06-02-2023 09:00-0500 Systolic blood pressure 131 mm[Hg] Fabio Ball Other [facility] [employer] Other 01-23-2022 11:49-0400 Body temperature 97.5 [degF] DO Fabio Ball Work Phone: [facility] 01-23-2022 11:49-0400 Diastolic blood pressure 75 mm[Hg] DO Fabio Ball Work Phone: [facility] 01-23-2022 11:49-0400 Heart rate 76 /min DO Fabio Ball Work Phone: [facility] 01-23-2022 11:49-0400 Respiratory rate 18 /min DO Fabio Ball Work Phone: [facility] 01-23-2022 11:49-0400 SaO2% (BldA) [Mass fraction] 95 % DO Fabio Ball Work Phone: [facility] 01-23-2022 11:49-0400 Systolic blood pressure 113 mm[Hg] DO Fabio Ball Work Phone: [facility] 01-21-2022 11:45-0400 Body height 182.88 cm DO Fabio Ball Work Phone: [facility] 01-19-2022 05:46-0400 Body weight 99.8 kg DO Fabio Ball Work Phone: [facility] Encounters Encounter Date Encounter Type Care Provider Facility Start: 05-28-2024 ambulatory EDWIGE HOLATONI Facility:[facility] Start: 05-11-2024 End: 05-11-2024 ambulatory [facility] Work Phone: Start: 05-11-2024 End: 05-11-2024 Patient encounter procedure [facility] Work Phone: Start: 05-05-2024 Non-patient / Non-visit [facility] Work Phone: Start: 04-22-2024 End: 04-22-2024 Admission to same day surgery center EDWIGE SIMENTAL-AMANKRA [facility] Start: 04-22-2024 End: 04-22-2024 ambulatory EDWIGE TOMREGISAH-AMANKRA Facility:[facility] Start: 04-13-2024 End: 04-13-2024 ambulatory EDWIGE NKREGISAH-AMANKRA Facility:[facility] Start: 04-13-2024 End: 04-13-2024 Patient encounter procedure EDWIGE TOMTIA-BRAYANANKRA [facility] Start: 03-26-2024 End: 03-26-2024 ambulatory MD EDWIGE DANIEL Facility:[facility] [place] Start: 03-26-2024 End: 03-26-2024 Lab Drop off EDWIGE SANTOSTIA-BRAYANANKRA [facility] Start: 03-26-2024 End: 03-26-2024 ambulatory MD EDWIGE DANIEL Facility:[facility] Start: 03-26-2024 End: 03-26-2024 Patient encounter procedure EDWIGE SANTOSTIA-BRAYANANKRA [facility] Start: 03-17-2024 ambulatory MD EDWIGE DANIEL Facility:[facility] Start: 02-27-2024 End: 02-27-2024 ambulatory [facility] Work Phone: Start: 02-27-2024 End: 02-27-[address] [facility] Work Phone: Start: 02-27-2024 End: 02-27-2024 ambulatory [facility] Work Phone: Start: 02-27-2024 End: 02-27-2024 Patient encounter procedure [facility] Work Phone: Start: 12-23-2023 Non-patient / Non-visit [facility] Work Phone: Start: 11-07-2023 End: 11-07-2023 ambulatory [facility] Work Phone: Start: 11-07-2023 End: 11-07-2023 Encounter for general adult medical examination without abnormal findings [facility] Start: 11-07-2023 End: 11-07-2023 Patient encounter procedure [facility] Work Phone: Start: 10-30-2023 End: 10-30-2023 ambulatory [facility] Work Phone: Start: 10-30-2023 End: 10-30-2023 Patient encounter procedure [facility] Work Phone: Start: 06-30-2023 End: 06-30-2023 ambulatory Fabio Ball Other Status Overload Other Start: 06-30-2023 Telephone encounter Fabio Ball [facility] Start: 06-05-2023 End: 06-05-2023 ambulatory Fabio Ball Other Status Overload Other Start: 06-05-2023 Telephone encounter Fabio Ball [facility] Start: 06-04-2023 End: 06-04-2023 ambulatory Fabio Ball Other Status Overload Other Start: 06-04-2023 Telephone encounter Fabio Ball [facility] Start: 06-02-2023 End: 06-02-2023 ambulatory Fabio Ball Other Status Overload Other Start: 06-02-2023 Encounter for genera l adult medical examination without abnormal findings Fabio Rubin [facility] Start: 06-02-2023 Office outpatient vi sit 25 minutes Fabio Rubin [facility] Start: 06-02-2023 Periodic preventive med est patient 40-64yrs Fabio Rubin [facility] Start: 01-09-2023 End: 01-09-2023 ambulatory Fabio Rubin Other Status Overload Other Start: 01-09-2023 Telephone encounter Fabio Rubin [facility] Start: 01-07-2023 End: 01-07-2023 ambulatory Fabio Rubin Other Status Overload Other Start: 01-07-2023 Telephone encounter Fabio Rubin [facility] Start: 10-07-2022 End: 10-08-[address] FABIO RUBIN Facility:[facility] Start: 10-04-2022 End: 10-04-2022 ambulatory Fabio Rubin Other Status Overload Other Start: 10-04-2022 Telephone encounter Fabio Rubin [facility] Start: 07-24-2022 End: 07-25-[address] FABIO RUBNI Facility:[facility] Start: 07-15-2022 Encounter for genera l adult medical examination without abnormal findings DR FABIO RUBIN [facility] Start: 07-12-2022 End: 07-12-2022 ambulatory Fabio Rubin Other Status Overload Other Start: 07-12-2022 Telephone encounter Fabio Rubin [facility] Start: 07-10-2022 End: 07-11-[address] FABIO RUBIN Facility:[facility] Start: 07-10-2022 End: 07-11-2022 Encounter for general adult medical examination without abnormal findings DR FABIO RUBIN Facility:[facility] Start: 03-15-2022 End: 03-16-[address] DOCTOR DIAZ Facility:[facility] Start: 03-14-2022 ambulatory Facility:U Start: 03-12-2022 ambulatory Facility:[id number] Start: 02-11-2022 End: 02-12-[address] FABIO RUBIN Facility:[facility] Start: 01-23-2022 End: 01-23-2022 ambulatory Fabio Renato Facility:[facility] Start: 01-23-2022 End: 01-23-2022 Patient encounter procedure DO Fabio Rubin Work Phone: [facility] Start: 01-18-2022 End: 01-23-2022 Evaluation and management of inpatient Fabio Rubin Facility:[facility] Start: 01-18-2022 End: 01-23-2022 Evaluation and management of inpatient DO Fabio Rubin Work Phone: [facility] Start: 01-14-2022 End: 01-15-[address] FABIO RUBIN Facility:[facility] Procedures Date Procedure Procedure Detail Performing Clinician Start: 04-22-2024 Cystoscopy EDWIGE WEBER-TONI Start: 07-10-[address] DOCTOR JARAMILLO Comment on above: Performed By: #### P [facility] #### [facility] [address] [place] [address] Dr. Yasemin Austin Back structure, excl uding neck (body structure) EDWIGENIRAJ SIMENTAL-AMANK Bone structure of mandible (body structure) EDWIGE GARCIAAH-AMANKRA History of hernia repair DOUGSandy MICHEL GARCIAAH-AMANKRA History of lumbar fusion KAYCEE IMCHEL GARCIAAH-AMANKRA Plan of Treatment Date Care Activity Detail Author Start: 01-23-2022 [facility] Work Phone: Start: 01-19-2022 [facility] Work Phone: Start: 01-18-2022 Hospital admission [facility] Work Phone: Start: 01-18-2022 Referral to clinical histology technologist [facility] Work Phone: Comprehensive metabo lic 2000 panel - Serum or Plasma [facility] Microalbumin [Mass/volume] in Urine [facility] Patient Education Stroke (DC) Am bulatory Cardiac Monitoring (DC) [facility] Work Phone: Patient referral [facility] Work Phone: [facility] Payers Date Payer Category Payer Self-pay 1965 Unknown [id number] [id number] 1965 Unknown [id number] 2.16.84 [id number] 1965 Unknown [id number] 2.16.84 [id number] 1965 Unknown [id number] 2.16.84 [id number] 1965 Unknown [id number] 2.16.84 [id number] 1964 Unknown [id number] 2.16.84 [id number] 1964 Unknown [id number] 2.16.84 [id number] 1964 Unknown [id number] 2.16.8 [id number] 1964 Unknown [id number] 2.16.8 [id number] 1964 Unknown [id number] 2.16.8 [id number] 1965 Unknown [id number] 2.16.8 [id number] 1960 Blue Cross Blue Shield [id number] 1960 Unknown [id number] Unknown [id number] 2.16.8 [id number] Unknown [id number] 2.16.8 [id number] Social History Date Type Detail Facility Start: 01-19-2022 End: 01-19-2022 Tobacco smoking status NHIS Smoker (finding) [facility] Start: 1965 Sex Assigned At Male F [facility] Sex Assigned At [facility] Start: 03-26-2024 Tobacco smoking status Never s moked tobacco (finding) [facility] Tobacco smoking status Never [facility] Tobacco Oral [facility] Tobacco smoking status No Smokin g Status Entered [facility] Start: 05-11-2024 Sex Male (finding) [facility] Medical Equipment Procedure Code Equipment Code Equipment Origin al Text Equipment Identifier Dates CYSTOSCOPY RETROGRADE STENT INSERTION BON RUBY, EDWIGE 04/22/24 Unknown Ureter R FDA Start: 04-22-2024 Goals Date Patient Goal Desired Activity /State Functional Status Date Assessment Result Facility 04-13-2024 Functional Status No [facility] 03-26-2024 Functional Status N/A [facility] 01-23-2022 Functional status Patient is Pro gressing Toward Baseline [facility] Work Phone: Mental Status Date Assessment Result Facility 01-23-2022 Cognitive function Cognitive Sta tus Patient is Progressing Toward Baseline [facility] Work Phone: Clinical Notes 01-19-2022 to 04-23-2024 Note Date & Type Note Facility 04-23-2024 Note Progress Note-Physic sindy Patient: JACK GONZALES Age: 59 years Sex: Male : 1965 Associated Diagnoses: None Author: MD Walden Ahmad F Postoperative Information Postoperative disposition: Postoperative disposition: To PACU. Optimetrix number: Optimetrix number [id number]. Anesthetic utilized: General. Health Status Allergies: Allergic Reactions (Selected) No Known Allergies Physical Examination VS/Measurements Pain Assessment: Controlled. General: Awake, Alert, Appropriate. Respiratory: Adequate air exchange. Cardiovascular: Stable, Normal peripheral perfusion. Neurological: Normal sensory function, Normal motor function. Assessment Anesthetic outcome No anesthetic complications noted. Adequate pain relief. able to void without difficulty, able to ambulate with assist, tolerating PO intake, no N/V. Review / Management Condition: Stable. Plan Transfer/Discharge: Transfer/Discharge Discharge when meets criteria ( To home ). [facility] Comment on above: Result Comment: Elec tronically Signed By: MD Win, Yaz Ramirez\.br\Date and Time Signed: 04/23/24 17:44 EDT 04-23-2024 Note Progress Note-Physic sindy Patient: JACK GONZALES Age: 59 years Sex: Male : 1965 Associated Diagnoses: None Author: MD Win, Yaz Ramirez Preoperative Information Time patient last ate or drank:=== (npo 8 hours) Anesthesia history: Patient history: No prior anesthesia problems. Re-evaluation prior to induction: Completed, Initial evaluation reviewed. Review of Systems Respiratory: No shortness of breath. Cardiovascular: No chest pain. Hematology/Lymphatics: No bruising tendency, No bleeding tendency. Health Status Allergies: Allergic Reactions (All) No Known Allergies Current medications: (Selected) Prescriptions Prescribed Cialis 5 mg oral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 Signed Patient: Jack Gonzales MR#: [id number] : 1965 Acct:[id number] Age/Sex: 56 / M Adm Date: 2 Loc: 5T Room: 1C9621-3 Type: ADM IN Attending Dr: Agustin Murphy MD Copies to: ~ Date of Service: 01/22/2022 Subjective Subjective Narrative: Mr. Gonzales is a 56 year old male Admitted to the rehabilitation unit with functional decline status post right cerebellar ischemic stroke. He presented to [facility] with dizziness and ataxia.? This started at 8:00 in the morning the day prior to admission.? At [place], CT head and CTA demonstrated possible left ICA dissection but no definitive ischemic lesion.? Given the CTA findings suggesting dissection, he was transferred to [facility].? MRI at [facility] demonstrated acute to subacute right cerebellar infarct.His NIH stroke scale at [facility] was 0.? TTE with EF 65% otherwise unremarkable, hemoglobin A1c 6.4.? I do not see lipid levels.? He is on secondary stroke prevention with aspirin and Plavix.? I do not see a statin ordered.? They did recommend outpatient sleep study and 30-day cardiac event monitor. As his symptoms were improving, there was no intervention performed.? Neurology at [place] felt his left carotid findings were possibly [...] mg 01/18/22 17:30 Bisacodyl 10 Mg Supp.Rect NC 01/18/23 17:29 DAILY PRN Constipation Clopidogrel Bisulfate 75 mg 01/19/22 09:00 01/21/22 09:27 Clopidogrel Bisulfate 75 Mg Tablet PO 01/19/23 08:59 75 mg DAILY EDVIN Administration Docusate Sodium 100 mg 01/18/22 17:30 Docusate 100 Mg Capsule PO 01/18/23 17:29 BID PRN Constipation Docusate Sodium 283 mg 01/18/22 17:30 Docusate Enema 283 Mg/5 Ml Enema NC 01/18/23 17:29 DAILY PRN Constipation Heparin Sodium [...] equipment? to enhance the patient's a functional sabianism Encourage deep breathing exercises and incentive spirometry [...] greater than 20 minutes for services, including kgek-de-oyau encounter with the patient, discussion of the case, plan of care, and exam; and jmbhzgr-be-mhsd activities, such as reviewing pertinent absence management consultant documentation, recent therapy notes, laboratory and radiology studies, and discussion of case with care team including nursing, case coordinator, and therapists. More than 50 % of time was spent on patient/family counseling or coordination ofcare. Documented By: Agustin Murphy MD 01/22/22947 Signed By: <Electronically signed by Agustin Murphy MD> 01/23/22940 [facility] Work Phone: 1(552) 632-223108-03-2022 Progress note Author Agustin Murphy [facility] January 23, 2022 9:30am Note Date/Time January 23, 2022 9:3 0am [facility] [address] [place] [address] Physiatry(Rehab) Progress Note Signed Patient: Jack Gonzales MR#: [id number] : 1965 Acct:[id number] Age/Sex: 56 / M Adm Date: 2 Loc: Room: [address] [place] [address] Type: ADM IN Attending Dr: Agustin Murphy MD Copies to: ~ Date of Service: 01/21/2022 Subjective Subjective Narrative: Mr. Gonzales is a 56 year old male Admitted to the rehabilitation unit with functional decline status post right cerebellar ischemic stroke. He presented to [facility] with dizziness and ataxia.? This started at 8:00 in the morning the day prior to admission.? At [place], CT head and CTA demonstrated possible left ICA dissection but no definitive ischemic lesion.? Given the CTA findings suggesting dissection, he was transferred to [facility].? MRI at [facility] demonstrated acute to subacute right cerebellar infarct.His NIH stroke scale at [facility] was 0.? TTE with EF 65% otherwise unremarkable, hemoglobin A1c 6.4.? I do not see lipid levels.? He is on secondary stroke prevention with aspirin and Plavix.? I do not see a statin ordered.? They did recommend outpatient sleep study and 30-day cardiac event monitor. As his symptoms were improving, there was no intervention performed.? Neurology at [place] felt his left carotid findings were possibly [...] 04:44 01/21/22 07:30 Narrative: General: cooperative, comfortable [facility] Head: normal to inspection Eyes General: appearance [...] mg 01/18/22 17:30 Bisacodyl 10 Mg Supp.Rect NC 01/18/23 17:29 DAILY PRN Constipation Clopidogrel Bisulfate 75 mg 01/19/22 09:00 01/21/22 09:27 Clopidogrel Bisulfate 75 Mg Tablet PO 01/19/23 08:59 75 mg DAILY EDVIN Administration Docusate Sodium 100 mg 01/18/22 17:30 Docusate 100 Mg Capsule PO 01/18/23 17:29 BID PRN Constipation Docusate Sodium 283 mg 01/18/22 17:30 Docusate Enema 283 Mg/5 Ml Enema NC 01/18/23 17:29 DAILY PRN Constipation Heparin Sodium [...] equipment? to enhance the patient's a functional sabianism Encourage deep breathing exercises and incentive spirometry [...] greater than 22 minutes for services, including otwm-xg-gazp encounter with the patient, discussion of the case, plan of care, and exam; and fgsxhtg-vg-zjyf activities, such as reviewing pertinent absence management consultant documentation, recenttherapy notes, laboratory and radiology studies, and discussion of case with care team including nursing, case coordinator, and therapists. More than 50 % of time was spent on patient/family counseling or coordination ofcare. Documented By: Agustin Murphy MD 01/21/22 1140 Signed By: <Electronically signed by Agustin Murphy MD> 01/23/22 0930 [facility] Work Phone: 1(241) 701-875308-03-2022 Discharge summary Author Agustin Murphy [facility] January 23, 2022 9:28am Note Date/Time January 23, 2022 9:2 8am [facility] [address] [place], [place] [id number] Discharge Summary Signed Patient: Jack Gonzales MR#: [id number] : 1965 Acct:[id number] Age/Sex: 56 / M Adm Date: 2 Loc: Room: [address] [place] [address]: Agustin Murphy MD Copies to: Fabio Rubin,DO Agustin Murphy MD~ Providers Date of Discharge: 01/23/22 Discharging Provider: Agustin Murphy Primary Care Provider: Fabio Rubin Consults: 01/18/22 17:30 Consult to Adult Hospitalist [...] right cerebellar ischemic stroke. He presented to [facility] with dizziness and ataxia.? This started at 8:00 in the morning the day prior to admission.? At [place], CT head and CTA demonstrated possible left ICA dissection but no definitive ischemic lesion.? Given the CTA findings suggesting dissection, he was transferred to [facility].? MRI at [facility] demonstrated acute to subacute right cerebellar infarct.His NIH stroke scale at [facility] was 0.? TTE with EF 65% otherwise unremarkable, hemoglobin A1c 6.4.? I do not see lipid levels.? He is on secondary stroke prevention with aspirin and Plavix.? I do not see a statin ordered.? They did recommend outpatient sleep study and 30-day cardiac event monitor. As his symptoms were improving, there was no intervention performed.? Neurology at [place] felt his left carotid findings were possibly [...] [Other] - 03/12/22 11:00 am () Fabio Rubin DO [Primary Care Provider] - 01/28/22 3:00 pm (DISCUSS REFERRAL FOR SLEEP STUDY OUTPATIENT. ) Documented By: Agustin Murphy MD 01/23/22925 Signed By: <Electronically signed by Agustin Murphy MD> 01/23/22927 [facility] Work Phone: 1(230) 764-973707-31-2022 Consult note Author Abelino Jacques [facility] January 20, 2022 7:41pm Note Date/Time January 19, 2022 3:00 pm [facility] [address] [place] [address] Hospitalist Consult Note Signed Patient: Jack Gonzales MR#: [id number] : 1965 Acct:[id number] Age/Sex: 56 / M Adm Date: 2 Loc: Room: [address] [place] [address] Type: ADM IN Attending Dr: Agustin Murphy MD Copies to: Fabio Rubin,MD Abelino Grover DO Lynn A Stackhouse, ANP-BC~ HPI DATE OF CONSULTATION: 01/19/22 REQUESTING PROVIDER: Agustin Murphy Consult Narrative Reason for Consult: CKD, GERD HPI: 56-year-old male past medical history significant for CKD, GERD. Presented to [place] emergency department with dizziness and ataxia. Imaging demonstrated possible left ICA dissection but no definitive ischemic lesion. He was transferred to [facility] and MRI there demonstrated acute to [...] benefit from further rehab, subsequently transferred to [facility] rehab unit January 18. Hospitalist team [...] negative unless noted below or in HPI [facility] Attestation Statement: The following information was validated [...] mg 01/18/22 17:30 Bisacodyl 10 Mg Supp.Rect NC 01/18/23 17:29 DAILY PRN Constipation Clopidogrel Bisulfate 75 mg 01/19/22 09:00 01/19/22 09:34 Clopidogrel Bisulfate 75 Mg Tablet PO 01/19/23 08:59 75 mg DAILY EDVIN Administration Docusate Sodium 100 mg 01/18/22 17:30 Docusate 100 Mg Capsule PO 01/18/23 17:29 BID PRN Constipation Docusate Sodium 283 mg 01/18/22 17:30 Docusate Enema 283 Mg/5 Ml Enema NC 01/18/23 17:29 DAILY PRN Constipation Heparin Sodium [...] % (Auto) 62.3, Lymph % (Auto) 22.1, Angelina % (Auto) 12.4, Eos % (Auto) 2.5, Baso % (Auto) 0.7, Neut # (Auto) 4.1, Lymph # (Auto) 1.5, Angelina # (Auto) 0.8, Eos# (Auto) 0.2, Baso [...] 2 1500 Signed By: <Electronically signed by ANP-ROCÍO Arzate> 01/19/22 1811 <Electronically signed by Abelino Jacques DO> 01/20/22 194 [facility] Work Phone: 1(623) 670-627107-30-2022 History and physical note Author Agustin Murphy [facility] January 19, 2022 10:44am Note Date/Time January 18, 2022 9:00 pm [facility] [address] [place] [address] Physiatry (Rehab) H&P Signed Patient: Jack Gonzales MR#: [id number] : 1965 Acct:[id number] Age/Sex: 56 / M Adm Date: 2 Loc: Room: [address] [place] [address] Type: ADM IN Attending Dr: Agustin Murphy MD Copies to: Fabio Rubin,DO Agustin Murphy MD~ Date of Service: 01/19/2022 HPI The patient was seen and examined on: 01/19/22 Chief complaint: stroke History of Present Illness: Mr. Goznales is a 56 year old male Admitted to the rehabilitation unit with functional decline status post right cerebellar ischemic stroke. He presented to [facility] with dizziness and ataxia. This started at 8:00 in the morning the day prior to admission. At [place], CT head and CTA demonstrated possible left ICA dissection but no definitive ischemic lesion. Given the CTA findings suggesting dissection, he was transferred to [facility]. MRI at [facility] demonstrated acute to subacute right cerebellar infarct.His NIH stroke scale at [facility] was 0. TTE with EF 65% otherwise unremarkable, hemoglobin A1c 6.4. I do not see lipid levels. He is on secondary stroke prevention with aspirin and Plavix. I do not see a statin ordered. They did recommend outpatient sleep study and 30-day cardiac event monitor. As his symptoms were improving, there was no intervention performed. Neurology at [place] felt his left carotid findings were possibly unrelated to his current symptoms. He was discharged to rehabilitation unit in stable condition. Today reports just poor coordination and feeling wobbly . 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 [facility] Attestation Statement: The following information was validated [...] Bisacodyl (Bisacodyl 10 Mg Supp.Rect) 10 mg NC DAILY PRN PRN Reason: Constipation Stop: 01/18/23 17:29 Clopidogrel Bisulfate (Clopidogrel Bisulfate 75 Mg Tablet) 75 mg PO DAILY EDVIN Stop: 01/19/23 08:59 Docusate Sodium (Docusate 100 Mg Capsule) 100 mg PO BID PRN PRN Reason: Constipation Stop: 01/18/23 17:29 Docusate Sodium (Docusate Enema 283 Mg/5 Ml Enema) 283 mg NC DAILY PRN PRN Reason: Constipation Stop: 01/18/23 [...] 2 weeks Expected Discharge Destination: Home Rehabilitation [facility]: 01.1 Primary Diagnosis: Right cerebellar stroke To have patient become more independent and to return home. Medical/ Functional Prognosis: Good Anticipated Functional Outcomes/Goals and Interventions: 1.Therapy Functional Outcome/Goal: Anticipate Independent for bed mobility Anticipated interventions: Physician management, PT, OT, HEATING WORKER, , Dietitian, RehabNursing, Case management 2. Therapy Functional Outcome/Goal: Anticipate Independent for transfers Anticipated interventions: Physician management, PT, OT, HEATING WORKER, Case management, Dietitian, Rehab Nursing 3. Therapy Functional Outcome/Goal: Anticipate Independent for ambulation Anticipated interventions: Physician management, PT, OT, HEATING WORKER Case management, Dietitian, Rehab Nursing 4.Therapy Functional Outcome/Goal: Anticipate Independent for self-care Anticipated interventions: Physician management, PT, OT, HEATING WORKER, Case management, Dietitian, Rehab Nursing 5.Therapy Functional Outcome/Goal: Anticipate Independent for swallowingAnd functional communication Anticipated interventions: Physician management, PT, OT, HEATING WORKER, Case management, Dietitian, Rehab Nursing Required Therapy [...] additional therapy on as needed basis. Comments: HEATING WORKER to evaluate and treat patient?s cognition, language and communication skills, assess swallow function. Other: Dietitian, Rehab nursing, Wound, P&O, Neuropsychology as needed RATIONALE FOR IRF ADMISSION: Patient has both medical and functional complexities that require 24 hour daily monitoring and intervention from Procurement Representative as well as other consulting physicians including internal medicine as well as 24 hour daily grain merchandising manager nursing - for medical safe / optimal management. Patient requires interdisciplinary therapy team rehabilitation care including OT, PT, HEATING WORKER, SW, Psychology, Rehab Nursing, requires and can [...] equipment to enhance the patient's a functional sabianism Encourage deep breathing exercises and incentive spirometry [...] greater than 76 minutes for services, including book-ej-tbpe encounter with the patient, discussion of the case, plan of care, and exam; and qykutju-[id number] activities, such as reviewing pertinent absence management consultant documentation, recent therapy notes, laboratory and radiology studies, and discussion of case with care team including nursing, case coordinator, and therapists. More than 50 % of time was spent on patient/family counseling or coordination ofcare. Documented By: Agustin Murphy MD 01/19/22 104 Signed By: <Electronically signed by Agustin Murphy MD> 01/19/22 1044 [facility] Work Phone: Evaluation + Plan note No data available for this section [facility] Evaluation + Plan note Future Appointments Appointment Date:04/22/2024 12:00:00 PM Scheduled Provider: Location:[facility] Appointment Type:Surgery FT [facility] Evaluation note* Diagnosis Onset Date Resolution Status Cerebellar stroke, acute acu te Dizziness acute DVT prophylaxis acute Hyperlipidemia acute Impaired mobility and activities of daily living acute [facility] Work Phone: Evaluation noteNo InformationNort [facility] Other Evaluation noteNo assessment information available [facility] Work Phone: Evaluation note* Diagnosis Onset Date Resolution Status Cerebral atherosclerosis acu te GERD (gastroesophageal reflux disease) acute Hypercholesterolemia acute Obesity acute Obstructive sleep apnea acut e Type 2 diabetes mellitus with hyperglycemia acute Wellness examination noneact wesley [facility] Work Phone: Hismkjy general Narrative - Reported* Type Description Date Medical History obstructive sleep apnea Medical History obesity Medical History hyperlipidemia Medical History 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 Medical History recurrent left inguinal hernia Surgical History diagnostic laparoscopy with ing uinal hernia repair Surgical History B/L herniorrhaphy Surgical History T12-L2 lumbar fusion Hospitalization History see surgical history Status Overload Other History general Narrative - Reported* Type Description Date Medical History obstructive sleep apnea Medical History obesity Medical History hyperlipidemia Medical History 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 Medical History recurrent left inguinal hernia Medical History Type II DM Surgical History diagnostic laparoscopy with ing uinal hernia repair Surgical History B/L herniorrhaphy Surgical History T12-L2 lumbar fusion Hospitalization History see surgical history Status Overload [facility] Work Phone[facility] Work Phone: Hospital Discharge instructions No data available for this section [facility] Progress note No data available for this section [facility] Chief Complaint and Reason for Visit Chief [...] examination Chief Complaint UA, frequency, dark urine Chief Complaint Admit Date UA, frequency, dark urine February 27, 2024 1:04pm CC Adult Risk Stratification May 052023 11:46am 6 month f/u May 11, 2024 8:49am Reason for Visit Admit Date Benign prostatic hyperplasia with lower urinary tract symptoms February 27, 2024 1:04pm Acute prostatitis February 27, 2024 1:04pm Hematuria February 27, 2024 1:04pm Cerebral atherosclerosis May 11, 2024 8:49am GERD (gastroesophageal reflux disease) N ovember 2023 8:49am Hypercholesterolemia May 11, 2024 8:49am Nephrolithiasis May 11, 2024 8:49am Obesity May 11, 2024 8:49am Obstructive sleep apnea May 11, 2 024 8:49am Type 2 diabetes mellitus with hyperglyce williams May 11, 2024 8:49am Family History No Family History Records Found [...] Time Advance Directives No January 18 1:41pm Advance Directive Response Recorded Date/ Time Advance Directives No January 18 12:41pm Summary Purpose Additional Source Comments Care Teams (unrecognized sec tion and content) Team Status: Active Member Role Status Dates Fabio Rubin DO Primary Care Provider Active Team Status: Inactive Member Role Status Dates Fabio Rubin DO Primary Care Provide r, Attending Provider Active Start: February 27, 2024 End: February 27, 2024 Team Status: Active Member Role Status Dates Fabio Rubin DO Primary Care Provide r, Attending Provider Active Start: May 05, 2024 Team Status: Inactive Member Role Status Dates Fabio Rubin DO Primary Care Provide r, Attending Provider Active Start: May 11, 2024 End: May 11, 2024 Team Status: Active Member Role Status Dates Fabio Rubin DO Primary Care Provide r, Attending Provider Active Start: December 23, 2023 Team Status: Inactive Member Role Status Dates Fabio Rubin DO Primary Care Provider Active Agustin Murphy [...] MD Other Provider Active Jessica Perez , SHAMPOO PERSON Other Provider Active Dawson Marinelli , DO [...] MD Other Provider Active Ester Martin , PROCUREMENT REPRESENTATIVE-C Other Provider Active Lloyd Ambrose MD Other Provider Active Ryan Medina MD Other Provider Active Amirah Salas MD Other Provider Active Yomi Schuler MD Other Provider Active Aniyah Edmonds , DO Other Provider Active Napoleon Kaiser MD Other Provider Active Rod Ruano , DO Other Provider Active Bethany Potts , SHAMPOO PERSON Other Provider Active Todd Pelletier , DO Other Provider Active Laila Vargas MD Other Provider Active Ginna Patel , BUZZ Other Provider Active Team Status: Inactive Member Role Status Dates Fabio Rubin DO Primary Care Provider Active Agustin Murphy MD Attending Provider Active Team Status: Inactive Member Role Status Dates Fabio Rubin DO Primary Care Provide r, Attending Provider Active Start: October 30, 2023 End: October 30, 2023 Team Status: Inactive Member Role Status Dates Fabio Rubin DO Primary Care Provide r, Attending Provider Active Start: November 07, 2023 End: November 07, 2023 (unrecognized sect ion and content) No Status Records FoundNo Status Records FoundNo Status Records FoundNo Status Records FoundNo Status Records FoundNo Status Records FoundNo Status Records Found INFORMATION SOURCE (unrecogn ized section and content) DATE CREATED AUTHOR 07/04/2022 [facility] DATE CREATED AUTHOR AUTHOR'S ORGANIZ ATION 07/27/2022 [facility] DATE CREATED AUTHOR AUTHOR'S ORGANIZ ATION 10/13/2022 [facility] DATE CREATED AUTHOR AUTHOR'S ORGANIZ ATION 03/28/2024 [facility] DATE CREATED AUTHOR AUTHOR'S ORGANIZ ATION 03/29/2024 [facility] DATE CREATED AUTHOR AUTHOR'S ORGANIZ ATION 04/04/2024 [facility] DATE CREATED AUTHOR AUTHOR'S ORGANIZ ATION 05/19/2024 [facility] REASON FOR VISIT (unrecogniz ed section and [...] BE BASED ON THE PRIMARY CLINICAL RECORDS. thereNow [facility]. provides no warranty or guarantee of the accuracy or completeness of information in this document.
--- NOTE | 2024-05-24 07:04 | US_ITS ---
The [address] [address] Patient Name: JUSTIN EL MRN: [id number] date: 1965 Sex: M Assigned Patient Location: [place] Current Patient Location: Accession/Order Number: [id number] Exam Date: 05/24/2024 07:15 Report Date: 05/25/2024 04:59 At the request of: EDWIGE CROCKETT Procedure: US renal BI EXAMINATION: US renal BI HISTORY: n20.0 kidney stones COMPARISON: CT abdomen pelvis 03/11/2024 TECHNIQUE: Ultrasound examination was performed of the kidneys and urinary bladder. FINDINGS: RIGHT KIDNEY: Contains multiple nonobstructing stones, largest is 7 mm. Normal parenchymal echogenicity. Color Doppler demonstrates blood flow within the kidney. Kidney: 10.5 x 6.1 x 6.1 cm LEFT KIDNEY: Mild hydronephrosis versus parapelvic cysts. Contains multiple nonobstructing stones, largest is 9 mm. Normal parenchymal echogenicity. Color Doppler demonstrates blood flow within the kidney. Kidney: 13.0 x 5.2 x 5.5 cm BLADDER: No visible wall thickening, mass, or calculi. US/US renal BI IMPRESSION: 1. Bilateral nonobstructing nephrolithiasis. 2. Mild left hydronephrosis versus parapelvic cysts. Similar to less than seen on prior CT study. Electronically authenticated by: MARGARET DA SILVA Date: 05/25/2024 04:59
--- NOTE | 2024-05-24 07:04 | XR_ITS ---
The [address] [address] Patient Name: JUSTIN EL MRN: [id number] date: 1965 Sex: M Assigned Patient Location: US Current Patient Location: US Accession/Order Number: [id number] Exam Date: 05/24/2024 07:45 Report Date: 05/25/2024 06:21 At the request of: EDWIGE CROCKETT Procedure: XR abdomen 1V EXAMINATION: XR abdomen 1V HISTORY: N20.0 kidney stones COMPARISON: XR abdomen 03/24/2024 FINDINGS: KIDNEY/URETER - RIGHT: Stable small calcification within superior pole. KIDNEY/URETER - LEFT: Several small calcifications within kidney. PELVIS: Stable pelvic calcifications favoring phleboliths. BOWEL: No abnormal dilation or deviation. BONES: Prior mechanical fusion of the upper lumbar spine. OTHER: Negative. No abnormal gaseous collections. XR/XR abdomen 1V IMPRESSION: 1. Grossly stable bilateral nephrolithiasis. Electronically authenticated by: MARGARET DA SILVA Date: 05/25/2024 06:21
== END 2024-05-24 07:01 | disposition home or self-care (01) ==
LOC: US 07:01
PROVIDERS: PCP Internal Medicine; Visit Provider Student in an Organized Health Care Education/Training Program
DX: N20.0 Calculus of kidney (principal); N13.30 Unspecified hydronephrosis
CPT/HCPCS: 74018; 76775